=== PATIENT | male | born 1955 | race Caucasian/White ===

== ENCOUNTER 2019-05-24 20:25 | Inpatient (IN) | payer SELFPAY ==
[~2019-05-24 20:25] MED LIST: Iopamidol-370 76% 500 ML 1 ML ONE
[2019-05-24] MEDS ORDERED: Norepinephrine 8 MG/0.9% NS 250 ML ONE (20:43)
[2019-05-24 20:59] LABS: Hemoglobin 15.1 g/dL (14.0-18.0); Mean Corpuscular Hemoglobin 28.6 pg (27.0-31.0); Mean Corpuscular Volume 89.3 fL (78.0-98.0); Mean Platelet Volume 9.3 fL (7.4-10.4); Platelet Count 142 thou/uL (130-400); RBC Distribution Width 13.2 % (11.5-14.5); Red Blood Cell (RBC) Count 5.28 mill/uL (4.70-6.10)
--- NOTE | 2019-05-24 20:59 | RAD ---
PORTABLE CHEST ONE VIEW: 05/24/19 at 8:16 p.m. HISTORY: Respiratory failure. FINDINGS/IMPRESSION: There is an endotracheal tube with tip at the level of the clavicular heads. There is a nasogastric t ube which can be traced into the stomach. The heart is enlarged. No lobar consolidation, pneumothorac es, deepthi pulmonary edema or large effusions are seen. POS: OFF
[2019-05-24 21:03] LABS: INR-International Normal Ratio 1.3
[2019-05-24 21:15] LABS: Band 2 % (5-11); Lymphocytes 67 % (21-51); MDiff Complete? YES; Monocytes 4 % (0-10); Neutrophil 27 % (42-75); Platelet Morphology Comment Appears Adequate; RBC Morphology Normal
[2019-05-24 21:16] LABS: ALT (SGPT) 474 U/L (8-55); AST (SGOT) 227 U/L (5-34); Albumin 4.1 g/dL (3.4-4.8); Alkaline Phosphatase 66 U/L (40-110); Anion Gap 28 mmol/L (10-20); BUN (Urea Nitrogen) 21 mg/dL (8.4-25.7); Bilirubin, Total 0.5 mg/dL (0.2-1.2); CK (CPK) 107 U/L (30-200); Calc. Creatinine Clearance 0 mL/min (70-130); Calcium 8.7 mg/dL (7.8-10.44); Carbon Dioxide 16 mmol/L (23-31); Chloride 98 mmol/L (98-107); Estimated GFR-MDRD 33; Globulin 2.7 g/dL (2.4-3.5); Glucose 380 mg/dL (80-115); Magnesium 3.1 mg/dL (1.6-2.6); Potassium 3.4 mmol/L (3.5-5.1); Protein, Total 6.8 g/dL (5.8-8.1); Sodium 139 mmol/L (136-145)
[2019-05-24 21:24] LABS: Phosphorus 9.1 mg/dL (2.3-4.7)
[2019-05-24 21:33] LABS: Actual Bicarbonate (HCO3a) 15.7 mEq/L (22-28); Analyzer IN Cardio ER; Base Excess (BEa) -11.2 mEq/L (-2.0 to +3.0); CO2 Tension 38.5 mmHg (35.0-45.0); Calcium, Ionized 1.09 mmol/L (1.12-1.30); Carboxyhemoglobin (COHb) 0.6 gm% (0.0-3.0); Hemoglobin (Hb) 15.6 g/dL (14.0-18.0); O2 Tension (PaO2) 63.2 mmHg (> 80.0); Potassium - ABG Lab 4.55 mmol/L (3.70-5.30)
[2019-05-24 21:41] LABS: CKMB 3.5 ng/mL (0-6.6)
[2019-05-24 21:43] LABS: Bacteria/HPF 2+ HPF (None Seen); Bilirubin Negative (Negative); Blood, Urine 2+ (Negative); Clarity Extra Turbid (Clear); Glucose, Urine (Dipstick) Normal (Negative); Leukocyte 25 Leu/uL (Negative); Nitrite Negative (Negative); Protein, Urine (Dipstick) 100 mg/dL (Neg-Trace); Squamous Epithelial 0-3 HPF (0-3); Urobilinogen Normal mg/dL (Less than 2); WBC/HPF 21-50 HPF (0-3)
[2019-05-24] MEDS ORDERED: EPINEPHrine 1 MG, Admixture Fee 1 EACH in Dextrose 5% in Water 250 ML IVPB SCH (21:45)
[2019-05-24 21:47] LABS: Sperm/HPF 4+ HPF (None Seen)
[2019-05-24 21:48] LABS: Renal Epithelial 0-3 HPF (None Seen)
[2019-05-24 21:49] LABS: Puncture Site RRA; pH, Arterial 7.23 (7.35-7.45)
[2019-05-24 21:50] LABS: ALV-art Gradient 601.675 (0-20)
--- NOTE | 2019-05-24 22:16 | CT ---
CT BRAIN WITHOUT CONTRAST: HISTORY: Syncope. Cardiac arrest FINDINGS: No evidence of acute infarct, hemorrhage, midline shift or abnormal extra-axial fluid collections is seen. There are changes of chronic small vessel ischemic disease, old infarction in the left medial temporal lobe and old lacunar infarction in the left basal ganglia. The ventricular size is appropria te and the basilar cisterns are patent. The bony calvarium is intact. There is mucosal disease in the paranasal sinuses. IMPRESSION: No CT evidence of acute intracranial process.
--- NOTE | 2019-05-24 22:29 | CT ---
CT PULMONARY ANGIOGRAM WITH IV CONTRAST AND 3D POSTPROCESSIN05/24/19 HISTORY: Dyspnea, cardiac arrest, respiratory failure. FINDINGS: There is good contrast opacification of the pulmonary arterial vasculature without filling defects to suggest pulmonary embolism. There are vascular calcifications without evidence of dilatation of the thoracic aorta. There are patchy infiltrates in the right upper lobe and the left lower lobe. Mild in filtrates are also seen in the right lower lobe. No pleural or pericardial effusions are seen. Endotr acheal and nasogastric tube are present. There are degenerative changes in the spine. Upper abdominal tomograms demonstrate calcified granulomas in the spleen. IMPRESSION: No CT evidence of pulmonary embolism. POS: OFF
[2019-05-24] MEDS ORDERED: Cefepime 2 GM VIAL ONE (22:46)
[2019-05-24 23:53] LABS: Lactic Acid 7.4 mmol/L (0.5-2.2)
[2019-05-25 00:05] LABS: Troponin I 2.871 ng/mL (< 0.028)
[2019-05-25] MEDS ORDERED: Fentanyl BOLUS 250 ML IVPB PRN (00:11)
[2019-05-25] MEDS ORDERED: fentaNYL Citrate/PF 2,000 MCG in Sodium Chloride 0.9% 60 ML IV SCH (00:11)
[2019-05-25] MEDS ORDERED: Lorazepam 2 MG/ML VIAL SLOW IVP PRN (00:11)
[2019-05-25] MEDS ORDERED: Propofol BOLUS 1,000 MG/100 ML VIAL IV PRN (00:11)
[2019-05-25] MEDS ORDERED: Morphine 2 MG/ML SYRINGE SLOW IVP PRN (00:11)
[2019-05-25] MEDS ORDERED: DISCONTINUE PREVIOUS NARCOTIC PAIN MEDICATIONS AND BENZODIAZEPINES FS SCH (00:11)
[2019-05-25] MEDS ORDERED: Ondansetron ODT 4 MG TAB SL PRN (00:12)
[2019-05-25] MEDS ORDERED: Norepinephrine 8 MG/0.9% NS 250 ML IVPB SCH (00:12)
[2019-05-25] MEDS ORDERED: Ondansetron PF 4 MG/2 ML Vial IVP PRN (00:12)
--- NOTE | 2019-05-25 00:16 | PDOC.EVN ---
Event Note - Event Note Event Note: HP dictated
[2019-05-25] MEDS ORDERED: Sterile Water 10 ML VIAL IVP PRN (00:18)
[2019-05-25] MEDS ORDERED: Sodium Chloride 0.9% 15 ML NEB ONE (00:52)
[2019-05-25] MEDS ORDERED: Sodium Chloride For Inhalation 0.9% 3 ML NEB ONE (00:54)
[2019-05-25 01:03] LABS: #Basophils 0.5 thou/uL (0.0-0.2); #Eosinphils 0.2 thou/uL (0.0-0.7); #Lymphocytes 13.6 thou/uL (1.20-3.40); #Monocytes 2.6 thou/uL (0.11-0.59); #Neutrophils 20.2 thou/uL (1.40-6.50); %Basophils 1.3 % (0.0-1.0); %Eosinophils 0.6 % (0.0-10.0); %Lymphocytes 36.6 % (21.0-51.0); %Monocytes 6.9 % (0.0-10.0); %Neutrophils 54.7 % (42.0-75.0); Hemoglobin 15.9 g/dL (14.0-18.0); Mean Corpuscular HGB CONC 33.1 g/dL (32.0-36.0); Mean Corpuscular Hemoglobin 28.8 pg (27.0-31.0); Mean Corpuscular Volume 87.1 fL (78.0-98.0); Mean Platelet Volume 8.7 fL (7.4-10.4); Platelet Count 191 thou/uL (130-400); RBC Distribution Width 13.2 % (11.5-14.5); Red Blood Cell (RBC) Count 5.51 mill/uL (4.70-6.10)
[2019-05-25 01:17] LABS: INR-International Normal Ratio 1.2
[2019-05-25 01:33] LABS: Anion Gap 20 mmol/L (10-20); BUN (Urea Nitrogen) 26 mg/dL (8.4-25.7); Calc. Creatinine Clearance 55 mL/min (70-130); Calcium 8.5 mg/dL (7.8-10.44); Carbon Dioxide 19 mmol/L (23-31); Chloride 102 mmol/L (98-107); Estimated GFR-MDRD 32; Glucose 312 mg/dL (80-115); Magnesium 2.5 mg/dL (1.6-2.6); Phosphorus 3.6 mg/dL (2.3-4.7); Potassium 3.6 mmol/L (3.5-5.1); Sodium 137 mmol/L (136-145)
[2019-05-25 01:34] LABS: CKMB 89.2 ng/mL (0-6.6)
[2019-05-25] MEDS: Sodium Chloride 0.9% 1,000 ML IV SCH ×2 (01:58→10:42)
[2019-05-25 03:04] LABS: Troponin I 5.803 ng/mL (< 0.028)
--- NOTE | 2019-05-25 03:26 | HP ---
CHIEF COMPLAINT: Cardiac arrest with return of spontaneous circulation. HISTORY OF PRESENT ILLNESS: Mr. Andujar is a 64-year-old male with past medical history of coronary artery disease?, cardiac stent present, was brought to the emergency room by EMS after cardiac arrest. As per EMS report, the patient's witnessed cardiac arrest while at home, states that the patient appeared weak and then collapsed. Upon EMS arrival, chest compressions were started with agonal respirations noted on scene. 12-lead connection noticed ventricular fibrillation were EMS then proceed to shock the patient, established IO access, to the left shoulder and administered epinephrine with amiodarone drip. EMS reported a total of 5 shocks en route with 3 total epinephrine rounds. EMS reported that they noted cardiac pulse after four shocks which he has continued since arrival. In the emergency room, the patient was hypotensive. Started on Levophed and epinephrine, also the patient continued on amiodarone drip. The right femoral IV catheter was placed. The patient started on hypothermia protocol. ED physician workup, the patient had elevated troponin, EKG was reviewed and case was reviewed with towel rolling machine operator. No emergent catheterization as per towel rolling machine operator. The patient is being admitted to intensive care unit for further management. PAST MEDICAL HISTORY: Coronary artery disease, other past medical history is not available at this time. PAST SURGICAL HISTORY: Cardiac stent. Other surgical history is not available at this time. SOCIAL HISTORY: Unknown at this time. ALLERGIES: UNKNOWN AT THIS TIME. HOME MEDICATIONS: Unknown at this time. REVIEW OF SYSTEMS: Unable to obtain. FAMILY HISTORY: Unknown at this time. PHYSICAL EXAMINATION: GENERAL: The patient is intubated, unresponsive, on mechanical ventilator. VITAL SIGNS: On vasopressors. Blood pressure is 110/60, heart rate is 73, respiratory rate is 28, temperature . HEAD AND NECK: Normocephalic, atraumatic. NECK: Supple. No JVD. CHEST: Fair. Bilateral air entry heart S1, S2. Regular. ABDOMEN: Soft study on physical exam GENERAL: Patient is intubated, unresponsive on ventilator. HEAD AND NECK: Normocephalic, atraumatic. NECK: Supple. No JVD. CHEST: Fair. Bilateral air entry. HEART: S1, S2. Regular. ABDOMEN: Soft. Bowel sounds present. NEURO: Intubated. Unable to assess. Unresponsive. PSYCH: Unable to assess. EXTREMITIES: No clubbing or cyanosis. MUSCULOSKELETAL: No joint deformity apparent. IMAGING STUDIES: A 12-lead EKG showed junctional rhythm, rate of 64 with unifocal premature complexes, nonspecific intraventricular conduction delay, ST depression, lateral leads, T-waves, flattened, nonspecific EKG. Head CT without contrast was negative. Chest CT, no CT evidence of pulmonary embolism. LABORATORY DATA: WBC count is 29,000; hemoglobin 15; and platelets 142. INR is 1.3. Sodium 139, potassium 3.4, BUN is 21, creatinine 2.0. Lactic acid 12.9. Troponin 0.79. Repeat troponin 2.8. ASSESSMENT AND PLAN: 1. Cardiac arrest with return of spontaneous circulation. 2. Acute respiratory failure. 3. Acute myocardial infarction? [id number] myocardial infarction? 4. History of coronary artery disease. 5. Lactic acidosis. 6. Acute renal failure. 7. Diabetes mellitus, hyperglycemia? PLAN: 1. Admit to ICU. 2. Continue full ventilator support. 3. Hypothermia protocol as per the ED physician and rotary drier. 4. 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 No need for emergency heart catheterization at this time. 5. GI and DVT prophylaxis as appropriate. 6. The patient condition is critical. 7. Expected length of stay 3 midnights or more. Job ID: [id number]
[2019-05-25] MEDS ORDERED: Dextrose 50% Abboject 50 ML SYRINGE IVP PRN (03:49)
[2019-05-25] MEDS ORDERED: Dextrose 5% in Water 1,000 ML IV PRN (03:49)
[2019-05-25] MEDS: HumaLOG 300 UNITS/3 ML VIAL SC PRN ×4 (03:59→17:05)
[2019-05-25] MEDS: Amiodarone 450 MG, Admixture Fee 1 EACH in Dextrose 5% in Water 250 ML IVPB SCH ×2 (04:13→20:34)
[2019-05-25] MEDS: Propofol 1,000 MG/100 ML VIAL IV PRN ×2 (05:56→19:29)
[2019-05-25] MEDS ORDERED: Bacteriostatic Normal Saline 30 ML VIAL ONE ×2 (06:20→19:24)
[2019-05-25] MEDS: Vecuronium 10 MG VIAL IV PRN ×2 (06:24→12:56)
[2019-05-25 06:35] LABS: INR-International Normal Ratio 1.2; PTT 28.4 SEC (22.9-36.1)
[2019-05-25 06:36] LABS: Actual Bicarbonate (HCO3a) 15.7 mEq/L (22-28); Base Excess (BEa) -16.2 mEq/L (-2.0 to +3.0); Calcium, Ionized 1.15 mmol/L (1.12-1.30); Carboxyhemoglobin (COHb) 0.6 gm% (0.0-3.0); Hemoglobin (Hb) 17.8 g/dL (14.0-18.0); Potassium - ABG Lab 3.19 mmol/L (3.70-5.30)
[2019-05-25 06:44] LABS: Band 11 % (5-11); Hemoglobin 17.2 g/dL (14.0-18.0); Lymphocytes 35 % (21-51); MDiff Complete? YES; Mean Corpuscular HGB CONC 32.2 g/dL (32.0-36.0); Mean Corpuscular Hemoglobin 28.5 pg (27.0-31.0); Mean Corpuscular Volume 88.3 fL (78.0-98.0); Mean Platelet Volume 8.7 fL (7.4-10.4); Monocytes 1 % (0-10); Neutrophil 53 % (42-75); Platelet Count 199 thou/uL (130-400); Platelet Morphology Comment Appears Adequate; RBC Distribution Width 13.3 % (11.5-14.5); RBC Morphology Normal; Red Blood Cell (RBC) Count 6.03 mill/uL (4.70-6.10); White Blood Cell (WBC) Count 39.7 thou/uL (4.8-10.8)
[2019-05-25 06:45] LABS: pH, Arterial 7.02 (7.35-7.45)
[2019-05-25 06:46] LABS: CO2 Tension 61.8 mmHg (35.0-45.0); O2 Tension (PaO2) 56.4 mmHg (> 80.0); Puncture Site LRA
[2019-05-25 06:52] LABS: Anion Gap 22 mmol/L (10-20); BUN (Urea Nitrogen) 26 mg/dL (8.4-25.7); Calc. Creatinine Clearance 53 mL/min (70-130); Carbon Dioxide 18 mmol/L (23-31); Chloride 102 mmol/L (98-107); Estimated GFR-MDRD 31; Glucose 335 mg/dL (80-115); Magnesium 2.5 mg/dL (1.6-2.6); Phosphorus 6.2 mg/dL (2.3-4.7); Potassium 3.9 mmol/L (3.5-5.1); Sodium 138 mmol/L (136-145)
[2019-05-25 06:58] LABS: CKMB 183.2 ng/mL (0-6.6)
[2019-05-25 07:57] LABS: Actual Bicarbonate (HCO3a) 13.7 mEq/L (22-28); Base Excess (BEa) -13.2 mEq/L (-2.0 to +3.0); CO2 Tension 35.6 mmHg (35.0-45.0); Calcium, Ionized 1.11 mmol/L (1.12-1.30); Carboxyhemoglobin (COHb) 0.6 gm% (0.0-3.0); Hemoglobin (Hb) 17.9 g/dL (14.0-18.0); O2 Tension (PaO2) 75.4 mmHg (> 80.0); Potassium - ABG Lab 3.07 mmol/L (3.70-5.30)
[2019-05-25 07:58] LABS: Puncture Site RRA
[2019-05-25] MEDS: Sodium Bicarb 50 MEQ/50 ML VIAL ONE ×2 (08:23→08:24)
[2019-05-25 08:46] LABS: Troponin I 9.671 ng/mL (< 0.028)
--- NOTE | 2019-05-25 09:08 | CON ---
DATE OF CONSULTATION: HISTORY OF PRESENT ILLNESS: Percy Andujar is a 64-year-old gentleman who was brought to the ER following a cardiopulmonary arrest at home at about seven o'clock as per his . He went to the bathroom, felt poorly, came back in the living room where he felt extremely poorly, thought he was going to . He fell on the floor, started CPR and 911 was called in. He was apparently in VFib. EMS shocked him, gave him epinephrine and amiodarone, five shocks apparently, 3 rounds of epinephrine, intubated en route. Blood pressure was 84/56. Rhythm was ventricular fibrillation. I spoke to his at length. 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 He has never smoked and does not drink. Up until recently, he was relatively active. She tells me that he has not been active because of inguinal hernia, that is bothering him. PAST MEDICAL HISTORY: Pertinent for multiple cardiac stents, carotid disease. No history of diabetes, hypertension. HOME MEDICINES: 1. Lasix 80 two a day. 2. Metoprolol 25. 3. Plavix 75. PAST SURGICAL HISTORY: None recently except for the stent. 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 ALLERGIES: NONE. NO ALCOHOL OR TOBACCO. REVIEW OF SYSTEMS: Unobtainable. PHYSICAL EXAMINATION: VITAL SIGNS: The patient is intubated in the vent. He is on hypothermia protocol. Pulse is 70, blood pressure 117/59, sats 100%, respirations set at 25. HEENT: Pupils are equal. CHEST: Decreased breath sounds. No wheezing. Rhonchi, crackles bilaterally. CARDIAC: Sinus tach. ABDOMEN: Soft. LABORATORY DATA: PO2 is 75, pCO2 . He is on a low PEEP of 14, high PEEP of 34, 100% FiO2. His white count is elevated at 39,000, H and H . Renal functions, creatinine is 2.18, BUN 26. IMPRESSION: 1. Coronary artery disease, witnessed cardiac arrest, ventricular fibrillation. 2. Renal failure. 3. Diabetes. 4. Probably aspiration pneumonia. X-ray shows extensive right-sided infiltrate. 5. Possibly anoxic injury. PLAN: At this stage, bicarb was initiated, broad-spectrum antibiotics, steroids, supportive care. He is on amiodarone for his VFib, input from Cardiology. Reassess once the hypothermia protocol has been discontinued. Prognosis remains guarded. This is a 45-minute critical time. Job ID: [id number]
[2019-05-25] MEDS: Cefepime 1 GM in Sodium Chloride 0.9% 100 ML IVPB SCH ×2 (09:13→20:34)
[2019-05-25] MEDS: Aspirin 300 MG Suppository PR SCH (09:14)
[2019-05-25] MEDS: Sodium Bicarbonate 100 MEQ in Sodium Chloride 0.45% 1,000 ML IV SCH ×2 (09:15→20:33)
[2019-05-25 09:55] LABS: Actual Bicarbonate (HCO3a) 16.7 mEq/L (22-28); Base Excess (BEa) -8.9 mEq/L (-2.0 to +3.0); CO2 Tension 35.7 mmHg (35.0-45.0); Calcium, Ionized 1.07 mmol/L (1.12-1.30); Hemoglobin (Hb) 17.3 g/dL (14.0-18.0); O2 Tension (PaO2) 125.7 mmHg (> 80.0); Potassium - ABG Lab 2.97 mmol/L (3.70-5.30); pH, Arterial 7.29 (7.35-7.45)
[2019-05-25 09:56] LABS: ALV-art Gradient 400.075 (0-20); Puncture Site LRA
--- NOTE | 2019-05-25 10:47 | RAD ---
PORTABLE CHEST: HISTORY: Respiratory distress. COMPARISON: Prior day's exam. FINDINGS: Endotracheal and NG Tubes are in satisfactory position. Heart size is within normal limits. There h as been a significant change in the appearance of the chest with prominent alveolar opacity now devel oping in the right mid and lower lung zones. There is some increased retrocardiac density which appe ars similar to the prior examination. IMPRESSION: Significant change in appearance of chest now with fairly dense alveolar lung changes of the right up per and lower lung zones which were not present on the prior day's study. POS: [facility]
[2019-05-25 12:31] LABS: Hemoglobin 16.9 g/dL (14.0-18.0); Mean Corpuscular HGB CONC 32.7 g/dL (32.0-36.0); Mean Corpuscular Hemoglobin 28.5 pg (27.0-31.0); Mean Platelet Volume 8.8 fL (7.4-10.4); Platelet Count 126 thou/uL (130-400); RBC Distribution Width 13.3 % (11.5-14.5); Red Blood Cell (RBC) Count 5.92 mill/uL (4.70-6.10); White Blood Cell (WBC) Count 10.8 thou/uL (4.8-10.8)
[2019-05-25 12:33] LABS: INR-International Normal Ratio 1.2; PTT 26.6 SEC (22.9-36.1); Prothrombin Time 15.1 SEC (12.0-14.7)
[2019-05-25 12:44] LABS: Band 18 % (5-11); Lymphocytes 46 % (21-51); MDiff Complete? YES; Metamyelocyte 2 % (0-0); Myelocyte 1 % (0-0); Neutrophil 28 % (42-75); Platelet Morphology Comment Appears Decreased; RBC Morphology Normal; Reactive Lymphocytes 5 % (0-10)
[2019-05-25] MEDS: fentaNYL Citrate/PF 2,000 MCG in Sodium Chloride 0.9% 60 ML IV SCH (12:49)
[2019-05-25 12:57] LABS: CKMB 260.8 ng/mL (0-6.6)
[2019-05-25 12:58] LABS: Anion Gap 20 mmol/L (10-20); BUN (Urea Nitrogen) 27 mg/dL (8.4-25.7); Calc. Creatinine Clearance 61 mL/min (70-130); Calcium 7.9 mg/dL (7.8-10.44); Carbon Dioxide 20 mmol/L (23-31); Chloride 104 mmol/L (98-107); Estimated GFR-MDRD 36; Glucose 212 mg/dL (80-115); Phosphorus 2.8 mg/dL (2.3-4.7); Potassium 3.1 mmol/L (3.5-5.1); Sodium 141 mmol/L (136-145)
[2019-05-25] MEDS ORDERED: Vecuronium 10 MG VIAL IV PRN (12:58)
[2019-05-25 13:42] LABS: Phosphorus 3.3 mg/dL (2.3-4.7)
--- NOTE | 2019-05-25 14:19 | CON ---
DATE OF CONSULTATION: 05/25/2019 TOTAL CRITICAL CARE TIME: 40 minutes. HISTORY OF PRESENT ILLNESS: Mr. Andujar is an unfortunate 64-year-old gentleman with history of CAD, status post stent placement, who recently was seen and evaluated by his wire twisting machine operator, Dr. Bakari Bray. His states he was not feeling well yesterday. He was having jaw discomfort in addition to pain from his hiatal hernia. He did have a syncopal episode. He lost his pulse and stopped breathing. CPR was started. EMS was summoned. From Dr. Raphael, it appears he had a CPR for up to 20 minutes before return of spontaneous circulation. He was initially in ventricular fibrillation. PAST MEDICAL HISTORY: OH, CAD, status post stent placement, carotid disease. MEDICATIONS: 1. Lasix. 2. Metoprolol. 3. Plavix. PAST SURGICAL HISTORY: None. ALLERGIES: NONE. SOCIAL HISTORY: No current tobacco or alcohol use. REVIEW OF SYSTEMS: Unobtainable. He is currently intubated and sedated. PHYSICAL EXAMINATION: GENERAL: He is currently intubated and sedated on a hypothermia protocol. VITAL SIGNS: Blood pressure 137/100, pulse 94, temperature afebrile. NEUROLOGIC: The patient is alert and oriented x3 with no focal neurologic deficits. HEENT: Sclerae without icterus. Mouth has moist mucous membranes with normal pallor. NECK: No JVD. Carotid upstroke brisk. No bruits bilaterally. LUNGS: Clear to auscultation with unlabored respirations. BACK: No scoliosis or kyphosis. CARDIAC: Regular rate and rhythm with normal S1 and S2. No S3 or S4 noted. No significant rubs, murmurs, thrills, or gallops noted throughout the precordium. PMI is not displaced. There is no parasternal heave. ABDOMEN: Soft, nontender, nondistended. No peritoneal signs present. No hepatosplenomegaly. No abnormal striae. EXTREMITIES: 2+ femoral and 2+ dorsalis pedis pulses. No cyanosis, clubbing, or edema. SKIN: No gross abnormalities. PERTINENT LABORATORY DATA: Hemoglobin 16.9, hematocrit 51.6, platelet count 126. Initial troponin of 0.7, peak of 9.6 nine hours apart. Bedside EKG shows a nonspecific intraventricular conduction delay with nonspecific changes present. PVCs noted. IMPRESSION: 1. Out of hospital arrest. 2. Coronary artery disease. 3. Status post stent placement. RECOMMENDATIONS: Etiology to his current [place] is unknown. If this was a true primary myocardial infarction, would anticipate a much higher troponin level. His troponin may be related to recent CPR for 20 minutes. He is currently on hypothermia protocol and would agree. I had a long discussion with his . Given that he had no ST-T wave changes suggesting initial infarction, conservative therapy with ACLS and hypothermia protocol then ensued. At this point, would like to see if his neurologic status improves prior to proceeding with any further cardiac treatment intervention. Continue pressor support. Patient will start the warming protocol in 24 hours. Otherwise, all questions were answered. Job ID: [id number]
--- NOTE | 2019-05-25 17:20 | PDOC.HOSPP ---
- Subjective Encounter Date: 05/25/19 Encounter Time: 01:45 Subjective: pt is intubated, on hypothermia protocol. d/w RN. outside witnessed arrest. been updated. - Objective Vital Signs & Weight: Vital Signs (12 hours) Temp Pulse Resp 05/25/19 16:07 85 05/25/19 15:00 92.0 F L 05/25/19 14:00 92.4 F L 28 H 05/25/19 13:52 87 05/25/19 13:00 92.9 F L 05/25/19 12:00 93.0 F L 28 H 05/25/19 11:00 94.1 F L 05/25/19 10:09 88 05/25/19 10:00 93.2 F L 34 H 05/25/19 09:00 93.0 F L 05/25/19 08:29 92.9 F L 05/25/19 06:52 73 05/25/19 06:00 28 H Weight Admit Weight 241 lb 2.88 oz Weight 241 lb 2.88 oz Most Recent Monitor Data Heart Rate from ECG 76 NIBP 129/109 NIBP BP-Mean 115 Respiration from ECG 28 SpO2 100 I&O: 05/24/19 05/25/19 05/26/19 06:59 06:59 06:59 Intake Total 277.9 202 Output Total 610 442 Balance -332.1 -240 Result Diagrams: 05/25/19 12:15 05/25/19 12:15 Additional Labs: Accuchecks 05/25/19 05/25/19 05/25/19 11:14 05:52 04:02 POC Glucose 214 H 283 H 296 H Hospitalist ROS - Medication Medications: Active Medications Generic Name Dose Route Start Last Admin Trade Name Freq PRN Reason Stop Dose Admin Albuterol/Ipratropium 3 ml 05/25/19 13:00 05/25/19 13:54 Duoneb NEB 3 ml [id number] CANDACE Administration Aspirin 300 mg 05/25/19 09:00 05/25/19 09:14 Aspirin MI 300 mg DAILY CANDACE Administration Fentanyl Citrate 2,000 mcg/ 100 mls @ 0 mls/hr 05/24/19 21:08 05/25/19 12:49 Sodium Chloride IV 06/23/19 21:08 100 mls INF CANDACE Administration Protocol Per Protocol Amiodarone HCl 450 mg/ 259 mls @ 0 mls/hr 05/24/19 21:30 05/25/19 04:13 Miscellaneous Medication 1 IVPB 259 mls each/ Dextrose/Water INF CANDACE Administration Protocol As Directed Cefepime HCl 1 gm/ Sodium 100 mls @ 200 mls/hr 05/25/19 09:00 05/25/19 09:13 Chloride IVPB 100 mls Q12HR CANDACE Administration Levofloxacin 750 mg/ Device 150 mls @ 100 mls/hr 05/25/19 08:30 05/25/19 10: 35 IVPB 150 mls Q24HR CANDACE Administration Sodium Bicarbonate 100 meq/ 1,100 mls @ 100 mls/hr 05/25/19 09:00 05/25/19 09 :15 Sodium Chloride IV 1,100 mls .Q11H CANDACE Administration Insulin Human Lispro 0 units 05/25/19 08:53 05/25/19 17:05 Humalog SC 2 unit .MODERATE SLIDING SC PRN Administration MODERATE SLIDING SCALE Protocol Propofol 1,000 mg 05/25/19 00:11 05/25/19 05:56 Diprivan IV 06/24/19 00:11 1,000 mg INF PRN Administration TO ACHIEVE GOAL RASS Protocol Sodium Chloride 10 ml 05/25/19 09:00 05/25/19 08:25 Flush - Normal Saline IVF 10 ml Q12HR CANDACE Administration Sterile Water 10 ml 05/25/19 00:18 05/25/19 12:55 Water For Injection IVP 10 ml Q30MIN PRN Administration NEEDED FOR RECONSTITUTION - Exam General Appearance: ill appearing General - other findings: on vent ENT: normocephalic atraumatic Neck: supple Heart: RRR Respiratory: CTAB, normal chest expansion Gastrointestinal: soft, normal bowel sounds Neurological - other findings: not assessed as on vent Hosp A/P - Plan outside, witnessed cardiac arrest vfib on amio High trop d/t CPR outside not true infarct - on hypothermia protocol - will get routine EEG and neuro consult request. - stella, need 24 hr EEG monitoring required. -echo showed ef of 35%; hypokinesia in ant wall. -sedated. Acute resp failure 2/2/ arrest -intubated and sedated. -covered w.. cefepmime, LQ for aspiration Leukocytosis 2/2 above --trended down. -only urine nicole done. -will follow. Await neurological recovery. complete 72 hr hypothermia protocol. poor prognosis.
[2019-05-25 18:40] LABS: INR-International Normal Ratio 1.3; Prothrombin Time 16.3 SEC (12.0-14.7)
[2019-05-25 18:44] LABS: Hemoglobin 15.9 g/dL (14.0-18.0); Mean Corpuscular HGB CONC 32.8 g/dL (32.0-36.0); Mean Corpuscular Hemoglobin 28.3 pg (27.0-31.0); Mean Corpuscular Volume 86.3 fL (78.0-98.0); Mean Platelet Volume 8.6 fL (7.4-10.4); Platelet Count 89 thou/uL (130-400); RBC Distribution Width 13.2 % (11.5-14.5); Red Blood Cell (RBC) Count 5.62 mill/uL (4.70-6.10); White Blood Cell (WBC) Count 7.4 thou/uL (4.8-10.8)
[2019-05-25 18:55] LABS: Anion Gap 20 mmol/L (10-20); BUN (Urea Nitrogen) 27 mg/dL (8.4-25.7); Calc. Creatinine Clearance 65 mL/min (70-130); Calcium 7.7 mg/dL (7.8-10.44); Carbon Dioxide 22 mmol/L (23-31); Chloride 102 mmol/L (98-107); Estimated GFR-MDRD 39; Glucose 159 mg/dL (80-115); Magnesium 1.9 mg/dL (1.6-2.6); Potassium 3.6 mmol/L (3.5-5.1); Sodium 140 mmol/L (136-145)
[2019-05-25 19:19] LABS: #Basophils 0.1 thou/uL (0.0-0.2); #Lymphocytes 2.6 thou/uL (1.20-3.40); #Monocytes 0.3 thou/uL (0.11-0.59); #Neutrophils 4.3 thou/uL (1.40-6.50); %Basophils 0.8 % (0.0-1.0); %Lymphocytes 35.7 % (21.0-51.0); %Monocytes 4.6 % (0.0-10.0); %Neutrophils 58.9 % (42.0-75.0); Band 20 % (5-11); Lymphocytes 27 % (21-51); MDiff Complete? YES; Metamyelocyte 2 % (0-0); Monocytes 8 % (0-10); Neutrophil 42 % (42-75); Platelet Morphology Comment Appears Decreased; RBC Morphology Normal; Reactive Lymphocytes 1 % (0-10)
[2019-05-26] MEDS ORDERED: Acetaminophen 650 MG Suppository PR PRN (01:05)
[2019-05-26] MEDS: Norepinephrine 8 MG/0.9% NS 250 ML IVPB PRN ×2 (02:56→16:11)
[2019-05-26] MEDS: HumaLOG 300 UNITS/3 ML VIAL SC PRN (03:57)
[2019-05-26 04:26] LABS: Anion Gap 19 mmol/L (10-20); BUN (Urea Nitrogen) 33 mg/dL (8.4-25.7); Calc. Creatinine Clearance 57 mL/min (70-130); Calcium 7.7 mg/dL (7.8-10.44); Carbon Dioxide 23 mmol/L (23-31); Chloride 100 mmol/L (98-107); Estimated GFR-MDRD 33; Glucose 160 mg/dL (80-115); Sodium 138 mmol/L (136-145)
[2019-05-26 04:59] LABS: Band 22 % (5-11); Hemoglobin 14.1 g/dL (14.0-18.0); Lymphocytes 12 % (21-51); MDiff Complete? YES; Mean Corpuscular Hemoglobin 28.2 pg (27.0-31.0); Mean Corpuscular Volume 85.3 fL (78.0-98.0); Monocytes 6 % (0-10); Neutrophil 59 % (42-75); Platelet Count 135 thou/uL (130-400); Platelet Morphology Comment Appears Adequate; RBC Distribution Width 13.4 % (11.5-14.5); RBC Morphology Normal; Reactive Lymphocytes 1 % (0-10); Red Blood Cell (RBC) Count 5.02 mill/uL (4.70-6.10); White Blood Cell (WBC) Count 16.9 thou/uL (4.8-10.8)
--- NOTE | 2019-05-26 06:54 | PDOC.CPN ---
- Subjective Date: 05/26/19 Time: 13:53 Interval history: Pt is waking up off sedation. Following commands with nurse (restarted propafol ) - Objective Allergies/Adverse Reactions: Allergies Allergy/AdvReac Type Severity Reaction Status Date / Time No Known Drug Allergies Allergy Verified 05/25/19 01:07 Visit Medications: Current Medications Acetaminophen (Tylenol) 650 mg NM Q6H PRN PRN Reason: TO KEEP TEMP <37C/98.6F Last Admin: 05/26/19 01:17 Dose: 650 mg Albuterol/Ipratropium (Duoneb) 3 ml NEB [id number] CANDACE Last Admin: 05/25/19 23:38 Dose: 3 ml Aspirin (Aspirin) 300 mg NM DAILY CANDACE Last Admin: 05/25/19 09:14 Dose: 300 mg Dextrose/Water (Dextrose 50%) 25 gm IVP PRN PRN PRN Reason: HYPOGLYCEMIA PROTOCOL Glucagon (Glucagon) 1 mg IM PRN PRN PRN Reason: HYPOGLYCEMIA PROTOCOL Fentanyl Citrate 2,000 mcg/ (Sodium Chloride) 100 mls @ 0 mls/hr IV INF CANDACE; Protocol Stop: 06/23/19 21:08 Last Admin: 05/25/19 12:49 Dose: 100 mls Amiodarone HCl 450 mg/Miscellaneous Medication 1 each/ Dextrose/Water 259 mls @ 0 mls/hr IVPB INF CANDACE; Protocol Last Admin: 05/25/19 20:34 Dose: 259 mls Fentanyl Citrate (Fentanyl Bolus) 250 mls @ 0 mls/hr IVPB PRN PRN PRN Reason: Breakthrough pain/agitation Stop: 06/24/19 00:11 Dextrose/Water (D5w) 1,000 mls @ 0 mls/hr IV INF PRN PRN Reason: HYPOGLYCEMIA PROTOCOL Cefepime HCl 1 gm/ Sodium (Chloride) 100 mls @ 200 mls/hr IVPB Q12HR CANDACE Last Admin: 05/25/19 20:34 Dose: 100 mls Levofloxacin 750 mg/ Device 150 mls @ 100 mls/hr IVPB Q24HR CANDACE Last Admin: 05/25/19 10:35 Dose: 150 mls Sodium Bicarbonate 100 meq/ (Sodium Chloride) 1,100 mls @ 100 mls/hr IV .Q11H CANDACE Last Admin: 05/25/19 20:33 Dose: 1,100 mls Norepinephrine Bitartrate (Levophed) 250 mls @ 0 mls/hr IVPB INF PRN; Protocol PRN Reason: TO KEEP MAP > 65 Last Admin: 05/26/19 02:56 Dose: 250 mls Insulin Human Lispro (Humalog) 0 units SC .MODERATE SLIDING SC PRN; Protocol PRN Reason: MODERATE SLIDING SCALE Last Admin: 05/26/19 03:57 Dose: 2 unit Lorazepam (Ativan) 2 mg SLOW IVP Q1H PRN PRN Reason: Breakthrough agitation Stop: 06/24/19 00:11 Morphine Sulfate (Morphine) 2 mg SLOW IVP Q1H PRN PRN Reason: BREAKTHROUGH PAIN/Agitation Stop: 06/24/19 00:11 Discontinue Previous Narcotic Pain Medications And Benzodiazepines 1 each FS .ONE CANDACE Stop: 06/24/19 00:11 Propofol (Diprivan) 1,000 mg IV INF PRN; Protocol PRN Reason: TO ACHIEVE GOAL RASS Stop: 06/24/19 00:11 Last Admin: 05/25/19 19:29 Dose: 1,000 mg Propofol (Diprivan Bolus) 20 mg IV Q5MIN PRN PRN Reason: BREAKTHROUGH AGITATION Stop: 06/24/19 00:11 Sodium Chloride (Flush - Normal Saline) 10 ml IVF Q12HR CANDACE Last Admin: 05/25/19 20:34 Dose: 10 ml Sodium Chloride (Flush - Normal Saline) 10 ml IVF PRN PRN PRN Reason: Saline Flush Sterile Water (Water For Injection) 10 ml IVP Q30MIN PRN PRN Reason: NEEDED FOR RECONSTITUTION Last Admin: 05/25/19 12:55 Dose: 10 ml Vital Signs & Weight: Vital Signs Temp Pulse Resp BP Pulse Ox 05/26/19 06:00 100 F H 28 H 05/26/19 04:00 99.8 F H 28 H 05/26/19 03:00 100 F H 05/26/19 02:26 80 05/26/19 02:00 100 F H 28 H 05/26/19 01:00 99.1 F 05/26/19 00:48 98.6 F 83 28 H 05/26/19 00:00 98.6 F 28 H 05/25/19 23:39 74 83/60 L 05/25/19 23:00 97.5 F L 05/25/19 22:00 95.9 F L 28 H 05/25/19 20:00 28 H 100 05/25/19 19:53 78 05/25/19 19:50 100 05/25/19 19:00 95.1 F L Admit Weight 241 lb 2.88 oz Weight 232 lb 9.403 oz - Physical Exam General: no apparent distress Neck: supple neck, no masses, no bruit Cardiac: no murmur, regular rate Lungs: normal exam Abdomen: unremarkable Extremities: no edema - Labs Result Diagrams: 05/26/19 03:50 05/26/19 03:50 Troponin/CKMB CK-MB (CK-2) 358.0 ng/mL (0-6.6) H* 05/25/19 18:16 Troponin I 9.671 ng/mL (< 0.028) H* 05/25/19 07:50 - Assessment/Plan Assessment/Plan: Out of hopistal arrest CAD Kidney disease Status improved. Elevated troponin likely refects more of a dysrythmia as the cause vs primary VA but unknown Continue supportive care Conservative management until neurologically pt improves Once improved, recommend angio
[2019-05-26 07:37] LABS: Actual Bicarbonate (HCO3a) 21.3 mEq/L (22-28); Base Excess (BEa) 0.1 mEq/L (-2.0 to +3.0); Calcium, Ionized 0.94 mmol/L (1.12-1.30); Carboxyhemoglobin (COHb) 0.6 gm% (0.0-3.0); Hemoglobin (Hb) 14.3 g/dL (14.0-18.0); O2 Tension (PaO2) 225.9 mmHg (> 80.0); Potassium - ABG Lab 3.83 mmol/L (3.70-5.30); pH, Arterial 7.53 (7.35-7.45)
[2019-05-26 07:50] LABS: Puncture Site RRA
[2019-05-26] MEDS: Propofol 1,000 MG/100 ML VIAL IV PRN ×3 (08:23→19:44)
[2019-05-26] MEDS: Cefepime 1 GM in Sodium Chloride 0.9% 100 ML IVPB SCH ×2 (08:23→19:44)
[2019-05-26] MEDS: Sodium Bicarbonate 100 MEQ in Sodium Chloride 0.45% 1,000 ML IV SCH (08:23)
[2019-05-26] MEDS: Aspirin 300 MG Suppository PR SCH (08:24)
--- NOTE | 2019-05-26 09:10 | PRG ---
DATE OF SERVICE: 05/26/2019 SUBJECTIVE: A 64-year-old gentleman, intubated, on the vent, is sedated. OBJECTIVE: VITAL SIGNS: Pulse 78, saturations 90%, respiratory rate 18, and blood pressure is 92/46. He is slightly more responsive. His hypothermia protocol was discussed. . CHEST: Decreased breath sounds, minimal rhonchi. CARDIAC: Normal S1, S2. No gallops. LABORATORY [place]: [place] [address]. X-ray shows a right-sided infiltrate. PO2 of 225, pCO2 of 26%, on a bilevel. Creatinine is 2, glucose 162. ASSESSMENT: 1. Status post cardiopulmonary arrest. 2. Coronary artery disease. 3. Ventricular tachycardia. 4. Probably anoxic injury. 5. Azotemia. 6. Probably aspiration pneumonia. PLAN: 1. Continue broad-spectrum antibiotics. Start nutrition, PT. Medications being adjusted. 2. Restart weaning slowly. Prognosis remains guarded. One-half hour of critical time. Job ID: [id number]
--- NOTE | 2019-05-26 09:24 | RAD ---
PORTABLE CHEST: HISTORY: Respiratory distress. COMPARISON: Prior day's exam. FINDINGS: Endotracheal tube is in satisfactory position. NG tube is difficult to visualize distally. The consol idation in the right base is similar to the prior exam. There has been a definite improvement to some of the right mid and upper lung zone parenchymal changes. IMPRESSION: Improving right upper lobe consolidation. The right lower lobe and left lower lobe parenchymal change s are stable. POS: [facility]
[2019-05-26] MEDS: fentaNYL Citrate/PF 2,000 MCG in Sodium Chloride 0.9% 60 ML IV SCH (09:55)
[2019-05-26] MEDS: Sodium Chloride 0.9% 1,000 ML IV SCH (10:43)
--- NOTE | 2019-05-26 10:43 | CON ---
DATE OF CONSULTATION: 05/26/2019 CONSULTING PHYSICIAN: Hospitalist Service. IMPRESSION: Possible anoxic encephalopathy, although the patient appears to be improving and starting to follow commands. PLAN: Continue supportive care. HISTORY OF PRESENT ILLNESS: Mr. Andujar is a 64-year-old gentleman, who apparently had a cardiac arrest at home. His started CPR right away. EMS was called and he was brought in for ICU care. He has been intubated and had been on a propofol drip. Until today, he has not responded to the staff when the sedation was turned off. Earlier this morning, he awakened and was following commands appropriately. He is still intubated and remained quite lethargic this morning during my assessment. No seizure activity has been witnessed. He initially presented with a very high white count. Also, he has some renal insufficiency, but no other metabolic abnormalities other than mildly elevated blood glucoses. He is currently on amiodarone drip along with propofol. His CT scan of the brain was unremarkable. His echocardiogram showed ejection fraction of 30% to 35%. PAST MEDICAL HISTORY: As listed above. ALLERGIES: NONE REPORTED. SOCIAL HISTORY: Unknown. FAMILY HISTORY: Unknown. REVIEW OF SYSTEMS: Not obtainable. PHYSICAL EXAMINATION: GENERAL: He is a well-nourished middle-aged man, who appears a bit older than his stated age. VITAL SIGNS: Blood pressure 90/56, pulse 82 and a sinus rhythm, and saturations 95%. HEENT: Pupils are pinpoint, but symmetric. Conjunctivae are clear. He is orally intubated. Cranium, normocephalic and atraumatic. NECK: Appeared supple. EXTREMITIES: There is some peripheral edema present. There is marked scrotal edema present. NEUROLOGIC: I could get him to open his eyes to stimulation, but he was not able to follow commands at this point. His tone appears symmetric. His response to stimulation appears to be symmetric. No abnormal movements were seen. SUMMARY: This is a 64-year-old man, who had cardiac arrest at home. He appears to be improving neurologically and to continue supportive measures. Job ID: [id number]
[2019-05-26] MEDS: Amiodarone 450 MG, Admixture Fee 1 EACH in Dextrose 5% in Water 250 ML IVPB SCH (14:22)
--- NOTE | 2019-05-26 14:27 | PDOC.HOSPP ---
- Subjective Encounter Date: 05/26/19 Encounter Time: 10:10 Subjective: Hemodymnamiccaly better, irne output at 30ml/hr roughly, following commands, requires 2 sedatives; vasopressor, PEEP of 5; TF starting today. off HCO3 gtt. NS at 50ml/hr. will cancel EEG study. - Objective Vital Signs & Weight: Vital Signs (12 hours) Temp Pulse Resp Pulse Ox 05/26/19 13:07 79 05/26/19 12:00 99.3 F 14 05/26/19 10:19 77 05/26/19 10:00 21 H 05/26/19 08:03 74 05/26/19 08:00 100.1 F H 17 94 L 05/26/19 06:00 100 F H 28 H 05/26/19 04:00 99.8 F H 28 H 05/26/19 03:00 100 F H 05/26/19 02:26 80 Weight Admit Weight 241 lb 2.88 oz Weight 232 lb 9.403 oz Most Recent Monitor Data Heart Rate from ECG 74 NIBP 94/52 NIBP BP-Mean 66 Respiration from ECG 19 SpO2 97 I&O: 05/25/19 05/26/19 05/27/19 06:59 06:59 06:59 Intake Total 277.9 3148.8 Output Total 610 1029 215 Balance -332.1 2119.8 -215 Result Diagrams: 05/26/19 03:50 05/26/19 03:50 Additional Labs: Accuchecks 05/26/19 05/26/19 05/26/19 12:07 08:42 03:56 POC Glucose 107 136 H 162 H 05/26/19 05/25/19 05/25/19 00:00 21:18 16:52 POC Glucose 132 H 136 H 169 H Hospitalist ROS - Medication Medications: Active Medications Generic Name Dose Route Start Last Admin Trade Name Freq PRN Reason Stop Dose Admin Acetaminophen 650 mg 05/26/19 01:05 05/26/19 01:17 Tylenol ND 650 mg Q6H PRN Administration TO KEEP TEMP <37C/98.6F Albuterol/Ipratropium 3 ml 05/25/19 13:00 05/26/19 13:07 Duoneb NEB 3 ml [id number] CANDACE Administration Aspirin 300 mg 05/25/19 09:00 05/26/19 08:24 Aspirin ND 300 mg DAILY CANDACE Administration Fentanyl Citrate 2,000 mcg/ 100 mls @ 0 mls/hr 05/24/19 21:08 05/26/19 09:55 Sodium Chloride IV 06/23/19 21:08 100 mls INF CANDACE Administration Protocol Per Protocol Amiodarone HCl 450 mg/ 259 mls @ 0 mls/hr 05/24/19 21:30 05/26/19 14:22 Miscellaneous Medication 1 IVPB 259 mls each/ Dextrose/Water INF CANDACE Administration Protocol As Directed Cefepime HCl 1 gm/ Sodium 100 mls @ 200 mls/hr 05/25/19 09:00 05/26/19 08:23 Chloride IVPB 100 mls Q12HR CANDACE Administration Levofloxacin 750 mg/ Device 150 mls @ 100 mls/hr 05/25/19 08:30 05/26/19 08: 24 IVPB 150 mls Q24HR CANDACE Administration Norepinephrine Bitartrate 250 mls @ 0 mls/hr 05/26/19 01:06 05/26/19 02:56 Levophed IVPB 250 mls INF PRN Administration TO KEEP MAP > 65 Protocol Titrate Sodium Chloride 1,000 mls @ 50 mls/hr 05/26/19 10:15 05/26/19 10:43 Normal Saline 0.9% IV 1,000 mls .Q20H CANDACE Administration Insulin Human Lispro 0 units 05/25/19 08:53 05/26/19 03:57 Humalog SC 2 unit .MODERATE SLIDING SC PRN Administration MODERATE SLIDING SCALE Protocol Propofol 1,000 mg 05/25/19 00:11 05/26/19 08:23 Diprivan IV 06/24/19 00:11 1,000 mg INF PRN Administration TO ACHIEVE GOAL RASS Protocol Sodium Chloride 10 ml 05/25/19 09:00 05/26/19 08:24 Flush - Normal Saline IVF 10 ml Q12HR CANDACE Administration Sterile Water 10 ml 05/25/19 00:18 05/25/19 12:55 Water For Injection IVP 10 ml Q30MIN PRN Administration NEEDED FOR RECONSTITUTION - Exam General Appearance: ill appearing General - other findings: vent, 2 sedation, vasopressor Eye: PERRL ENT: normocephalic atraumatic Neck: supple, symmetric, no JVD Heart: RRR Respiratory: CTAB, rales Gastrointestinal: non-distended, normal bowel sounds Extremities: no cyanosis Neurological: no focal deficits, no new deficit Hosp A/P - Plan outside, witnessed cardiac arrest vfib on amio High trop d/t CPR outside not true infarct - on hypothermia protocol - will get routine EEG and neuro consult request. ------------> neurologically improved; cancel EEG -echo showed ef of 35%; hypokinesia in ant wall.----> plan for ischemic workup after HDynamic stability. -sedated - propofal, fentanyl -vasopressor/levophed Acute resp failure 2/2/ arrest -intubated and sedated. -covered w.. cefepmime, LQ for aspiration Leukocytosis 2/2 above --trended down. -only urine nicole done. -will follow. Await neurological recovery.--------------> following commands on complete 72 hr hypothermia protocol.
[2019-05-27] MEDS: Propofol 1,000 MG/100 ML VIAL IV PRN ×3 (01:46→20:24)
[2019-05-27] MEDS: Sodium Chloride 0.9% 1,000 ML IV SCH (01:49)
[2019-05-27] MEDS: Amiodarone 450 MG, Admixture Fee 1 EACH in Dextrose 5% in Water 250 ML IVPB SCH ×2 (02:50→21:22)
[2019-05-27 04:25] LABS: #Basophils 0.1 thou/uL (0.0-0.2); #Lymphocytes 3.1 thou/uL (1.20-3.40); #Monocytes 0.6 thou/uL (0.11-0.59); #Neutrophils 5.8 thou/uL (1.40-6.50); %Basophils 0.9 % (0.0-1.0); %Eosinophils 0.2 % (0.0-10.0); %Lymphocytes 32.4 % (21.0-51.0); %Monocytes 6.4 % (0.0-10.0); %Neutrophils 60.1 % (42.0-75.0); Hemoglobin 11.2 g/dL (14.0-18.0); Mean Corpuscular HGB CONC 32.3 g/dL (32.0-36.0); Mean Corpuscular Hemoglobin 27.6 pg (27.0-31.0); Mean Corpuscular Volume 85.5 fL (78.0-98.0); Mean Platelet Volume 8.8 fL (7.4-10.4); Platelet Count 84 thou/uL (130-400); Platelet Morphology Comment Appears Decreased; RBC Distribution Width 13.1 % (11.5-14.5); Red Blood Cell (RBC) Count 4.07 mill/uL (4.70-6.10); White Blood Cell (WBC) Count 9.6 thou/uL (4.8-10.8)
[2019-05-27 04:26] LABS: Anion Gap 13 mmol/L (10-20); BUN (Urea Nitrogen) 31 mg/dL (8.4-25.7); Calc. Creatinine Clearance 60 mL/min (70-130); Calcium 7.5 mg/dL (7.8-10.44); Carbon Dioxide 28 mmol/L (23-31); Chloride 101 mmol/L (98-107); Estimated GFR-MDRD 37; Glucose 133 mg/dL (80-115); Magnesium 1.9 mg/dL (1.6-2.6); Potassium 3.6 mmol/L (3.5-5.1); Sodium 138 mmol/L (136-145)
[2019-05-27 07:08] LABS: Actual Bicarbonate (HCO3a) 25.4 mEq/L (22-28); Base Excess (BEa) 0.5 mEq/L (-2.0 to +3.0); CO2 Tension 41.8 mmHg (35.0-45.0); Calcium, Ionized 1.03 mmol/L (1.12-1.30); Carboxyhemoglobin (COHb) 2.4 gm% (0.0-3.0); Hemoglobin (Hb) 11.4 g/dL (14.0-18.0); Potassium - ABG Lab 3.55 mmol/L (3.70-5.30)
[2019-05-27 07:10] LABS: Puncture Site LRA
--- NOTE | 2019-05-27 07:37 | PDOC.CPN ---
- Subjective Date: 05/27/19 Time: 07:36 Interval history: No complaints. Still intubated. - Review of Systems ROS unobtainable: due to endotracheal tube - Objective Allergies/Adverse Reactions: Allergies Allergy/AdvReac Type Severity Reaction Status Date / Time No Known Drug Allergies Allergy Verified 05/25/19 01:07 Visit Medications: Current Medications Acetaminophen (Tylenol) 650 mg MD Q6H PRN PRN Reason: TO KEEP TEMP <37C/98.6F Last Admin: 05/26/19 01:17 Dose: 650 mg Albuterol/Ipratropium (Duoneb) 3 ml NEB [id number] CANDACE Last Admin: 05/27/19 06:46 Dose: 3 ml Aspirin (Aspirin) 300 mg MD DAILY CANDACE Last Admin: 05/26/19 08:24 Dose: 300 mg Dextrose/Water (Dextrose 50%) 25 gm IVP PRN PRN PRN Reason: HYPOGLYCEMIA PROTOCOL Glucagon (Glucagon) 1 mg IM PRN PRN PRN Reason: HYPOGLYCEMIA PROTOCOL Fentanyl Citrate 2,000 mcg/ (Sodium Chloride) 100 mls @ 0 mls/hr IV INF CANDACE; Protocol Stop: 06/23/19 21:08 Last Admin: 05/26/19 09:55 Dose: 100 mls Amiodarone HCl 450 mg/Miscellaneous Medication 1 each/ Dextrose/Water 259 mls @ 0 mls/hr IVPB INF CANDACE; Protocol Last Admin: 05/27/19 02:50 Dose: 259 mls Fentanyl Citrate (Fentanyl Bolus) 250 mls @ 0 mls/hr IVPB PRN PRN PRN Reason: Breakthrough pain/agitation Stop: 06/24/19 00:11 Dextrose/Water (D5w) 1,000 mls @ 0 mls/hr IV INF PRN PRN Reason: HYPOGLYCEMIA PROTOCOL Cefepime HCl 1 gm/ Sodium (Chloride) 100 mls @ 200 mls/hr IVPB Q12HR CANDACE Last Admin: 05/26/19 19:44 Dose: 100 mls Levofloxacin 750 mg/ Device 150 mls @ 100 mls/hr IVPB Q24HR CANDACE Last Admin: 05/26/19 08:24 Dose: 150 mls Norepinephrine Bitartrate (Levophed) 250 mls @ 0 mls/hr IVPB INF PRN; Protocol PRN Reason: TO KEEP MAP > 65 Last Admin: 05/26/19 16:11 Dose: 250 mls Sodium Chloride (Normal Saline 0.9%) 1,000 mls @ 50 mls/hr IV .Q20H CANDACE Last Admin: 05/27/19 01:49 Dose: 1,000 mls Insulin Human Lispro (Humalog) 0 units SC .MODERATE SLIDING SC PRN; Protocol PRN Reason: MODERATE SLIDING SCALE Last Admin: 05/26/19 03:57 Dose: 2 unit Lorazepam (Ativan) 2 mg SLOW IVP Q1H PRN PRN Reason: Breakthrough agitation Stop: 06/24/19 00:11 Morphine Sulfate (Morphine) 2 mg SLOW IVP Q1H PRN PRN Reason: BREAKTHROUGH PAIN/Agitation Stop: 06/24/19 00:11 Discontinue Previous Narcotic Pain Medications And Benzodiazepines 1 each FS .ONE CANDACE Stop: 06/24/19 00:11 Propofol (Diprivan) 1,000 mg IV INF PRN; Protocol PRN Reason: TO ACHIEVE GOAL RASS Stop: 06/24/19 00:11 Last Admin: 05/27/19 01:46 Dose: 1,000 mg Propofol (Diprivan Bolus) 20 mg IV Q5MIN PRN PRN Reason: BREAKTHROUGH AGITATION Stop: 06/24/19 00:11 Sodium Chloride (Flush - Normal Saline) 10 ml IVF Q12HR CANDACE Last Admin: 05/26/19 19:45 Dose: 10 ml Sodium Chloride (Flush - Normal Saline) 10 ml IVF PRN PRN PRN Reason: Saline Flush Sterile Water (Water For Injection) 10 ml IVP Q30MIN PRN PRN Reason: NEEDED FOR RECONSTITUTION Last Admin: 05/25/19 12:55 Dose: 10 ml Vital Signs & Weight: Vital Signs Temp Pulse Resp BP Pulse Ox 05/27/19 06:00 16 05/27/19 04:19 82 97/55 L 05/27/19 04:00 20 05/27/19 02:00 99.0 F 18 05/27/19 01:23 76 05/27/19 00:00 16 05/26/19 22:00 98.7 F 16 05/26/19 20:00 18 92 L Admit Weight 241 lb 2.88 oz Weight 234 lb 2.095 oz - Physical Exam General: no apparent distress Neck: no masses, no bruit Cardiac: regular rate, regular rhythm Lungs: normal exam Neuro: grossly intact Abdomen: no masses Extremities: no clubbing, no edema - Labs Result Diagrams: 05/27/19 04:00 05/27/19 04:00 Troponin/CKMB CK-MB (CK-2) 358.0 ng/mL (0-6.6) H* 05/25/19 18:16 Troponin I 9.671 ng/mL (< 0.028) H* 05/25/19 07:50 - Assessment/Plan Assessment/Plan: Out of hospital arrest CAD Kidney disease Plan 05/27 slowly improving Creatinine also improving Recommend angio prior to DC Likely to also benefit from ICD depending on angio results plan 05/26 Status improved. Elevated troponin likely refects more of a dysrythmia as the cause vs primary PA but unknown Continue supportive care Conservative management until neurologically pt improves Once improved, recommend angio
--- NOTE | 2019-05-27 08:16 | PRG ---
DATE OF SERVICE: 05/27/2019 SUBJECTIVE: This morning, he is intubated on the vent, sedated. His echo showed an EF of 30% to 35%. X-ray shows rather large right-sided infiltrate. OBJECTIVE: VITAL SIGNS: His pulse is 82, blood pressure is 99/61, saturations are 90% on 30%, PEEP of 5, temperature is 99. GENERAL: His sedation was withheld. He opens his eyes. CHEST: Decreased breath sounds. Bilateral rhonchi. CARDIAC: Normal S1, S2. No gallops. ABDOMEN: No masses. LABORATORY DATA: PO2 is 56, pCO2 is 40%, pH 7.40, 30% FiO2, PEEP of 5. White count 9.6, H and H 11 and 34, platelet count is 84,000. ASSESSMENT AND PLAN: [id number] cardiac arrest, probably some anoxic injury with aspiration pneumonia, cardiomyopathy, coronary artery disease. I am going to hold sedation today. Continue broad-spectrum antibiotics. It is unclear if he is weanable today since he is still weak. We will continue aggressive PT. Start nutrition, if we can wean him off the ventilator. This is one-half hour of critical time. Job ID: [id number]
--- NOTE | 2019-05-27 08:39 | RAD ---
CHEST 1 VIEW PORTABLE: Date: 05/27/2019 HISTORY: Respiratory insufficiency. COMPARISON: 05/26/2019. FINDINGS: NG tube and endotracheal tubes remain in place. Bilateral alveolar opacity changes throughout both carl ngs, worse on the right side, involving most of the right lung and left lower lobe. Bilateral vascula r congestion. IMPRESSION: Stable bilateral alveolar opacity changes. Continue short-term follow-up. POS: OFF
[2019-05-27] MEDS: Aspirin 300 MG Suppository PR SCH (09:17)
[2019-05-27] MEDS: Acetaminophen 500 MG TAB PO PRN ×2 (09:18→21:14)
[2019-05-27] MEDS: Aspirin 325 MG TAB PO SCH (09:21)
[2019-05-27] MEDS: Pantoprazole 40 MG VIAL IVP SCH (09:56)
[2019-05-27] MEDS: Sodium Chloride 0.9% (PF) 10 ML VIAL FS PRN (09:56)
[2019-05-27] MEDS: Cefepime 1 GM in Sodium Chloride 0.9% 100 ML IVPB SCH ×2 (10:00→21:14)
--- NOTE | 2019-05-27 15:41 | PDOC.HOSPP ---
- Subjective Encounter Date: 05/27/19 Encounter Time: 12:10 Subjective: pt on soft restraints, febrile episode, still on levophed, off sedation, good urine output. TF started. - Objective Vital Signs & Weight: Vital Signs (12 hours) Temp Pulse Pulse Pulse Resp BP BP 05/27/19 13:49 87 05/27/19 12:00 100.0 F H 24 H 05/27/19 10:22 94 05/27/19 10:00 30 H 05/27/19 09:52 96 95 115/61 05/27/19 08:00 25 H 05/27/19 07:44 82 05/27/19 07:00 102.1 F H 05/27/19 06:00 16 05/27/19 04:19 82 97/55 L 05/27/19 04:00 20 BP Pulse Ox Pulse Ox Pulse Ox 05/27/19 13:49 05/27/19 12:00 05/27/19 10:22 05/27/19 10:00 05/27/19 09:52 114/62 92 L 92 L 05/27/19 08:00 94 L 05/27/19 07:44 05/27/19 07:00 05/27/19 06:00 05/27/19 04:19 05/27/19 04:00 Weight Admit Weight 241 lb 2.88 oz Weight 234 lb 2.095 oz Most Recent Monitor Data Heart Rate from ECG 96 NIBP 106/60 NIBP BP-Mean 75 Respiration from ECG 15 SpO2 92 I&O: 05/26/19 05/27/19 05/28/19 06:59 06:59 06:59 Intake Total 3148.8 2154.6 476 Output Total 1029 935 540 Balance 2119.8 1219.6 -64 Result Diagrams: 05/27/19 04:00 05/27/19 04:00 Additional Labs: Accuchecks 05/27/19 05/27/19 05/26/19 10:59 02:06 20:21 POC Glucose 131 H 128 H 139 H 05/26/19 16:00 POC Glucose 125 H Hospitalist ROS - Medication Medications: Active Medications Generic Name Dose Route Start Last Admin Trade Name Freq PRN Reason Stop Dose Admin Acetaminophen 650 mg 05/26/19 01:05 05/26/19 01:17 Tylenol WI 650 mg Q6H PRN Administration TO KEEP TEMP <37C/98.6F Acetaminophen 500 mg 05/27/19 08:46 05/27/19 09:18 Tylenol PO 500 mg Q6H PRN Administration Fever > 101 Albuterol/Ipratropium 3 ml 05/25/19 13:00 05/27/19 13:46 Duoneb NEB 3 ml [id number] CANDACE Administration Aspirin 325 mg 05/27/19 09:00 05/27/19 09:21 Aspirin PO 325 mg DAILY CANDACE Administration Fentanyl Citrate 2,000 mcg/ 100 mls @ 0 mls/hr 05/24/19 21:08 05/26/19 09:55 Sodium Chloride IV 06/23/19 21:08 100 mls INF CANDACE Administration Protocol Per Protocol Amiodarone HCl 450 mg/ 259 mls @ 0 mls/hr 05/24/19 21:30 05/27/19 02:50 Miscellaneous Medication 1 IVPB 259 mls each/ Dextrose/Water INF CANDACE Administration Protocol As Directed Cefepime HCl 1 gm/ Sodium 100 mls @ 200 mls/hr 05/25/19 09:00 05/27/19 10:00 Chloride IVPB 100 mls Q12HR CANDACE Administration Levofloxacin 750 mg/ Device 150 mls @ 100 mls/hr 05/25/19 08:30 05/27/19 10: 14 IVPB 150 mls Q24HR CANDACE Administration Norepinephrine Bitartrate 250 mls @ 0 mls/hr 05/26/19 01:06 05/26/19 16:11 Levophed IVPB 250 mls INF PRN Administration TO KEEP MAP > 65 Protocol Titrate Sodium Chloride 1,000 mls @ 50 mls/hr 05/26/19 10:15 05/27/19 01:49 Normal Saline 0.9% IV 1,000 mls .Q20H CANDACE Administration Insulin Human Lispro 0 units 05/25/19 08:53 05/26/19 03:57 Humalog SC 2 unit .MODERATE SLIDING SC PRN Administration MODERATE SLIDING SCALE Protocol Pantoprazole Sodium 40 mg 05/27/19 09:00 05/27/19 09:56 Protonix IVP 40 mg DAILY CANDACE Administration Propofol 1,000 mg 05/25/19 00:11 05/27/19 12:24 Diprivan IV 06/24/19 00:11 1,000 mg INF PRN Administration TO ACHIEVE GOAL RASS Protocol Sodium Chloride 10 ml 05/25/19 09:00 05/27/19 09:18 Flush - Normal Saline IVF 10 ml Q12HR CANDACE Administration Sodium Chloride 10 ml 05/27/19 08:27 05/27/19 09:56 Normal Saline Pf FS 10 ml PRN PRN Administration RECONSTITUTION Sterile Water 10 ml 05/25/19 00:18 05/25/19 12:55 Water For Injection IVP 10 ml Q30MIN PRN Administration NEEDED FOR RECONSTITUTION - Exam General Appearance: NAD, awake alert Eye: PERRL ENT: normocephalic atraumatic ENT - other findings: vent Neck: supple, symmetric Heart: RRR Respiratory: CTAB Gastrointestinal: soft, non-distended, normal bowel sounds Extremities: no cyanosis Skin: normal turgor Neurological: cranial nerve grossly intact, no focal deficits Hosp A/P - Plan outside, witnessed cardiac arrest vfib on amio High trop d/t CPR outside not true infarct - on hypothermia protocol - will get routine EEG and neuro consult request. ------------> neurologically improved; cancel EEG -echo showed ef of 35%; hypokinesia in ant wall.----> plan for ischemic workup after HDynamic stability. -sedated - propofal, fentanyl -vasopressor/levophed Acute resp failure 2/2/ arrest -intubated and sedated. -covered w.. cefepmime, LQ for aspiration Leukocytosis 2/2 above --trended down. -only urine nicole done. -will follow. Await neurological recovery.--------------> following commands on 9th complete 72 hr hypothermia protocol. 10th - pt is getting better; more alert today, did not require sedation - prob SBT trial in am febrile episode -cw broad spec abx. -blood cx of 7th - no growth - sputum nicole - GNR -CXR - b/l infilterate, R> L -cefepime, and LQ -Cr improving. -am labs
[2019-05-27 21:34] LABS: Lactic Acid 1.9 mmol/L (0.5-2.2)
[2019-05-28] MEDS: Norepinephrine 8 MG/0.9% NS 250 ML IVPB PRN (00:50)
[2019-05-28 06:01] LABS: Anion Gap 13 mmol/L (10-20); BUN (Urea Nitrogen) 29 mg/dL (8.4-25.7); Calc. Creatinine Clearance 64 mL/min (70-130); Calcium 8.2 mg/dL (7.8-10.44); Carbon Dioxide 27 mmol/L (23-31); Chloride 104 mmol/L (98-107); Estimated GFR-MDRD 39; Glucose 116 mg/dL (80-115); Magnesium 2.2 mg/dL (1.6-2.6); Potassium 4.1 mmol/L (3.5-5.1); Sodium 140 mmol/L (136-145)
[2019-05-28 06:21] LABS: Hemoglobin 11.4 g/dL (14.0-18.0); Mean Corpuscular HGB CONC 32.1 g/dL (32.0-36.0); Mean Corpuscular Hemoglobin 28.2 pg (27.0-31.0); Mean Corpuscular Volume 87.9 fL (78.0-98.0); Mean Platelet Volume 10.6 fL (7.4-10.4); Platelet Count 97 thou/uL (130-400); RBC Distribution Width 13.2 % (11.5-14.5); Red Blood Cell (RBC) Count 4.03 mill/uL (4.70-6.10); White Blood Cell (WBC) Count 15.1 thou/uL (4.8-10.8)
[2019-05-28] MEDS: Sodium Chloride 0.9% 1,000 ML IV SCH (06:34)
[2019-05-28 06:36] LABS: Band 5 % (5-11); Lymphocytes 44 % (21-51); MDiff Complete? YES; Monocytes 4 % (0-10); Neutrophil 47 % (42-75); Platelet Morphology Comment Appears Decreased
[2019-05-28 06:51] LABS: Actual Bicarbonate (HCO3a) 23.1 mEq/L (22-28); CO2 Tension 32.4 mmHg (35.0-45.0); Calcium, Ionized 1.12 mmol/L (1.12-1.30); Carboxyhemoglobin (COHb) 1.3 gm% (0.0-3.0); Hemoglobin (Hb) 11.8 g/dL (14.0-18.0); O2 Tension (PaO2) 62.2 mmHg (> 80.0); Potassium - ABG Lab 3.84 mmol/L (3.70-5.30); pH, Arterial 7.47 (7.35-7.45)
[2019-05-28 06:53] LABS: Puncture Site LRA
[2019-05-28] MEDS: Aspirin 325 MG TAB PO SCH (07:32)
[2019-05-28] MEDS: Acetaminophen 500 MG TAB PO PRN (07:32)
[2019-05-28] MEDS ORDERED: DC Sedation Protocol FS ONE (08:12)
[2019-05-28] MEDS ORDERED: Furosemide 40 MG/4 ML VIAL SLOW IVP SCH (08:15)
[2019-05-28] MEDS ORDERED: Sodium Chloride 0.9% 1,000 ML IV SCH (08:16)
--- NOTE | 2019-05-28 08:18 | PDOC.CPN ---
- Subjective Date: 05/28/19 Time: 14:00 Interval history: Extubated this am. Pt somnolent but awake - Objective Allergies/Adverse Reactions: Allergies Allergy/AdvReac Type Severity Reaction Status Date / Time No Known Drug Allergies Allergy Verified 05/25/19 01:07 Visit Medications: Current Medications Acetaminophen (Tylenol) 650 mg [place] Q6H PRN PRN Reason: TO KEEP TEMP <37C/98.6F Last Admin: 05/26/19 01:17 Dose: 650 mg Acetaminophen (Tylenol) 500 mg PO Q6H PRN PRN Reason: Fever > 101 Last Admin: 05/28/19 07:32 Dose: 500 mg Albuterol/Ipratropium (Duoneb) 3 ml NEB [id number] CANDACE Last Admin: 05/28/19 06:47 Dose: 3 ml Aspirin (Aspirin) 325 mg PO DAILY CANDACE Last Admin: 05/28/19 07:32 Dose: 325 mg Dextrose/Water (Dextrose 50%) 25 gm IVP PRN PRN PRN Reason: HYPOGLYCEMIA PROTOCOL Glucagon (Glucagon) 1 mg IM PRN PRN PRN Reason: HYPOGLYCEMIA PROTOCOL Fentanyl Citrate 2,000 mcg/ (Sodium Chloride) 100 mls @ 0 mls/hr IV INF CANDACE; Protocol Stop: 06/23/19 21:08 Last Admin: 05/26/19 09:55 Dose: 100 mls Amiodarone HCl 450 mg/Miscellaneous Medication 1 each/ Dextrose/Water 259 mls @ 0 mls/hr IVPB INF CANDACE; Protocol Last Admin: 05/27/19 21:22 Dose: 259 mls Fentanyl Citrate (Fentanyl Bolus) 250 mls @ 0 mls/hr IVPB PRN PRN PRN Reason: Breakthrough pain/agitation Stop: 06/24/19 00:11 Dextrose/Water (D5w) 1,000 mls @ 0 mls/hr IV INF PRN PRN Reason: HYPOGLYCEMIA PROTOCOL Cefepime HCl 1 gm/ Sodium (Chloride) 100 mls @ 200 mls/hr IVPB Q12HR CANDACE Last Admin: 05/27/19 21:14 Dose: 100 mls Levofloxacin 750 mg/ Device 150 mls @ 100 mls/hr IVPB Q24HR CANDACE Last Admin: 05/28/19 07:33 Dose: 150 mls Norepinephrine Bitartrate (Levophed) 250 mls @ 0 mls/hr IVPB INF PRN; Protocol PRN Reason: TO KEEP MAP > 65 Last Admin: 05/28/19 00:50 Dose: 250 mls Sodium Chloride (Normal Saline 0.9%) 1,000 mls @ 50 mls/hr IV .Q20H [facility] Last Admin: 05/28/19 06:34 Dose: Not Given Insulin Human Lispro (Humalog) 0 units SC .MODERATE SLIDING SC PRN; Protocol PRN Reason: MODERATE SLIDING SCALE Last Admin: 05/26/19 03:57 Dose: 2 unit Lorazepam (Ativan) 2 mg SLOW IVP Q1H PRN PRN Reason: Breakthrough agitation Stop: 06/24/19 00:11 Morphine Sulfate (Morphine) 2 mg SLOW IVP Q1H PRN PRN Reason: BREAKTHROUGH PAIN/Agitation Stop: 06/24/19 00:11 Last Admin: 05/27/19 20:23 Dose: 2 mg Discontinue Previous Narcotic Pain Medications And Benzodiazepines 1 each FS .ONE [facility] Stop: 06/24/19 00:11 Pantoprazole Sodium (Protonix) 40 mg IVP DAILY [facility] Last Admin: 05/27/19 09:56 Dose: 40 mg Propofol (Diprivan) 1,000 mg IV INF PRN; Protocol PRN Reason: TO ACHIEVE GOAL RASS Stop: 06/24/19 00:11 Last Admin: 05/27/19 20:24 Dose: 1,000 mg Propofol (Diprivan Bolus) 20 mg IV Q5MIN PRN PRN Reason: BREAKTHROUGH AGITATION Stop: 06/24/19 00:11 Sodium Chloride (Flush - Normal Saline) 10 ml IVF Q12HR [facility] Last Admin: 05/28/19 07:32 Dose: 10 ml Sodium Chloride (Flush - Normal Saline) 10 ml IVF PRN PRN PRN Reason: Saline Flush Sodium Chloride (Normal Saline Pf) 10 ml FS PRN PRN PRN Reason: RECONSTITUTION Last Admin: 05/27/19 09:56 Dose: 10 ml Sterile Water (Water For Injection) 10 ml IVP Q30MIN PRN PRN Reason: NEEDED FOR RECONSTITUTION Last Admin: 05/25/19 12:55 Dose: 10 ml Vital Signs & Weight: Vital Signs Temp Pulse Resp BP Pulse Ox 05/28/19 07:37 96 05/28/19 06:47 89 05/28/19 06:00 24 H 02/11/20 04:00 101.3 F H 26 H 05/28/19 02:00 27 H 05/28/19 00:00 100.3 F H 20 05/27/19 22:17 87 97/53 L 05/27/19 22:00 26 H Admit Weight 241 lb 2.88 oz Weight 223 lb 8.78 oz - Physical Exam General: no apparent distress HEENT: normocephaly Neck: midline trachea, no JVD/HJR, no bruit Cardiac: regular rate, regular rhythm Lungs: normal exam Neuro: grossly intact - Labs Result Diagrams: 05/28/19 04:10 05/28/19 04:10 Troponin/CKMB CK-MB (CK-2) 358.0 ng/mL (0-6.6) H* 05/25/19 18:16 Troponin I 9.671 ng/mL (< 0.028) H* 05/25/19 07:50 - Assessment/Plan Assessment/Plan: Out of hospital arrest CAD Kidney disease PLAN 05/28 No significant CV changes recommended Pt likely with aspiration pneumonia on Abx Needs angio +/- ICD prior to DC Abx Vent support Plan 05/27 slowly improving Creatinine also improving Recommend angio prior to DC Likely to also benefit from ICD depending on angio results plan 05/26 Status improved. Elevated troponin likely refects more of a dysrythmia as the cause vs primary MS but unknown Continue supportive care Conservative management until neurologically pt improves Once improved, recommend angio
[2019-05-28] MEDS: Sodium Chloride 0.9% (PF) 10 ML VIAL FS PRN (08:22)
[2019-05-28] MEDS: Pantoprazole 40 MG VIAL IVP SCH (08:22)
[2019-05-28] MEDS: Cefepime 1 GM in Sodium Chloride 0.9% 100 ML IVPB SCH ×2 (08:23→20:13)
[2019-05-28] MEDS: methylPREDNISolone Sod Succ 40 MG VIAL IVP SCH ×3 (08:24→20:13)
--- NOTE | 2019-05-28 08:34 | RAD ---
CHEST 1 VIEW PORTABLE: HISTORY: Respiratory insufficiency. COMPARISON: 05/27/2019. FINDINGS: Persistent bilateral alveolar opacities more prominent and more confluent in the right lung. No sign ificant new process. IMPRESSION: Stable extensive bilateral alveolar opacities. POS: TPC
--- NOTE | 2019-05-28 08:58 | PRG ---
DATE OF SERVICE: 05/28/2019 SUBJECTIVE: Percy Andujar is a 64-year-old gentleman. He is off all sedation this morning. OBJECTIVE: VITAL SIGNS: His saturations are 96%. His blood pressure is 129/78, pulse is 90. His temperature is 101.3. CHEST: Decreased breath sounds. Bilateral rhonchi, crackles. CARDIAC: Sinus tach. ABDOMEN: Soft. LABORATORY DATA: PO2 of 62, pCO2 of 30, pH 7.47. White count 15,000, 47 segs, 5 bands. H and H are stable. BUN and creatinine at 29 and 1.75. X-ray shows a persistent infiltrate. ASSESSMENT: 1. Status post ventricular tachycardia. 2. Cardiomyopathy. 3. Aspiration pneumonia. 4. Persistent fever. 5. Encephalopathy. 6. Renal failure. PLAN: Try to extubate today, high-flow, Lasix, neb treatments, steroids, antibiotics. 1 hour of critical time. Job ID: [id number]
[2019-05-28] MEDS ORDERED: Aspirin 325 MG TAB PO SCH (09:00)
[2019-05-28] MEDS: Linezolid 600 MG in Premix Bag 1 BAG IVPB SCH ×2 (09:19→20:14)
[2019-05-28] MEDS ORDERED: Metoprolol Tartrate 25 MG TAB PO SCH (11:30)
--- NOTE | 2019-05-28 12:57 | PDOC.HOSPP ---
- Subjective Encounter Date: 05/28/19 Encounter Time: 10:00 Subjective: extubated at 825 am; on t-pee. and son at bedside, all their qs answered. urine output ok, still on amio gtt. - Objective Vital Signs & Weight: Vital Signs (12 hours) Temp Pulse Resp Pulse Ox 05/28/19 08:24 95 33 H 92 L 05/28/19 08:00 24 H 05/28/19 07:37 96 05/28/19 07:00 99.2 F 05/28/19 06:47 89 05/28/19 06:00 24 H 05/28/19 04:00 101.3 F H 26 H 05/28/19 02:00 27 H Weight Admit Weight 241 lb 2.88 oz Weight 223 lb 8.78 oz Most Recent Monitor Data Heart Rate from ECG 108 NIBP 135/79 NIBP BP-Mean 97 Respiration from ECG 38 SpO2 99 I&O: 05/27/19 05/28/19 05/29/19 06:59 06:59 06:59 Intake Total 2154.6 3440.4 30 Output Total 935 1960 1425 Balance 1219.6 1480.4 -1395 Result Diagrams: 05/28/19 04:10 05/28/19 04:10 Additional Labs: Accuchecks 05/28/19 05/28/19 05/28/19 08:39 04:22 00:15 POC Glucose 121 H 122 H 128 H 05/27/19 05/27/19 20:48 17:08 POC Glucose 114 H 100 Hospitalist ROS - Medication Medications: Active Medications Generic Name Dose Route Start Last Admin Trade Name Freq PRN Reason Stop Dose Admin Acetaminophen 650 mg 05/26/19 01:05 05/26/19 01:17 Tylenol [place] 650 mg Q6H PRN Administration TO KEEP TEMP <37C/98.6F Acetaminophen 500 mg 05/27/19 08:46 05/28/19 07:32 Tylenol PO 500 mg Q6H PRN Administration Fever > 101 Albuterol/Ipratropium 3 ml 05/25/19 13:00 05/28/19 06:47 Duoneb NEB 3 ml [id number] CANDACE Administration Aspirin 325 mg 05/27/19 09:00 05/28/19 07:32 Aspirin PO 325 mg DAILY CANDACE Administration Amiodarone HCl 450 mg/ 259 mls @ 0 mls/hr 05/24/19 21:30 05/27/19 21:22 Miscellaneous Medication 1 IVPB 259 mls each/ Dextrose/Water INF CANDACE Administration Protocol As Directed Cefepime HCl 1 gm/ Sodium 100 mls @ 200 mls/hr 05/25/19 09:00 05/28/19 08:23 Chloride IVPB 100 mls Q12HR CANDACE Administration Norepinephrine Bitartrate 250 mls @ 0 mls/hr 05/26/19 01:06 05/28/19 00:50 Levophed IVPB 250 mls INF PRN Administration TO KEEP MAP > 65 Protocol Titrate Linezolid 600 mg/ Device 300 mls @ 150 mls/hr 05/28/19 09:00 05/28/19 09:19 IVPB 300 mls Q12HR CANDACE Administration Insulin Human Lispro 0 units 05/25/19 08:53 05/26/19 03:57 Humalog SC 2 unit .MODERATE SLIDING SC PRN Administration MODERATE SLIDING SCALE Protocol Methylprednisolone Sodium Succinate 40 mg 05/28/19 08:00 05/28/19 08:24 Solu-Medrol IVP 40 mg 0200,0800,1400,2000 CANDACE Administration Metoprolol Tartrate 25 mg 05/28/19 11:30 05/28/19 11:30 Lopressor PO 05/28/19 13:00 25 mg NOW CANDACE Administration Pantoprazole Sodium 40 mg 05/27/19 09:00 05/28/19 08:22 Protonix IVP 40 mg DAILY CANDACE Administration Sodium Chloride 10 ml 05/25/19 09:00 05/28/19 07:32 Flush - Normal Saline IVF 10 ml Q12HR CANDACE Administration Sodium Chloride 10 ml 05/25/19 00:19 05/28/19 08:26 Flush - Normal Saline IVF 10 ml PRN PRN Administration Saline Flush Sodium Chloride 10 ml 05/27/19 08:27 05/28/19 08:22 Normal Saline Pf FS 10 ml PRN PRN Administration RECONSTITUTION Sterile Water 10 ml 05/25/19 00:18 05/25/19 12:55 Water For Injection IVP 10 ml Q30MIN PRN Administration NEEDED FOR RECONSTITUTION - Exam General Appearance: NAD, awake alert General - other findings: extuabted ENT: normocephalic atraumatic Neck: supple, symmetric Heart: RRR Respiratory: CTAB Respiratory - other findings: extuabted Gastrointestinal: soft, non-tender, non-distended, normal bowel sounds Extremities: no cyanosis Neurological: no focal deficits Musculoskeletal: normal tone Hosp A/P - Plan outside, witnessed cardiac arrest vfib on amio High trop d/t CPR outside not true infarct - on hypothermia protocol - will get routine EEG and neuro consult request. ------------> neurologically improved; cancel EEG -echo showed ef of 35%; hypokinesia in ant wall.----> plan for ischemic workup after HDynamic stability. -sedated - propofal, fentanyl -vasopressor/levophed Acute resp failure 2/2/ arrest -intubated and sedated. -covered w.. cefepmime, LQ for aspiration Leukocytosis 2/2 above --trended down. -only urine nicole done. -will follow. Await neurological recovery.--------------> following commands on 9 complete 72 hr hypothermia protocol. 10th - pt is getting better; more alert today, did not require sedation - prob SBT trial in am febrile episode -cw broad spec abx. -blood cx of 7th - no growth - sputum nicole - GNR -CXR - b/l infilterate, R> L -cefepime, and LQ -Cr improving. -am labs 11 extuabted; bedside swallow and PT consult OOB cw IV abx for 2 more days and then we can deescalate once PO intake better.
[2019-05-28] MEDS: Amiodarone 450 MG, Admixture Fee 1 EACH in Dextrose 5% in Water 250 ML IVPB SCH (13:24)
[2019-05-28] MEDS: Metoprolol Tartrate 25 MG TAB PO SCH (20:52)
[2019-05-29] MEDS: Amiodarone 450 MG, Admixture Fee 1 EACH in Dextrose 5% in Water 250 ML IVPB SCH
[2019-05-29] MEDS: HumaLOG 300 UNITS/3 ML VIAL SC PRN
[2019-05-29] MEDS: methylPREDNISolone Sod Succ 40 MG VIAL IVP SCH ×4 (01:03→19:40)
[2019-05-29 05:46] LABS: Anion Gap 14 mmol/L (10-20); BUN (Urea Nitrogen) 35 mg/dL (8.4-25.7); Calc. Creatinine Clearance 73 mL/min (70-130); Calcium 8.7 mg/dL (7.8-10.44); Carbon Dioxide 23 mmol/L (23-31); Chloride 107 mmol/L (98-107); Estimated GFR-MDRD 47; Glucose 144 mg/dL (80-115); Magnesium 2.4 mg/dL (1.6-2.6); Potassium 4.2 mmol/L (3.5-5.1); Sodium 140 mmol/L (136-145)
[2019-05-29 05:47] LABS: Band 9 % (5-11); Hemoglobin 12.3 g/dL (14.0-18.0); Hypochromia SLIGHT = 6-15 cells (100X) (0-5/hpf); Lymphocytes 57 % (21-51); MDiff Complete? YES; Mean Corpuscular HGB CONC 34.4 g/dL (32.0-36.0); Mean Corpuscular Hemoglobin 29.4 pg (27.0-31.0); Mean Corpuscular Volume 85.4 fL (78.0-98.0); Mean Platelet Volume 9.7 fL (7.4-10.4); Monocytes 1 % (0-10); Neutrophil 33 % (42-75); Platelet Count 90 thou/uL (130-400); Platelet Morphology Comment Appears Decreased; Red Blood Cell (RBC) Count 4.19 mill/uL (4.70-6.10); White Blood Cell (WBC) Count 15.9 thou/uL (4.8-10.8)
[2019-05-29] MEDS ORDERED: Furosemide 20 MG/2 ML VIAL SLOW IVP SCH (08:15)
--- NOTE | 2019-05-29 08:28 | PRG ---
DATE OF SERVICE: 05/29/2019 SUBJECTIVE: Percy Andujar this morning is awake, alert, and responsive. Though , he is still tachypneic and tachycardic. OBJECTIVE: VITAL SIGNS: Pulse rate 73, respiratory rate 33, saturations are 90 % on high-flow, blood pressure 120/78, and temperature 99.6. I's and O's have been negative yesterday. CHEST: Bilateral crackles. No wheezing. CARDIAC: Normal S1 and S2. No gallops. ABDOMEN: No masses. ASSESSMENT AND PLAN: 1. Coronary artery disease, status post 2 stents_. 2. Azotemia. 3. Congestive heart failure. 4. Previous cardiac stents. 5. Continue PT supportive care. Hopefully,he will passes a swallow test. 6. Continue antibiotics. We will deescalate once we get cultures back. Job ID: [id number] MTDD
[2019-05-29] MEDS ORDERED: Metoprolol Tartrate 25 MG TAB PO SCH (09:00)
[2019-05-29] MEDS: Furosemide 40 MG TAB PO SCH ×2 (09:07→14:23)
[2019-05-29] MEDS: Aspirin 325 MG TAB PO SCH (09:10)
[2019-05-29] MEDS: Metoprolol Tartrate 25 MG TAB PO SCH ×2 (09:10→19:40)
[2019-05-29] MEDS: Cefepime 1 GM in Sodium Chloride 0.9% 100 ML IVPB SCH ×2 (09:10→19:39)
[2019-05-29] MEDS: Linezolid 600 MG in Premix Bag 1 BAG IVPB SCH ×2 (09:10→19:39)
--- NOTE | 2019-05-29 09:18 | RAD ---
CHEST 1 VIEW: Date: 05/29/2019 HISTORY: CHF. COMPARISON: Radiograph prior day. FINDINGS: Heart size is enlarged. The patient has been extubated and the enteric tube has been removed. There i s a similar appearance of the interstitial and alveolar air space opacities. IMPRESSION: Interval extubation and removal of the enteric tube with similar interstitial and alveolar infiltrate s. POS: [facility]
--- NOTE | 2019-05-29 13:33 | PDOC.HOSPP ---
- Subjective Encounter Date: 05/29/19 Encounter Time: 11:35 Subjective: sitting in the chair, wbcs count high, SOB; quite conversationalist. family nearby. - Objective Vital Signs & Weight: Vital Signs (12 hours) Temp Pulse Resp Pulse Ox 05/29/19 08:00 99.2 F 05/29/19 07:43 99 05/29/19 07:39 73 33 H 99 05/29/19 03:00 99.6 F Weight Admit Weight 241 lb 2.88 oz Weight 228 lb 13.437 oz Most Recent Monitor Data Heart Rate from ECG 71 NIBP 117/72 NIBP BP-Mean 87 Respiration from ECG 24 SpO2 100 I&O: 05/28/19 05/29/19 05/30/19 06:59 06:59 06:59 Intake Total 3440.4 1618 Output Total 9896 3820 270 Balance 1480.4 -1512 -270 Result Diagrams: 05/29/19 04:57 05/29/19 04:57 Additional Labs: Accuchecks 05/28/19 05/28/19 05/28/19 23:56 20:15 13:24 POC Glucose 156 H 144 H 146 H Hospitalist ROS - Medication Medications: Active Medications Generic Name Dose Route Start Last Admin Trade Name Freq PRN Reason Stop Dose Admin Acetaminophen 650 mg 05/26/19 01:05 05/26/19 01:17 Tylenol [place] 650 mg Q6H PRN Administration TO KEEP TEMP <37C/98.6F Acetaminophen 500 mg 05/27/19 08:46 05/28/19 07:32 Tylenol PO 500 mg Q6H PRN Administration Fever > 101 Albuterol/Ipratropium 3 ml 05/25/19 13:00 05/29/19 07:39 Duoneb NEB 3 ml [id number] CANDACE Administration Aspirin 325 mg 05/27/19 09:00 05/29/19 09:10 Aspirin PO 325 mg DAILY CANDACE Administration Furosemide 40 mg 05/29/19 09:00 05/29/19 09:07 Lasix PO 40 mg 0900,1400 CANDACE Administration Amiodarone HCl 450 mg/ 259 mls @ 0 mls/hr 05/24/19 21:30 05/29/19 00:00 Miscellaneous Medication 1 IVPB 259 mls each/ Dextrose/Water INF CANDACE Administration Protocol As Directed Cefepime HCl 1 gm/ Sodium 100 mls @ 200 mls/hr 05/25/19 09:00 05/29/19 09:10 Chloride IVPB 100 mls Q12HR CANDACE Administration Norepinephrine Bitartrate 250 mls @ 0 mls/hr 05/26/19 01:06 05/28/19 00:50 Levophed IVPB 250 mls INF PRN Administration TO KEEP MAP > 65 Protocol Titrate Linezolid 600 mg/ Device 300 mls @ 150 mls/hr 05/28/19 09:00 05/29/19 09:10 IVPB 300 mls Q12HR CANDACE Administration Insulin Human Lispro 0 units 05/25/19 08:53 05/29/19 00:00 Humalog SC 2 unit .MODERATE SLIDING SC PRN Administration MODERATE SLIDING SCALE Protocol Methylprednisolone Sodium Succinate 40 mg 05/29/19 09:00 05/29/19 09:11 Solu-Medrol IVP 40 mg BID CANDACE Administration Metoprolol Tartrate 25 mg 05/28/19 21:00 05/29/19 09:10 Lopressor PO 25 mg BID CANDACE Administration Pantoprazole Sodium 40 mg 05/29/19 09:00 05/29/19 09:09 Protonix PO 40 mg DAILY CANDACE Administration Sodium Chloride 10 ml 05/25/19 09:00 05/29/19 09:12 Flush - Normal Saline IVF Not Given Q12HR CANDACE Sodium Chloride 10 ml 05/25/19 00:19 05/28/19 08:26 Flush - Normal Saline IVF 10 ml PRN PRN Administration Saline Flush Sodium Chloride 10 ml 05/27/19 08:27 05/28/19 08:22 Normal Saline Pf FS 10 ml PRN PRN Administration RECONSTITUTION Sterile Water 10 ml 05/25/19 00:18 05/25/19 12:55 Water For Injection IVP 10 ml Q30MIN PRN Administration NEEDED FOR RECONSTITUTION - Exam General Appearance: NAD, awake alert Eye: PERRL, anicteric sclera ENT: normocephalic atraumatic Neck: supple, symmetric, no lymphadenopathy Heart: RRR, normal peripheral pulses Respiratory: CTAB Gastrointestinal: soft, non-tender, normal bowel sounds Neurological: cranial nerve grossly intact, no focal deficits Hosp A/P - Plan outside, witnessed cardiac arrest vfib on amio High trop d/t CPR outside not true infarct - on hypothermia protocol - will get routine EEG and neuro consult request. ------------> neurologically improved; cancel EEG -echo showed ef of 35%; hypokinesia in ant wall.----> plan for ischemic workup after HDynamic stability. -sedated - propofal, fentanyl -vasopressor/levophed Acute resp failure 2/2/ arrest -intubated and sedated. -covered w.. cefepmime, LQ for aspiration Leukocytosis 2/2 above --trended down. -only urine nicole done. -will follow. Await neurological recovery.--------------> following commands on complete 72 hr hypothermia protocol. 10th - pt is getting better; more alert today, did not require sedation - prob SBT trial in am febrile episode -cw broad spec abx. -blood cx of 7th - no growth - sputum nicole - GNR -CXR - b/l infilterate, R> L -cefepime, and LQ -Cr improving. -am labs 11 extuabted; bedside swallow and PT consult OOB cw IV abx for 2 more days and then we can deescalate once PO intake better. 12th Leukocytosis - cw IV abx - as high wbcs, though resp nicole only GNR, and some coci; rpt cxr without any new changes -ice chips trial and advance the diet. -PT consult in place. -may transfer to [facility] once [facility]CM clears him.
[2019-05-29] MEDS ORDERED: clonazePAM 0.5 MG TABLET PO SCH (20:45)
[2019-05-30 04:41] LABS: Anion Gap 13 mmol/L (10-20); BUN (Urea Nitrogen) 50 mg/dL (8.4-25.7); Calc. Creatinine Clearance 75 mL/min (70-130); Calcium 8.5 mg/dL (7.8-10.44); Carbon Dioxide 23 mmol/L (23-31); Chloride 109 mmol/L (98-107); Estimated GFR-MDRD 48; Glucose 151 mg/dL (80-115); Potassium 4.2 mmol/L (3.5-5.1); Sodium 141 mmol/L (136-145)
[2019-05-30 04:57] LABS: Band 4 % (5-11); Hemoglobin 12.7 g/dL (14.0-18.0); Lymphocytes 58 % (21-51); MDiff Complete? YES; Mean Corpuscular HGB CONC 32.8 g/dL (32.0-36.0); Mean Corpuscular Volume 88.4 fL (78.0-98.0); Mean Platelet Volume 8.5 fL (7.4-10.4); Monocytes 1 % (0-10); Neutrophil 37 % (42-75); Platelet Count 112 thou/uL (130-400); Platelet Morphology Comment Appears Decreased; RBC Distribution Width 13.2 % (11.5-14.5); Red Blood Cell (RBC) Count 4.38 mill/uL (4.70-6.10); White Blood Cell (WBC) Count 14.2 thou/uL (4.8-10.8)
[2019-05-30] MEDS: HumaLOG 300 UNITS/3 ML VIAL SC PRN ×2 (05:04→20:54)
--- NOTE | 2019-05-30 07:43 | RAD ---
Portable frontal chest radiograph: 05/30/2019 COMPARISON: 05/29/2019 HISTORY: Ventilated patient, dyspnea FINDINGS: There is no endotracheal tube present. No pneumothorax is seen. Hazy nonspecific airspace d isease is seen throughout the right hemithorax, stable. There is stable nonspecific airspace disease in the mid left lung zone. There is focal consolidative change within the left lung base obsc uring the left hemidiaphragm. Findings are similar when compared to the prior exam. IMPRESSION: Nonspecific bilateral airspace disease with left basilar consolidation.
--- NOTE | 2019-05-30 08:46 | PRG ---
DATE OF SERVICE: 05/30/2019 SUBJECTIVE: Percy Andujar this morning is much improved. Less short of breath, less cough. His I's and O's have been negative. OBJECTIVE: VITAL SIGNS: His blood pressure is 120/80, saturations are 97 on high-flow, pulse 104, temperature is still 101.5. His x-ray shows improvement in bilateral infiltrates. All cultures are negative. X-ray still shows bilateral infiltrates, but much improved. IMPRESSION: 1. Respiratory failure. 2. Encephalopathy. 3. Pneumonia. 4. Congestive heart failure. 5. Coronary artery disease. PLAN: Continue aggressive PT supportive care. Hopefully, he can try a diet today. We will keep him in the ICU another 24 hours. One-half hour of critical time. Job ID: [id number]
[2019-05-30] MEDS: Furosemide 40 MG TAB PO SCH ×2 (09:36→14:44)
[2019-05-30] MEDS: methylPREDNISolone Sod Succ 40 MG VIAL IVP SCH ×2 (09:36→20:54)
[2019-05-30] MEDS: Linezolid 600 MG in Premix Bag 1 BAG IVPB SCH ×2 (09:36→21:49)
[2019-05-30] MEDS: Aspirin 325 MG TAB PO SCH (09:36)
[2019-05-30] MEDS: Metoprolol Tartrate 25 MG TAB PO SCH ×2 (09:36→20:54)
[2019-05-30] MEDS ORDERED: Haloperidol Lactate 5 MG/ML VIAL ONE (10:11)
[2019-05-30] MEDS ORDERED: Haloperidol Lactate 5 MG/ML VIAL SLOW IVP PRN (10:23)
[2019-05-30] MEDS: Cefepime 1 GM in Sodium Chloride 0.9% 100 ML IVPB SCH ×2 (10:49→20:55)
--- NOTE | 2019-05-30 14:36 | PRG ---
DATE OF SERVICE: 05/30/2019 SUBJECTIVE: Mr. Andujar is slowly improving. He continues to be on high-flow oxygen. He is a little confused, but able to converse. No current complaints. OBJECTIVE: VITAL SIGNS: Blood pressure 109/69, pulse 68, and respirations 20. LUNGS: Clear to auscultation. HEART: Regular rate and rhythm with extrasystolic beat. ABDOMEN: Soft, nontender, nondistended. EXTREMITIES: No edema. PERTINENT LABORATORY DATA: Hemoglobin 12.7. Creatinine 1.47, which is down from 1.50. IMPRESSION: 1. Qfu-qu-khcmtopl arrest. 2. Coronary artery disease. 3. Status post stent placement. 4. Chronic kidney disease. RECOMMENDATIONS: I would continue current treatment. We would recommend coronary angiography in likely early next week after the patient's mental status is improved and he is off high-flow oxygen. Job ID: [id number]
--- NOTE | 2019-05-30 15:15 | PDOC.HOSPP ---
- Subjective Encounter Date: 05/30/19 Encounter Time: 12:10 Subjective: sleeping, off león-pee; cardiac ischemic workup next week. still on high flow O2. - Objective Vital Signs & Weight: Vital Signs (12 hours) Temp Pulse Resp Pulse Ox 05/30/19 14:59 67 16 100 05/30/19 12:00 97.9 F 05/30/19 07:39 97 05/30/19 07:36 104 H 24 H 97 05/30/19 07:00 99.4 F Weight Admit Weight 241 lb 2.88 oz Weight 222 lb 7.143 oz Most Recent Monitor Data Heart Rate from ECG 70 NIBP 104/68 NIBP BP-Mean 80 Respiration from ECG 15 SpO2 100 I&O: 05/29/19 05/30/19 05/31/19 06:59 06:59 06:59 Intake Total 1618 1258 Output Total 3130 2014 1000 Balance -1512 -757 -1000 Result Diagrams: 05/30/19 04:13 05/30/19 04:13 Additional Labs: Accuchecks 05/30/19 05/29/19 14:02 15:52 POC Glucose 133 H 130 H Hospitalist ROS - Medication Medications: Active Medications Generic Name Dose Route Start Last Admin Trade Name Freq PRN Reason Stop Dose Admin Acetaminophen 650 mg 05/26/19 01:05 05/26/19 01:17 Tylenol [place] 650 mg Q6H PRN Administration TO KEEP TEMP <37C/98.6F Acetaminophen 500 mg 05/27/19 08:46 05/28/19 07:32 Tylenol PO 500 mg Q6H PRN Administration Fever > 101 Albuterol/Ipratropium 3 ml 05/25/19 13:00 05/30/19 14:59 Duoneb NEB 3 ml [id number] CANDACE Administration Aspirin 325 mg 05/27/19 09:00 05/30/19 09:36 Aspirin PO 325 mg DAILY CANDACE Administration Furosemide 40 mg 05/29/19 09:00 05/30/19 09:36 Lasix PO 40 mg 0900,1400 CANDACE Administration Amiodarone HCl 450 mg/ 259 mls @ 0 mls/hr 05/24/19 21:30 05/29/19 00:00 Miscellaneous Medication 1 IVPB 259 mls each/ Dextrose/Water INF CANDACE Administration Protocol As Directed Cefepime HCl 1 gm/ Sodium 100 mls @ 200 mls/hr 05/25/19 09:00 05/30/19 10:49 Chloride IVPB 100 mls Q12HR CANDACE Administration Norepinephrine Bitartrate 250 mls @ 0 mls/hr 05/26/19 01:06 05/28/19 00:50 Levophed IVPB 250 mls INF PRN Administration TO KEEP MAP > 65 Protocol Titrate Linezolid 600 mg/ Device 300 mls @ 150 mls/hr 05/28/19 09:00 05/30/19 09:36 IVPB 300 mls Q12HR CANDACE Administration Insulin Human Lispro 0 units 05/25/19 08:53 05/30/19 05:04 Humalog SC 2 unit .MODERATE SLIDING SC PRN Administration MODERATE SLIDING SCALE Protocol Methylprednisolone Sodium Succinate 40 mg 05/29/19 09:00 05/30/19 09:36 Solu-Medrol IVP 40 mg BID CANDACE Administration Metoprolol Tartrate 25 mg 05/28/19 21:00 05/30/19 09:36 Lopressor PO 25 mg BID CANDACE Administration Pantoprazole Sodium 40 mg 05/29/19 09:00 05/30/19 09:37 Protonix PO 40 mg DAILY CANDACE Administration Sodium Chloride 10 ml 05/25/19 09:00 05/30/19 09:37 Flush - Normal Saline IVF Not Given Q12HR CANADCE Sodium Chloride 10 ml 05/25/19 00:19 05/28/19 08:26 Flush - Normal Saline IVF 10 ml PRN PRN Administration Saline Flush Sodium Chloride 10 ml 05/27/19 08:27 05/28/19 08:22 Normal Saline Pf FS 10 ml PRN PRN Administration RECONSTITUTION Sterile Water 10 ml 05/25/19 00:18 05/25/19 12:55 Water For Injection IVP 10 ml Q30MIN PRN Administration NEEDED FOR RECONSTITUTION - Exam General Appearance: NAD, awake alert Eye: PERRL ENT: normocephalic atraumatic Neck: supple Heart: RRR Respiratory: CTAB Gastrointestinal: normal bowel sounds Extremities: no cyanosis Neurological: cranial nerve grossly intact, no focal deficits Hosp A/P - Plan outside, witnessed cardiac arrest vfib on amio High trop d/t CPR outside not true infarct - on hypothermia protocol - will get routine EEG and neuro consult request. ------------> neurologically improved; cancel EEG -echo showed ef of 35%; hypokinesia in ant wall.----> plan for ischemic workup after HDynamic stability. -sedated - propofal, fentanyl -vasopressor/levophed Acute resp failure 2/2/ arrest -intubated and sedated. -covered w.. cefepmime, LQ for aspiration Leukocytosis 2/2 above --trended down. -only urine nicole done. -will follow. Await neurological recovery.--------------> following commands on 9 complete 72 hr hypothermia protocol. 10th - pt is getting better; more alert today, did not require sedation - prob SBT trial in am febrile episode -cw broad spec abx. -blood cx of - no growth - sputum nicole - GNR -CXR - b/l infilterate, R> L -cefepime, and LQ -Cr improving. -am labs 11 extuabted; bedside swallow and PT consult OOB cw IV abx for 2 more days and then we can deescalate once PO intake better. 12th Leukocytosis - cw IV abx - as high wbcs, though resp nicole only GNR, and some coci; rpt cxr without any new changes -ice chips trial and advance the diet. -PT consult in place. -may transfer to [facility] once [facility] clears him. \13 wbcs still on the high end -clinically better -cxr no new infilterate
[2019-05-31 04:06] LABS: Anion Gap 12 mmol/L (10-20); BUN (Urea Nitrogen) 49 mg/dL (8.4-25.7); Calc. Creatinine Clearance 83 mL/min (70-130); Calcium 8.5 mg/dL (7.8-10.44); Carbon Dioxide 26 mmol/L (23-31); Chloride 108 mmol/L (98-107); Estimated GFR-MDRD 56; Glucose 157 mg/dL (80-115); Potassium 4.3 mmol/L (3.5-5.1); Sodium 142 mmol/L (136-145)
[2019-05-31 05:16] LABS: Band 9 % (5-11); Hemoglobin 12.1 g/dL (14.0-18.0); Lymphocytes 51 % (21-51); MDiff Complete? YES; Mean Corpuscular HGB CONC 33.2 g/dL (32.0-36.0); Mean Corpuscular Hemoglobin 28.9 pg (27.0-31.0); Mean Platelet Volume 8.7 fL (7.4-10.4); Monocytes 1 % (0-10); Neutrophil 39 % (42-75); Platelet Count 126 thou/uL (130-400); RBC Distribution Width 13.2 % (11.5-14.5); White Blood Cell (WBC) Count 12.8 thou/uL (4.8-10.8)
--- NOTE | 2019-05-31 08:41 | PRG ---
DATE OF SERVICE: 05/31/2019 SUBJECTIVE: Percy Andujar this morning, he is much better. He is less short of breath, less cough. His x-ray shows improvement in his bilateral infiltrates, still consistent with CHF. His I's and O's have been consistently negative. OBJECTIVE: VITAL SIGNS: His vital signs have been improved, sats are 99% on 2 L, blood pressure 137/80, pulse 72, sats 100% on 2 L, afebrile. So far, cultures are negative. CHEST: Decreased breath sounds, no wheezing. CARDIAC: Normal S1, S2, no gallops. ABDOMEN: No masses. ASSESSMENT: 1. Respiratory failure. 2. Congestive heart failure. 3. Out of hospital ventricular tachycardia, ventricular fibrillation, bilateral bronchopneumonia. He has improved, probably switch him over to oral antibiotics tomorrow. PT, supportive care. One-half hour of critical time. Job ID: [id number]
[2019-05-31] MEDS: Metoprolol Tartrate 25 MG TAB PO SCH ×2 (09:22→20:23)
[2019-05-31] MEDS: Aspirin 325 MG TAB PO SCH (09:22)
[2019-05-31] MEDS: Cefdinir 300 MG CAP PO SCH ×2 (09:22→20:23)
[2019-05-31] MEDS: Furosemide 40 MG TAB PO SCH ×2 (09:22→15:18)
[2019-05-31] MEDS: predniSONE 20 MG TAB PO SCH (09:22)
[2019-05-31] MEDS: Amiodarone 200 MG TAB PO SCH ×2 (09:27→20:23)
--- NOTE | 2019-05-31 09:35 | EEG ---
Referring Physician: KORIN EEG # [id number] TEST TYPE: ROUTINE PORTABLE INPATIENT REPORT: AN EEG USING THE [employer]NATIONAL TEN-TWENTY SYSTEM OF ELECTRODE PLACEMENT WAS PERFORMED. The best waking background is an 8 hertz alpha frequency. The patient appears to be drowsy frequently with 6-7 hertz theta. There is quite a bit of EMG and sweat artifact obscuring portions of the record. Photic stimulation was unremarkable. No epileptiform features were present. IMPRESSION: NORMAL AWAKE AND DROWSY EEG. Agronomy Supervisor: ERNESTO Public Address Technician: [email or web address]
--- NOTE | 2019-05-31 09:41 | RAD ---
SINGLE VIEW OF THE CHEST: Comparison: 05-30-2019 History: Ventilated patient with respiratory failure. FINDINGS: Single view of the chest shows an enlarged but stable cardiomediastinal silhouette. Diffuse increased interstitial markings are stable. No consolidation is seen. There may be trace bilateral pleural eff usions. IMPRESSION: Stable exam. POS: [facility]
--- NOTE | 2019-05-31 12:06 | PDOC.HOSPP ---
- Subjective Encounter Date: 05/31/19 Encounter Time: 11:40 Subjective: doing well, tolerating his diet, advanced, can go to tele bed. - Objective Vital Signs & Weight: Vital Signs (12 hours) Temp Pulse Resp Pulse Ox 05/31/19 08:00 98.4 F 100 05/31/19 06:39 99 05/31/19 06:37 75 28 H 99 05/31/19 04:00 98.5 F Weight Admit Weight 241 lb 2.88 oz Weight 217 lb 13.067 oz Most Recent Monitor Data Heart Rate from ECG 85 NIBP 140/86 NIBP BP-Mean 104 Respiration from ECG 20 SpO2 94 I&O: 05/30/19 05/31/19 06/01/19 06:59 06:59 06:59 Intake Total 6581 629 240 Output Total 4520 [address] [facility] -[phone] -130 Result Diagrams: 05/31/19 03:13 05/31/19 03:13 Additional Labs: Accuchecks 05/31/19 05/31/19 05/30/19 09:15 04:21 20:16 POC Glucose 136 H 142 H 154 H 05/30/19 05/30/19 05/30/19 16:36 14:02 08:07 POC Glucose 136 H 133 H 135 H 05/29/19 19:40 POC Glucose 134 H Hospitalist ROS - Medication Medications: Active Medications Generic Name Dose Route Start Last Admin Trade Name Freq PRN Reason Stop Dose Admin Acetaminophen 650 mg 05/26/19 01:05 05/26/19 01:17 Tylenol [place] 650 mg Q6H PRN Administration TO KEEP TEMP <37C/98.6F Acetaminophen 500 mg 05/27/19 08:46 05/28/19 07:32 Tylenol PO 500 mg Q6H PRN Administration Fever > 101 Albuterol/Ipratropium 3 ml 05/25/19 13:00 05/31/19 06:37 Duoneb NEB 3 ml [id number] CANDACE Administration Amiodarone HCl 400 mg 05/31/19 09:00 05/31/19 09:27 Cordarone PO 400 mg BID CANDACE Administration Aspirin 325 mg 05/27/19 09:00 05/31/19 09:22 Aspirin PO 325 mg DAILY CANDACE Administration Cefdinir 300 mg 05/31/19 09:00 05/31/19 09:22 Omnicef PO 06/05/19 09:01 300 mg BID CANDACE Administration Furosemide 40 mg 05/29/19 09:00 05/31/19 09:22 Lasix PO 40 mg 0900,1400 CANDACE Administration Haloperidol Lactate 1 mg 05/30/19 10:23 05/30/19 23:06 Haldol SLOW IVP 06/01/19 10:24 1 mg Q8H PRN Administration Agitation Amiodarone HCl 450 mg/ 259 mls @ 0 mls/hr 05/24/19 21:30 05/29/19 00:00 Miscellaneous Medication 1 IVPB 259 mls each/ Dextrose/Water INF CANDACE Administration Protocol As Directed Insulin Human Lispro 0 units 05/25/19 08:53 05/30/19 20:54 Humalog SC 2 unit .MODERATE SLIDING SC PRN Administration MODERATE SLIDING SCALE Protocol Metoprolol Tartrate 25 mg 05/28/19 21:00 05/31/19 09:22 Lopressor PO 25 mg BID CANDACE Administration Pantoprazole Sodium 40 mg 05/29/19 09:00 05/31/19 09:22 Protonix PO 40 mg DAILY CANDACE Administration Prednisone 20 mg 05/31/19 08:00 05/31/19 09:22 Prednisone PO 06/06/19 08:01 20 mg QAM-WM CANDACE Administration Sodium Chloride 10 ml 05/25/19 09:00 05/31/19 11:09 Flush - Normal Saline IVF Not Given Q12HR CANDACE Sodium Chloride 10 ml 05/25/19 00:19 05/28/19 08:26 Flush - Normal Saline IVF 10 ml PRN PRN Administration Saline Flush Sodium Chloride 10 ml 05/27/19 08:27 05/28/19 08:22 Normal Saline Pf FS 10 ml PRN PRN Administration RECONSTITUTION - Exam General Appearance: NAD, awake alert Eye: PERRL ENT: normocephalic atraumatic Neck: supple Heart: RRR Respiratory: CTAB, no wheezes, no rales, normal chest expansion Gastrointestinal: normal bowel sounds Neurological: cranial nerve grossly intact, no focal deficits Hosp A/P - Plan outside, witnessed cardiac arrest vfib on amio High trop d/t CPR outside not true infarct - on hypothermia protocol - will get routine EEG and neuro consult request. ------------> neurologically improved; cancel EEG -echo showed ef of 35%; hypokinesia in ant wall.----> plan for ischemic workup after HDynamic stability. -sedated - propofal, fentanyl -vasopressor/levophed Acute resp failure 2/2/ arrest -intubated and sedated. -covered w.. cefepmime, LQ for aspiration Leukocytosis 2/2 above --trended down. -only urine nicole done. -will follow. Await neurological recovery.--------------> following commands on complete 72 hr hypothermia protocol. - pt is getting better; more alert today, did not require sedation - prob SBT trial in am febrile episode -cw broad spec abx. -blood cx of - no growth - sputum nicole - GNR -CXR - b/l infilterate, R> L -cefepime, and LQ -Cr improving. -am labs 11 extuabted; bedside swallow and PT consult OOB cw IV abx for 2 more days and then we can deescalate once PO intake better. 12th Leukocytosis - cw IV abx - as high wbcs, though resp nicole only GNR, and some coci; rpt cxr without any new changes -ice chips trial and advance the diet. -PT consult in place. -may transfer to [facility] once CCM clears him. \13 wbcs still on the high end -clinically better -cxr no new infilterate 14th - on asa, amiod., lopressor, , lasix bid and insulin -lipitor added - FLP ordered - fw on it and titrate the lipitor dose -next week - prob. cardiac cath given NSTEMI during this stay - arrest, ROSC and type II GA. -stable to transfer to tele floor.
[2019-05-31 12:44] LABS: Cardiac Risk 11.5 (Less than 4.5)
--- NOTE | 2019-05-31 13:24 | CON ---
DATE OF CONSULTATION: 05/31/2019 SUBJECTIVE: Mr. Andujar continues to slowly improve. His mental status also slowly is improving. He is off high-flow oxygen. OBJECTIVE: VITAL SIGNS: Blood pressure 127/73, pulse 76, temperature afebrile. GENERAL: Patient is a pleasant male who is in no acute distress. The patient appears their stated age. NEUROLOGIC: The patient is alert and oriented x3 with no focal neurologic deficits. HEENT: Sclerae without icterus. Mouth has moist mucous membranes with normal pallor. NECK: No JVD. Carotid upstroke brisk. No bruits bilaterally. LUNGS: Clear to auscultation with unlabored respirations. BACK: No scoliosis or kyphosis. CARDIAC: Regular rate and rhythm with normal S1 and S2. No S3 or S4 noted. No significant rubs, murmurs, thrills, or gallops noted throughout the precordium. PMI is not displaced. There is no parasternal heave. ABDOMEN: Soft, nontender, nondistended. No peritoneal signs present. No hepatosplenomegaly. No abnormal striae. EXTREMITIES: 2+ femoral and 2+ dorsalis pedis pulses. No cyanosis, clubbing, or edema. SKIN: No gross abnormalities. PERTINENT LABORATORY DATA: Hemoglobin 12.1, creatinine 1.29, GFR 56. IMPRESSION: 1. Out of hospital arrest. 2. Coronary artery disease. 3. Status post stent placement. RECOMMENDATIONS: Mr. Andujar's LVEF estimated at 30% to 35%. He will likely need ICD prior to discharge. Once his mental status continue to improve, would recommend coronary angiography on Monday or Monday. The procedure was discussed in full detail with his yesterday. All questions were answered. Otherwise continue current therapy. Job ID: [id number]
[2019-05-31] MEDS: Atorvastatin Calcium 20 MG TAB PO SCH (20:23)
[2019-05-31] MEDS ORDERED: Melatonin 3 MG TAB PO PRN (21:58)
[2019-06-01] MEDS: Acetaminophen 325 MG TAB PO PRN ×4 (00:16→23:48)
[2019-06-01] MEDS: Temazepam 15 MG CAP PO PRN (00:16)
[2019-06-01 04:52] LABS: Anion Gap 12 mmol/L (10-20); BUN (Urea Nitrogen) 42 mg/dL (8.4-25.7); Calc. Creatinine Clearance 94 mL/min (70-130); Calcium 8.1 mg/dL (7.8-10.44); Carbon Dioxide 25 mmol/L (23-31); Chloride 107 mmol/L (98-107); Estimated GFR-MDRD 67; Glucose 118 mg/dL (80-115); Potassium 3.8 mmol/L (3.5-5.1); Sodium 140 mmol/L (136-145)
[2019-06-01 06:02] LABS: Hemoglobin 12.7 g/dL (14.0-18.0); Mean Corpuscular HGB CONC 33.2 g/dL (32.0-36.0); Mean Corpuscular Hemoglobin 29.3 pg (27.0-31.0); Mean Corpuscular Volume 88.3 fL (78.0-98.0); Mean Platelet Volume 8.6 fL (7.4-10.4); Platelet Count 153 thou/uL (130-400); RBC Distribution Width 13.6 % (11.5-14.5); Red Blood Cell (RBC) Count 4.33 mill/uL (4.70-6.10); White Blood Cell (WBC) Count 17.3 thou/uL (4.8-10.8)
[2019-06-01 06:34] LABS: Band 2 % (5-11); Lymphocytes 53 % (21-51); MDiff Complete? YES; Monocytes 8 % (0-10); Neutrophil 37 % (42-75); Toxic Granulation SLIGHT
[2019-06-01] MEDS: Amiodarone 200 MG TAB PO SCH ×2 (08:58→20:35)
[2019-06-01] MEDS: Furosemide 40 MG TAB PO SCH ×2 (08:58→13:37)
[2019-06-01] MEDS: Cefdinir 300 MG CAP PO SCH ×2 (08:58→20:41)
[2019-06-01] MEDS: predniSONE 20 MG TAB PO SCH (08:58)
[2019-06-01] MEDS: Metoprolol Tartrate 25 MG TAB PO SCH ×2 (08:58→20:35)
[2019-06-01] MEDS: Aspirin 325 MG TAB PO SCH (09:00)
[2019-06-01] MEDS ORDERED: Artificial Tears 18 DROP/0.9 ML EA EYE PRN (09:29)
--- NOTE | 2019-06-01 12:50 | PDOC.HOSPP ---
- Subjective Subjective: Seen and examined. Patient's at bedside, time was given for questions, all answered in detail. Cardiology planning cardiac catheterization early next week. Patient has been questions about defibrillators and states that he doesn' t think he needs one. 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 On antibiotics for pneumonia, being followed by pulmonology. - Objective Vital Signs & Weight: Vital Signs (12 hours) Temp Pulse Resp BP BP Pulse Ox 06/01/19 10:15 110 H 17 147/70 H 06/01/19 08:59 95 06/01/19 08:58 86 16 06/01/19 08:00 98.0 F 70 17 126/75 95 06/01/19 03:58 97.5 F L 86 14 108/64 92 L Weight Admit Weight 241 lb 2.88 oz Weight 217 lb 13.067 oz Most Recent Monitor Data Heart Rate from ECG 76 NIBP 133/89 NIBP BP-Mean 103 Respiration from ECG 23 SpO2 96 I&O: 05/31/19 06/01/19 06/02/19 06:59 06:59 06:59 Intake Total 629 1320 Output Total 2133 2290 Balance -1504 -970 Result Diagrams: 06/01/19 03:59 06/01/19 03:59 Additional Labs: Accuchecks 06/01/19 06/01/19 05/31/19 11:15 05:23 20:27 POC Glucose 123 H 113 H 131 H 05/31/19 05/31/19 17:49 12:02 POC Glucose 151 H 161 H Radiology Reviewed by me: Yes Hospitalist ROS - Review of Systems All other systems reviewed; all pertinent +/- noted in HPI/Subj - Medication Medications: Active Medications Generic Name Dose Route Start Last Admin Trade Name Freq PRN Reason Stop Dose Admin Acetaminophen 650 mg 05/26/19 01:05 05/26/19 01:17 Tylenol [place] 650 mg Q6H PRN Administration TO KEEP TEMP <37C/98.6F Acetaminophen 650 mg 06/01/19 00:05 06/01/19 05:56 Tylenol PO 650 mg Q6H PRN Administration Headache/Fever or Pain Albuterol/Ipratropium 3 ml 05/25/19 13:00 06/01/19 08:58 Duoneb NEB 3 ml [id number] CANDACE Administration Amiodarone HCl 400 mg 05/31/19 09:00 06/01/19 08:58 Cordarone PO 400 mg BID CANDACE Administration Aspirin 325 mg 05/27/19 09:00 06/01/19 09:00 Aspirin PO Not Given DAILY CANDACE Atorvastatin Calcium 20 mg 05/31/19 21:00 05/31/19 20:23 Lipitor PO 20 mg HS CANDACE Administration Cefdinir 300 mg 05/31/19 09:00 06/01/19 08:58 Omnicef PO 06/05/19 09:01 300 mg BID CANDACE Administration Furosemide 40 mg 05/29/19 09:00 06/01/19 08:58 Lasix PO 40 mg 0900,1400 CANDACE Administration Amiodarone HCl 450 mg/ 259 mls @ 0 mls/hr 05/24/19 21:30 05/29/19 00:00 Miscellaneous Medication 1 IVPB 259 mls each/ Dextrose/Water INF CANDACE Administration Protocol As Directed Insulin Human Lispro 0 units 05/25/19 08:53 05/30/19 20:54 Humalog SC 2 unit .MODERATE SLIDING SC PRN Administration MODERATE SLIDING SCALE Protocol Melatonin 3 mg 05/31/19 21:58 05/31/19 22:06 Melatonin PO 3 mg HSPRN PRN Administration Insomnia Metoprolol Tartrate 25 mg 05/28/19 21:00 06/01/19 08:58 Lopressor PO 25 mg BID CANDACE Administration Pantoprazole Sodium 40 mg 05/29/19 09:00 06/01/19 08:58 Protonix PO 40 mg DAILY CANDACE Administration Prednisone 20 mg 05/31/19 08:00 06/01/19 08:58 Prednisone PO 06/06/19 08:01 20 mg QAM-WM CANDACE Administration Sodium Chloride 10 ml 05/25/19 09:00 06/01/19 09:00 Flush - Normal Saline IVF 10 ml Q12HR CANDACE Administration Sodium Chloride 10 ml 05/27/19 08:27 05/28/19 08:22 Normal Saline Pf FS 10 ml PRN PRN Administration RECONSTITUTION Temazepam 15 mg 06/01/19 00:04 06/01/19 00:16 Restoril PO 15 mg HSPRN PRN Administration Insomnia - Exam General Appearance: NAD, awake alert Eye: PERRL ENT: normocephalic atraumatic, moist mucosa Neck: supple, symmetric Heart: no murmur, no gallops, no rubs Respiratory: CTAB, no wheezes, no rales, no ronchi Respiratory - other findings: Short shallow breaths Gastrointestinal: soft, non-tender, no guarding, no rigidity Extremities: no edema Skin: no lesions, no rashes Neurological: cranial nerve grossly intact, no focal deficits Musculoskeletal: generalized weakness Psychiatric: normal affect, normal behavior, A&O x 3 Hosp A/P (1) Cardiopulmonary arrest Code(s): I46.9 - CARDIAC ARREST, CAUSE UNSPECIFIED Status: Acute (2) CHF (congestive heart failure) Code(s): I50.9 - HEART FAILURE, UNSPECIFIED Status: Acute (3) Systolic heart failure Code(s): I50.20 - UNSPECIFIED SYSTOLIC (CONGESTIVE) HEART FAILURE Status: Acute (4) CAD (coronary artery disease) Code(s): I25.10 - ATHSCL HEART DISEASE OF [place] CORONARY ARTERY W/O ANG PCTRS Status: Acute (5) HTN (hypertension) Code(s): I10 - ESSENTIAL (PRIMARY) HYPERTENSION Status: Acute (6) HLD (hyperlipidemia) Code(s): E78.5 - HYPERLIPIDEMIA, UNSPECIFIED Status: Acute (7) CVA (cerebral vascular accident) Code(s): I63.9 - CEREBRAL INFARCTION, UNSPECIFIED Status: Acute (8) PNA (pneumonia) Code(s): J18.9 - PNEUMONIA, UNSPECIFIED ORGANISM Status: Acute - Plan Plan: medical unit with telemetry cardiology consultation, recommendations appreciated pulmonology consultation, recommendations appreciated may require cardiac catheterization, plan for early next week echocardiogram with reduced ejection fraction at 30% rate control versus rhythm control for atrial fibrillation/ anticoagulation per cardiology history of CVA, recommended aspirin/ statin/ Fan inh - stroke regimen G.I. prophylaxis continue other home medications as able blood pressure control blood sugar control
--- NOTE | 2019-06-01 17:13 | PDOC.CPN ---
- Subjective Date: 06/01/19 Time: 12:20 Interval history: He is doing well. NO chest pain, feels mild palpitations. He went intio afib this morning. - Review of Systems General: denies: fever/chills, weight/appetite/sleep changes, night sweats, fatigue Respiratory: denies: cough, congestion, shortness of breath, exercise intolerance Cardiovascular: reports: palpitation. denies: chest pain, edema, paroxysmal nocturnal dyspnea, orthopnea Gastrointestinal: denies: nausea, vomiting, diarrhea, constipation, abd pain, GI bleeding Musculoskeletal: denies: pain, tenderness, stiffness, swelling, arthritis/ arthralgias Neurological: denies: numbness, syncope, seizure, weakness - Objective Allergies/Adverse Reactions: Allergies Allergy/AdvReac Type Severity Reaction Status Date / Time No Known Drug Allergies Allergy Verified 05/25/19 01:07 Visit Medications: Current Medications Acetaminophen (Tylenol) 650 mg [place] Q6H PRN PRN Reason: TO KEEP TEMP <37C/98.6F Last Admin: 05/26/19 01:17 Dose: 650 mg Acetaminophen (Tylenol) 650 mg PO Q6H PRN PRN Reason: Headache/Fever or Pain Last Admin: 06/01/19 13:37 Dose: 650 mg Albuterol/Ipratropium (Duoneb) 3 ml NEB [id number] [facility] Last Admin: 06/01/19 15:13 Dose: 3 ml Amiodarone HCl (Cordarone) 400 mg PO BID [facility] Last Admin: 06/01/19 08:58 Dose: 400 mg Artificial Tears (Tears Naturale) 2 drop EA EYE Q4H PRN PRN Reason: Dry Eyes Last Admin: 06/01/19 15:17 Dose: 2 drop Aspirin (Aspirin) 325 mg PO DAILY [facility] Last Admin: 06/01/19 09:00 Dose: Not Given Atorvastatin Calcium (Lipitor) 20 mg PO HS [facility] Last Admin: 05/31/19 20:23 Dose: 20 mg Cefdinir (Omnicef) 300 mg PO BID [facility] Stop: 06/05/19 09:01 Last Admin: 06/01/19 08:58 Dose: 300 mg Dextrose/Water (Dextrose 50%) 25 gm IVP PRN PRN PRN Reason: HYPOGLYCEMIA PROTOCOL Enoxaparin Sodium (Lovenox) 100 mg SC 0900,2100 [facility] Furosemide (Lasix) 40 mg PO 0900,1400 [facility] Last Admin: 06/01/19 13:37 Dose: 40 mg Glucagon (Glucagon) 1 mg IM PRN PRN PRN Reason: HYPOGLYCEMIA PROTOCOL Amiodarone HCl 450 mg/Miscellaneous Medication 1 each/ Dextrose/Water 259 mls @ 0 mls/hr IVPB INF CANDACE; Protocol Last Admin: 05/29/19 00:00 Dose: 259 mls Dextrose/Water (D5w) 1,000 mls @ 0 mls/hr IV INF PRN PRN Reason: HYPOGLYCEMIA PROTOCOL Sodium Chloride (Normal Saline 0.9%) 1,000 mls @ 0 mls/hr IV .Q0M [facility] Insulin Human Lispro (Humalog) 0 units SC .MODERATE SLIDING SC PRN; Protocol PRN Reason: MODERATE SLIDING SCALE Last Admin: 05/30/19 20:54 Dose: 2 unit Melatonin (Melatonin) 3 mg PO HSPRN PRN PRN Reason: Insomnia Last Admin: 05/31/19 22:06 Dose: 3 mg Metoprolol Tartrate (Lopressor) 25 mg PO BID [facility] Last Admin: 06/01/19 08:58 Dose: 25 mg Pantoprazole Sodium (Protonix) 40 mg PO DAILY [facility] Last Admin: 06/01/19 08:58 Dose: 40 mg Prednisone (Prednisone) 20 mg PO QA-[facility] Stop: 06/06/19 08:01 Last Admin: 06/01/19 08:58 Dose: 20 mg Sodium Chloride (Flush - Normal Saline) 10 ml IVF Q12HR [facility] Last Admin: 06/01/19 09:00 Dose: 10 ml Sodium Chloride (Normal Saline Pf) 10 ml FS PRN PRN PRN Reason: RECONSTITUTION Last Admin: 05/28/19 08:22 Dose: 10 ml Temazepam (Restoril) 15 mg PO HSPRN PRN PRN Reason: Insomnia Last Admin: 06/01/19 00:16 Dose: 15 mg Vital Signs & Weight: Vital Signs Temp Pulse Pulse Pulse Resp BP BP 06/01/19 15:13 84 16 06/01/19 14:00 118 H 18 06/01/19 13:15 124 H 55 L 140/80 117/58 L 06/01/19 12:00 98.8 F 110 H 19 06/01/19 10:15 110 H 17 06/01/19 08:59 02/15/20 08:58 86 16 06/01/19 08:00 98.0 F 70 17 BP Pulse Ox 06/01/19 15:13 06/01/19 14:00 117/58 L 06/01/19 13:15 06/01/19 12:00 136/77 99 06/01/19 10:15 147/70 H 06/01/19 08:59 95 06/01/19 08:58 06/01/19 08:00 126/75 95 Admit Weight 241 lb 2.88 oz Weight 217 lb 13.067 oz - Physical Exam General: alert & oriented x3 HEENT: mucus membranes moist Neck: supple neck Cardiac: irregularly regular Lungs: normal breath sounds Neuro: no lateralizing findings Abdomen: active bowel sounds Extremities: no clubbing Skin: clear Musculoskeletal: no pain - Labs Result Diagrams: 06/01/19 03:59 06/01/19 03:59 Troponin/CKMB CK-MB (CK-2) 358.0 ng/mL (0-6.6) H* 05/25/19 18:16 Troponin I 9.671 ng/mL (< 0.028) H* 05/25/19 07:50 - Telemetry Supraventricular conduction: atrial fibrillation - Assessment/Plan Assessment/Plan: 1. Out of hospital cardiac arrest 2. New onset afib 3. CAD, a/p stent placement. 4. NSTEMI PLAN: - Will start full anticoagulation for stroke prophylaixs - Already on amiodarone. Currently afib is rate controlled. - Plan for [facility] this coming week.
[2019-06-01] MEDS: Atorvastatin Calcium 20 MG TAB PO SCH (20:35)
[2019-06-01] MEDS: Enoxaparin Sodium 100 MG/ML SYRINGE SC SCH (20:35)
[2019-06-02 04:34] LABS: Anion Gap 13 mmol/L (10-20); BUN (Urea Nitrogen) 34 mg/dL (8.4-25.7); Calc. Creatinine Clearance 93 mL/min (70-130); Carbon Dioxide 24 mmol/L (23-31); Chloride 106 mmol/L (98-107); Estimated GFR-MDRD 66; Glucose 116 mg/dL (80-115); Potassium 3.8 mmol/L (3.5-5.1); Sodium 139 mmol/L (136-145)
[2019-06-02 05:20] LABS: Mean Corpuscular Volume 87.6 fL (78.0-98.0)
[2019-06-02] MEDS: Acetaminophen 325 MG TAB PO PRN (06:00)
[2019-06-02 06:07] LABS: Hemoglobin 13.3 g/dL (14.0-18.0); Mean Corpuscular HGB CONC 33.7 g/dL (32.0-36.0); Mean Corpuscular Hemoglobin 29.5 pg (27.0-31.0); Mean Platelet Volume 8.4 fL (7.4-10.4); Platelet Count 156 thou/uL (130-400); RBC Distribution Width 13.5 % (11.5-14.5); Red Blood Cell (RBC) Count 4.51 mill/uL (4.70-6.10); White Blood Cell (WBC) Count 18.3 thou/uL (4.8-10.8)
[2019-06-02 06:36] LABS: Band 3 % (5-11); Lymphocytes 54 % (21-51); MDiff Complete? YES; Monocytes 1 % (0-10); Neutrophil 42 % (42-75)
[2019-06-02] MEDS: Amiodarone 200 MG TAB PO SCH ×2 (10:10→20:36)
[2019-06-02] MEDS: Cefdinir 300 MG CAP PO SCH ×2 (10:11→20:36)
[2019-06-02] MEDS: predniSONE 20 MG TAB PO SCH (10:11)
[2019-06-02] MEDS: Aspirin 325 MG TAB PO SCH (10:11)
[2019-06-02] MEDS: Furosemide 40 MG TAB PO SCH ×2 (10:12→14:38)
[2019-06-02] MEDS: Metoprolol Tartrate 25 MG TAB PO SCH ×2 (10:13→20:37)
[2019-06-02] MEDS: Enoxaparin Sodium 100 MG/ML SYRINGE SC SCH ×2 (10:14→20:37)
--- NOTE | 2019-06-02 15:43 | PRG ---
DATE OF SERVICE: 06/02/2019 SUBJECTIVE: Mr. Andujar was evaluated. He is in no distress. He says he is feeling better. OBJECTIVE: VITAL SIGNS: He is afebrile. Heart rate is in the 50s, respiratory rate 17, oximetry is 100% on room air, blood pressure 134/65. LUNGS: Clear. HEART: Regular rhythm. ABDOMEN: Soft. EXTREMITIES: Without edema. IMPRESSION AND PLAN: 1. Status post [id number] cardiac arrest. 2. Atrial fibrillation. 3. History of coronary stenting. 4. Okg-DY-dvyghilqs myocardial infarction. He is tentatively on schedule for cardiac catheterization this week. He relayed a history of being in high school and going to [employer] basketball game, taking half court shot. He said the ball was handed to him he actually almost made the shot. We had a long discussion about this. I enjoyed my visit with him. Hopefully, he will have a better week than he has had recently. He appears to be completely neurologically intact after his cardiac arrest. Job ID: [id number]
--- NOTE | 2019-06-02 17:30 | PDOC.CPN ---
- Subjective Date: 06/02/19 Time: 17:29 Interval history: No new issues. Feeling better. - Review of Systems General: denies: fever/chills, weight/appetite/sleep changes, night sweats, fatigue Respiratory: denies: cough, congestion, shortness of breath, exercise intolerance Cardiovascular: denies: chest pain, palpitation, edema, paroxysmal nocturnal dyspnea, orthopnea Gastrointestinal: denies: nausea, vomiting, diarrhea, constipation, abd pain, GI bleeding Musculoskeletal: denies: pain, tenderness, stiffness, swelling, arthritis/ arthralgias Neurological: denies: numbness, syncope, seizure, weakness - Objective Allergies/Adverse Reactions: Allergies Allergy/AdvReac Type Severity Reaction Status Date / Time aspirin AdvReac Severe Verified 06/02/19 10:18 Visit Medications: Current Medications Acetaminophen (Tylenol) 650 mg [place] Q6H PRN PRN Reason: TO KEEP TEMP <37C/98.6F Last Admin: 05/26/19 01:17 Dose: 650 mg Acetaminophen (Tylenol) 650 mg PO Q6H PRN PRN Reason: Headache/Fever or Pain Last Admin: 06/02/19 06:00 Dose: 650 mg Albuterol/Ipratropium (Duoneb) 3 ml NEB [id number] [facility] Last Admin: 06/02/19 14:11 Dose: 3 ml Amiodarone HCl (Cordarone) 400 mg PO BID [facility] Last Admin: 06/02/19 10:10 Dose: 400 mg Artificial Tears (Tears Naturale) 2 drop EA EYE Q4H PRN PRN Reason: Dry Eyes Last Admin: 06/01/19 15:17 Dose: 2 drop Aspirin (Aspirin) 325 mg PO DAILY [facility] Last Admin: 06/02/19 10:11 Dose: Not Given Atorvastatin Calcium (Lipitor) 20 mg PO HS [facility] Last Admin: 06/01/19 20:35 Dose: 20 mg Cefdinir (Omnicef) 300 mg PO BID [facility] Stop: 06/05/19 09:01 Last Admin: 06/02/19 10:11 Dose: 300 mg Dextrose/Water (Dextrose 50%) 25 gm IVP PRN PRN PRN Reason: HYPOGLYCEMIA PROTOCOL Enoxaparin Sodium (Lovenox) 100 mg SC 0900,2100 [facility] Last Admin: 06/02/19 10:14 Dose: 100 mg Furosemide (Lasix) 40 mg PO 0900,1400 [facility] Last Admin: 06/02/19 14:38 Dose: 40 mg Glucagon (Glucagon) 1 mg IM PRN PRN PRN Reason: HYPOGLYCEMIA PROTOCOL Amiodarone HCl 450 mg/Miscellaneous Medication 1 each/ Dextrose/Water 259 mls @ 0 mls/hr IVPB INF [facility]; Protocol Last Admin: 05/29/19 00:00 Dose: 259 mls Dextrose/Water (D5w) 1,000 mls @ 0 mls/hr IV INF PRN PRN Reason: HYPOGLYCEMIA PROTOCOL Sodium Chloride (Normal Saline 0.9%) 1,000 mls @ 0 mls/hr IV .Q0M [facility] Insulin Human Lispro (Humalog) 0 units SC .MODERATE SLIDING SC PRN; Protocol PRN Reason: MODERATE SLIDING SCALE Last Admin: 05/30/19 20:54 Dose: 2 unit Melatonin (Melatonin) 3 mg PO HSPRN PRN PRN Reason: Insomnia Last Admin: 05/31/19 22:06 Dose: 3 mg Metoprolol Tartrate (Lopressor) 25 mg PO BID [facility] Last Admin: 06/02/19 10:13 Dose: 25 mg Pantoprazole Sodium (Protonix) 40 mg PO DAILY [facility] Last Admin: 06/02/19 10:13 Dose: 40 mg Prednisone (Prednisone) 20 mg PO QA[facility] Stop: 06/06/19 08:01 Last Admin: 06/02/19 10:11 Dose: 20 mg Sodium Chloride (Flush - Normal Saline) 10 ml IVF Q12HR [facility] Last Admin: 06/02/19 10:16 Dose: 10 ml Sodium Chloride (Normal Saline Pf) 10 ml FS PRN PRN PRN Reason: RECONSTITUTION Last Admin: 05/28/19 08:22 Dose: 10 ml Temazepam (Restoril) 15 mg PO HSPRN PRN PRN Reason: Insomnia Last Admin: 06/01/19 00:16 Dose: 15 mg Vital Signs & Weight: Vital Signs Temp Pulse Resp BP Pulse Ox 06/02/19 14:11 58 L 16 06/02/19 11:41 98.1 F 58 L 17 134/65 100 06/02/19 08:00 97 06/02/19 07:58 98.1 F 73 18 136/74 97 Admit Weight 241 lb 2.88 oz Weight 217 lb 13.067 oz - Physical Exam General: alert & oriented x3 HEENT: mucus membranes moist Neck: supple neck Cardiac: regular rate and rhythm Lungs: clear to auscultation Neuro: grossly intact Abdomen: unremarkable Extremities: no edema Skin: clear Musculoskeletal: no pain - Labs Result Diagrams: 06/02/19 03:57 06/02/19 03:57 Troponin/CKMB CK-MB (CK-2) 358.0 ng/mL (0-6.6) H* 05/25/19 18:16 Troponin I 9.671 ng/mL (< 0.028) H* 05/25/19 07:50 - Telemetry Sinus rhythms and dysrhythmias: sinus rhythm - Assessment/Plan Assessment/Plan: 1. Out of hospital cardiac arrest 2. New onset afib 3. CAD, a/p stent placement. 4. NSTEMI PLAN: - Continue full anticoagulation for stroke prophylaxis - Already on amiodarone. Currently back in sinus. - Plan for [facility] Monday.
--- NOTE | 2019-06-02 17:41 | PDOC.HOSPP ---
- Subjective Encounter Date: 06/02/19 Encounter Time: 14:00 Subjective: f/u for A-flutter and cardiac arrest with ROSC. Planning for heart cath on . c/o of dry eyes. - Objective Vital Signs & Weight: Vital Signs (12 hours) Temp Pulse Resp BP Pulse Ox 06/02/19 14:11 58 L 16 06/02/19 11:41 98.1 F 58 L 17 134/65 100 06/02/19 08:00 97 06/02/19 07:58 98.1 F 73 18 136/74 97 Weight Admit Weight 241 lb 2.88 oz Weight 217 lb 13.067 oz Most Recent Monitor Data Heart Rate from ECG 76 NIBP 133/89 NIBP BP-Mean 103 Respiration from ECG 23 SpO2 96 I&O: 06/01/19 06/02/19 06/03/19 06:59 06:59 06:59 Intake Total 1320 1750 610 Output Total 2290 1550 600 Balance -970 200 10 Result Diagrams: 06/02/19 03:57 06/02/19 03:57 Additional Labs: Accuchecks 06/02/19 06/02/19 06/01/19 11:29 06:35 20:55 POC Glucose 93 131 H 141 H 06/01/19 17:44 POC Glucose 153 H Microbiology 05/27/19 13:45 Sputum Respiratory Culture - Final 05/26/19 07:45 Sputum Respiratory Culture - Final 05/24/19 23:00 Artery - Right Leg Blood Culture - Final NO GROWTH IN 5 DAYS 05/24/19 21:14 Urine bryant catheter Urine Culture - Final NO GROWTH AT 36 HOURS 05/24/19 20:35 Venous blood - Left Arm Blood Culture - Final NO GROWTH IN 5 DAYS Laboratory Tests 05/28/19 05/29/19 05/29/19 04:10 04:57 04:57 WBC 15.9 H Creatinine 1.75 H 1.50 H 05/30/19 05/30/19 05/31/19 04:13 04:13 03:13 WBC 14.2 H Creatinine 1.47 H 1.29 05/31/19 06/01/19 06/01/19 03:13 03:59 03:59 WBC 12.8 H 17.3 H Creatinine 1.11 EKG Reviewed by me: Yes (Tele - SR with PVC's) Hospitalist ROS - Medication Medications: Active Medications Generic Name Dose Route Start Last Admin Trade Name Freq PRN Reason Stop Dose Admin Acetaminophen 650 mg 05/26/19 01:05 05/26/19 01:17 Tylenol [place] 650 mg Q6H PRN Administration TO KEEP TEMP <37C/98.6F Acetaminophen 650 mg 06/01/19 00:05 06/02/19 06:00 Tylenol PO 650 mg Q6H PRN Administration Headache/Fever or Pain Albuterol/Ipratropium 3 ml 05/25/19 13:00 06/02/19 14:11 Duoneb NEB 3 ml [id number] CANDACE Administration Amiodarone HCl 400 mg 05/31/19 09:00 06/02/19 10:10 Cordarone PO 400 mg BID CANDACE Administration Artificial Tears 2 drop 06/01/19 09:29 06/01/19 15:17 Tears Naturale EA EYE 2 drop Q4H PRN Administration Dry Eyes Aspirin 325 mg 05/27/19 09:00 06/02/19 10:11 Aspirin PO Not Given DAILY CANDACE Atorvastatin Calcium 20 mg 05/31/19 21:00 06/01/19 20:35 Lipitor PO 20 mg HS CANDACE Administration Cefdinir 300 mg 05/31/19 09:00 06/02/19 10:11 Omnicef PO 06/05/19 09:01 300 mg BID CANDACE Administration Enoxaparin Sodium 100 mg 06/01/19 21:00 06/02/19 10:14 Lovenox SC 100 mg 0900,2100 CANDACE Administration Furosemide 40 mg 05/29/19 09:00 06/02/19 14:38 Lasix PO 40 mg 0900,1400 CANDACE Administration Amiodarone HCl 450 mg/ 259 mls @ 0 mls/hr 05/24/19 21:30 05/29/19 00:00 Miscellaneous Medication 1 IVPB 259 mls each/ Dextrose/Water INF CANDACE Administration Protocol As Directed Insulin Human Lispro 0 units 05/25/19 08:53 05/30/19 20:54 Humalog SC 2 unit .MODERATE SLIDING SC PRN Administration MODERATE SLIDING SCALE Protocol Melatonin 3 mg 05/31/19 21:58 05/31/19 22:06 Melatonin PO 3 mg HSPRN PRN Administration Insomnia Metoprolol Tartrate 25 mg 05/28/19 21:00 06/02/19 10:13 Lopressor PO 25 mg BID CANDACE Administration Pantoprazole Sodium 40 mg 05/29/19 09:00 06/02/19 10:13 Protonix PO 40 mg DAILY CANDACE Administration Prednisone 20 mg 05/31/19 08:00 06/02/19 10:11 Prednisone PO 06/06/19 08:01 20 mg QAM-WM CANDACE Administration Sodium Chloride 10 ml 05/25/19 09:00 06/02/19 10:16 Flush - Normal Saline IVF 10 ml Q12HR CANDACE Administration Sodium Chloride 10 ml 05/27/19 08:27 05/28/19 08:22 Normal Saline Pf FS 10 ml PRN PRN Administration RECONSTITUTION Temazepam 15 mg 06/01/19 00:04 06/01/19 00:16 Restoril PO 15 mg HSPRN PRN Administration Insomnia - Exam General Appearance: NAD, awake alert Eye: PERRL, anicteric sclera ENT: normocephalic atraumatic, no oropharyngeal lesions Neck: supple, symmetric, no JVD, no thyromegaly, no lymphadenopathy Heart: RRR, no gallops, no rubs, normal peripheral pulses Respiratory: CTAB, no rales, no ronchi, normal chest expansion Gastrointestinal: soft, non-tender, non-distended, normal bowel sounds, no palpable masses Extremities: no cyanosis Extremities - other findings: minimal LE edema bilat Skin: normal turgor, no lesions Neurological: cranial nerve grossly intact, no new deficit Musculoskeletal: normal tone, normal strength Psychiatric: normal affect, A&O x 3 Hosp A/P (1) Acute on chronic systolic (congestive) heart failure Code(s): I50.23 - ACUTE ON CHRONIC SYSTOLIC (CONGESTIVE) HEART FAILURE Status : Acute Plan: Stable currently, plan for heart cath on 06/04/19, continue ASA (2) Atrial flutter Code(s): I48.92 - UNSPECIFIED ATRIAL FLUTTER Status: Acute Plan: EP consult pending, continue rate-control measures with Nifedipine/Coreg (3) COPD exacerbation Code(s): J44.1 - CHRONIC OBSTRUCTIVE PULMONARY DISEASE W (ACUTE) EXACERBATION Status: Acute Plan: Stable, continue pulm support, Duonebs, Predisone (4) Elevated troponin Code(s): R79.89 - OTHER SPECIFIED ABNORMAL FINDINGS OF BLOOD CHEMISTRY Status : Acute (5) Tobacco abuse Code(s): Z72.0 - TOBACCO USE Status: Chronic Plan: Tobacco cessation resources (6) HTN (hypertension) Code(s): I10 - ESSENTIAL (PRIMARY) HYPERTENSION Status: Chronic Qualifiers: Hypertension type: essential hypertension Qualified Code(s): I10 - Essential (primary) hypertension Plan: Serial BP monitoring - Plan plan discussed w/ family, continue antibiotics, PT/OT, social work coordinator, out of bed/ambulate, DVT proph w/SCDs Continue supportive mgmt Continue ASA/Nifedipine/Coreg Plan for heart cath EP consult pending Continue Duonebs/Prednisone Restasis Eye drops
[2019-06-02] MEDS ORDERED: Oxybutynin 5 MG TAB PO PRN (17:44)
[2019-06-02] MEDS ORDERED: Phenazopyridine HCl 97.5 MG TABLET PO PRN (17:45)
[2019-06-02] MEDS: Atorvastatin Calcium 20 MG TAB PO SCH (20:36)
[2019-06-02] MEDS: cycloSPORINE 0.05% Ophthalmic Droperette EA EYE SCH (21:01)
[2019-06-03] MEDS: Acetaminophen 325 MG TAB PO PRN ×2 (01:58→08:31)
[2019-06-03 04:41] LABS: Anion Gap 14 mmol/L (10-20); BUN (Urea Nitrogen) 32 mg/dL (8.4-25.7); Calc. Creatinine Clearance 100 mL/min (70-130); Calcium 8.2 mg/dL (7.8-10.44); Carbon Dioxide 26 mmol/L (23-31); Chloride 105 mmol/L (98-107); Estimated GFR-MDRD 72; Glucose 109 mg/dL (80-115); Potassium 3.7 mmol/L (3.5-5.1); Sodium 141 mmol/L (136-145)
[2019-06-03 05:32] LABS: Band 5 % (5-11); Hemoglobin 12.7 g/dL (14.0-18.0); Lymphocytes 45 % (21-51); MDiff Complete? YES; Mean Corpuscular HGB CONC 33.7 g/dL (32.0-36.0); Mean Corpuscular Hemoglobin 29.5 pg (27.0-31.0); Mean Corpuscular Volume 87.5 fL (78.0-98.0); Mean Platelet Volume 8.1 fL (7.4-10.4); Monocytes 1 % (0-10); Neutrophil 49 % (42-75); Platelet Count 177 thou/uL (130-400); RBC Distribution Width 13.5 % (11.5-14.5); Red Blood Cell (RBC) Count 4.32 mill/uL (4.70-6.10); Toxic Granulation SLIGHT; White Blood Cell (WBC) Count 17.9 thou/uL (4.8-10.8)
[2019-06-03] MEDS: Enoxaparin Sodium 100 MG/ML SYRINGE SC SCH ×2 (08:29→20:41)
[2019-06-03] MEDS: Metoprolol Tartrate 25 MG TAB PO SCH ×2 (08:30→20:41)
[2019-06-03] MEDS: predniSONE 20 MG TAB PO SCH (08:30)
[2019-06-03] MEDS: Amiodarone 200 MG TAB PO SCH ×2 (08:30→20:41)
[2019-06-03] MEDS: Cefdinir 300 MG CAP PO SCH ×2 (08:31→20:41)
[2019-06-03] MEDS: Furosemide 40 MG TAB PO SCH ×2 (08:31→14:06)
[2019-06-03] MEDS: Aspirin 325 MG TAB PO SCH (08:32)
[2019-06-03] MEDS: cycloSPORINE 0.05% Ophthalmic Droperette EA EYE SCH ×2 (09:28→20:42)
--- NOTE | 2019-06-03 12:46 | PRG ---
DATE OF SERVICE: 06/03/2019 SUBJECTIVE: This morning, he is better. Less short of breath. Less cough. OBJECTIVE: VITAL SIGNS: Temperature 97, pulse 63, respiratory rate 18, saturations are 99% on room air, and blood pressure 112/69. CHEST: No wheezing or crackles. CARDIAC: Normal S1 and S2. No gallops. ABDOMEN: No masses. LABORATORY DATA: White count 17,000. IMPRESSION: 1. Status post cardiopulmonary arrest. 2. Respiratory failure. 3. Aspiration pneumonia. 4. Ventricular tachycardia. PLAN: He is scheduled for a CT tomorrow. Otherwise, continue PT supportive care. Antibiotics will follow. Job ID: [id number]
--- NOTE | 2019-06-03 14:08 | PDOC.HOSPP ---
- Subjective Encounter Date: 06/03/19 Encounter Time: 14:05 Subjective: f/u for OOH cardiac arrest, A-fib/flutter and NSTEMI. Feels ok overall and plan for C 06/04/19 and defibrillator. - Objective Vital Signs & Weight: Vital Signs (12 hours) Temp Pulse Resp BP BP Pulse Ox 06/03/19 13:30 64 16 06/03/19 11:24 97.8 F 63 18 112/69 94 L 06/03/19 07:40 63 16 06/03/19 07:16 98.1 F 69 18 130/79 95 06/03/19 04:05 98.5 F 92 16 102/55 L 96 Weight Admit Weight 241 lb 2.88 oz Weight 217 lb 13.067 oz Most Recent Monitor Data Heart Rate from ECG 76 NIBP 133/89 NIBP BP-Mean 103 Respiration from ECG 23 SpO2 96 I&O: 06/02/19 06/03/19 06/04/19 06:59 06:59 06:59 Intake Total 1750 610 Output Total 1550 600 Balance 200 10 Result Diagrams: 06/03/19 03:56 06/03/19 03:56 Additional Labs: Accuchecks 06/03/19 06/03/19 06/02/19 11:02 04:27 20:30 POC Glucose 128 H 109 139 H 06/02/19 16:42 POC Glucose 132 H Microbiology 05/27/19 13:45 Sputum Respiratory Culture - Final 05/26/19 07:45 Sputum Respiratory Culture - Final 05/24/19 23:00 Artery - Right Leg Blood Culture - Final NO GROWTH IN 5 DAYS 05/24/19 21:14 Urine bryant catheter Urine Culture - Final NO GROWTH AT 36 HOURS 05/24/19 20:35 Venous blood - Left Arm Blood Culture - Final NO GROWTH IN 5 DAYS Laboratory Tests 05/28/19 05/29/19 05/29/19 04:10 04:57 04:57 WBC 15.9 H Creatinine 1.75 H 1.50 H 05/30/19 05/30/19 05/31/19 04:13 04:13 03:13 WBC 14.2 H Creatinine 1.47 H 1.29 05/31/19 06/01/19 06/01/19 03:13 03:59 03:59 WBC 12.8 H 17.3 H Creatinine 1.11 EKG Reviewed by me: Yes (Tele - SR) Hospitalist ROS - Medication Medications: Active Medications Generic Name Dose Route Start Last Admin Trade Name Freq PRN Reason Stop Dose Admin Acetaminophen 650 mg 05/26/19 01:05 05/26/19 01:17 Tylenol [place] 650 mg Q6H PRN Administration TO KEEP TEMP <37C/98.6F Acetaminophen 650 mg 06/01/19 00:05 06/03/19 08:31 Tylenol PO 650 mg Q6H PRN Administration Headache/Fever or Pain Albuterol/Ipratropium 3 ml 05/25/19 13:00 06/03/19 13:30 Duoneb NEB 3 ml [id number] CANDACE Administration Amiodarone HCl 400 mg 05/31/19 09:00 06/03/19 08:30 Cordarone PO 400 mg BID CANDACE Administration Artificial Tears 2 drop 06/01/19 09:29 06/01/19 15:17 Tears Naturale EA EYE 2 drop Q4H PRN Administration Dry Eyes Aspirin 325 mg 05/27/19 09:00 06/03/19 08:32 Aspirin PO Not Given DAILY CANDACE Atorvastatin Calcium 20 mg 05/31/19 21:00 06/02/19 20:36 Lipitor PO 20 mg HS CANDACE Administration Cefdinir 300 mg 05/31/19 09:00 06/03/19 08:31 Omnicef PO 06/05/19 09:01 300 mg BID CANDACE Administration Cyclosporine 1 ml 06/02/19 21:00 06/03/19 09:28 Restasis EA EYE 1 ml BID CANDACE Administration Enoxaparin Sodium 100 mg 06/01/19 21:00 06/03/19 08:29 Lovenox SC 100 mg 0900,2100 CANDACE Administration Furosemide 40 mg 05/29/19 09:00 06/03/19 14:06 Lasix PO 40 mg 0900,1400 CANDACE Administration Amiodarone HCl 450 mg/ 259 mls @ 0 mls/hr 05/24/19 21:30 05/29/19 00:00 Miscellaneous Medication 1 IVPB 259 mls each/ Dextrose/Water INF CANDACE Administration Protocol As Directed Insulin Human Lispro 0 units 05/25/19 08:53 05/30/19 20:54 Humalog SC 2 unit .MODERATE SLIDING SC PRN Administration MODERATE SLIDING SCALE Protocol Melatonin 3 mg 05/31/19 21:58 05/31/19 22:06 Melatonin PO 3 mg HSPRN PRN Administration Insomnia Metoprolol Tartrate 25 mg 05/28/19 21:00 06/03/19 08:30 Lopressor PO 25 mg BID CANDACE Administration Pantoprazole Sodium 40 mg 05/29/19 09:00 06/03/19 08:31 Protonix PO 40 mg DAILY CANDACE Administration Prednisone 20 mg 05/31/19 08:00 06/03/19 08:30 Prednisone PO 06/06/19 08:01 20 mg QAM-WM CANDACE Administration Sodium Chloride 10 ml 05/25/19 09:00 06/03/19 08:32 Flush - Normal Saline IVF 10 ml Q12HR CANDACE Administration Sodium Chloride 10 ml 05/27/19 08:27 05/28/19 08:22 Normal Saline Pf FS 10 ml PRN PRN Administration RECONSTITUTION Temazepam 15 mg 06/01/19 00:04 06/01/19 00:16 Restoril PO 15 mg HSPRN PRN Administration Insomnia - Exam General Appearance: NAD, awake alert Eye: PERRL, anicteric sclera ENT: normocephalic atraumatic, no oropharyngeal lesions Neck: supple, symmetric, no JVD, no thyromegaly Heart: RRR, no gallops, no rubs, normal peripheral pulses Respiratory: CTAB, no wheezes, no rales, no ronchi, normal chest expansion Gastrointestinal: soft, non-tender, non-distended, normal bowel sounds, no palpable masses Extremities: no cyanosis, no clubbing, no edema Skin: normal turgor, no lesions Neurological: cranial nerve grossly intact, no new deficit Musculoskeletal: normal tone, normal strength Psychiatric: A&O x 3 Hosp A/P (1) Acute on chronic systolic (congestive) heart failure Code(s): I50.23 - ACUTE ON CHRONIC SYSTOLIC (CONGESTIVE) HEART FAILURE Status : Acute Plan: Stable currently, continue supportive mgmt with Lasix 40mg BID, Metoprolol (2) Atrial flutter Code(s): I48.92 - UNSPECIFIED ATRIAL FLUTTER Status: Acute Plan: Continue Amiodarone, Lovenox, plan for [facility] 06/04 (3) COPD exacerbation Code(s): J44.1 - CHRONIC OBSTRUCTIVE PULMONARY DISEASE W (ACUTE) EXACERBATION Status: Acute Plan: Stable, continue pulm support (4) Elevated troponin Code(s): R79.89 - OTHER SPECIFIED ABNORMAL FINDINGS OF BLOOD CHEMISTRY Status : Acute Plan: NSTEMI, plan for LHC, continue ASA, Lipitor (5) Tobacco abuse Code(s): Z72.0 - TOBACCO USE Status: Chronic (6) HTN (hypertension) Code(s): I10 - ESSENTIAL (PRIMARY) HYPERTENSION Status: Chronic Qualifiers: Hypertension type: essential hypertension Qualified Code(s): I10 - Essential (primary) hypertension - Plan plan discussed w/ family, continue antibiotics, PT/OT, social contact worker, respiratory therapy, out of bed/ambulate, DVT proph w/SCDs Continue supportive mgmt Continue ASA/ Plan for heart cath 06/04 Plan for AICD Continue Duonebs/Prednisone Restasis Eye drops AM lab: BMP, CBC
--- NOTE | 2019-06-03 14:13 | PDOC.CPN ---
- Subjective Date: 06/03/19 Time: 14:12 Interval history: He is doing well. No angina, no SOB. - Review of Systems General: denies: fever/chills, weight/appetite/sleep changes, night sweats, fatigue Respiratory: denies: cough, congestion, shortness of breath, exercise intolerance Cardiovascular: denies: chest pain, palpitation, edema, paroxysmal nocturnal dyspnea, orthopnea Gastrointestinal: denies: nausea, vomiting, diarrhea, constipation, abd pain, GI bleeding Musculoskeletal: denies: pain, tenderness, stiffness, swelling, arthritis/ arthralgias Neurological: denies: numbness, syncope, seizure, weakness - Objective Allergies/Adverse Reactions: Allergies Allergy/AdvReac Type Severity Reaction Status Date / Time aspirin AdvReac Severe Verified 06/02/19 10:18 Visit Medications: Current Medications Acetaminophen (Tylenol) 650 mg [place] Q6H PRN PRN Reason: TO KEEP TEMP <37C/98.6F Last Admin: 05/26/19 01:17 Dose: 650 mg Acetaminophen (Tylenol) 650 mg PO Q6H PRN PRN Reason: Headache/Fever or Pain Last Admin: 06/03/19 08:31 Dose: 650 mg Albuterol/Ipratropium (Duoneb) 3 ml NEB [id number] [facility] Last Admin: 06/03/19 13:30 Dose: 3 ml Amiodarone HCl (Cordarone) 400 mg PO BID [facility] Last Admin: 06/03/19 08:30 Dose: 400 mg Artificial Tears (Tears Naturale) 2 drop EA EYE Q4H PRN PRN Reason: Dry Eyes Last Admin: 06/01/19 15:17 Dose: 2 drop Aspirin (Aspirin) 325 mg PO DAILY [facility] Last Admin: 06/03/19 08:32 Dose: Not Given Atorvastatin Calcium (Lipitor) 20 mg PO HS [facility] Last Admin: 06/02/19 20:36 Dose: 20 mg Cefdinir (Omnicef) 300 mg PO BID [facility] Stop: 06/05/19 09:01 Last Admin: 06/03/19 08:31 Dose: 300 mg Cyclosporine (Restasis) 1 ml EA EYE BID [facility] Last Admin: 06/03/19 09:28 Dose: 1 ml Dextrose/Water (Dextrose 50%) 25 gm IVP PRN PRN PRN Reason: HYPOGLYCEMIA PROTOCOL Enoxaparin Sodium (Lovenox) 100 mg SC 0900,2100 [facility] Last Admin: 06/03/19 08:29 Dose: 100 mg Furosemide (Lasix) 40 mg PO 0900,1400 [facility] Last Admin: 06/03/19 14:06 Dose: 40 mg Glucagon (Glucagon) 1 mg IM PRN PRN PRN Reason: HYPOGLYCEMIA PROTOCOL Amiodarone HCl 450 mg/Miscellaneous Medication 1 each/ Dextrose/Water 259 mls @ 0 mls/hr IVPB INF CANDACE; Protocol Last Admin: 05/29/19 00:00 Dose: 259 mls Dextrose/Water (D5w) 1,000 mls @ 0 mls/hr IV INF PRN PRN Reason: HYPOGLYCEMIA PROTOCOL Sodium Chloride (Normal Saline 0.9%) 1,000 mls @ 0 mls/hr IV .Q0M [facility] Insulin Human Lispro (Humalog) 0 units SC .MODERATE SLIDING SC PRN; Protocol PRN Reason: MODERATE SLIDING SCALE Last Admin: 05/30/19 20:54 Dose: 2 unit Melatonin (Melatonin) 3 mg PO HSPRN PRN PRN Reason: Insomnia Last Admin: 05/31/19 22:06 Dose: 3 mg Metoprolol Tartrate (Lopressor) 25 mg PO BID [facility] Last Admin: 06/03/19 08:30 Dose: 25 mg Oxybutynin Chloride (Ditropan) 5 mg PO Q8H PRN PRN Reason: Bladder Spasms Pantoprazole Sodium (Protonix) 40 mg PO DAILY [facility] Last Admin: 06/03/19 08:31 Dose: 40 mg Phenazopyridine HCl (Azo Standard) 195 mg PO Q8H PRN PRN Reason: DYSURIA Prednisone (Prednisone) 20 mg PO QAM-[facility] Stop: 06/06/19 08:01 Last Admin: 06/03/19 08:30 Dose: 20 mg Sodium Chloride (Flush - Normal Saline) 10 ml IVF Q12HR [facility] Last Admin: 06/03/19 08:32 Dose: 10 ml Sodium Chloride (Normal Saline Pf) 10 ml FS PRN PRN PRN Reason: RECONSTITUTION Last Admin: 05/28/19 08:22 Dose: 10 ml Temazepam (Restoril) 15 mg PO HSPRN PRN PRN Reason: Insomnia Last Admin: 06/01/19 00:16 Dose: 15 mg Vital Signs & Weight: Vital Signs Temp Pulse Resp BP BP Pulse Ox 06/03/19 13:30 64 16 06/03/19 11:24 97.8 F 63 18 112/69 94 L 06/03/19 07:40 63 16 06/03/19 07:16 98.1 F 69 18 130/79 95 06/03/19 04:05 98.5 F 92 16 102/55 L 96 Admit Weight 241 lb 2.88 oz Weight 217 lb 13.067 oz - Physical Exam General: alert & oriented x3 HEENT: mucus membranes moist Neck: supple neck Cardiac: regular rate and rhythm Lungs: clear to auscultation Neuro: grossly intact Abdomen: active bowel sounds Extremities: no edema Skin: clear Musculoskeletal: no pain - Labs Result Diagrams: 06/03/19 03:56 06/03/19 03:56 Troponin/CKMB CK-MB (CK-2) 358.0 ng/mL (0-6.6) H* 05/25/19 18:16 Troponin I 9.671 ng/mL (< 0.028) H* 05/25/19 07:50 - Telemetry Sinus rhythms and dysrhythmias: sinus rhythm - Assessment/Plan Assessment/Plan: 1. Out of hospital cardiac arrest 2. New onset afib 3. CAD, s/p stent placement in the past. 4. NSTEMI PLAN: - Continue full anticoagulation for stroke prophylaxis - Already on amiodarone. Currently back in sinus. - Plan for [facility] Tomorrow. Dr. Walton to do.
[2019-06-03] MEDS: Atorvastatin Calcium 20 MG TAB PO SCH (20:41)
[2019-06-04 04:37] LABS: #Basophils 0.2 thou/uL (0.0-0.2); #Eosinphils 0.2 thou/uL (0.0-0.7); #Monocytes 0.5 thou/uL (0.11-0.59); #Neutrophils 7.9 thou/uL (1.40-6.50); %Basophils 1.1 % (0.0-1.0); %Eosinophils 1.4 % (0.0-10.0); %Lymphocytes 40.5 % (21.0-51.0); %Monocytes 3.3 % (0.0-10.0); %Neutrophils 53.6 % (42.0-75.0); Hemoglobin 12.6 g/dL (14.0-18.0); Mean Corpuscular HGB CONC 33.1 g/dL (32.0-36.0); Mean Corpuscular Volume 87.8 fL (78.0-98.0); Mean Platelet Volume 7.5 fL (7.4-10.4); Platelet Count 192 thou/uL (130-400); RBC Distribution Width 13.6 % (11.5-14.5); Red Blood Cell (RBC) Count 4.33 mill/uL (4.70-6.10); White Blood Cell (WBC) Count 14.7 thou/uL (4.8-10.8)
[2019-06-04 04:50] LABS: Anion Gap 15 mmol/L (10-20); BUN (Urea Nitrogen) 24 mg/dL (8.4-25.7); Calc. Creatinine Clearance 120 mL/min (70-130); Calcium 8.1 mg/dL (7.8-10.44); Carbon Dioxide 19 mmol/L (23-31); Chloride 108 mmol/L (98-107); Estimated GFR-MDRD 88; Glucose 90 mg/dL (80-115); Potassium 3.7 mmol/L (3.5-5.1); Sodium 138 mmol/L (136-145)
[2019-06-04] MEDS ORDERED: Lidocaine 1% (PF) 30 ML VIAL ONE (08:00)
[2019-06-04] MEDS ORDERED: Heparin (Artline) 1,000 ML ONE (08:00)
[2019-06-04] MEDS: Amiodarone 200 MG TAB PO SCH ×2 (08:08→21:40)
[2019-06-04] MEDS: Aspirin 325 MG TAB PO SCH ×2 (08:08→12:29)
[2019-06-04] MEDS: Metoprolol Tartrate 25 MG TAB PO SCH ×2 (08:08→21:41)
[2019-06-04] MEDS: Furosemide 40 MG TAB PO SCH ×2 (08:08→15:05)
[2019-06-04] MEDS: predniSONE 20 MG TAB PO SCH (08:08)
[2019-06-04] MEDS: Sodium Chloride 0.9% 1,000 ML IV SCH ×2 (08:08→17:48)
[2019-06-04] MEDS: Cefdinir 300 MG CAP PO SCH ×2 (08:08→21:41)
[2019-06-04] MEDS: Enoxaparin Sodium 100 MG/ML SYRINGE SC SCH (08:11)
[2019-06-04] MEDS ORDERED: Verapamil 5 MG/2 ML VIAL ONE (08:26)
[2019-06-04] MEDS ORDERED: Nitroglycerin 100MG/250ML BOT 250 ML ONE (08:26)
[2019-06-04] MEDS ORDERED: Heparin 10,000 UNITS/1 ML VIAL ONE (08:26)
[2019-06-04] MEDS ORDERED: Midazolam HCl 2 mg/2 ml Vial ONE (08:43)
[2019-06-04] MEDS ORDERED: Fentanyl 100 MCG/2 ML VIAL ONE (08:43)
[2019-06-04] MEDS ORDERED: Nitroglycerin 0.4 MG TAB (25 Tab Bottle) SL PRN (09:05)
[2019-06-04] MEDS ORDERED: Acetaminophen/Codeine 30-300mg Tablet PO PRN ×2 (09:05)
[2019-06-04] MEDS ORDERED: Sodium Chloride 0.9% 200 ML IV PRN (09:05)
[2019-06-04] MEDS ORDERED: Sodium Chloride 0.9% 1,000 ML IV SCH (09:15)
--- NOTE | 2019-06-04 10:14 | PDOC.HOSPP ---
- Subjective Encounter Date: 06/04/19 Encounter Time: 10:10 Subjective: f/u for A-fib, s/p out of hospital cardiac arrest and CAD. [facility] today showing multi-vessel dz with recommendations for CABG on 06/06/19. No new complaints currently. - Objective Vital Signs & Weight: Vital Signs (12 hours) Temp Pulse Resp BP BP Pulse Ox 06/04/19 09:25 96.8 F L 61 16 120/73 98 06/04/19 08:00 97.6 F 68 17 125/63 98 06/04/19 07:08 70 14 06/04/19 04:00 98.0 F 63 20 120/75 95 Weight Admit Weight 241 lb 2.88 oz Weight 217 lb 3.2 oz Most Recent Monitor Data Heart Rate from ECG 76 NIBP 133/89 NIBP BP-Mean 103 Respiration from ECG 23 SpO2 96 I&O: 06/03/19 06/04/19 06/05/19 06:59 06:59 06:59 Intake Total 610 2080 Output Total 600 650 Balance 10 1430 Result Diagrams: 06/04/19 04:23 06/04/19 04:06 Additional Labs: Accuchecks 06/04/19 06/03/19 06/03/19 06:06 20:46 16:36 POC Glucose 98 141 H 114 H 06/03/19 11:02 POC Glucose 128 H Microbiology 05/27/19 13:45 Sputum Respiratory Culture - Final 05/26/19 07:45 Sputum Respiratory Culture - Final 05/24/19 23:00 Artery - Right Leg Blood Culture - Final NO GROWTH IN 5 DAYS 05/24/19 21:14 Urine bryant catheter Urine Culture - Final NO GROWTH AT 36 HOURS 05/24/19 20:35 Venous blood - Left Arm Blood Culture - Final NO GROWTH IN 5 DAYS Laboratory Tests 05/28/19 05/29/19 05/29/19 04:10 04:57 04:57 WBC 15.9 H Creatinine 1.75 H 1.50 H 05/30/19 05/30/19 05/31/19 04:13 04:13 03:13 WBC 14.2 H Creatinine 1.47 H 1.29 05/31/19 06/01/19 06/01/19 03:13 03:59 03:59 WBC 12.8 H 17.3 H Creatinine 1.11 EKG Reviewed by me: Yes (Tele - SR) Hospitalist ROS - Medication Medications: Active Medications Generic Name Dose Route Start Last Admin Trade Name Freq PRN Reason Stop Dose Admin Acetaminophen 650 mg 05/26/19 01:05 05/26/19 01:17 Tylenol [place] 650 mg Q6H PRN Administration TO KEEP TEMP <37C/98.6F Acetaminophen 650 mg 06/01/19 00:05 06/03/19 08:31 Tylenol PO 650 mg Q6H PRN Administration Headache/Fever or Pain Albuterol/Ipratropium 3 ml 05/25/19 13:00 06/04/19 07:08 Duoneb NEB 3 ml [id number] CANDACE Administration Amiodarone HCl 400 mg 05/31/19 09:00 06/04/19 08:08 Cordarone PO 400 mg BID CANDACE Administration Artificial Tears 2 drop 06/01/19 09:29 06/01/19 15:17 Tears Naturale EA EYE 2 drop Q4H PRN Administration Dry Eyes Aspirin 325 mg 05/27/19 09:00 06/04/19 08:08 Aspirin PO 325 mg DAILY CANDACE Administration Atorvastatin Calcium 20 mg 05/31/19 21:00 06/03/19 20:41 Lipitor PO 20 mg HS CANDACE Administration Cefdinir 300 mg 05/31/19 09:00 06/04/19 08:08 Omnicef PO 06/05/19 09:01 300 mg BID CANDACE Administration Cyclosporine 1 ml 06/02/19 21:00 06/03/19 20:42 Restasis EA EYE 1 ml BID CANDACE Administration Furosemide 40 mg 05/29/19 09:00 06/04/19 08:08 Lasix PO 40 mg 0900,1400 CANDACE Administration Amiodarone HCl 450 mg/ 259 mls @ 0 mls/hr 05/24/19 21:30 05/29/19 00:00 Miscellaneous Medication 1 IVPB 259 mls each/ Dextrose/Water INF CANDACE Administration Protocol As Directed Sodium Chloride 1,000 mls @ 100 mls/hr 06/04/19 06:30 06/04/19 08:08 Normal Saline 0.9% IV 1,000 mls .Q10H CANDACE Administration Insulin Human Lispro 0 units 05/25/19 08:53 05/30/19 20:54 Humalog SC 2 unit .MODERATE SLIDING SC PRN Administration MODERATE SLIDING SCALE Protocol Melatonin 3 mg 05/31/19 21:58 05/31/19 22:06 Melatonin PO 3 mg HSPRN PRN Administration Insomnia Metoprolol Tartrate 25 mg 05/28/19 21:00 06/04/19 08:08 Lopressor PO 25 mg BID CANDACE Administration Pantoprazole Sodium 40 mg 05/29/19 09:00 06/04/19 08:09 Protonix PO 40 mg DAILY CANDACE Administration Prednisone 20 mg 05/31/19 08:00 06/04/19 08:08 Prednisone PO 06/06/19 08:01 20 mg QAM-WM CANDACE Administration Sodium Chloride 10 ml 05/25/19 09:00 06/04/19 08:11 Flush - Normal Saline IVF 10 ml Q12HR CANDACE Administration Sodium Chloride 10 ml 05/27/19 08:27 05/28/19 08:22 Normal Saline Pf FS 10 ml PRN PRN Administration RECONSTITUTION Temazepam 15 mg 06/01/19 00:04 06/01/19 00:16 Restoril PO 15 mg HSPRN PRN Administration Insomnia - Exam General Appearance: NAD, awake alert Eye: PERRL, anicteric sclera ENT: normocephalic atraumatic, no oropharyngeal lesions Neck: supple, symmetric, no JVD, no thyromegaly Heart: RRR, no gallops, no rubs, normal peripheral pulses Respiratory: CTAB, no wheezes, no rales, no ronchi, normal chest expansion Gastrointestinal: soft, non-tender, non-distended, normal bowel sounds Extremities: no cyanosis, no clubbing, no edema Skin: normal turgor, no lesions Neurological: cranial nerve grossly intact, no new deficit Musculoskeletal: normal tone, normal strength Psychiatric: normal affect, A&O x 3 Hosp A/P (1) CAD (coronary artery disease) Code(s): I25.10 - ATHSCL HEART DISEASE OF [place] CORONARY ARTERY W/O ANG PCTRS Status: Chronic Plan: Multi-vessel dz, plan for CABG on 06/06/19, continue ASA, Lipitor (2) Acute on chronic systolic (congestive) heart failure Code(s): I50.23 - ACUTE ON CHRONIC SYSTOLIC (CONGESTIVE) HEART FAILURE Status : Acute Plan: Multi-vessel CAD likely underlying etiology, continue Lasix, Metoprolol (3) Atrial flutter Code(s): I48.92 - UNSPECIFIED ATRIAL FLUTTER Status: Acute (4) COPD exacerbation Code(s): J44.1 - CHRONIC OBSTRUCTIVE PULMONARY DISEASE W (ACUTE) EXACERBATION Status: Acute Plan: Resolved (5) Elevated troponin Code(s): R79.89 - OTHER SPECIFIED ABNORMAL FINDINGS OF BLOOD CHEMISTRY Status : Acute Plan: NSTEMI with OOH arrest with ROSC (6) Tobacco abuse Code(s): Z72.0 - TOBACCO USE Status: Chronic (7) HTN (hypertension) Code(s): I10 - ESSENTIAL (PRIMARY) HYPERTENSION Status: Chronic Qualifiers: Hypertension type: essential hypertension Qualified Code(s): I10 - Essential (primary) hypertension - Plan plan discussed w/ family, PT/OT, social media marketing analyst, respiratory therapy, DVT proph w/SCDs Continue supportive mgmt Continue ASA/Lipitor/Metoprolol Plan for CABG on 06/06/19 Continue Duonebs/Prednisone Restasis Eye drops Repeat 2D echo pending AM lab: BMP, CBC
--- NOTE | 2019-06-04 10:22 | PRG ---
DATE OF SERVICE: 06/04/2019 SUBJECTIVE: A 64-year-old gentleman. This morning, he is awake, alert, and responsive. OBJECTIVE: VITAL SIGNS: Temperature 96, pulse 61, respirations 16, saturations 90% on room air, blood pressure 120/73. He is status post cath. CHEST: Decreased breath sounds. No wheezing. CARDIAC: Normal S1 and S2. No gallops. ABDOMEN: No masses. IMPRESSION: 1. Coronary artery disease, status post cath. 2. Respiratory failure. 3. Encephalopathy, improved. 4. Status post out of hospital ventricular tachycardia, ventricular fibrillation. PLAN: Disposition as per Cardiology. Continue amiodarone, PT, supportive care. Job ID: [id number]
[2019-06-04] MEDS: cycloSPORINE 0.05% Ophthalmic Droperette EA EYE SCH ×2 (11:28→21:41)
--- NOTE | 2019-06-04 11:38 | CON ---
DATE OF CONSULTATION: 06/03/2019 ADDITIONAL REFERRING PHYSICIAN: Sam Walton MD REASON FOR CONSULTATION: I am seeing Mr. Andujar at our [facility] telemetry floor as an electrophysiology oracle adf consultant. His problems are: Admission after resuscitative cardiac arrest with EKG suggestive of atrial fibrillation per EMS. Amiodarone and total 5 shocks were delivered as well as ACLS. He was transiently on hypothermia protocol and eventually extubated around 14th. Mental status since has fully recovered. Currently, he denies angina. No CHF like symptoms. No fever, chills, or cough. No stroke-like symptoms. No neurological deficits. REVIEW OF SYSTEMS: Rest of 12-point system otherwise unremarkable. PAST HISTORY: Includes: 1. Coronary artery disease. The patient has a history of stent placement, followed by Dr. Bray in the past. 2. He does carry a history of carotid disease as well. 3. There is no history of diabetes or hypertension. SURGICAL HISTORY: Known stent placement. 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 No history of smoking, EtOH, or drug abuse. FAMILY HISTORY: Not contributory. HOSPITAL COURSE: The patient received a cooling protocol, extubated around the 14 since neuro status recovered. His cardiac workup so far significant for a 2D echo on the day of arrest, demonstrating LVEF of 30% to 35%. Lab work revealed troponin elevation up to 9.67. OBJECTIVE DATA: VITAL SIGNS: Currently, blood pressure is 112/69, heart rate is 68, respiratory rate is 18, and temperature 97.8 degrees Fahrenheit. GENERAL: This is an alert and oriented man, in no apparent distress. NECK: Supple. Jugular veins not distended. CHEST: Coarse without crackles. HEART: Sounds are regular to rate and rhythm. Tenderness over the ribcage is noted at the resuscitations sites. ABDOMEN: Benign. Bowel sounds positive. EXTREMITIES: Lower extremities without edema, clubbing, or cyanosis. Pulses are adequate. NEUROLOGIC: The patient is nonfocal. MUSCULOSKELETAL: Without joint swelling or deformity. SKIN: Without rash. DATABASE: EKG is reviewed, revealed sinus rhythm, no significant ST-T changes. Telemetry strips reveal sinus rhythm with occasional short nonsustained ventricular arrhythmia run, also short atrial fibrillation flutter is noted. LABORATORY DATA: Sodium 141, potassium 3.7, BUN is currently 32, and creatinine is 1.04. On admission, creatinine was up to 2.04. Troponin levels are initially 0.797, increasing up to 9.67 on the 8th post admit. White count 17.9, decreasing from 18.3 day before, hemoglobin 12.7, and platelet count is 177. Blood culture from the 7th, negative for growth for 5 days. Respiratory culture and sputum culture, normal respiratory verna, few yeast. ASSESSMENT AND PLAN: Mr. Andujar is a 64-year-old man with history of coronary artery disease and stents, who suffered a cardiac arrest, persistent ventriucxlar fibrillation treated with resuscitation and defibrillations, IV amiodarone, epinephrine, full ACLS. He simply had good recovery after cooling protocol. Neurologically, he is now intact. He clearly has pre-existing coronary artery disease and has the drastic sudden cardiac arrest, likely could benefit from implantable cardiac defibrillator placement. Today, he is going to undergo left heart catheterization. Dr. Walton will give us report on this. We tend to re-discuss the pros and cons about ICD implant. We will continue to follow with you. Thank you again for letting me to participate in the care of this patient. Job ID: [id number] [facility] CENTERSailaja
[2019-06-04] MEDS ORDERED: Iopamidol 370 76% 100 ML VIAL ONE (12:19)
--- NOTE | 2019-06-04 14:32 | RAD ---
CHEST 2 VIEWS: HISTORY: Pulmonary edema. COMPARISON: 05/31/2019. FINDINGS: Heart size is minimally enlarged. There are mild vascular congestive changes and small bilateral ple ural effusions, but interstitial and alveolar parenchymal changes seen on the prior most recent study have improved. IMPRESSION: Persistent mild vascular congestion and small pleural effusions. Improvement from prior 05/31/2019 st [facility]. No new process. Atherosclerosis of the aorta. POS: LEXY
--- NOTE | 2019-06-04 15:40 | ULT ---
BILATERAL CAROTID DUPLEX ULTRASOUND: 06/04/19 HISTORY: Visual field disturbance. Real time color Doppler evaluation of the right and left carotid system shows some very mild plaque formation bilaterally. On the right side, peak systolic velocity of the common carotid was 67 cm/s. Internal carotid velocit y is 57 cm/s. External carotid velocity 98 cm/s. On the left side, peak systolic velocity of the common carotid 89 cm/s. Internal carotid velocity 75 cm/s. External carotid velocity 97 cm/s. Vertebral flow is antegrade bilaterally. IMPRESSION: No evidence of hemodynamically significant stenosis of either internal carotid artery. POS: NABIL
--- NOTE | 2019-06-04 15:58 | PDOC.BPN ---
- Brief Progress Note Patient off floor for [facility] this AM and was not seen. Spoke with Dr Baltazar. Patient has multivessel disease and CV surgery has been consulted. Will refrain from ICD implant at this time.
--- NOTE | 2019-06-04 20:31 | CON ---
DATE OF CONSULTATION: 06/04/2019 REQUESTING PHYSICIAN: Dr. Walton. CHIEF COMPLAINT: Aoh-pa-qknifrib arrest. HISTORY OF PRESENT ILLNESS: The patient is a 64-year-old man with known coronary artery disease having undergone stenting of his circumflex and right coronary systems in 2007. The patient has what he terms hiatal hernia which requires him to do some diet modification and sleep with his head propped up but is on no medication for it. His symptoms related to that of epigastric or chest pressure. There has been no particular change in his pattern of symptoms that he attributes to that and they have not been particularly limiting as long as he does these manipulations. On the day of presentation, he was having some more discomfort. In general, he was feeling weak and unwell and then he abruptly collapsed. His summoned the EMS and started CPR by report. He had agonal respirations at the time of their arrival and was in ventricular fibrillation. They did a total of five DC cardioversion shocks as well as three rounds of epinephrine at the scene and en route to the hospital and upon arrival at the hospital, he was hypotensive requiring pressors, but was back in a sinus rhythm. He was intubated and placed on an [id number] arrest hypothermia protocol. He had a relatively mild elevation in his troponins. No ST elevations on his EKG, but his echocardiogram did show an LVEF around 30% or 35%. He gradually improved, was successfully awakened and extubated and although initially quite lethargic, if not actually unresponsive during his propofol vacations, his mental status gradually improved and now appears normal. He underwent cardiac catheterization today, which demonstrates severe 3-vessel coronary artery disease. PAST MEDICAL HISTORY: Significant for this so-called hiatal hernia with unclear documentation to support it. He underwent stenting of his circumflex and right coronary systems in 2007 following a severe episode of pain similar to what he attributes to his hiatal hernia that was associated with power but according to him, no evidence of infarction. He has denies any known history of hypertension or diabetes mellitus. MEDICATIONS: His home medications are: 1. Metoprolol. 2. Lasix. 3. He was recently prescribed Plavix, although he and his are not sure if he ever filled or started the prescription. ALLERGIES: HE REPORTS ALLERGIES TO ASPIRIN AND STATINS. WHEN ASKED ABOUT THE NATURE OF THEIR REACTIONS, HE DESCRIBES THE ASPIRIN "TEARING HIM UP," WHICH UPON QUESTIONING, SOUNDS LIKE GI UPSET AND HE SAYS THE STATINS CAUSED PARALYSIS OF HIS DIAPHRAGM AND HE WAS NOT ABLE TO BREATHE. THE PATIENT DENIES EVER SMOKING, HAS NO DRINKING HISTORY. HIS FATHER HAD CORONARY ARTERY DISEASE. REVIEW OF SYSTEMS: Notable for recent episode about four months ago of peripheral vision loss that he describes as being in the periphery of both eyes, affecting his right eye more than his left. He denies any imaging study or other workup for that, but indicates that his recent Plavix prescription was in response to that episode. The patient denies any transient eye, speech, facial, or extremity symptoms consistent with TIAs other than this aforementioned peripheral visual field defect affecting both eyes. He describes epigastric or lower chest pressure, and sleeps propped up and modifies his diet in response to that. He denies any true orthopnea or other shortness of breath. About 3 years ago, he had some lower extremity edema prompting the addition of Lasix to his regimen. He has not had any deep tendon edema since then. He denies any buttock, thigh, or calf pain consistent with claudication. Denies any weight loss or recent illnesses. PHYSICAL EXAMINATION: GENERAL: He appears healthy, awake, alert, and lucid. His height is 5 feet 10 inches, his weight is 117-1/4 pounds. VITAL SIGNS: Heart rate is in the 60 to 70 range and blood pressure has been running mostly in the 95 to 125 over 60 to 75 range. Although he had some fever as high as 102.3 on the evening of the , his highest temperature since the morning of the has been 99.4, last temperature was 97.0. NECK: He has no xanthelasma. No JVD. No carotid bruits. CHEST: Clear to auscultation. HEART: He has a regular rate and rhythm. ABDOMEN: Mildly obese, soft, and nontender. No bruits. EXTREMITIES: He has easily palpable radial, femoral, and popliteal pulses. I had difficulty appreciating any pedal pulses, although capillary refill in his toes was brisk and the skin on his feet appeared healthy. He has no femoral bruits. He has a few spider-type varicosities in his lower legs. He has no clubbing, cyanosis, or edema. NEUROLOGIC EXAMINATION: Appears intact. LABORATORY EXAM: On presentation, his white count was 29.0, hemoglobin is 15.1, hematocrit 42.7, and platelets are 142,000. As of today, white count 14.7, hemoglobin 12.6, hematocrit 38.0, and platelets 192,000. On presentation, his glucose was 380, BUN 21, and creatinine 2.04. His potassium is 3.4, otherwise his electrolytes were normal. His bilirubin was 3.1 on admission with alkaline phosphatase of 66, AST of 22, and ALT of 474. His BUN and creatinine were essentially the worst on presentation. The next day, his BUN was 33 and his creatinine was 2.03 and on the were 31 and 1.86. By the , although his BUN was up to 42, his creatinine was down to 1.1, and as of this morning, his BUN is 24 and creatinine 0.87. His glucose was 90 this morning. Lipids at noontime on the , his triglycerides were 360, cholesterol 264, LDL 169, and HDL 23. It is unclear whether this was a fasting draw. The patient does say that in years past, he was found to have markedly high triglycerides. His chest x-rays suggest cardiomegaly and significant pulmonary edema with varying degrees of haziness on the right side that suggests effusion. A CT scan that he had on presentation also suggests cardiomegaly and LVH. There is a bit of calcium at the distal arch and proximal descending aorta, but the ascending aorta appears free of calcific plaque. His cardiac catheterization shows a right-dominant system with stents in his proximal circumflex and his mid right coronary. The LAD has diffuse irregularity and then at about the junction of the middle and distal thirds, it occludes and fills in faintly by [id number]-[id number] collaterals, perhaps is a 50% or 60% lesion just proximal to that with the runoff and directly into a distal diagonal that bifurcates. He has scattered disease in the midportion of the LAD with about a 60% to 70% lesion just beyond the takeoff of a high diagonal that has a proximal 80% to 90% lesion and the circumflex occludes at the midportion of the stent and [id number] collaterals feed and obtuse marginal. There is diffuse irregularity throughout the right coronary system. There is a hazy 70% or 80% lesion at about the origin of the mid right coronary stent and there was probably about a 50% or 60% lesion in the distal right. The PDA itself appears to be occluded proximally and fills by both right and left-sided collaterals. He has an extensively arborized posterolateral system, but only one of the main branches appears that it might be large enough to graft. There is no LV gram done,but an echocardiogram done the day following his presentation though a technically difficult study estimated LVEF at 30% to 35% with hypokinesis of the anterior and lateral wall. Pulmonary artery pressures at that time were estimated to be normal and in discussion with Dr. Walton, his EDP at cath today was 19. IMPRESSION AND RECOMMENDATIONS: He may very well simply have some sort of an aspirin intolerance, although it would appear that he has been getting adult aspirin most of this hospitalization. Likewise, it is not clear what his so-called statin allergy really represents. He has severe three-vessel coronary artery disease. Based on his cardiomegaly and the diffuseness of his disease, I suspect that while some of his low EF relates to the acute event at presentation. He probably at baseline has an ischemic cardiomyopathy. Though many of his coronaries appeared to be of poor quality, he would appear to be an acceptable candidate for coronary revascularization and based on his presentation, it would clearly be indicated. My only issue might be optimal timing, but he certainly looks a lot better than I expected in to look when first doing my chart review. I am going to repeat his echocardiogram to reassess recovery after his acute event and repeat a chest x-ray as the last x-ray he had this past Monday still showed significant edema. I am going to get an MRI to look for any evidence of some mild stroke that might account for the visual field deficits that he described and check a carotid ultrasound to see if there is any significant carotid disease that might affect his intraoperative management. I have discussed this with Dr. Walton and assuming no major surprises either on this testing or in the course of the next day or so, I would imagine that surgical revascularization this week will be feasible. Job ID: [id number]
[2019-06-04] MEDS: Atorvastatin Calcium 20 MG TAB PO SCH (21:41)
[2019-06-05 05:17] LABS: #Basophils 0.2 thou/uL (0.0-0.2); #Eosinphils 0.2 thou/uL (0.0-0.7); #Lymphocytes 5.5 thou/uL (1.20-3.40); #Monocytes 0.6 thou/uL (0.11-0.59); #Neutrophils 6.5 thou/uL (1.40-6.50); %Basophils 1.2 % (0.0-1.0); %Eosinophils 1.2 % (0.0-10.0); %Lymphocytes 42.8 % (21.0-51.0); %Monocytes 4.4 % (0.0-10.0); %Neutrophils 50.4 % (42.0-75.0); Hemoglobin 12.6 g/dL (14.0-18.0); Mean Corpuscular HGB CONC 32.5 g/dL (32.0-36.0); Mean Corpuscular Hemoglobin 28.8 pg (27.0-31.0); Mean Corpuscular Volume 88.5 fL (78.0-98.0); Mean Platelet Volume 7.5 fL (7.4-10.4); Platelet Count 213 thou/uL (130-400); Red Blood Cell (RBC) Count 4.39 mill/uL (4.70-6.10); White Blood Cell (WBC) Count 12.9 thou/uL (4.8-10.8)
[2019-06-05 05:31] LABS: Anion Gap 14 mmol/L (10-20); BUN (Urea Nitrogen) 21 mg/dL (8.4-25.7); Calc. Creatinine Clearance 114 mL/min (70-130); Calcium 8.3 mg/dL (7.8-10.44); Carbon Dioxide 22 mmol/L (23-31); Chloride 106 mmol/L (98-107); Estimated GFR-MDRD 84; Glucose 101 mg/dL (80-115); Potassium 3.9 mmol/L (3.5-5.1); Sodium 138 mmol/L (136-145)
[2019-06-05] MEDS: Metoprolol Tartrate 25 MG TAB PO SCH ×2 (09:03→22:16)
[2019-06-05] MEDS: Cefdinir 300 MG CAP PO SCH ×2 (09:03→22:17)
[2019-06-05] MEDS: predniSONE 20 MG TAB PO SCH (09:03)
[2019-06-05] MEDS: Amiodarone 200 MG TAB PO SCH ×2 (09:03→22:16)
[2019-06-05] MEDS: Furosemide 40 MG TAB PO SCH ×2 (09:03→13:42)
[2019-06-05] MEDS: cycloSPORINE 0.05% Ophthalmic Droperette EA EYE SCH ×2 (09:04→22:17)
--- NOTE | 2019-06-05 09:37 | PRG ---
DATE OF SERVICE: 06/05/2019 SUBJECTIVE: This morning, he is doing better, less short of breath, less coughing. He is scheduled for a bypass surgery tomorrow. OBJECTIVE: VITAL SIGNS: Saturations are 95% on room air, respirations 17, temperature 98, pulse 67, and blood pressure 126/63. CHEST: Minimal rhonchi. CARDIAC: Normal S1 and S2. No gallops. ABDOMEN: Soft. ASSESSMENT: Respiratory failure and encephalopathy, improved. Pneumonia, improved. Congestive heart failure and coronary artery disease. PLAN: As per Cardiology, surgery tomorrow. We will follow in the ICU. Otherwise, continue aggressive neb treatments. Job ID: [id number]
--- NOTE | 2019-06-05 13:39 | PDOC.EP ---
- Subjective Date: 06/04/19 Time: 08:00 Interval History: Patient leaving tele floor for [facility] this AM but feels well. Eager to know [facility] results. - Review of Systems Constitutional: denies: chills, fever, malaise, sweats, weakness, other Respiratory: denies: cough, dry, hemoptysis, pleuritic pain, shortness of breath , SOB with excertion, sputum, wheezing, other Cardiology: denies: chest pain, edema, heart racing, light headedness, paroxysmal noc. dyspnea, orthopnea, palpitations, passing out, pleuritic pain, pressure, swelling, other Gastrointestinal: denies: abdominal pain, constipation, diarrhea, nausea, vomitting - Objective Allergies/Adverse Reactions: Allergies Allergy/AdvReac Type Severity Reaction Status Date / Time aspirin AdvReac Severe Verified 06/02/19 10:18 Current Medications Acetaminophen (Tylenol) 650 mg SD Q6H PRN PRN Reason: TO KEEP TEMP <37C/98.6F Stop: 06/06/19 08:59 Last Admin: 05/26/19 01:17 Dose: 650 mg Acetaminophen (Tylenol) 650 mg PO Q6H PRN PRN Reason: Headache/Fever or Pain Stop: 06/06/19 08:59 Last Admin: 06/03/19 08:31 Dose: 650 mg Acetaminophen/Codeine Phosphate (Tylenol #3) 1 tab PO Q4H PRN PRN Reason: Mild Pain (1-3) Stop: 06/06/19 08:59 Acetaminophen/Codeine Phosphate (Tylenol #3) 2 tab PO Q4H PRN PRN Reason: Moderate Pain (4-6) Stop: 06/06/19 08:59 Albuterol/Ipratropium (Duoneb) 3 ml NEB [id number] CANDACE Stop: 06/06/19 08:59 Last Admin: 06/05/19 13:19 Dose: 3 ml Amiodarone HCl (Cordarone) 400 mg PO BID CANDACE Stop: 06/06/19 08:59 Last Admin: 06/05/19 09:03 Dose: 400 mg Artificial Tears (Tears Naturale) 2 drop EA EYE Q4H PRN PRN Reason: Dry Eyes Stop: 06/06/19 08:59 Last Admin: 06/01/19 15:17 Dose: 2 drop Atorvastatin Calcium (Lipitor) 20 mg PO HS CANDACE Stop: 06/06/19 08:59 Last Admin: 06/04/19 21:41 Dose: 20 mg Cefdinir (Omnicef) 300 mg PO BID CANDACE Stop: 06/06/19 08:59 Last Admin: 06/05/19 09:03 Dose: 300 mg Cyclosporine (Restasis) 1 ml EA EYE BID CANDACE Stop: 06/06/19 08:59 Last Admin: 06/05/19 09:04 Dose: 1 ml Dextrose/Water (Dextrose 50%) 25 gm IVP PRN PRN PRN Reason: HYPOGLYCEMIA PROTOCOL Stop: 06/06/19 08:59 Furosemide (Lasix) 40 mg PO 0900,1400 [facility] Stop: 06/06/19 08:59 Last Admin: 06/05/19 09:03 Dose: 40 mg Glucagon (Glucagon) 1 mg IM PRN PRN PRN Reason: HYPOGLYCEMIA PROTOCOL Stop: 06/06/19 08:59 Amiodarone HCl 450 mg/Miscellaneous Medication 1 each/ Dextrose/Water 259 mls @ 0 mls/hr IVPB INF CANDACE; Protocol Stop: 06/06/19 08:59 Last Admin: 05/29/19 00:00 Dose: 259 mls Dextrose/Water (D5w) 1,000 mls @ 0 mls/hr IV INF PRN PRN Reason: HYPOGLYCEMIA PROTOCOL Stop: 06/06/19 08:59 Sodium Chloride (Normal Saline 0.9%) 200 mls @ 0 mls/hr IV ONE PRN PRN Reason: SBP < 90 Stop: 06/06/19 08:59 Insulin Human Lispro (Humalog) 0 units SC .MODERATE SLIDING SC PRN; Protocol PRN Reason: MODERATE SLIDING SCALE Stop: 06/06/19 08:59 Last Admin: 05/30/19 20:54 Dose: 2 unit Melatonin (Melatonin) 3 mg PO HSPRN PRN PRN Reason: Insomnia Stop: 06/06/19 08:59 Last Admin: 05/31/19 22:06 Dose: 3 mg Metoprolol Tartrate (Lopressor) 25 mg PO BID [facility] Stop: 06/06/19 08:59 Last Admin: 06/05/19 09:03 Dose: 25 mg Miscellaneous Information (Communication Order-Pharmacy) 1 each FS ONE [facility] Stop: 06/06/19 09:00 Nitroglycerin (Nitrostat) 0.4 mg SL Q5MIN PRN PRN Reason: Chest Pain Stop: 06/06/19 08:59 Oxybutynin Chloride (Ditropan) 5 mg PO Q8H PRN PRN Reason: Bladder Spasms Stop: 06/06/19 08:59 Pantoprazole Sodium (Protonix) 40 mg PO DAILY CANDACE Stop: 06/06/19 08:59 Last Admin: 06/05/19 09:03 Dose: 40 mg Phenazopyridine HCl (Azo Standard) 195 mg PO Q8H PRN PRN Reason: DYSURIA Stop: 06/06/19 08:59 Prednisone (Prednisone) 20 mg PO QAM-WM CANDACE Stop: 06/06/19 08:59 Last Admin: 06/05/19 09:03 Dose: 20 mg Sodium Chloride (Flush - Normal Saline) 10 ml IVF Q12HR CANDACE Stop: 06/06/19 08:59 Last Admin: 06/05/19 09:04 Dose: 10 ml Sodium Chloride (Normal Saline Pf) 10 ml FS PRN PRN PRN Reason: RECONSTITUTION Stop: 06/06/19 08:59 Last Admin: 05/28/19 08:22 Dose: 10 ml Temazepam (Restoril) 15 mg PO HSPRN PRN PRN Reason: Insomnia Stop: 06/06/19 08:59 Last Admin: 06/01/19 00:16 Dose: 15 mg Vital Signs & Weight: Vital Signs Temp Pulse Resp BP BP Pulse Ox 06/05/19 13:19 63 16 98 06/05/19 08:00 97.8 F 67 17 126/63 95 06/05/19 07:03 98 06/05/19 07:00 64 16 98 06/05/19 04:00 98.2 F 57 L 20 122/71 98 Admit Weight 241 lb 2.88 oz Weight 215 lb I/O: I/O 06/04/19 06/05/19 06/06/19 06:59 06:59 06:59 Intake Total 0 6 Output Total 650 900 Balance 1430 1056 - Physical Exam General: alert & oriented x3, appears well, no apparent distress, speech clear, affect appropriate HEENT: mucus membranes moist, normocephaly Neck: supple neck, midline trachea, no JVD/HJR, no masses, no bruit, no lymphadenopathy, no thromegaly Cardiology: regular rate and rhythm, no murmur, regular rate, regular rhythm Lungs: clear to auscultation, normal breath sounds, no wheeze, rales, rhonchi Neurology: cranial nerve 2-12 intact, sensory function intact, no lateralizing findings - Labs Result Diagrams: 06/05/19 04:44 06/05/19 04:44 - EKG Interpretation EKG Method: Telemetry EKG shows: Sinus rhythm - Assessment/Plan Assessment/Plan: 1. Cardiac arrest -s/p CPR and found in VF by EMS. Had 5 defibrillation attempts with IV amio and full ACLS -s/p hypothermia protocol with full neurologic recovery 2. Coronary artery disease - pending CABG on 06/06/2019 3. Cardiomyopathy -Ef 35% initially, repeat echo ordered by [facility] S/P VF arrest which is likely related to his 3 vessel CAD but he does remain high risk for SCD with a prior arrest. Will hold off on ICD for now as CABG is planned for 06/06. If NSVT/VT seen on monitors post bypass, EPS with possible ICD implant would be warranted. He will at least need a lifevest upon discharge. Will continue to follow.
--- NOTE | 2019-06-05 13:48 | PDOC.EP ---
- Subjective Date: 06/05/19 Time: 13:47 Interval History: follow up s/p VF arrest. Somewhat anxious about upcoming CABG tomorrow. Family bedside. We discussed he may still require ICD after CABG. No EP concerns right now. - Review of Systems Constitutional: denies: chills, fever, malaise, sweats, weakness, other Respiratory: denies: cough, dry, hemoptysis, pleuritic pain, shortness of breath , SOB with excertion, sputum, wheezing, other Cardiology: denies: chest pain, edema, heart racing, light headedness, passing out - Objective Allergies/Adverse Reactions: Allergies Allergy/AdvReac Type Severity Reaction Status Date / Time aspirin AdvReac Severe Verified 06/02/19 10:18 Current Medications Acetaminophen (Tylenol) 650 mg [place] Q6H PRN PRN Reason: TO KEEP TEMP <37C/98.6F Stop: 06/06/19 08:59 Last Admin: 05/26/19 01:17 Dose: 650 mg Acetaminophen (Tylenol) 650 mg PO Q6H PRN PRN Reason: Headache/Fever or Pain Stop: 06/06/19 08:59 Last Admin: 06/03/19 08:31 Dose: 650 mg Acetaminophen/Codeine Phosphate (Tylenol #3) 1 tab PO Q4H PRN PRN Reason: Mild Pain (1-3) Stop: 06/06/19 08:59 Acetaminophen/Codeine Phosphate (Tylenol #3) 2 tab PO Q4H PRN PRN Reason: Moderate Pain (4-6) Stop: 06/06/19 08:59 Albuterol/Ipratropium (Duoneb) 3 ml NEB [id number] CANDACE Stop: 06/06/19 08:59 Last Admin: 06/05/19 13:19 Dose: 3 ml Amiodarone HCl (Cordarone) 400 mg PO BID CANDACE Stop: 06/06/19 08:59 Last Admin: 06/05/19 09:03 Dose: 400 mg Artificial Tears (Tears Naturale) 2 drop EA EYE Q4H PRN PRN Reason: Dry Eyes Stop: 06/06/19 08:59 Last Admin: 06/01/19 15:17 Dose: 2 drop Atorvastatin Calcium (Lipitor) 20 mg PO HS CANDACE Stop: 06/06/19 08:59 Last Admin: 06/04/19 21:41 Dose: 20 mg Cefdinir (Omnicef) 300 mg PO BID PENDING SALE TO [facility] Stop: 06/06/19 08:59 Last Admin: 06/05/19 09:03 Dose: 300 mg Cyclosporine (Restasis) 1 ml EA EYE BID CANDACE Stop: 06/06/19 08:59 Last Admin: 06/05/19 09:04 Dose: 1 ml Dextrose/Water (Dextrose 50%) 25 gm IVP PRN PRN PRN Reason: HYPOGLYCEMIA PROTOCOL Stop: 06/06/19 08:59 Furosemide (Lasix) 40 mg PO 0900,1400 PENDING SALE TO [facility] Stop: 06/06/19 08:59 Last Admin: 06/05/19 13:42 Dose: 40 mg Glucagon (Glucagon) 1 mg IM PRN PRN PRN Reason: HYPOGLYCEMIA PROTOCOL Stop: 06/06/19 08:59 Amiodarone HCl 450 mg/Miscellaneous Medication 1 each/ Dextrose/Water 259 mls @ 0 mls/hr IVPB INF CANDACE; Protocol Stop: 06/06/19 08:59 Last Admin: 05/29/19 00:00 Dose: 259 mls Dextrose/Water (D5w) 1,000 mls @ 0 mls/hr IV INF PRN PRN Reason: HYPOGLYCEMIA PROTOCOL Stop: 06/06/19 08:59 Sodium Chloride (Normal Saline 0.9%) 200 mls @ 0 mls/hr IV ONE PRN PRN Reason: SBP < 90 Stop: 06/06/19 08:59 Insulin Human Lispro (Humalog) 0 units SC .MODERATE SLIDING SC PRN; Protocol PRN Reason: MODERATE SLIDING SCALE Stop: 06/06/19 08:59 Last Admin: 05/30/19 20:54 Dose: 2 unit Melatonin (Melatonin) 3 mg PO HSPRN PRN PRN Reason: Insomnia Stop: 06/06/19 08:59 Last Admin: 05/31/19 22:06 Dose: 3 mg Metoprolol Tartrate (Lopressor) 25 mg PO BID PENDING SALE TO [facility] Stop: 06/06/19 08:59 Last Admin: 06/05/19 09:03 Dose: 25 mg Miscellaneous Information (Communication Order-Pharmacy) 1 each FS ONE CANDACE Stop: 06/06/19 09:00 Nitroglycerin (Nitrostat) 0.4 mg SL Q5MIN PRN PRN Reason: Chest Pain Stop: 06/06/19 08:59 Oxybutynin Chloride (Ditropan) 5 mg PO Q8H PRN PRN Reason: Bladder Spasms Stop: 06/06/19 08:59 Pantoprazole Sodium (Protonix) 40 mg PO DAILY PENDING SALE TO [facility] Stop: 06/06/19 08:59 Last Admin: 06/05/19 09:03 Dose: 40 mg Phenazopyridine HCl (Azo Standard) 195 mg PO Q8H PRN PRN Reason: DYSURIA Stop: 06/06/19 08:59 Prednisone (Prednisone) 20 mg PO QAM-WM PENDING SALE TO [facility] Stop: 06/06/19 08:59 Last Admin: 06/05/19 09:03 Dose: 20 mg Sodium Chloride (Flush - Normal Saline) 10 ml IVF Q12HR CANDACE Stop: 06/06/19 08:59 Last Admin: 06/05/19 09:04 Dose: 10 ml Sodium Chloride (Normal Saline Pf) 10 ml FS PRN PRN PRN Reason: RECONSTITUTION Stop: 06/06/19 08:59 Last Admin: 05/28/19 08:22 Dose: 10 ml Temazepam (Restoril) 15 mg PO HSPRN PRN PRN Reason: Insomnia Stop: 06/06/19 08:59 Last Admin: 06/01/19 00:16 Dose: 15 mg Vital Signs & Weight: Vital Signs Temp Pulse Resp BP BP Pulse Ox 06/05/19 13:19 63 16 98 06/05/19 08:00 97.8 F 67 17 126/63 95 06/05/19 07:03 98 06/05/19 07:00 64 16 98 06/05/19 04:00 98.2 F 57 L 20 122/71 98 Admit Weight 241 lb 2.88 oz Weight 215 lb I/O: I/O 06/04/19 06/05/19 06/06/19 06:59 06:59 06:59 Intake Total 6620 4326 Output Total 650 900 Balance 1430 1056 - Physical Exam General: alert & oriented x3, appears well, no apparent distress, speech clear, affect appropriate HEENT: mucus membranes moist, normocephaly Neck: supple neck, midline trachea, no JVD/HJR, no masses, no bruit, no lymphadenopathy, no thromegaly Cardiology: regular rate and rhythm, regular rate, regular rhythm Lungs: clear to auscultation, normal breath sounds, no wheeze, rales, rhonchi Neurology: cranial nerve 2-12 intact, sensory function intact, no lateralizing findings - Labs Result Diagrams: 06/05/19 04:44 06/05/19 04:44 - EKG Interpretation EKG Method: Telemetry EKG shows: Sinus rhythm - Assessment/Plan Assessment/Plan: 1. Cardiac arrest -s/p CPR and found in VF by EMS. Had 5 defibrillation attempts with IV amio and full ACLS -s/p hypothermia protocol with full neurologic recovery 2. Coronary artery disease - pending CABG on 06/06/2019 3. Cardiomyopathy -Ef 35% initially, repeat echo ordered by [facility] S/P VF arrest which is likely related to his 3 vessel CAD but he does remain high risk for SCD with a prior arrest. Will hold off on ICD for now as CABG is planned for 06/06. If NSVT/VT seen on monitors post bypass, EPS with possible ICD implant would be warranted. He will at least need a lifevest upon discharge. Rhythm stable. Will continue to follow rhythm and EF closely post bypass.
--- NOTE | 2019-06-05 14:26 | PDOC.HOSPP ---
- Subjective Encounter Date: 06/05/19 Encounter Time: 14:05 Subjective: f/u for 3v CAD and ICM with EF 35%. Awaiting CABG in am. Some anxiety but overall feels ok. - Objective Vital Signs & Weight: Vital Signs (12 hours) Temp Pulse Resp BP BP Pulse Ox 06/05/19 13:19 63 16 98 06/05/19 08:00 97.8 F 67 17 126/63 95 06/05/19 07:03 98 06/05/19 07:00 64 16 98 06/05/19 04:00 98.2 F 57 L 20 122/71 98 Weight Admit Weight 241 lb 2.88 oz Weight 215 lb Most Recent Monitor Data Heart Rate from ECG 76 NIBP 133/89 NIBP BP-Mean 103 Respiration from ECG 23 SpO2 96 I&O: 06/04/19 06/05/19 06/06/19 06:59 06:59 06:59 Intake Total 2080 1956 Output Total 650 900 Balance 1430 1056 Result Diagrams: 06/05/19 04:44 06/05/19 04:44 Additional Labs: Accuchecks 06/05/19 06/05/19 06/05/19 13:03 10:49 06:13 POC Glucose 105 200 H 101 06/04/19 06/04/19 20:54 16:51 POC Glucose 109 112 H Radiology Reviewed by me: Yes (Carotid dopp - neg for stenosis) EKG Reviewed by me: Yes (Tele - SR) Hospitalist ROS - Medication Medications: Active Medications Generic Name Dose Route Start Last Admin Trade Name Freq PRN Reason Stop Dose Admin Acetaminophen 650 mg 05/26/19 01:05 05/26/19 01:17 Tylenol [place] 06/06/19 08:59 650 mg Q6H PRN Administration TO KEEP TEMP <37C/98.6F Acetaminophen 650 mg 06/01/19 00:05 06/03/19 08:31 Tylenol PO 06/06/19 08:59 650 mg Q6H PRN Administration Headache/Fever or Pain Albuterol/Ipratropium 3 ml 05/25/19 13:00 06/05/19 13:19 Duoneb NEB 06/06/19 08:59 3 ml [id number] CANDACE Administration Amiodarone HCl 400 mg 05/31/19 09:00 06/05/19 09:03 Cordarone PO 06/06/19 08:59 400 mg BID CANDACE Administration Artificial Tears 2 drop 06/01/19 09:29 06/01/19 15:17 Tears Naturale EA EYE 06/06/19 08:59 2 drop Q4H PRN Administration Dry Eyes Atorvastatin Calcium 20 mg 05/31/19 21:00 06/04/19 21:41 Lipitor PO 06/06/19 08:59 20 mg HS CANDACE Administration Cefdinir 300 mg 05/31/19 09:00 06/05/19 09:03 Omnicef PO 06/06/19 08:59 300 mg BID CANDACE Administration Cyclosporine 1 ml 06/02/19 21:00 06/05/19 09:04 Restasis EA EYE 06/06/19 08:59 1 ml BID CANDACE Administration Furosemide 40 mg 05/29/19 09:00 06/05/19 13:42 Lasix PO 06/06/19 08:59 40 mg 0900,1400 CANDACE Administration Amiodarone HCl 450 mg/ 259 mls @ 0 mls/hr 05/24/19 21:30 05/29/19 00:00 Miscellaneous Medication 1 IVPB 06/06/19 08:59 259 mls each/ Dextrose/Water INF CANDACE Administration Protocol As Directed Insulin Human Lispro 0 units 05/25/19 08:53 05/30/19 20:54 Humalog SC 06/06/19 08:59 2 unit .MODERATE SLIDING SC PRN Administration MODERATE SLIDING SCALE Protocol Melatonin 3 mg 05/31/19 21:58 05/31/19 22:06 Melatonin PO 06/06/19 08:59 3 mg HSPRN PRN Administration Insomnia Metoprolol Tartrate 25 mg 05/28/19 21:00 06/05/19 09:03 Lopressor PO 06/06/19 08:59 25 mg BID CANDACE Administration Pantoprazole Sodium 40 mg 05/29/19 09:00 06/05/19 09:03 Protonix PO 06/06/19 08:59 40 mg DAILY CANDACE Administration Prednisone 20 mg 05/31/19 08:00 06/05/19 09:03 Prednisone PO 06/06/19 08:59 20 mg QAM-WM CANDACE Administration Sodium Chloride 10 ml 05/25/19 09:00 06/05/19 09:04 Flush - Normal Saline IVF 06/06/19 08:59 10 ml Q12HR CANDACE Administration Sodium Chloride 10 ml 05/27/19 08:27 05/28/19 08:22 Normal Saline Pf FS 06/06/19 08:59 10 ml PRN PRN Administration RECONSTITUTION Temazepam 15 mg 06/01/19 00:04 06/01/19 00:16 Restoril PO 06/06/19 08:59 15 mg HSPRN PRN Administration Insomnia - Exam General Appearance: NAD, awake alert Eye: PERRL, anicteric sclera ENT: normocephalic atraumatic, no oropharyngeal lesions Neck: supple, symmetric, no JVD, no thyromegaly, no lymphadenopathy Heart: RRR, no murmur, no gallops, no rubs, normal peripheral pulses Respiratory: CTAB, no wheezes, no rales, no ronchi, normal chest expansion Gastrointestinal: soft, non-tender, non-distended, normal bowel sounds, no palpable masses Extremities: no cyanosis, no clubbing, no edema Skin: normal turgor, no lesions Neurological: cranial nerve grossly intact, no new deficit Musculoskeletal: normal tone, normal strength, no muscle wasting Psychiatric: normal affect, A&O x 3 Hosp A/P (1) CAD (coronary artery disease) Code(s): I25.10 - ATHSCL HEART DISEASE OF [place] CORONARY ARTERY W/O ANG PCTRS Status: Chronic Plan: 3v CAD, plan for CABG 06/06/19, continue Lipitor (2) Acute on chronic systolic (congestive) heart failure Code(s): I50.23 - ACUTE ON CHRONIC SYSTOLIC (CONGESTIVE) HEART FAILURE Status : Acute Plan: EF 35%, see above, Life Vest prior to d/c, likely AICD in the future (3) Atrial flutter Code(s): I48.92 - UNSPECIFIED ATRIAL FLUTTER Status: Acute (4) COPD exacerbation Code(s): J44.1 - CHRONIC OBSTRUCTIVE PULMONARY DISEASE W (ACUTE) EXACERBATION Status: Acute (5) Elevated troponin Code(s): R79.89 - OTHER SPECIFIED ABNORMAL FINDINGS OF BLOOD CHEMISTRY Status : Acute (6) Tobacco abuse Code(s): Z72.0 - TOBACCO USE Status: Chronic (7) HTN (hypertension) Code(s): I10 - ESSENTIAL (PRIMARY) HYPERTENSION Status: Chronic Qualifiers: Hypertension type: essential hypertension Qualified Code(s): I10 - Essential (primary) hypertension - Plan plan discussed w/ family, PT/OT, manager social, respiratory therapy, DVT proph w/SCDs Continue supportive mgmt Continue ASA/Lipitor/Metoprolol Plan for CABG on 06/06/19 Continue Duonebs/Prednisone Restasis Eye drops AM lab: BMP, CBC
[2019-06-05] MEDS: Atorvastatin Calcium 20 MG TAB PO SCH (22:16)
[2019-06-05] MEDS: Temazepam 15 MG CAP PO PRN (22:19)
[2019-06-06 04:44] LABS: #Basophils 0.1 thou/uL (0.0-0.2); #Eosinphils 0.1 thou/uL (0.0-0.7); #Lymphocytes 4.8 thou/uL (1.20-3.40); #Monocytes 0.6 thou/uL (0.11-0.59); #Neutrophils 6.7 thou/uL (1.40-6.50); %Basophils 0.8 % (0.0-1.0); %Eosinophils 0.7 % (0.0-10.0); %Lymphocytes 39.2 % (21.0-51.0); %Monocytes 4.7 % (0.0-10.0); %Neutrophils 54.7 % (42.0-75.0); Hemoglobin 11.8 g/dL (14.0-18.0); Mean Corpuscular HGB CONC 32.3 g/dL (32.0-36.0); Mean Corpuscular Hemoglobin 28.7 pg (27.0-31.0); Mean Platelet Volume 7.4 fL (7.4-10.4); Platelet Count 213 thou/uL (130-400); RBC Distribution Width 13.9 % (11.5-14.5); Red Blood Cell (RBC) Count 4.09 mill/uL (4.70-6.10); White Blood Cell (WBC) Count 12.3 thou/uL (4.8-10.8)
[2019-06-06 05:07] LABS: Anion Gap 11 mmol/L (10-20); BUN (Urea Nitrogen) 22 mg/dL (8.4-25.7); Calc. Creatinine Clearance 103 mL/min (70-130); Carbon Dioxide 26 mmol/L (23-31); Chloride 107 mmol/L (98-107); Estimated GFR-MDRD 75; Glucose 109 mg/dL (80-115); Potassium 3.6 mmol/L (3.5-5.1); Sodium 140 mmol/L (136-145)
[2019-06-06] MEDS ORDERED: Albumin 5% 500 ML ONE (06:32)
[2019-06-06] MEDS ORDERED: Fentanyl 100 MCG/2 ML VIAL ONE (06:34)
[2019-06-06] MEDS ORDERED: Midazolam HCl 2 mg/2 ml Vial ONE (06:34)
[2019-06-06] MEDS ORDERED: Midazolam HCl 5 mg/5 ml Vial ONE (06:34)
[2019-06-06] MEDS ORDERED: Dexmedetomidine 200 MCG/2 ML VIAL ONE (06:35)
[2019-06-06] MEDS ORDERED: Vecuronium 10 MG VIAL ONE ×3 (06:35→11:52)
[2019-06-06] MEDS ORDERED: Heparin 10,000 UNITS/1 ML VIAL 30,000 UNITS in Sodium Chloride 0.9% 1,000 ML FS SCH (07:15)
[2019-06-06] MEDS ORDERED: Vancomycin 1.5 GRAM/300 ML BAG 1.5 GM/300 ML BAG ONE (08:12)
--- NOTE | 2019-06-06 08:32 | PRG ---
DATE OF SERVICE: 06/06/2019 SUBJECTIVE: Mr. Andujar is doing well. No current complaints. OBJECTIVE: VITAL SIGNS: Blood pressure 130/69, pulse 74, temperature 98.5. LUNGS: Clear to auscultation. HEART: Regular rate and rhythm. ABDOMEN: Soft, nontender, nondistended. EXTREMITIES: No edema. IMPRESSION: 1. Avb-jt-kobbonbf hospital arrest. 2. Severe coronary artery disease. RECOMMENDATIONS: The patient to proceed with bypass today. The patient is currently on amiodarone 400 mg one p.o. b.i.d. We will reduce to 400 mg one p.o. q.a.m. Continue atorvastatin in addition to low-dose metoprolol. Job ID: [id number]
[2019-06-06] MEDS ORDERED: Communication Order-Pharmacy FS SCH (08:59)
[2019-06-06] MEDS ORDERED: Vancomycin 1.5 GRAM/300 ML BAG 1.5 GM in Premix Bag 1 BAG IVPB SCH (09:00)
[2019-06-06] MEDS ORDERED: Bisacodyl 5 MG TAB PO PRN (09:22)
[2019-06-06] MEDS ORDERED: niCARdipine 25 MG in Sodium Chloride 0.9% 250 ML 250 ML IVPB PRN (09:22)
[2019-06-06] MEDS ORDERED: Acetaminophen 325 MG TAB PO PRN (09:22)
[2019-06-06] MEDS ORDERED: Fentanyl 100 MCG/2 ML VIAL SLOW IVP PRN ×2 (09:22)
[2019-06-06] MEDS ORDERED: Morphine 2 MG/ML SYRINGE SLOW IVP PRN ×2 (09:22→15:36)
[2019-06-06] MEDS ORDERED: Norepinephrine 8 MG/0.9% NS 250 ML IVPB PRN (09:22)
[2019-06-06] MEDS ORDERED: Guaifenesin DM 100-10/5 ML UDCUP PO PRN (09:22)
[2019-06-06] MEDS ORDERED: Promethazine HCl 25 MG/ML VIAL IM PRN (09:22)
[2019-06-06] MEDS ORDERED: Hetastarch 6% 500 ML 500 ML IVPB PRN (09:22)
[2019-06-06] MEDS ORDERED: Mag-Al 1200 mg/1200 mg/30 ML UDCUP PO PRN (09:22)
[2019-06-06] MEDS ORDERED: Ondansetron PF 4 MG/2 ML Vial IVP PRN (09:22)
[2019-06-06] MEDS ORDERED: Potassium Chloride 20 MEQ/100 ML PREMIX BAG IVPB PRN (09:22)
[2019-06-06] MEDS ORDERED: hydrALAZINE 20 MG/ML VIAL SLOW IVP PRN (09:22)
[2019-06-06] MEDS ORDERED: Nitroglycerin 50 MG/250 ML BOT 250 ML IVPB PRN (09:22)
[2019-06-06] MEDS ORDERED: Post-Op Insulin Drip Protocol IVPB ONE (09:22)
[2019-06-06] MEDS ORDERED: Bisacodyl 10 MG SUPP PR PRN (09:22)
[2019-06-06] MEDS ORDERED: Dextrose 50% Abboject 50 ML SYRINGE SLOW IVP PRN (09:48)
[2019-06-06] MEDS ORDERED: HUMULIN R 100 UNITS in Sodium Chloride 0.9% 100 ML IVPB SCH (09:48)
[2019-06-06] MEDS ORDERED: Dextrose 5% in Water 1,000 ML IV PRN (09:48)
[2019-06-06] MEDS: predniSONE 20 MG TAB PO SCH (10:24)
[2019-06-06] MEDS ORDERED: Calcium Chloride 1 GM/10 ML Abboject SYRINGE ONE (11:52)
[2019-06-06] MEDS ORDERED: Cardioplegic Soln 1,000 ML BAG ONE (11:52)
[2019-06-06] MEDS ORDERED: EPHEDRINE 25 MG/5 ML SYRINGE ONE (11:52)
[2019-06-06] MEDS ORDERED: Thrombin 5000 UNITS/5 ML VIAL ONE (11:52)
[2019-06-06] MEDS ORDERED: Heparin 5,000 UNITS/ML VIAL ONE (11:52)
[2019-06-06] MEDS ORDERED: Lidocaine 1% PF 5 ML VIAL ONE (11:52)
[2019-06-06] MEDS ORDERED: PHENYLEPHRINE-NS 100 MCG/ML 10 ML SYRINGE ONE (11:52)
[2019-06-06] MEDS ORDERED: Papaverine 60 MG/2 ML VIAL ONE (11:52)
[2019-06-06] MEDS ORDERED: Lidocaine 2% PF 5 ML VIAL ONE (11:52)
[2019-06-06] MEDS ORDERED: Nitroglycerin 50 MG/250 ML BOT ONE (11:52)
[2019-06-06] MEDS ORDERED: Norepinephrine 4 MG/4 ML VIAL ONE (11:52)
[2019-06-06] MEDS ORDERED: Sodium Bicarb 50 MEQ/50 ML Abboject 8.4% SYRINGE ONE (11:52)
[2019-06-06] MEDS ORDERED: Protamine Sulfate 250 MG/25 ML VIAL ONE (11:52)
[2019-06-06] MEDS ORDERED: Aminocaproic Acid 5 GM/20 ML VIAL ONE (11:52)
[2019-06-06] MEDS ORDERED: Heparin 30,000 units/30 ml VIAL ONE (11:52)
[2019-06-06] MEDS ORDERED: Magnesium Sulfate 1 GM/2 ML VIAL ONE (11:52)
[2019-06-06] MEDS ORDERED: Potassium Chloride 60 MEQ/30 ML VIAL ONE (11:52)
[2019-06-06] MEDS ORDERED: Milrinone 10 MG/10 ML VIAL ONE (11:59)
[2019-06-06] MEDS ORDERED: Insulin Regular 300 UNITS/3 ML VIAL ONE (13:10)
[2019-06-06] MEDS ORDERED: Propofol 1,000 MG/100 ML VIAL IV ONE (15:10)
[2019-06-06 15:18] LABS: Actual Bicarbonate (HCO3a) 21.7 mEq/L (22-28); Base Excess (BEa) -3.8 mEq/L (-2.0 to +3.0); CO2 Tension 41.2 mmHg (35.0-45.0); Calcium, Ionized 1.05 mmol/L (1.12-1.30); Carboxyhemoglobin (COHb) 1.1 gm% (0.0-3.0); Hemoglobin (Hb) 10.3 g/dL (14.0-18.0); O2 Tension (PaO2) 73.2 mmHg (> 80.0); Potassium - ABG Lab 3.93 mmol/L (3.70-5.30); pH, Arterial 7.34 (7.35-7.45)
[2019-06-06 15:19] LABS: Puncture Site LINE
--- NOTE | 2019-06-06 15:22 | RAD ---
EXAM: CHEST ONE VIEW HISTORY: Post open heart surgery. COMPARISON: 06/04/2019 FINDINGS: There has been interval postsurgical changes with evidence of median sternotomy. Endotracheal tube is noted in place with the tip overlying the T3-4 level and above the level of the teofilo. Right subclavian central venous catheter is now noted in place with tip overlying the expected location of the distal SVC. Mediastinal drains and right-sided thoracostomy tube are noted in place. Tip of the right thoracostomy tube overlies the right lung apex. Cardiac silhouette is magnified by projection b ut does appear enlarged. No pneumothorax is seen. There are linear and slight patchy densities in the right lung probably attributable to atelectasis. Mild prominence of the perihilar interstitial de nsities which could be related related to technique or secondary to volume status. No other interval change. IMPRESSION: 1. Interval postsurgical changes with lines and tubes in place as described above. 2. Mild perihilar interstitial prominence which could be related to element of mild pulmonary edema o r secondary to volume status. 3. Atelectasis right lung base and in the right midlung zone.
[2019-06-06 15:27] LABS: Hemoglobin 10.3 g/dL (14.0-18.0); Mean Corpuscular HGB CONC 32.7 g/dL (32.0-36.0); Mean Corpuscular Hemoglobin 29.4 pg (27.0-31.0); Mean Corpuscular Volume 89.9 fL (78.0-98.0); Mean Platelet Volume 7.5 fL (7.4-10.4); Platelet Count 263 thou/uL (130-400); RBC Distribution Width 13.8 % (11.5-14.5); Red Blood Cell (RBC) Count 3.51 mill/uL (4.70-6.10); White Blood Cell (WBC) Count 28.1 thou/uL (4.8-10.8)
[2019-06-06 15:28] LABS: INR-International Normal Ratio 1.3; PTT 27.2 SEC (22.9-36.1); Prothrombin Time 16.6 SEC (12.0-14.7)
[2019-06-06] MEDS ORDERED: fentaNYL Citrate/PF 2,000 MCG in Sodium Chloride 0.9% 60 ML IV SCH (15:36)
[2019-06-06] MEDS ORDERED: Propofol 1,000 MG/100 ML VIAL IV PRN (15:36)
[2019-06-06] MEDS ORDERED: Lorazepam 2 MG/ML VIAL SLOW IVP PRN (15:36)
[2019-06-06] MEDS ORDERED: Fentanyl BOLUS 250 ML IVPB PRN (15:36)
[2019-06-06] MEDS ORDERED: DISCONTINUE PREVIOUS NARCOTIC PAIN MEDICATIONS AND BENZODIAZEPINES FS SCH (15:36)
[2019-06-06] MEDS ORDERED: Propofol BOLUS 1,000 MG/100 ML VIAL IV PRN (15:36)
[2019-06-06 15:44] LABS: Band 8 % (5-11); Lymphocytes 46 % (21-51); MDiff Complete? YES; Monocytes 4 % (0-10); Neutrophil 42 % (42-75); Ovalocytes SLIGHT = 2-5 cells (100X) (0-1/hpf); Platelet Morphology Comment Appears Adequate; Polychromasia SLIGHT = 2-3 cells (100X) (0-2/hpf)
[2019-06-06 15:48] LABS: Anion Gap 9 mmol/L (10-20); BUN (Urea Nitrogen) 18 mg/dL (8.4-25.7); Calc. Creatinine Clearance 114 mL/min (70-130); Calcium 7.1 mg/dL (7.8-10.44); Carbon Dioxide 22 mmol/L (23-31); Chloride 112 mmol/L (98-107); Estimated GFR-MDRD 85; Glucose 125 mg/dL (80-115); Sodium 139 mmol/L (136-145)
[2019-06-06] MEDS: Sodium Chloride 0.9% 1,000 ML IV SCH ×2 (15:49→23:32)
--- NOTE | 2019-06-06 15:53 | PRG ---
DATE OF SERVICE: 06/06/2019 SUBJECTIVE: Percy White status post CABG. Postop on the vent, still sedated. His vital signs are relatively stable. He had an echocardiogram done this morning, which showed uzdfyond-cu-suthky mitral regurgitation and EF between 30% to 35%. OBJECTIVE: VITAL SIGNS: His sats are 95% to 96%, pulse 76, blood pressure 130/82, respirations 18. CHEST: Extensive rhonchi bilaterally. CARDIAC: Normal S1, S2. No gallops. ABDOMEN: No masses. LABORATORY DATA: . Glucose 129. ASSESSMENT AND PLAN: Coronary artery disease, coronary artery bypass grafting, congestive heart failure, recent pneumonia, severe deconditioning. Wean per protocol. Pulmonary will follow while in the ICU. Renal functions are stable. One-half hour of critical time. Job ID: [id number]
[2019-06-06] MEDS: Insulin Regular 300 UNITS/3 ML VIAL SC PRN (16:06)
--- NOTE | 2019-06-06 16:53 | OP ---
DATE OF PROCEDURE: 06/06/2019 PROCEDURE PERFORMED: Coronary artery bypass grafting x6 with sequential left internal mammary artery to the mid left anterior descending, to the distal left anterior descending, separate reverse greater saphenous vein grafts from the aorta to the first diagonal and to the obtuse marginal, and sequential reverse greater saphenous vein graft from the aorta to the posterior descending artery, to the posterolateral branch of the right coronary artery. PREOPERATIVE DIAGNOSES: Coronary artery disease with ischemic cardiomyopathy; status post nns-RY-vnrzchbtk myocardial infarction and msb-zd-kxfrectd ventricular fibrillatory arrest. POSTOPERATIVE DIAGNOSES: Coronary artery disease with ischemic cardiomyopathy; status post zqn-AB-uvgbmogyl myocardial infarction and otl-pc-awmbaulw ventricular fibrillatory arrest. CORPORATE COMPLIANCE MANAGER: Percy Norris MD. ANESTHESIA: General endotracheal anesthesia. INDICATIONS: The patient is a 64-year-old man with known coronary artery disease, who collapsed after complaining of feeling poorly. CPR was initiated by his , and when EMS arrived, he was in ventricular fibrillation. After multiple DC cardioversion shocks and epinephrine, the patient converted to a sinus rhythm. He has recovered from his initial insult, and cardiac catheterization demonstrates severe 3-vessel coronary artery disease. He is now taken to the operating room for surgical revascularization. FINDINGS: Pump time 97 minutes. Cross-clamp time 61 minutes. Good quality SIVA and saphenous vein. The mid LAD was about 2.5 mm diffusely diseased vessel. The distal LAD was about a 1-mm good quality vessel. The first diagonal was about 1.5 mm in fairly good quality. The OM was about 2 to 2.5 mm and intramyocardial and in fairly good quality. The PDA was diffusely diseased proximally and had scattered disease, distally it was about a 1.5 mm vessel. The larger of the 2 posterolateral branches immediately adjacent to the PDA was about a 1.5 mm good quality vessel. The patient on milrinone loading, low-dose Levophed, and atrial pacing, had an estimated cardiac output by RASHMI of about 5.5 L after coming off pump. The pericardium was closed. DESCRIPTION OF PROCEDURE: After informed consent was obtained, the patient was taken to the operating room and placed in supine position on the operating table. After the induction of general anesthesia, the patient's greater saphenous veins were ultrasonographically mapped and marked. His right chest was prepped and draped in a sterile fashion, and with him in Trendelenburg, a triple-lumen central line kit was used to place a right subclavian central line by the Seldinger technique. All 3 ports easily aspirated and flushed. The line was secured with suture and then the patient's torso, groins, and lower extremities were prepped and draped in sterile fashion. The left greater saphenous vein was exposed through a small incision just above the left knee and it was then endoscopically harvested, using that as a port site from groin to the ankle. The proximal transection point was feasible through a small stab incision that did not require closure. The distal transection point was done through a 2nd small incision. The vein was prepared for use as a graft and the incisions at the knee and ankle were closed in layers of subcutaneous and subcuticular Vicryl. A median sternotomy was performed. The right pleural space was entered during the performance of the sternotomy. The left pleura was mobilized and the left internal mammary artery was mobilized as a skeletonized in-situ graft from the level of the xiphoid to just beyond the subclavian vein, controlling side branches with small hemoclips. The patient was heparinized. The mammary was ligated and divided distally. There was good flow through it and it dilated nicely with instillation of intraluminal papaverine solution. The mammary bed was inspected for hemostasis. The hilar reflections of the pleura were mobilized. Two small violations of the pleura were controlled with 6-0 Prolene suture. The SIVA retractor was placed with a Calvo retractor. The pericardium was opened and marsupialized. The aorta was palpated and was soft. A double concentric pursestring of 2-0 Ethibond was placed in the ascending aorta beyond the pericardial reflection and a single pursestring was placed in the right atrial appendage. Aortic and venous cannulae were inserted and secured by their pursestrings. The plane between the aorta and the pulmonary artery was developed. Cardiopulmonary bypass was instituted and the patient was systemically cooled. The heart was examined and the vessels to be bypassed were identified. The heart was quite large. There was some scattered transmural scar appreciable on the inferior wall. A longitudinal slit was made in the pericardium anterior to the left phrenic nerve, through which the mammary could be passed. An aortic cross-clamp was applied and cardioplegia was administered through an aortic root needle. When arrest have been achieved, attention was turned to the distal right coronary system. The PDA was explored and the site for anastomosis was selected relatively distally, where it became a fairly good quality vessel, though there was still scattered disease. The adjacent posterolateral branch was opened at about that same level and orienting the anastomosis perpendicular to the axis of the coronary. Reverse greater saphenous vein was anastomosed to the posterolateral branch end to side with running 6-0 Prolene suture. The anastomosis was tested by flushing cold cardioplegia through the graft. The PDA was opened. A longitudinal venotomy was made in the posterolateral vein graft and then a bdsb-ao-gemd anastomosis was constructed from it to the PDA, orienting the anastomosis parallel to the axis of the coronary. The OM and first diagonal were then opened and grafted end-to-side with saphenous vein. The LAD was explored 1st distally. The portion immediately beyond the last diagonal was diffusely diseased, but the dissection was carried out distally towards the apex where the vessel became a good quality, though small. The mid LAD was then explored proximal to that last diagonal and though diffusely diseased. There were multiple areas, where the anterior wall was soft. It was opened. A longitudinal arteriotomy was made in the left SIVA, corresponding to that arteriotomy in the mid LAD and a nopr-fq-bjeq anastomosis was constructed between the 2 with a running 7-0 Prolene. The distal LAD was then opened, where it became a good quality vessel and the end of the mammary was anastomosed there end-to-side with running 7-0 Prolene. A 1 mm probe passed through the anastomosis distally prior to securing the suture line. The aortic cross-clamp was replaced with a partial occluding clamp. An aortotomy was made in ascending aorta with a scalpel and punch, incorporating the root needle site for the most proximal aortotomy. The sequential right coronary system graft was brought along the right side of the heart and anastomosed to that proximal aortotomy end-to-side with running 6-0 Prolene suture. The diagonal and OM grafts were brought on the left side of the heart and anastomosed to the middle and distal aortotomies respectively. The partial occluding clamp was removed. The vein grafts were de-aired and the bulldog was removed from them. The anastomoses were inspected for hemostasis. The proximal vein graft anastomoses were marked with small hemoclips. Right pleural and posterior pericardial drains were brought out through separate incisions and secured with suture. Right atrial and right ventricular temporary epicardial pacing wires were placed. The patient was then from cardiopulmonary bypass. During the pump run, he had been loaded with milrinone as he was coming off pump that his heart rate drifted back down to around 60 and atrial pacing was initiated with that and the use of a low-dose Levophed drip. He was easily from cardiopulmonary bypass. The aortic and venous cannulae were removed and their pursestrings secured. Protamine was administered. When hemostasis was adequate, an anterior mediastinal drain was placed. The pericardium was easily reapproximated with running Vicryl. The cut surfaces of the sternum were treated with vancomycin paste and platelet-rich GPS. The sternum was reapproximated with #7 stainless steel wires. The soft tissues were irrigated and treated with platelet-poor GPS. The fascia was closed over the wires with #1 Vicryl. Subcutaneous tissue was reapproximated with running 2-0 Vicryl and the skin was closed with a running 3-0 Vicryl subcuticular suture. The wounds were dressed and the patient was taken to the intensive care unit in stable condition. Job ID: [id number]
--- NOTE | 2019-06-06 17:07 | EKG ---
Test Reason : Blood Pressure : / mmHG Vent. Rate : 070 BPM Atrial Rate : 075 BPM P-R Int : 000 ms QRS Dur : 198 ms QT Int : 540 ms P-R-T Axes : 000 -75 083 degrees QTc Int : 583 ms Ventricular-paced rhythm Premature ventricular and fusion complexes Abnormal ECG Confirmed by JOEL MARTINEZ ([id number]) on 06/06/2019 5:06:52 PM Referred By: LUCIUS Confirmed By:JOEL MARTINEZ
[2019-06-06] MEDS: Ketorolac Tromethamine 30 MG/ML VIAL IVP SCH ×3 (18:42→23:31)
[2019-06-06] MEDS: Docusate 100 MG CAP PO SCH (20:31)
[2019-06-06 21:48] LABS: Hemoglobin 10.2 g/dL (14.0-18.0)
[2019-06-06 21:56] LABS: Potassium 4.4 mmol/L (3.5-5.1)
[2019-06-07] MEDS: Insulin Regular 300 UNITS/3 ML VIAL SC PRN (04:14)
[2019-06-07 05:11] LABS: Anion Gap 8 mmol/L (10-20); BUN (Urea Nitrogen) 18 mg/dL (8.4-25.7); Calc. Creatinine Clearance 119 mL/min (70-130); Calcium 7.5 mg/dL (7.8-10.44); Carbon Dioxide 23 mmol/L (23-31); Chloride 113 mmol/L (98-107); Estimated GFR-MDRD 85; Glucose 123 mg/dL (80-115); Potassium 4.2 mmol/L (3.5-5.1); Sodium 140 mmol/L (136-145)
[2019-06-07 05:29] LABS: Band 5 % (5-11); Hemoglobin 9.7 g/dL (14.0-18.0); Lymphocytes 34 % (21-51); MDiff Complete? YES; Mean Corpuscular HGB CONC 32.9 g/dL (32.0-36.0); Mean Corpuscular Hemoglobin 29.4 pg (27.0-31.0); Mean Corpuscular Volume 89.4 fL (78.0-98.0); Mean Platelet Volume 7.7 fL (7.4-10.4); Microcytosis MODERATE=15-30 cells (100X) (0-5/hpf); Monocytes 4 % (0-10); Neutrophil 57 % (42-75); Platelet Count 271 thou/uL (130-400); Platelet Morphology Comment Appears Adequate; RBC Distribution Width 14.1 % (11.5-14.5); Red Blood Cell (RBC) Count 3.28 mill/uL (4.70-6.10); White Blood Cell (WBC) Count 17.3 thou/uL (4.8-10.8)
[2019-06-07] MEDS: Ketorolac Tromethamine 30 MG/ML VIAL IVP SCH (06:02)
[2019-06-07 07:56] LABS: Actual Bicarbonate (HCO3a) 21.5 mEq/L (22-28); Base Excess (BEa) -2.2 mEq/L (-2.0 to +3.0); CO2 Tension 32.9 mmHg (35.0-45.0); Calcium, Ionized 1.09 mmol/L (1.12-1.30); Carboxyhemoglobin (COHb) 1.3 gm% (0.0-3.0); Hemoglobin (Hb) 10.1 g/dL (14.0-18.0); O2 Tension (PaO2) 123.4 mmHg (> 80.0); Potassium - ABG Lab 4.16 mmol/L (3.70-5.30); pH, Arterial 7.43 (7.35-7.45)
[2019-06-07 07:57] LABS: ALV-art Gradient 120.675 (0-20); Puncture Site LINE
--- NOTE | 2019-06-07 08:27 | RAD ---
Frontal radiograph chest: 06/07/2019 COMPARISON: 06/06/2019 HISTORY: Status post open heart surgery FINDINGS: Endotracheal tube, nasogastric tube, right-sided vascular catheter, and right-sided chest t ube again noted. No discrete pneumothorax. Nonspecific patchy infrahilar airspace disease on the right. Stable consolidation/collapse of the left lower lobe. IMPRESSION: Lines and tubes as detailed above. Significant bibasilar airspace disease for which follo w-up advised.
--- NOTE | 2019-06-07 08:59 | PRG ---
DATE OF SERVICE: 06/07/2019 SUBJECTIVE: This morning, he is awake, alert, responsive on the vent. OBJECTIVE: VITAL SIGNS: Pulse 80, blood pressure 110/87 in the A-line, saturations are 90%, respiratory rate 12. CHEST: Decreased breath sounds. Minimal rhonchi. CARDIAC: Normal S1 and S2. No gallops. ABDOMEN: No masses. LABORATORY DATA: White count 17,000, H and H of 9 and 29, and platelet count is normal. PO2 of 123, pCO2 of 32, pH 7.43, rate of 14, 40%. Lytes are normal. DIAGNOSTIC DATA: X-ray shows no acute infiltrates or cardiomegaly. ASSESSMENT: Status post coronary artery bypass graft, coronary artery disease, congestive heart failure, deconditioning, and previous pneumonia. PLAN: Wean and extubate. Aggressive PT and supportive care. We will follow. One-half hour of critical time. Job ID: [id number]
[2019-06-07] MEDS ORDERED: Furosemide 40 MG/4 ML VIAL SLOW IVP SCH (09:45)
--- NOTE | 2019-06-07 09:49 | PDOC.BPN ---
- Brief Progress Note Mr. Andujar is post-op day 1 after CABG. He is responsive, located in CCU, extubated and in stable condition. Pain is well-controlled. Patient describes pain with swallowing since extubation. He also has loss of sensation in his left 5th digit. 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 Recommend OOB and ambulation today.
[2019-06-07] MEDS: cefTRIAXone\\ROCEPHIN 1 GM in Sodium Chloride 0.9% 100 ML IVPB SCH (10:13)
[2019-06-07] MEDS: Docusate 100 MG CAP PO SCH ×2 (10:14→19:06)
[2019-06-07] MEDS: HYDROcodone/Acetaminophen 5/325 mg Tablet PO PRN ×4 (10:27→22:06)
[2019-06-07] MEDS ORDERED: Metolazone 5 MG TAB PO SCH (13:00)
[2019-06-07] MEDS ORDERED: Guaifenesin DM 100-10/5 ML UDCUP PO PRN (13:41)
[2019-06-07] MEDS ORDERED: Bisacodyl 10 MG SUPP PR PRN (13:41)
[2019-06-07] MEDS ORDERED: Nitroglycerin 0.4 MG TAB (25 Tab Bottle) SL PRN (13:41)
[2019-06-07] MEDS ORDERED: Mag-Al 1200 mg/1200 mg/30 ML UDCUP PO PRN (13:41)
[2019-06-07] MEDS ORDERED: Zolpidem Tartrate 5 MG TAB PO PRN (13:41)
[2019-06-07] MEDS ORDERED: Artificial Tears 18 DROP/0.9 ML EA EYE PRN (13:41)
[2019-06-07] MEDS: Furosemide 40 MG/4 ML VIAL SLOW IVP SCH (14:12)
--- NOTE | 2019-06-07 15:16 | PDOC.HOSPP ---
- Subjective Encounter Date: 06/07/19 Encounter Time: 15:20 Subjective: f/u for CABG POD #1, states feeling ok overall. Some chest soreness, using IS ok. - Objective Vital Signs & Weight: Vital Signs (12 hours) Temp Pulse Resp BP Pulse Ox 06/07/19 14:14 67 21 H 99 06/07/19 12:00 97.7 F 06/07/19 08:30 99 06/07/19 08:00 98 F 14 100 06/07/19 07:43 80 97/54 L 06/07/19 06:00 98.9 F 14 06/07/19 04:00 18 Weight Admit Weight 241 lb 2.88 oz Weight 227 lb 11.8 oz Most Recent Monitor Data Heart Rate from ECG 70 NIBP 100/60 NIBP BP-Mean 73 Respiration from ECG 20 SpO2 97 I&O: 06/06/19 06/07/19 06/08/19 06:59 06:59 06:59 Intake Total 1569.4 66.3 Output Total 1951 475 Balance -381.6 -408.7 Result Diagrams: 06/07/19 04:10 06/07/19 04:10 Additional Labs: Accuchecks 06/07/19 06/07/19 06/06/19 09:54 04:17 23:59 POC Glucose 111 H 123 H 114 H 06/06/19 06/06/19 20:16 15:14 POC Glucose 114 H 123 H Microbiology 05/27/19 13:45 Sputum Respiratory Culture - Final 05/26/19 07:45 Sputum Respiratory Culture - Final 05/24/19 23:00 Artery - Right Leg Blood Culture - Final NO GROWTH IN 5 DAYS 05/24/19 21:14 Urine bryant catheter Urine Culture - Final NO GROWTH AT 36 HOURS 05/24/19 20:35 Venous blood - Left Arm Blood Culture - Final NO GROWTH IN 5 DAYS Laboratory Tests 05/28/19 05/29/19 05/29/19 04:10 04:57 04:57 WBC 15.9 H Creatinine 1.75 H 1.50 H 05/30/19 05/30/19 05/31/19 04:13 04:13 03:13 WBC 14.2 H Creatinine 1.47 H 1.29 05/31/19 06/01/19 06/01/19 03:13 03:59 03:59 WBC 12.8 H 17.3 H Creatinine 1.11 Radiology Reviewed by me: Yes (Echo - EF 30-35%, mod LAE, mod-severe MR) EKG Reviewed by me: Yes (Tele - SR) Hospitalist ROS - Medication Medications: Active Medications Generic Name Dose Route Start Last Admin Trade Name Freq PRN Reason Stop Dose Admin Hydrocodone Bitart/Acetaminophen 2 tab 06/06/19 09:22 06/07/19 14:01 Given 5/325 PO 2 tab Q4H PRN Administration Severe Pain (7-10) Albuterol/Ipratropium 3 ml 06/06/19 09:22 06/07/19 14:14 Duoneb NEB 3 ml [id number] PRN Administration SHORTNESS OF BREATH Docusate Sodium 100 mg 06/06/19 21:00 06/07/19 10:14 Colace PO 100 mg BID CANDACE Administration Furosemide 40 mg 06/07/19 14:00 06/07/19 14:12 Lasix SLOW IVP 06/08/19 14:01 40 mg 0600,1400 CANDACE Administration Ceftriaxone Sodium 1 gm/ 100 mls @ 200 mls/hr 06/07/19 08:45 06/07/19 10:13 Sodium Chloride IVPB 100 mls Q24HR CANDACE Administration - Exam General Appearance: NAD, awake alert General - other findings: responsive Eye: PERRL, anicteric sclera ENT: normocephalic atraumatic, no oropharyngeal lesions Neck: supple, symmetric, no JVD, no thyromegaly, no lymphadenopathy Heart: RRR, no gallops, no rubs, normal peripheral pulses Heart - other findings: S1, S2 Respiratory: CTAB, no rales, no ronchi, normal chest expansion, no tachypnea Respiratory - other findings: CT's in place Gastrointestinal: soft, non-tender, non-distended, normal bowel sounds, no palpable masses Extremities: no cyanosis, no clubbing, 1+ LE edema Skin: normal turgor Neurological: cranial nerve grossly intact, no new deficit Musculoskeletal: normal tone, normal strength Psychiatric: normal affect, A&O x 3 Hosp A/P (1) CAD (coronary artery disease) Code(s): I25.10 - ATHSCL HEART DISEASE OF [place] CORONARY ARTERY W/O ANG PCTRS Status: Chronic Plan: s/p CABG POD #1, continue Plavix, Statin (2) Acute on chronic systolic (congestive) heart failure Code(s): I50.23 - ACUTE ON CHRONIC SYSTOLIC (CONGESTIVE) HEART FAILURE Status : Acute Plan: Stable currently, EF 30-35%, Lasix IV (3) Atrial flutter Code(s): I48.92 - UNSPECIFIED ATRIAL FLUTTER Status: Acute (4) COPD exacerbation Code(s): J44.1 - CHRONIC OBSTRUCTIVE PULMONARY DISEASE W (ACUTE) EXACERBATION Status: Acute (5) Elevated troponin Code(s): R79.89 - OTHER SPECIFIED ABNORMAL FINDINGS OF BLOOD CHEMISTRY Status : Acute (6) Tobacco abuse Code(s): Z72.0 - TOBACCO USE Status: Chronic (7) HTN (hypertension) Code(s): I10 - ESSENTIAL (PRIMARY) HYPERTENSION Status: Chronic Qualifiers: Hypertension type: essential hypertension Qualified Code(s): I10 - Essential (primary) hypertension Plan: Relative hypotension currently, continue serial BP monitoring, hold aggressive antihypertensives - Plan plan discussed w/ family, continue antibiotics, PT/OT, manager social services, respiratory therapy, incentive spirometry, out of bed/ambulate, DVT proph w/SCDs Continue supportive mgmt Continue Lasix/Lipitor Routine post-CABG protocol Continue Duonebs/O2 prn Incentive spirometry OOB with PT/Cardiac rehab AM lab: BMP, CBC
--- NOTE | 2019-06-07 15:43 | PRG ---
DATE OF SERVICE: 06/07/2019 SUBJECTIVE: Mr. Andujar is currently doing very well. He is currently in the ICU and extubated after recent bypass surgery. OBJECTIVE: VITAL SIGNS: Blood pressure 107/59, pulse 67, and respirations 20. LUNGS: Clear to auscultation. HEART: Regular rate and rhythm. ABDOMEN: Soft, nontender, and nondistended. EXTREMITIES: No edema. PERTINENT LABORATORY DATA: Hemoglobin 9.7, white blood cell count . IMPRESSION: 1. Ffd-en-ytsxplnb arrest. 2. Severe coronary artery disease. 3. Status post bypass surgery. 4. Yqjrhdbv-fu-zgcmsj mitral regurgitation. RECOMMENDATIONS: At this point, we recommend aggressive medical therapy. Once his blood pressure is stable and off norepinephrine, we would add low-dose beta-álvaro therapy in addition to SHIRA inhibitor therapy. He did have tusywvgr-tm-evyhng MR noted prior to surgery. His valve may improve overtime after recent revascularization. He may also benefit from biventricular pacing and may discuss with Dr. Chaney. As far as EP is concerned, we will also discuss with Dr. Chaney for ICD. He has had recent revascularization and may not meet criteria for ICD. He may therefore need LifeVest. Otherwise, I have no further recommendations. Job ID: [id number]
--- NOTE | 2019-06-07 18:27 | PRG ---
DATE OF SERVICE: 06/07/2019 SUBJECTIVE: Mr. Andujar is doing well one day following his bypass surgery. He might go to the floor today. He denies dizziness, loss of consciousness. No palpitations. Some postoperative discomfort in the chest is still present. OBJECTIVE DATA: VITAL SIGNS: Blood pressure 107/59, heart rate 72, respirations 12, temperature 98.1 degrees Fahrenheit. GENERAL: Alert and oriented man, in no apparent distress. NECK: Supple. Jugular veins not distended. CHEST: Coarse without crackles. HEART: Sounds are regular to rate and rhythm. No murmur or gallop. ABDOMEN: Benign. Bowel sounds positive. EXTREMITIES: Lower extremities without edema, clubbing, or cyanosis. Pulses are adequate. NEUROLOGIC: The patient is nonfocal. MUSCULOSKELETAL: No joint swelling or deformity. SKIN: Without rash. Midsternal scar is in bandages. DATABASE: Telemetry strips reviewed, revealing sinus rhythm, occasional PVCs. No ventricular tachycardia is noted. LABORATORY DATA: White cell count 17.3, hemoglobin 9.7, platelet count is 271. Sodium 140, potassium 4.2, BUN is 18, and creatinine 0.9. ASSESSMENT AND PLAN: Mr. Andujar is a 64-year-old man with history of out of hospital cardiac arrest which has been successfully resuscitated. He recovered neurologically and he was found to have three-vessel coronary artery disease and reduced LVEF. He underwent a coronary artery bypass grafting surgery yesterday. The cardiac arrest is possibly ischemia-mediated ventricular arrhythmia, fibrillation although it is not documented hence the revascularization has potential chance for recovery of his LV systolic function as well as possibly to stay free of ventricular arrhythmias. On the other hand, there is still a chance of ventricular arrhythmias to develop. Continue telemetry is advised should he develop high ventricular arrhythmia burden on telemetry, he may be considered for EP study if positive ICD implant. On the other hand, if he has no further ventricular arrhythmias, he may go home on LifeVest. Long-term followup of his LVEF will be necessary if he becomes candidate for ICD implant as well. For now, we will consider his cardiac arrest event related to his advanced coronary artery disease. We will check again on 06/11/2019. Job ID: [id number]
[2019-06-07] MEDS ORDERED: Cyclobenzaprine 10 MG TAB PO SCH (18:30)
[2019-06-07] MEDS: diphenhydrAMINE 25 MG CAP PO PRN (19:06)
[2019-06-08] MEDS: Cyclobenzaprine 10 MG TAB PO PRN ×4 (02:40→22:58)
[2019-06-08] MEDS: HYDROcodone/Acetaminophen 5/325 mg Tablet PO PRN ×5 (02:41→21:53)
[2019-06-08 05:20] LABS: #Basophils 0.1 thou/uL (0.0-0.2); #Eosinphils 0.1 thou/uL (0.0-0.7); #Lymphocytes 3.8 thou/uL (1.20-3.40); #Monocytes 0.9 thou/uL (0.11-0.59); #Neutrophils 8.1 thou/uL (1.40-6.50); %Eosinophils 0.6 % (0.0-10.0); %Lymphocytes 29.1 % (21.0-51.0); %Monocytes 7.1 % (0.0-10.0); %Neutrophils 62.2 % (42.0-75.0); Hemoglobin 10.2 g/dL (14.0-18.0); Mean Corpuscular HGB CONC 32.3 g/dL (32.0-36.0); Mean Corpuscular Hemoglobin 29.3 pg (27.0-31.0); Mean Platelet Volume 7.9 fL (7.4-10.4); Platelet Count 189 thou/uL (130-400); RBC Distribution Width 14.1 % (11.5-14.5); Red Blood Cell (RBC) Count 3.49 mill/uL (4.70-6.10)
[2019-06-08 05:37] LABS: Anion Gap 12 mmol/L (10-20); BUN (Urea Nitrogen) 19 mg/dL (8.4-25.7); Calc. Creatinine Clearance 96 mL/min (70-130); Calcium 8.4 mg/dL (7.8-10.44); Carbon Dioxide 24 mmol/L (23-31); Chloride 106 mmol/L (98-107); Estimated GFR-MDRD 65; Glucose 100 mg/dL (80-115); Potassium 3.6 mmol/L (3.5-5.1); Sodium 138 mmol/L (136-145)
[2019-06-08] MEDS: Bisacodyl 5 MG TAB PO PRN (05:56)
[2019-06-08] MEDS: Furosemide 40 MG/4 ML VIAL SLOW IVP SCH ×2 (05:57→15:23)
[2019-06-08] MEDS: cefTRIAXone\\ROCEPHIN 1 GM in Sodium Chloride 0.9% 100 ML IVPB SCH (08:10)
[2019-06-08] MEDS: Clopidogrel Bisulfate 75 MG TAB PO SCH (08:11)
[2019-06-08] MEDS: Docusate 100 MG CAP PO SCH ×2 (08:11→20:11)
--- NOTE | 2019-06-08 08:35 | RAD ---
CHEST 1 VIEW PORTABLE: HISTORY: Post coronary artery bypass graft. COMPARISON: 06/07/2019. FINDINGS: Endotracheal tube has been removed. Right chest tube and central line remain in place. Minimal card iomegaly. Bilateral vascular congestion with mild costophrenic angle blunting. IMPRESSION: No significant new process. Persistent cardiomegaly and mild vascular congestion. Continued short-t erm followup. POS: [facility]
--- NOTE | 2019-06-08 10:27 | PDOC.CPN ---
- Subjective Date: 06/08/19 Time: 10:00 Interval history: Awake, sitting in chair at bedside. Only complaint is incisional soreness to chest, chest tube sites and to his tailbone, "been sitting too long". Ambulated to bathroom and back with PT this morning. CT in place. Denies angina pain, shortness of breath, N/V/D. Denies any BM, but is passing gas. Converted to AFib c/ RVR early am, no having brief episodes AFlutter, AFIb, and intermittent SR on Cardizem gtt at 10mg/hr. - Review of Systems General: reports: weight/appetite/sleep changes, fatigue Respiratory: reports: cough Cardiovascular: reports: chest pain (incisional pain), edema Musculoskeletal: reports: swelling - Objective Allergies/Adverse Reactions: Allergies Allergy/AdvReac Type Severity Reaction Status Date / Time aspirin AdvReac Severe Verified 06/02/19 10:18 Visit Medications: Current Medications Hydrocodone Bitart/Acetaminophen ([place] 5/325) 1 tab PO Q4H PRN PRN Reason: Moderate Pain (4-6) Hydrocodone Bitart/Acetaminophen ([place] 5/325) 2 tab PO Q4H PRN PRN Reason: Severe Pain (7-10) Last Admin: 06/08/19 08:11 Dose: 2 tab Al Hydroxide/Mg Hydroxide (Maalox) 30 ml PO Q4H PRN PRN Reason: Indigestion Albuterol/Ipratropium (Duoneb) 3 ml NEB [id number] PRN PRN Reason: SHORTNESS OF BREATH Last Admin: 06/07/19 14:14 Dose: 3 ml Artificial Tears (Tears Naturale) 0 drop EA EYE PRN PRN PRN Reason: Dry Eyes Bisacodyl (Dulcolax) 10 mg PO Q12H PRN PRN Reason: Constipation Last Admin: 06/08/19 05:56 Dose: 10 mg Bisacodyl (Dulcolax) 10 mg LA Q12H PRN PRN Reason: Constipation Clopidogrel Bisulfate (Plavix) 75 mg PO DAILY CANDACE Last Admin: 06/08/19 08:11 Dose: 75 mg Cyclobenzaprine HCl (Flexeril) 10 mg PO TID PRN PRN Reason: Muscle Spasm Last Admin: 06/08/19 08:10 Dose: 10 mg Diphenhydramine HCl (Benadryl) 25 mg PO Q6H PRN PRN Reason: Itching & Insomnia or Chavez Sean Last Admin: 06/07/19 19:06 Dose: 25 mg Docusate Sodium (Colace) 100 mg PO BID [facility] Last Admin: 06/08/19 08:11 Dose: 100 mg Furosemide (Lasix) 40 mg SLOW IVP 0600,1400 CANDACE Stop: 06/08/19 14:01 Last Admin: 06/08/19 05:57 Dose: 40 mg Guaifenesin/Dextromethorphan (Robitussin Dm) 15 ml PO Q4H PRN PRN Reason: Cough Ceftriaxone Sodium 1 gm/ (Sodium Chloride) 100 mls @ 200 mls/hr IVPB Q24HR CANDACE Last Admin: 06/08/19 08:10 Dose: 100 mls Diltiazem HCl 125 mg/ Sodium (Chloride) 125 mls @ 10 mls/hr IVPB INF CANDACE; Protocol Last Admin: 06/08/19 08:12 Dose: 125 mls Mineral Oil (Fleet Mineral Oil) 133 ml LA DAILYPRN PRN PRN Reason: Constipation Nitroglycerin (Nitrostat) 0.4 mg SL Q5MIN PRN PRN Reason: Chest Pain Ondansetron HCl (Zofran) 4 mg IVP Q6H PRN PRN Reason: Nausea/Vomiting Temazepam (Restoril) 15 mg PO HSPRN PRN PRN Reason: Insomnia Zolpidem Tartrate (Ambien) 5 mg PO HSPRN PRN PRN Reason: Insomnia Vital Signs & Weight: Vital Signs Temp Pulse Resp BP Pulse Ox 06/08/19 08:00 95 06/08/19 03:24 98.0 F 78 20 106/57 L 96 Admit Weight 241 lb 2.88 oz Weight 227 lb 11.8 oz - Quality Measures Condition: Atrial Fibrillation/Flutter (hx or current) CV meds: Beta Evangelina: Yes, SHIRA/ARB: No, Statin: Yes, ASA: Yes, Plavix/Effient/ Brilinta: Yes - Medication Contraindications No Anticoagulant reason: Medical contraindication (Recent CABG) - Physical Exam General: alert & oriented x3, no apparent distress HEENT: mucus membranes moist Neck: supple neck, no JVD/HJR Cardiac: no murmur, irregularly regular Lungs: clear to auscultation, normal breath sounds, no wheeze, rales, rhonchi Neuro: grossly intact Abdomen: non-tender Extremities: 2+ LE edema - Labs Result Diagrams: 06/08/19 04:58 06/08/19 04:58 Troponin/CKMB CK-MB (CK-2) 358.0 ng/mL (0-6.6) H* 05/25/19 18:16 Troponin I 9.671 ng/mL (< 0.028) H* 05/25/19 07:50 - Assessment/Plan Assessment/Plan: 1. OOH Arrest 2. CAD-severe, s/p CABG x3 3. Acute systolic HF 4. AFib/AFlutter 5. Moderate to severe MR Intermittent AFIb/AFlutter, SR, continue diltiazem gtt at 10mg/hr. Rate primarily controlled. EF 30-35, will likely need Lifevest prior to D/C or consideration for BIV pacing , followed by EP. Continue current medical therapy.
--- NOTE | 2019-06-08 13:42 | PDOC.HOSPP ---
- Subjective Encounter Date: 06/08/19 Encounter Time: 09:50 Subjective: ambulating, doing well, Chest tube drain ongoing. denies any cp. - Objective Vital Signs & Weight: Vital Signs (12 hours) Temp Pulse Pulse Resp BP BP BP 06/08/19 12:17 98.1 F 51 L 16 06/08/19 09:14 111 H 135/59 L 92/61 06/08/19 08:00 98.2 F 119 H 16 06/08/19 03:24 98.0 F 78 20 106/57 L BP Pulse Ox 06/08/19 12:17 116/66 96 06/08/19 09:14 06/08/19 08:00 109/66 95 06/08/19 03:24 96 Weight Admit Weight 241 lb 2.88 oz Weight 227 lb 11.8 oz Most Recent Monitor Data Heart Rate from ECG 74 NIBP 107/59 NIBP BP-Mean 75 Respiration from ECG 10 SpO2 94 I&O: 06/07/19 06/08/19 06/09/19 06:59 06:59 06:59 Intake Total 1569.4 592.3 600 Output Total 1951 2095 950 Balance -381.6 -1502.7 -350 Result Diagrams: 06/08/19 04:58 06/08/19 04:58 Hospitalist ROS - Medication Medications: Active Medications Generic Name Dose Route Start Last Admin Trade Name Freq PRN Reason Stop Dose Admin Hydrocodone Bitart/Acetaminophen 2 tab 06/06/19 09:22 06/08/19 12:07 [place] 5/325 PO 2 tab Q4H PRN Administration Severe Pain (7-10) Albuterol/Ipratropium 3 ml 06/06/19 09:22 06/07/19 14:14 Duoneb NEB 3 ml [id number] PRN Administration SHORTNESS OF BREATH Bisacodyl 10 mg 06/07/19 13:41 06/08/19 05:56 Dulcolax PO 10 mg Q12H PRN Administration Constipation Clopidogrel Bisulfate 75 mg 06/08/19 09:00 06/08/19 08:11 Plavix PO 75 mg DAILY CANDACE Administration Cyclobenzaprine HCl 10 mg 06/07/19 18:23 06/08/19 08:10 Flexeril PO 10 mg TID PRN Administration Muscle Spasm Diphenhydramine HCl 25 mg 06/07/19 13:41 06/07/19 19:06 Benadryl PO 25 mg Q6H PRN Administration Itching & Insomnia or Chavez Sean Docusate Sodium 100 mg 06/06/19 21:00 06/08/19 08:11 Colace PO 100 mg BID CANDACE Administration Furosemide 40 mg 06/07/19 14:00 06/08/19 05:57 Lasix SLOW IVP 06/08/19 14:01 40 mg 0600,1400 CANDACE Administration Ceftriaxone Sodium 1 gm/ 100 mls @ 200 mls/hr 06/07/19 08:45 06/08/19 08:10 Sodium Chloride IVPB 100 mls Q24HR CANDACE Administration Diltiazem HCl 125 mg/ Sodium 125 mls @ 10 mls/hr 06/08/19 07:15 06/08/19 08: 12 Chloride IVPB 125 mls INF CANDACE Administration Protocol 10 MG/HR - Exam General Appearance: NAD Eye: PERRL Neck: supple, no JVD Heart: RRR, no murmur Heart - other findings: sternotomy sux scar -- site looks good, mildly erythema aorund suture site Respiratory: CTAB, normal chest expansion Gastrointestinal: soft, non-tender, normal bowel sounds Hosp A/P - Plan outside, witnessed cardiac arrest vfib on amio High trop d/t CPR outside not true infarct - on hypothermia protocol - will get routine EEG and neuro consult request. ------------> neurologically improved; cancel EEG -echo showed ef of 35%; hypokinesia in ant wall.----> plan for ischemic workup after HDynamic stability. -sedated - propofal, fentanyl -vasopressor/levophed Acute resp failure 2/2/ arrest -s/p extubation -comp;leted cefepmime, LQ for aspiration -now on ctx Leukocytosis, post-op -trending down Continue Lasix/Lipitor Routine post-CABG protocol Continue Duonebs/O2 prn Incentive spirometry OOB with PT/Cardiac rehab not on statin? starting him on
--- NOTE | 2019-06-08 14:49 | PRG ---
DATE OF SERVICE: 06/08/2019 SUBJECTIVE: The patient is doing fairly well. He is up in a chair. He has no acute complaints. He still has chest tubes in place. OBJECTIVE: VITAL SIGNS: Temperature 98.1, pulse 51, respirations 16, O2 saturation 96% on room air, blood pressure 116/66. HEENT: Unremarkable. NECK: No JVD. CHEST: Clear. CARDIAC: S1, S2. Regular. ABDOMEN: Soft. EXTREMITIES: No edema. LABORATORY DATA: White blood cell count 13, hematocrit 31.7, and platelet count 189. Sodium 138, potassium 3.6, BUN 19, creatinine 1.1, glucose 100. ASSESSMENT: 1. Status post respiratory failure, requiring mechanical ventilation. 2. Status post coronary artery bypass grafting surgery. PLAN: The patient is currently on antibiotics and seems to be improving. I told him to emphasize his incentive spirometry. We will follow. Job ID: [id number]
[2019-06-08] MEDS: Carvedilol 6.25 MG TAB PO SCH ×2 (17:51→17:58)
[2019-06-08] MEDS ORDERED: Atorvastatin Calcium 20 MG TAB PO SCH (21:00)
--- NOTE | 2019-06-08 22:09 | PDOC.EVN ---
Event Note - Event Note Event Note: Will dc Statins due to previous allergy - Pt states that it paralyzed his diaphragm
[2019-06-09] MEDS: HYDROcodone/Acetaminophen 5/325 mg Tablet PO PRN ×4 (03:30→21:59)
[2019-06-09 04:32] LABS: #Basophils 0.2 thou/uL (0.0-0.2); #Eosinphils 0.2 thou/uL (0.0-0.7); #Lymphocytes 4.9 thou/uL (1.20-3.40); #Monocytes 1.1 thou/uL (0.11-0.59); #Neutrophils 8.9 thou/uL (1.40-6.50); %Basophils 1.1 % (0.0-1.0); %Eosinophils 1.2 % (0.0-10.0); %Lymphocytes 32.1 % (21.0-51.0); %Monocytes 7.4 % (0.0-10.0); %Neutrophils 58.2 % (42.0-75.0); Hemoglobin 10.2 g/dL (14.0-18.0); Mean Corpuscular HGB CONC 32.8 g/dL (32.0-36.0); Mean Corpuscular Hemoglobin 29.4 pg (27.0-31.0); Mean Corpuscular Volume 89.7 fL (78.0-98.0); Mean Platelet Volume 8.1 fL (7.4-10.4); Platelet Count 230 thou/uL (130-400); Red Blood Cell (RBC) Count 3.46 mill/uL (4.70-6.10); White Blood Cell (WBC) Count 15.3 thou/uL (4.8-10.8)
[2019-06-09] MEDS: Bisacodyl 5 MG TAB PO PRN (04:58)
[2019-06-09 04:59] LABS: Anion Gap 15 mmol/L (10-20); BUN (Urea Nitrogen) 24 mg/dL (8.4-25.7); Calc. Creatinine Clearance 73 mL/min (70-130); Calcium 8.7 mg/dL (7.8-10.44); Carbon Dioxide 23 mmol/L (23-31); Chloride 101 mmol/L (98-107); Estimated GFR-MDRD 47; Glucose 108 mg/dL (80-115); Potassium 3.4 mmol/L (3.5-5.1); Sodium 136 mmol/L (136-145)
--- NOTE | 2019-06-09 07:36 | RAD ---
CHEST ONE VIEW: HISTORY: Post coronary artery bypass graft. COMPARISON: 06/08/2019 FINDINGS: Right chest tube in place without pneumothorax. Postop midline sternotomy and right central lines. Pl eural and parenchymal opacity changes in the left base, which appear more prominent than on the prior study, possibly some developing left pleural effusion and/or atelectasis. No pneumothorax. IMPRESSION: Some developing pleural and parenchymal opacity changes in the left base; otherwise stable chest. POS: [facility]
[2019-06-09] MEDS: Carvedilol 6.25 MG TAB PO SCH ×3 (09:15→16:54)
[2019-06-09] MEDS: Clopidogrel Bisulfate 75 MG TAB PO SCH (09:15)
[2019-06-09] MEDS: Docusate 100 MG CAP PO SCH ×2 (09:15→21:03)
[2019-06-09] MEDS: Cyclobenzaprine 10 MG TAB PO PRN ×2 (09:25→21:08)
[2019-06-09] MEDS: cefTRIAXone\\ROCEPHIN 1 GM in Sodium Chloride 0.9% 100 ML IVPB SCH (09:26)
--- NOTE | 2019-06-09 12:57 | PDOC.CPN ---
- Subjective Date: 06/09/19 Time: 14:00 Interval history: Mr. Andujar is awake, sitting up in chair at bedside. CT removed today per CV surgery. Only complaint is incisional pain. Denies shortness or breath. Passing flatus, no BM yet. Converted to SR/SB, otherwise no events on telemetry. - Review of Systems Respiratory: reports: cough Cardiovascular: reports: edema Gastrointestinal: denies: nausea, vomiting, diarrhea, constipation, abd pain, GI bleeding Musculoskeletal: denies: pain, tenderness, stiffness, swelling, arthritis/ arthralgias - Objective Allergies/Adverse Reactions: Allergies Allergy/AdvReac Type Severity Reaction Status Date / Time [place]-Ncm-Frw Reductase Allergy Severe Verified 06/08/19 20:19 Inhibitor aspirin AdvReac Severe Verified 06/02/19 10:18 Visit Medications: Current Medications Hydrocodone Bitart/Acetaminophen ([place] 5/325) 1 tab PO Q4H PRN PRN Reason: Moderate Pain (4-6) Hydrocodone Bitart/Acetaminophen ([place] 5/325) 2 tab PO Q4H PRN PRN Reason: Severe Pain (7-10) Last Admin: 06/09/19 09:25 Dose: 2 tab Al Hydroxide/Mg Hydroxide (Maalox) 30 ml PO Q4H PRN PRN Reason: Indigestion Albuterol/Ipratropium (Duoneb) 3 ml NEB [id number] PRN PRN Reason: SHORTNESS OF BREATH Last Admin: 06/07/19 14:14 Dose: 3 ml Artificial Tears (Tears Naturale) 0 drop EA EYE PRN PRN PRN Reason: Dry Eyes Bisacodyl (Dulcolax) 10 mg PO Q12H PRN PRN Reason: Constipation Last Admin: 06/09/19 04:58 Dose: 10 mg Bisacodyl (Dulcolax) 10 mg SD Q12H PRN PRN Reason: Constipation Carvedilol (Coreg) 6.25 mg PO BID-[facility] Last Admin: 06/09/19 09:15 Dose: 6.25 mg Clopidogrel Bisulfate (Plavix) 75 mg PO DAILY [facility] Last Admin: 06/09/19 09:15 Dose: 75 mg Cyclobenzaprine HCl (Flexeril) 10 mg PO TID PRN PRN Reason: Muscle Spasm Last Admin: 06/09/19 09:25 Dose: 10 mg Diphenhydramine HCl (Benadryl) 25 mg PO Q6H PRN PRN Reason: Itching & Insomnia or Chavez Sean Last Admin: 06/07/19 19:06 Dose: 25 mg Docusate Sodium (Colace) 100 mg PO BID CANDACE Last Admin: 06/09/19 09:15 Dose: 100 mg Guaifenesin/Dextromethorphan (Robitussin Dm) 15 ml PO Q4H PRN PRN Reason: Cough Ceftriaxone Sodium 1 gm/ (Sodium Chloride) 100 mls @ 200 mls/hr IVPB Q24HR CANDACE Last Admin: 06/09/19 09:26 Dose: 100 mls Diltiazem HCl 125 mg/ Sodium (Chloride) 125 mls @ 10 mls/hr IVPB INF CANDACE; Protocol Last Admin: 06/09/19 06:00 Dose: 125 mls Mineral Oil (Fleet Mineral Oil) 133 ml [place] DAILYPRN PRN PRN Reason: Constipation Nitroglycerin (Nitrostat) 0.4 mg SL Q5MIN PRN PRN Reason: Chest Pain Ondansetron HCl (Zofran) 4 mg IVP Q6H PRN PRN Reason: Nausea/Vomiting Potassium Chloride (K-Dur) 40 meq PO ONE CANDACE Temazepam (Restoril) 15 mg PO HSPRN PRN PRN Reason: Insomnia Zolpidem Tartrate (Ambien) 5 mg PO HSPRN PRN PRN Reason: Insomnia Vital Signs & Weight: Vital Signs Temp Pulse Resp BP BP BP Pulse Ox 06/09/19 11:36 97.7 F 60 12 91/50 L 96 06/09/19 09:00 104/60 97/55 L 06/09/19 08:00 97.2 F L 72 17 106/51 L 96 06/09/19 03:20 97.6 F 63 18 112/59 L 93 L Admit Weight 241 lb 2.88 oz Weight 227 lb 11.8 oz - CHADS-VASc Congestive heart failure: 1 Vascular disease: 1 Risk Score: 2 - Quality Measures Condition: Atrial Fibrillation/Flutter (hx or current) CV meds: Beta Evangelina: Yes, SHIRA/ARB: No, Statin: Yes, ASA: Yes, Plavix/Effient/ Brilinta: Yes - Medication Contraindications No Anticoagulant reason: Medical contraindication (Recent CABG) - Physical Exam General: alert & oriented x3, appears well, no apparent distress HEENT: mucus membranes moist Neck: supple neck, no JVD/HJR Cardiac: regular rate and rhythm, no murmur Lungs: clear to auscultation, normal breath sounds, no wheeze, rales, rhonchi Neuro: grossly intact Abdomen: active bowel sounds, soft Extremities: 2+ LE edema - Labs Result Diagrams: 06/09/19 04:15 06/09/19 04:15 Troponin/CKMB CK-MB (CK-2) 358.0 ng/mL (0-6.6) H* 05/25/19 18:16 Troponin I 9.671 ng/mL (< 0.028) H* 05/25/19 07:50 - Telemetry Sinus rhythms and dysrhythmias: sinus rhythm - Assessment/Plan Assessment/Plan: 1. OOH Arrest 2. CAD-severe, s/p CABG x3 3. Acute systolic HF 4. AFib/AFlutter 5. Moderate to severe MR Converted to SR/SB, okay to d/c diltiazem gtt. Will continue BB, titrate up as tolerated. Creatinine up to 1.6, mild to moderate edema, resume PO furosemide tomorrow if creatinine normalizes. EF 30-35, will likely need Lifevest prior to D/C or consideration for BIV pacing , followed by EP. Continue current medical therapy.
[2019-06-09] MEDS ORDERED: Potassium Chloride 20 MEQ TAB PO SCH (13:00)
[2019-06-09] MEDS ORDERED: Simethicone Chewable 80 MG TAB PO SCH (13:15)
--- NOTE | 2019-06-09 15:21 | PRG ---
DATE OF SERVICE: 06/09/2019 SUBJECTIVE: The patient remains on the floor, but chest tubes have been pulled out and he says he feels much better. OBJECTIVE: VITAL SIGNS: His temperature 97, pulse 60, respirations 12, O2 saturation 96%, and blood pressure 91/50. HEENT: Clear. NECK: No JVD. CHEST: Clear to auscultation. CARDIAC: S1, S2 regular. ABDOMEN: Soft. EXTREMITIES: No edema. LABORATORY DATA: White blood cell count 15, hematocrit 31, and platelet count 230. Sodium 136, BUN 24, creatinine 1.5. ASSESSMENT: 1. Status post coronary artery bypass grafting surgery. 2. Status post mechanical ventilation for respiratory failure. PLAN: Continue incentive spirometry. Increase activity as tolerated. Job ID: [id number]
--- NOTE | 2019-06-09 15:45 | PDOC.HOSPP ---
- Subjective Encounter Date: 06/09/19 Encounter Time: 10:35 Subjective: cardizem gtt running at 10uch/hr. afib.o/n events noted; no statin d/t diaphramatic ?? pt ambulating, sitting in the chair, at bedside. card note reviewed. - Objective Vital Signs & Weight: Vital Signs (12 hours) Temp Pulse Resp BP BP BP Pulse Ox 06/09/19 11:36 97.7 F 60 12 91/50 L 96 06/09/19 09:00 104/60 97/55 L 06/09/19 08:00 97.2 F L 72 17 106/51 L 96 Weight Admit Weight 241 lb 2.88 oz Weight 227 lb 11.8 oz Most Recent Monitor Data Heart Rate from ECG 74 NIBP 107/59 NIBP BP-Mean 75 Respiration from ECG 10 SpO2 94 I&O: 06/08/19 06/09/19 06/10/19 06:59 06:59 06:59 Intake Total 592.3 2280 Output Total 2095 2670 Balance -1502.7 -390 Result Diagrams: 06/09/19 04:15 06/09/19 04:15 Hospitalist ROS - Medication Medications: Active Medications Generic Name Dose Route Start Last Admin Trade Name Freq PRN Reason Stop Dose Admin Hydrocodone Bitart/Acetaminophen 2 tab 06/06/19 09:22 06/09/19 13:46 [place] 5/325 PO 2 tab Q4H PRN Administration Severe Pain (7-10) Albuterol/Ipratropium 3 ml 06/06/19 09:22 06/07/19 14:14 Duoneb NEB 3 ml [id number] PRN Administration SHORTNESS OF BREATH Bisacodyl 10 mg 06/07/19 13:41 06/09/19 04:58 Dulcolax PO 10 mg Q12H PRN Administration Constipation Carvedilol 6.25 mg 06/08/19 17:00 06/09/19 09:15 Coreg PO 6.25 mg BID-WM CANDACE Administration Clopidogrel Bisulfate 75 mg 06/08/19 09:00 06/09/19 09:15 Plavix PO 75 mg DAILY CANDACE Administration Cyclobenzaprine HCl 10 mg 06/07/19 18:23 06/09/19 09:25 Flexeril PO 10 mg TID PRN Administration Muscle Spasm Diphenhydramine HCl 25 mg 06/07/19 13:41 06/07/19 19:06 Benadryl PO 25 mg Q6H PRN Administration Itching & Insomnia or Chavez Sean Docusate Sodium 100 mg 06/06/19 21:00 06/09/19 09:15 Colace PO 100 mg BID CANDACE Administration Ceftriaxone Sodium 1 gm/ 100 mls @ 200 mls/hr 06/07/19 08:45 06/09/19 09:26 Sodium Chloride IVPB 100 mls Q24HR CANDACE Administration - Exam General Appearance: NAD, awake alert Eye: PERRL, anicteric sclera ENT: normocephalic atraumatic Neck: supple, symmetric, no JVD Heart: RRR, no murmur Respiratory: CTAB, normal chest expansion Respiratory - other findings: chest /cabg-- sux site looks ok Gastrointestinal: soft, normal bowel sounds Extremities: no cyanosis Neurological: cranial nerve grossly intact, no focal deficits Hosp A/P - Plan outside, witnessed cardiac arrest vfib on amio High trop d/t CPR outside not true infarct - on hypothermia protocol - will get routine EEG and neuro consult request. ------------> neurologically improved; cancel EEG -echo showed ef of 35%; hypokinesia in ant wall.----> plan for ischemic workup after HDynamic stability. -sedated - propofal, fentanyl -vasopressor/levophed Acute resp failure 2/2/ arrest -s/p extubation -comp;leted cefepmime, LQ for aspiration -now on ctx Leukocytosis, post-op -trending down Continue Lasix/Lipitor Routine post-CABG protocol Continue Duonebs/O2 prn Incentive spirometry OOB with PT/Cardiac rehab not on statin? starting him on --has to be stopped as pt has allergic eleazar to it. New onset afib -s/p cardizem gtt -coreg -AC? CAD/CABG - plavix, coreg [allergic to ASA and statin] ischemic CMY with EF of 35% Mod-severe MR Acute sys CHF exacerbation - cardio. following --plan for EP evaluation for poss ICD vs..OP mgmt. -consider ACEI, once BP improves. Ongoing ambulation and PTherapy.
[2019-06-09] MEDS: Mineral Oil ENEMA PR PRN (21:03)
[2019-06-10] MEDS: HYDROcodone/Acetaminophen 5/325 mg Tablet PO PRN ×3 (03:08→17:17)
[2019-06-10 04:37] LABS: #Basophils 0.2 thou/uL (0.0-0.2); #Eosinphils 0.2 thou/uL (0.0-0.7); #Lymphocytes 5.1 thou/uL (1.20-3.40); #Monocytes 0.9 thou/uL (0.11-0.59); #Neutrophils 5.7 thou/uL (1.40-6.50); %Basophils 1.8 % (0.0-1.0); %Eosinophils 1.7 % (0.0-10.0); %Lymphocytes 42.2 % (21.0-51.0); %Monocytes 7.4 % (0.0-10.0); %Neutrophils 46.8 % (42.0-75.0); Mean Corpuscular HGB CONC 32.7 g/dL (32.0-36.0); Mean Corpuscular Hemoglobin 29.3 pg (27.0-31.0); Mean Corpuscular Volume 89.7 fL (78.0-98.0); Platelet Count 242 thou/uL (130-400); RBC Distribution Width 13.8 % (11.5-14.5); Red Blood Cell (RBC) Count 3.41 mill/uL (4.70-6.10); White Blood Cell (WBC) Count 12.1 thou/uL (4.8-10.8)
[2019-06-10 04:55] LABS: Anion Gap 13 mmol/L (10-20); BUN (Urea Nitrogen) 27 mg/dL (8.4-25.7); Calc. Creatinine Clearance 78 mL/min (70-130); Calcium 8.8 mg/dL (7.8-10.44); Carbon Dioxide 25 mmol/L (23-31); Chloride 101 mmol/L (98-107); Estimated GFR-MDRD 53; Glucose 98 mg/dL (80-115); Potassium 3.4 mmol/L (3.5-5.1); Sodium 136 mmol/L (136-145)
[2019-06-10] MEDS: Simethicone Chewable 80 MG TAB PO PRN (05:30)
[2019-06-10] MEDS: Docusate 100 MG CAP PO SCH ×2 (08:22→20:06)
[2019-06-10] MEDS: Clopidogrel Bisulfate 75 MG TAB PO SCH (08:22)
[2019-06-10] MEDS: Carvedilol 6.25 MG TAB PO SCH ×2 (08:22→17:18)
[2019-06-10] MEDS: cefTRIAXone\\ROCEPHIN 1 GM in Sodium Chloride 0.9% 100 ML IVPB SCH (08:28)
--- NOTE | 2019-06-10 08:53 | EKG ---
Test Reason : POSTOP CABG Blood Pressure : / mmHG Vent. Rate : 080 BPM Atrial Rate : 080 BPM P-R Int : 226 ms QRS Dur : 102 ms QT Int : 446 ms P-R-T Axes : 088 -25 017 degrees QTc Int : 514 ms Electronic atrial pacemaker Low voltage QRS Inferior infarct , age undetermined Prolonged QT Abnormal ECG Confirmed by JOEL MARTINEZ ([id number]) on 06/10/2019 8:52:59 AM Referred By: SIG Confirmed By:JOEL MARTINEZ
--- NOTE | 2019-06-10 09:16 | RAD ---
CHEST 1 VIEW PORTABLE: HISTORY: Post coronary artery bypass graft. FINDINGS: Postop midline sternotomy with right central line. Right-sided chest tub has been removed. Minimal cardiomegaly with some persistent but slightly improving pleural and parenchymal opacity changes in t he left base. IMPRESSION: Improving pleural and parenchymal changes in the left base. POS: TPC
--- NOTE | 2019-06-10 09:42 | PRG ---
DATE OF SERVICE: 06/10/2019 SUBJECTIVE: Percy Andujar, this morning, he is awake, alert, and responsive. OBJECTIVE: VITAL SIGNS: Temperature 98, pulse 56, saturations 96%_ on room air, blood pressure 130\72 No complaints. CHEST: Decreased breath sounds. No wheezing. CARDIAC: Normal S1 and S2. No gallops. ABDOMEN: No masses. LABORATORY DATA: White count 12,000 creatinine 1.36. IMPRESSION: Status post coronary artery bypass grafting, respiratory failure, obesity, cardiomyopathy, bronchopneumonia. He received adequate antibiotic. Now, we have discontinued ceftriaxone. Continue neb treatment. PT supportive care. Eventually, disposition as per Surgery. Job ID: [id number] MTDD
[2019-06-10 12:31] VITALS: BMI 31.8
--- NOTE | 2019-06-10 13:14 | PDOC.HOSPP ---
- Subjective Encounter Date: 06/10/19 Encounter Time: 10:45 Subjective: doing well, off cardizem gtt and cTX. no complains incl.. no CP, off CT. - Objective Vital Signs & Weight: Vital Signs (12 hours) Temp Pulse Resp BP Pulse Ox 06/10/19 12:00 97.9 F 50 L 17 100/54 L 96 06/10/19 08:00 96 06/10/19 07:52 98.2 F 56 L 17 119/57 L 96 06/10/19 03:23 97.5 F L 72 16 107/61 96 Weight Admit Weight 241 lb 2.88 oz Weight 222 lb Most Recent Monitor Data Heart Rate from ECG 74 NIBP 107/59 NIBP BP-Mean 75 Respiration from ECG 10 SpO2 94 I&O: 06/09/19 06/10/19 06/11/19 06:59 06:59 06:59 Intake Total 2280 720 Output Total 2670 600 Balance -390 120 Result Diagrams: 06/10/19 04:22 06/10/19 04:22 Hospitalist ROS - Medication Medications: Active Medications Generic Name Dose Route Start Last Admin Trade Name Freq PRN Reason Stop Dose Admin Hydrocodone Bitart/Acetaminophen 2 tab 06/06/19 09:22 06/10/19 09:57 [place] 5/325 PO 2 tab Q4H PRN Administration Severe Pain (7-10) Albuterol/Ipratropium 3 ml 06/06/19 09:22 06/07/19 14:14 Duoneb NEB 3 ml [id number] PRN Administration SHORTNESS OF BREATH Bisacodyl 10 mg 06/07/19 13:41 06/09/19 04:58 Dulcolax PO 10 mg Q12H PRN Administration Constipation Carvedilol 6.25 mg 06/08/19 17:00 06/10/19 08:22 Coreg PO 6.25 mg BID-WM CANDACE Administration Clopidogrel Bisulfate 75 mg 06/08/19 09:00 06/10/19 08:22 Plavix PO 75 mg DAILY CANDACE Administration Cyclobenzaprine HCl 10 mg 06/07/19 18:23 06/09/19 21:08 Flexeril PO 10 mg TID PRN Administration Muscle Spasm Diphenhydramine HCl 25 mg 06/07/19 13:41 02/21/20 19:06 Benadryl PO 25 mg Q6H PRN Administration Itching & Insomnia or Chavez Sean Docusate Sodium 100 mg 06/06/19 21:00 06/10/19 08:22 Colace PO 100 mg BID CANDACE Administration Mineral Oil 133 ml 06/07/19 13:41 06/09/19 21:03 Fleet Mineral Oil [place] 133 ml DAILYPRN PRN Administration Constipation Simethicone 80 mg 06/09/19 13:08 06/10/19 05:30 Mylicon Chewable PO 80 mg QIDPRN PRN Administration Gas Pain - Exam General Appearance: NAD, awake alert Eye: PERRL ENT: normocephalic atraumatic Neck: supple Heart: RRR Heart - other findings: s/p cabg--suture site looks good Respiratory: CTAB, normal chest expansion Gastrointestinal: soft, normal bowel sounds Extremities: no cyanosis Skin: normal turgor Neurological: cranial nerve grossly intact, no focal deficits Hosp A/P - Plan outside, witnessed cardiac arrest vfib on amio High trop d/t CPR outside not true infarct - on hypothermia protocol - will get routine EEG and neuro consult request. ------------> neurologically improved; cancel EEG -echo showed ef of 35%; hypokinesia in ant wall.----> plan for ischemic workup after HDynamic stability. -sedated - propofal, fentanyl -vasopressor/levophed Acute resp failure 2/2/ arrest -s/p extubation -comp;leted cefepmime, LQ for aspiration -now on ctx Leukocytosis, post-op -trending down Continue Lasix/Lipitor Routine post-CABG protocol Continue Duonebs/O2 prn Incentive spirometry OOB with PT/Cardiac rehab not on statin? starting him on --has to be stopped as pt has allergic eleazar to it. New onset afib -s/p cardizem gtt -coreg -AC?---reverted back to sinus. CAD/CABG - plavix, coreg [allergic to ASA and statin] ischemic CMY with EF of 35% Mod-severe MR Acute sys CHF exacerbation - cardio. following --plan for EP evaluation for poss ICD vs..OP mgmt. -consider ACEI, once BP improves. Ongoing ambulation and PTherapy.
--- NOTE | 2019-06-10 18:22 | PRG ---
DATE OF SERVICE: 06/10/2019 SUBJECTIVE: Mr. Andujar is doing well. No current complaints. He is ambulating without issues or difficulty. OBJECTIVE: VITAL SIGNS: Blood pressure 128/72, pulse 60, and temperature 97.2. LUNGS: Clear to auscultation. HEART: Regular rate and rhythm. ABDOMEN: Soft, nontender, nondistended. EXTREMITIES: No edema. IMPRESSION: 1. Out of hospital arrest. 2. Severe coronary artery disease. 3. Status post bypass surgery. RECOMMENDATIONS: We will discuss with Dr. Chaney After reviewing Dr. Chaney's note dated 06/07/2019, it appears LifeVest is recommended. We will order LifeVest for the patient. There is a chance of recovery . He has not had any further ventricular dysrhythmias during this hospitalization. We would also recommend beta-álvaro therapy. He is allergic to aspirin and statin therapy. His blood pressure is marginal making SHIRA inhibitor therapy or ARB difficult. We will continue to manage and if his blood pressure is stable, we will then add. Job ID: [id number]
--- NOTE | 2019-06-10 19:05 | PDOC.EP ---
- Subjective Date: 06/10/19 Time: 19:05 Interval History: he contoinous to recover from recent bypass surgery. developed atrial flutter and NS-VT over weekend. - Review of Systems Constitutional: denies: chills, fever, malaise, sweats, weakness, other Respiratory: reports: pleuritic pain. denies: cough, dry, hemoptysis, shortness of breath, SOB with excertion, sputum, wheezing, other Cardiology: reports: chest pain (incisional) Gastrointestinal: denies: abdominal pain, constipation, diarrhea, hematochezia, melena, nausea, vomitting, other Musculoskeletal: denies: unstable gait, falls, neck pain, shoulder pain, arm pain, hand pain, leg pain, foot pain, other - Objective Allergies/Adverse Reactions: Allergies Allergy/AdvReac Type Severity Reaction Status Date / Time Abqvodp-Frj-Dis Reductase Allergy Severe Verified 06/08/19 20:19 Inhibitor aspirin AdvReac Severe Verified 06/02/19 10:18 Current Medications Hydrocodone Bitart/Acetaminophen ([place] 5/325) 1 tab PO Q4H PRN PRN Reason: Moderate Pain (4-6) Hydrocodone Bitart/Acetaminophen ([place] 5/325) 2 tab PO Q4H PRN PRN Reason: Severe Pain (7-10) Last Admin: 06/10/19 17:17 Dose: 2 tab Al Hydroxide/Mg Hydroxide (Maalox) 30 ml PO Q4H PRN PRN Reason: Indigestion Albuterol/Ipratropium (Duoneb) 3 ml NEB [id number] PRN PRN Reason: SHORTNESS OF BREATH Last Admin: 06/07/19 14:14 Dose: 3 ml Artificial Tears (Tears Naturale) 0 drop EA EYE PRN PRN PRN Reason: Dry Eyes Last Admin: 06/10/19 15:56 Dose: 1 drop Bisacodyl (Dulcolax) 10 mg PO Q12H PRN PRN Reason: Constipation Last Admin: 06/09/19 04:58 Dose: 10 mg Bisacodyl (Dulcolax) 10 mg MT Q12H PRN PRN Reason: Constipation Carvedilol (Coreg) 6.25 mg PO BID-[facility] Last Admin: 06/10/19 17:18 Dose: 6.25 mg Clopidogrel Bisulfate (Plavix) 75 mg PO DAILY [facility] Last Admin: 06/10/19 08:22 Dose: 75 mg Cyclobenzaprine HCl (Flexeril) 10 mg PO TID PRN PRN Reason: Muscle Spasm Last Admin: 06/09/19 21:08 Dose: 10 mg Diphenhydramine HCl (Benadryl) 25 mg PO Q6H PRN PRN Reason: Itching & Insomnia or Chavez Sean Last Admin: 06/07/19 19:06 Dose: 25 mg Docusate Sodium (Colace) 100 mg PO BID [facility] Last Admin: 06/10/19 08:22 Dose: 100 mg Guaifenesin/Dextromethorphan (Robitussin Dm) 15 ml PO Q4H PRN PRN Reason: Cough Mineral Oil (Fleet Mineral Oil) 133 ml MT DAILYPRN PRN PRN Reason: Constipation Last Admin: 06/09/19 21:03 Dose: 133 ml Nitroglycerin (Nitrostat) 0.4 mg SL Q5MIN PRN PRN Reason: Chest Pain Ondansetron HCl (Zofran) 4 mg IVP Q6H PRN PRN Reason: Nausea/Vomiting Simethicone (Mylicon Chewable) 80 mg PO QIDPRN PRN PRN Reason: Gas Pain Last Admin: 06/10/19 05:30 Dose: 80 mg Temazepam (Restoril) 15 mg PO HSPRN PRN PRN Reason: Insomnia Zolpidem Tartrate (Ambien) 5 mg PO HSPRN PRN PRN Reason: Insomnia Vital Signs & Weight: Vital Signs Temp Pulse Pulse Pulse Resp BP BP 06/10/19 15:46 97.2 F L 68 16 06/10/19 14:35 77 72 100/60 104/57 L 06/10/19 12:00 97.9 F 50 L 17 06/10/19 08:00 06/10/19 07:52 98.2 F 56 L 17 BP Pulse Ox 06/10/19 15:46 128/72 96 06/10/19 14:35 06/10/19 12:00 100/54 L 96 06/10/19 08:00 96 06/10/19 07:52 119/57 L 96 Admit Weight 241 lb 2.971 oz Weight 222 lb I/O: I/O 06/09/19 06/10/19 06/11/19 06:59 06:59 06:59 Intake Total 2280 720 740 Output Total 2670 600 500 Balance -390 120 240 - Medication Contraindications No Anticoagulant reason: Medical contraindication (Recent CABG) - Physical Exam General: alert & oriented x3, appears well, no apparent distress HEENT: mucus membranes moist Neck: supple neck, no JVD/HJR Cardiology: regular rate and rhythm, no murmur Lungs: clear to auscultation, no wheezes Neurology: grossly intact Abdomen: unremarkable, active bowel sounds, soft Extremities: strong pulses - Labs Result Diagrams: 06/10/19 04:22 06/10/19 04:22 - EKG Interpretation EKG shows: Sinus rhythm, Typical atrial flutter, other (NS-VT) - Assessment/Plan Assessment/Plan: 1. Cardiac arrest -s/p CPR and found in VF by EMS. Had 5 defibrillation attempts with IV amio and full ACLS -s/p hypothermia protocol with full neurologic recovery 2. Coronary artery disease - pending CABG on 06/06/2019 3. Cardiomyopathy -Ef 35% initially, repeat echo ordered by [facility] 4. Post CABG atrial flutter. Now back in JOS. 5. NS0VT , frequent ventriicular ectopy on telemetry. S/P VF arrest which is likely related to his 3 vessel CAD but he does remain high risk for SCD with a prior arrest. S/P CABG 06/06. Hence NSVT/VT seen on monitors post bypass, EPS with possible ICD implant would be warranted. If he test negative, a lifevest should be considered upon discharge. Will recehck ECHO am. Consider CTI ablation if inducible flutter is seen. Will plan for tomorrow Pm/. NPO
[2019-06-10] MEDS: Cyclobenzaprine 10 MG TAB PO PRN (21:50)
[2019-06-11] MEDS: HYDROcodone/Acetaminophen 5/325 mg Tablet PO PRN ×4 (02:06→22:13)
[2019-06-11 04:50] LABS: #Basophils 0.2 thou/uL (0.0-0.2); #Eosinphils 0.2 thou/uL (0.0-0.7); #Lymphocytes 4.2 thou/uL (1.20-3.40); #Monocytes 0.7 thou/uL (0.11-0.59); %Basophils 2.2 % (0.0-1.0); %Eosinophils 1.5 % (0.0-10.0); %Lymphocytes 41.1 % (21.0-51.0); %Monocytes 6.8 % (0.0-10.0); %Neutrophils 48.4 % (42.0-75.0); Hemoglobin 9.4 g/dL (14.0-18.0); Mean Corpuscular Hemoglobin 29.5 pg (27.0-31.0); Mean Corpuscular Volume 89.5 fL (78.0-98.0); Mean Platelet Volume 7.9 fL (7.4-10.4); Platelet Count 242 thou/uL (130-400); RBC Distribution Width 14.2 % (11.5-14.5); Red Blood Cell (RBC) Count 3.17 mill/uL (4.70-6.10); White Blood Cell (WBC) Count 10.2 thou/uL (4.8-10.8)
[2019-06-11 05:12] LABS: Anion Gap 13 mmol/L (10-20); BUN (Urea Nitrogen) 22 mg/dL (8.4-25.7); Calc. Creatinine Clearance 95 mL/min (70-130); Calcium 8.6 mg/dL (7.8-10.44); Carbon Dioxide 25 mmol/L (23-31); Chloride 101 mmol/L (98-107); Estimated GFR-MDRD 66; Glucose 94 mg/dL (80-115); Sodium 136 mmol/L (136-145)
[2019-06-11] MEDS: Docusate 100 MG CAP PO SCH ×2 (09:20→20:27)
[2019-06-11] MEDS: Clopidogrel Bisulfate 75 MG TAB PO SCH (09:24)
--- NOTE | 2019-06-11 09:33 | PRG ---
DATE OF SERVICE: 06/11/2019 SUBJECTIVE: This morning, he is awake, alert, and responsive. He has no pain and no shortness of breath. OBJECTIVE: VITAL SIGNS: Temperature _98.4, respiratory rate 18, sats 96% on room air, and blood pressure _132\73__. CHEST: No wheezing or crackles. CARDIAC: Normal S1 and S2. No gallops. ABDOMEN: No masses. LABORATORY DATA: Unremarkable. ASSESSMENT AND PLAN: Status post coronary artery bypass graft, status post respiratory failure, status post pneumonia. He is scheduled for EP evaluation today. All antibiotics will be discontinued. We will follow. Job ID: [id number] MTDD
[2019-06-11 09:41] LABS: Anion Gap 12 mmol/L (10-20); BUN (Urea Nitrogen) 19 mg/dL (8.4-25.7); Calc. Creatinine Clearance 97 mL/min (70-130); Calcium 8.9 mg/dL (7.8-10.44); Carbon Dioxide 27 mmol/L (23-31); Chloride 102 mmol/L (98-107); Estimated GFR-MDRD 67; Glucose 91 mg/dL (80-115); Sodium 138 mmol/L (136-145)
[2019-06-11] MEDS: Carvedilol 6.25 MG TAB PO SCH ×2 (09:43→17:05)
--- NOTE | 2019-06-11 13:15 | PDOC.HOSPP ---
- Subjective Encounter Date: 06/11/19 Encounter Time: 10:35 Subjective: he is able to ambulate 200feet without CP, SOB, EP procedure today at 1pm. - Objective Vital Signs & Weight: Vital Signs (12 hours) Temp Pulse Pulse Pulse Resp BP BP 06/11/19 11:15 97.3 F L 80 18 06/11/19 09:13 66 63 118/68 114/59 L 06/11/19 09:10 06/11/19 08:05 97.4 F L 67 18 06/11/19 03:37 98.0 F 68 20 BP BP Pulse Ox 06/11/19 11:15 112/59 L 100 06/11/19 09:13 06/11/19 09:10 97 06/11/19 08:05 119/52 L 97 06/11/19 03:37 113/56 L 96 Weight Admit Weight 241 lb 2.971 oz Weight 222 lb Most Recent Monitor Data Heart Rate from ECG 74 NIBP 107/59 NIBP BP-Mean 75 Respiration from ECG 10 SpO2 94 I&O: 06/10/19 06/11/19 06/12/19 06:59 06:59 06:59 Intake Total 720 740 Output Total 600 500 Balance 120 240 Result Diagrams: 06/11/19 04:15 06/11/19 09:02 Hospitalist ROS - Medication Medications: Active Medications Generic Name Dose Route Start Last Admin Trade Name Freq PRN Reason Stop Dose Admin Hydrocodone Bitart/Acetaminophen 1 tab 06/06/19 09:22 06/11/19 11:12 [place] 5/325 PO 1 tab Q4H PRN Administration Moderate Pain (4-6) Hydrocodone Bitart/Acetaminophen 2 tab 06/06/19 09:22 06/11/19 02:06 [place] 5/325 PO 2 tab Q4H PRN Administration Severe Pain (7-10) Albuterol/Ipratropium 3 ml 06/06/19 09:22 06/07/19 14:14 Duoneb NEB 3 ml [id number] PRN Administration SHORTNESS OF BREATH Artificial Tears 0 drop 06/07/19 13:41 06/10/19 15:56 Tears Naturale EA EYE 1 drop PRN PRN Administration Dry Eyes Bisacodyl 10 mg 06/07/19 13:41 06/09/19 04:58 Dulcolax PO 10 mg Q12H PRN Administration Constipation Carvedilol 6.25 mg 06/08/19 17:00 06/11/19 09:43 Coreg PO 6.25 mg BID-WM CANDACE Administration Clopidogrel Bisulfate 75 mg 06/08/19 09:00 06/11/19 09:24 Plavix PO Not Given DAILY CANDACE Cyclobenzaprine HCl 10 mg 06/07/19 18:23 06/10/19 21:50 Flexeril PO 10 mg TID PRN Administration Muscle Spasm Diphenhydramine HCl 25 mg 06/07/19 13:41 06/07/19 19:06 Benadryl PO 25 mg Q6H PRN Administration Itching & Insomnia or Chavez Sean Docusate Sodium 100 mg 06/06/19 21:00 06/11/19 09:20 Colace PO Not Given BID CANDACE Mineral Oil 133 ml 06/07/19 13:41 06/09/19 21:03 Fleet Mineral Oil [place] 133 ml DAILYPRN PRN Administration Constipation Simethicone 80 mg 06/09/19 13:08 06/10/19 05:30 Mylicon Chewable PO 80 mg QIDPRN PRN Administration Gas Pain - Exam General Appearance: NAD, awake alert Eye: PERRL ENT: normocephalic atraumatic Neck: supple Heart: RRR Respiratory: CTAB Gastrointestinal: normal bowel sounds Neurological: cranial nerve grossly intact, no focal deficits Hosp A/P - Plan outside, witnessed cardiac arrest vfib on amio High trop d/t CPR outside not true infarct - on hypothermia protocol - will get routine EEG and neuro consult request. ------------> neurologically improved; cancel EEG -echo showed ef of 35%; hypokinesia in ant wall.----> plan for ischemic workup after HDynamic stability. -sedated - propofal, fentanyl -vasopressor/levophed Acute resp failure 2/2/ arrest -s/p extubation -comp;leted cefepmime, LQ for aspiration -now on ctx Leukocytosis, post-op -trending down Continue Lasix/Lipitor Routine post-CABG protocol Continue Duonebs/O2 prn Incentive spirometry OOB with PT/Cardiac rehab not on statin? starting him on --has to be stopped as pt has allergic eleazar to it. New onset afib -s/p cardizem gtt -coreg -AC?---reverted back to sinus. CAD/CABG - plavix, coreg [allergic to ASA and statin] ischemic CMY with EF of 35% Mod-severe MR Acute sys CHF exacerbation - cardio. following --plan for EP evaluation for poss ICD vs..OP mgmt. -consider ACEI, once BP improves. Ongoing ambulation and PTherapy. Hypokalemia -replace as needed - daily check -consistently on low side -schedule low dose w.. holds. -check mag daily -keep K > 4 and mag > 2 -Cr level ok.
[2019-06-11] MEDS ORDERED: Potassium Chloride 20 MEQ TAB PO SCH (13:30)
[2019-06-11] MEDS ORDERED: Heparin 10,000 UNITS/1 ML VIAL ONE (13:55)
[2019-06-11] MEDS ORDERED: Lidocaine 1% (PF) 30 ML VIAL ONE (13:56)
[2019-06-11] MEDS ORDERED: Heparin (Artline) 500 ML ONE (13:56)
--- NOTE | 2019-06-11 16:33 | PDOC.EP ---
- Subjective Date: 06/11/19 Time: 16:32 Interval History: Remains with palpitations. EP procedure was postponed to tomorrow hence anesthesia scheduling issues. - Review of Systems Cardiology: denies: chest pain, edema, heart racing, light headedness, paroxysmal noc. dyspnea, orthopnea, palpitations, passing out, pleuritic pain, pressure, swelling, other - Objective Allergies/Adverse Reactions: Allergies Allergy/AdvReac Type Severity Reaction Status Date / Time Ejxjaeh-Iqa-Usa Reductase Allergy Severe Verified 06/08/19 20:19 Inhibitor aspirin AdvReac Severe Verified 06/02/19 10:18 Current Medications Hydrocodone Bitart/Acetaminophen ([place] 5/325) 1 tab PO Q4H PRN PRN Reason: Moderate Pain (4-6) Last Admin: 06/11/19 11:12 Dose: 1 tab Hydrocodone Bitart/Acetaminophen ([place] 5/325) 2 tab PO Q4H PRN PRN Reason: Severe Pain (7-10) Last Admin: 06/11/19 02:06 Dose: 2 tab Al Hydroxide/Mg Hydroxide (Maalox) 30 ml PO Q4H PRN PRN Reason: Indigestion Albuterol/Ipratropium (Duoneb) 3 ml NEB [id number] PRN PRN Reason: SHORTNESS OF BREATH Last Admin: 06/07/19 14:14 Dose: 3 ml Artificial Tears (Tears Naturale) 0 drop EA EYE PRN PRN PRN Reason: Dry Eyes Last Admin: 06/10/19 15:56 Dose: 1 drop Bisacodyl (Dulcolax) 10 mg PO Q12H PRN PRN Reason: Constipation Last Admin: 06/09/19 04:58 Dose: 10 mg Bisacodyl (Dulcolax) 10 mg DC Q12H PRN PRN Reason: Constipation Carvedilol (Coreg) 6.25 mg PO BID-[facility] Last Admin: 06/11/19 09:43 Dose: 6.25 mg Clopidogrel Bisulfate (Plavix) 75 mg PO DAILY [facility] Last Admin: 06/11/19 09:24 Dose: Not Given Cyclobenzaprine HCl (Flexeril) 10 mg PO TID PRN PRN Reason: Muscle Spasm Last Admin: 06/10/19 21:50 Dose: 10 mg Diphenhydramine HCl (Benadryl) 25 mg PO Q6H PRN PRN Reason: Itching & Insomnia or Chavez Sean Last Admin: 06/07/19 19:06 Dose: 25 mg Docusate Sodium (Colace) 100 mg PO BID CANDACE Last Admin: 06/11/19 09:20 Dose: Not Given Guaifenesin/Dextromethorphan (Robitussin Dm) 15 ml PO Q4H PRN PRN Reason: Cough Mineral Oil (Fleet Mineral Oil) 133 ml [place] DAILYPRN PRN PRN Reason: Constipation Last Admin: 06/09/19 21:03 Dose: 133 ml Nitroglycerin (Nitrostat) 0.4 mg SL Q5MIN PRN PRN Reason: Chest Pain Ondansetron HCl (Zofran) 4 mg IVP Q6H PRN PRN Reason: Nausea/Vomiting Potassium Chloride (Klor-Con 10) 10 meq PO DAILY CANDACE Simethicone (Mylicon Chewable) 80 mg PO QIDPRN PRN PRN Reason: Gas Pain Last Admin: 06/10/19 05:30 Dose: 80 mg Sodium Chloride (Flush - Normal Saline) 10 ml IVF Q12HR CANDACE Sodium Chloride (Flush - Normal Saline) 10 ml IVF PRN PRN PRN Reason: Saline Flush Temazepam (Restoril) 15 mg PO HSPRN PRN PRN Reason: Insomnia Vital Signs & Weight: Vital Signs Temp Pulse Pulse Pulse Resp BP BP 06/11/19 15:28 97.5 F L 67 18 06/11/19 11:15 97.3 F L 80 18 06/11/19 09:13 66 63 118/68 114/59 L 06/11/19 09:10 06/11/19 08:05 97.4 F L 67 18 BP BP Pulse Ox 06/11/19 15:28 116/57 L 97 06/11/19 11:15 112/59 L 100 06/11/19 09:13 06/11/19 09:10 97 06/11/19 08:05 119/52 L 97 Admit Weight 241 lb 2.971 oz Weight 222 lb I/O: I/O 06/10/19 06/11/19 06/12/19 06:59 06:59 06:59 Intake Total 720 740 Output Total 600 500 Balance 120 240 - Medication Contraindications No Anticoagulant reason: Medical contraindication (Recent CABG) - Physical Exam General: alert & oriented x3 Cardiology: regular rate and rhythm, no murmur Lungs: clear to auscultation, no wheezes Abdomen: unremarkable, active bowel sounds, non-tender Extremities: warm Musculoskeletal: no pain - Labs Result Diagrams: 06/11/19 04:15 06/11/19 09:02 - EKG Interpretation EKG Method: Telemetry EKG shows: Sinus rhythm, other (frequent PVCs.) - Assessment/Plan Assessment/Plan: 1. Cardiac arrest -s/p CPR and found in VF by EMS. Had 5 defibrillation attempts with IV amio and full ACLS -s/p hypothermia protocol with full neurologic recovery 2. Coronary artery disease - pending CABG on 06/06/2019 3. Cardiomyopathy -Ef 35% initially, repeat [facility] 4. Post CABG atrial flutter. Now back in JOS. 5. NS0VT , frequent ventriicular ectopy on telemetry. S/P VF arrest which is likely related to his 3 vessel CAD but he does remain high risk for SCD with a prior arrest. S/P CABG 06/06. Hence NSVT/VT seen on monitors post bypass, EPS with possible ICD implant would be warranted. If he test negative, a lifevest should be considered upon discharge. Procedure postponed for tomorrow. Will recehck ECHO. Consider CTI ablation if inducible flutter is seen. Will plan for EP study and poss ICD/Ablation tomorrow Pm. NPO
[2019-06-11] MEDS ORDERED: Clopidogrel Bisulfate 75 MG TAB PO SCH (17:30)
[2019-06-11] MEDS: Cyclobenzaprine 10 MG TAB PO PRN (22:14)
[2019-06-11] MEDS: Simethicone Chewable 80 MG TAB PO PRN (23:52)
[2019-06-11] MEDS: Temazepam 15 MG CAP PO PRN (23:55)
[2019-06-12] MEDS ORDERED: Lidocaine 2% Viscous Solution 10 ML, Aluminum & Magnesium Hydroxide 30 ML SSW SCH (00:30)
[2019-06-12 04:41] LABS: Anion Gap 12 mmol/L (10-20); BUN (Urea Nitrogen) 16 mg/dL (8.4-25.7); Calc. Creatinine Clearance 94 mL/min (70-130); Calcium 8.7 mg/dL (7.8-10.44); Carbon Dioxide 28 mmol/L (23-31); Chloride 102 mmol/L (98-107); Estimated GFR-MDRD 65; Glucose 88 mg/dL (80-115); Magnesium 1.9 mg/dL (1.6-2.6); Potassium 3.4 mmol/L (3.5-5.1); Sodium 139 mmol/L (136-145)
[2019-06-12 04:59] LABS: Band 2 % (5-11); Eosinophils 2 % (0-10); Hemoglobin 9.1 g/dL (14.0-18.0); Lymphocytes 44 % (21-51); MDiff Complete? YES; Mean Corpuscular HGB CONC 32.9 g/dL (32.0-36.0); Mean Corpuscular Hemoglobin 29.5 pg (27.0-31.0); Mean Corpuscular Volume 89.8 fL (78.0-98.0); Mean Platelet Volume 7.4 fL (7.4-10.4); Microcytosis SLIGHT = 6-15 cells (100X) (0-5/hpf); Monocytes 2 % (0-10); Neutrophil 50 % (42-75); Platelet Count 250 thou/uL (130-400); Platelet Morphology Comment Appears Adequate; Red Blood Cell (RBC) Count 3.07 mill/uL (4.70-6.10); Stomatocytes SLIGHT = 2-5 cells (100X) (0-1/hpf); White Blood Cell (WBC) Count 8.6 thou/uL (4.8-10.8)
[2019-06-12] MEDS: HYDROcodone/Acetaminophen 5/325 mg Tablet PO PRN ×2 (05:16→14:50)
[2019-06-12] MEDS ORDERED: Heparin (Artline) 500 ML ONE (07:01)
[2019-06-12] MEDS ORDERED: Lidocaine 1% (PF) 30 ML VIAL ONE (07:01)
[2019-06-12] MEDS ORDERED: Fentanyl 100 MCG/2 ML VIAL ONE (07:07)
[2019-06-12] MEDS ORDERED: Midazolam HCl 2 mg/2 ml Vial ONE (07:07)
[2019-06-12] MEDS ORDERED: Propofol 1,000 MG/100 ML VIAL IV ONE (07:07)
[2019-06-12] MEDS ORDERED: Isoproterenol 0.2 MG/1 ML AMP ONE (08:50)
[2019-06-12] MEDS ORDERED: PROPOFOL 200 MG/20 ML VIAL ONE (10:22)
--- NOTE | 2019-06-12 11:00 | OP ---
DATE OF PROCEDURE: 06/12/2019 PROCEDURE PERFORMED: Electrophysiology study and radiofrequency ablation. ADDITIONAL REFERRING PHYSICIAN: Sam Walton MD REASON FOR PROCEDURE: Mr. Andujar is a 64-year-old man who originally presented with ventricular fibrillation arrest. He was found to have a 3-vessel disease and severely reduced LVEF in the 30% to 35% range. He underwent a coronary artery bypass grafting surgery, but post bypass surgery, he still had frequent ventricular ectopy, atrial flutter and fibrillation, as well as nonsustained ventricular tachycardia. He is here to evaluate his inducibility for ventricular arrhythmias post bypass surgery. His LVEF rechecked about 35% to 40% on the current echo. DESCRIPTION OF PROCEDURE: The patient received deep sedation by anesthesia specialist. After adequate level of sedation achieved, the right femoral venous area was prepped, draped, and anesthetized using subcutaneous lidocaine. Under ultrasound guidance, the right femoral vein was cannulated x2. Two 8-Frisian short sheaths were introduced, through which a decapolar and octapolar catheters were advanced to the right atrium, right ventricle, His bundle, and CS positions. Pacing, mapping, and recording was performed in each location including pacing the left atrium via the CS. Following findings were noted. Baseline rhythm was sinus rhythm AH 140 milliseconds, HV 48 milliseconds, QRS 120 milliseconds, and QT 480 milliseconds. After 500 milliseconds pacing for 30 seconds, sinus node recovery time was 1280 milliseconds, corrected sinus node recovery time was 380 milliseconds. AV Wenckebach cycle length was 430 milliseconds. The ventricular pacing was without adequate VA conduction. AV davidson ERP was 600/240 milliseconds. Ventricular ERP was 500/260 milliseconds. No dual AV davidson physiology was present. No evidence of accessory pathway. Ventricularextrastimuli was performed at 500 milliseconds and [address] trains with 1 up to 3 ventricular extrastimuli, which were decremented to the ventricular effective refractory period. With these, no ventricular arrhythmia was induced. Burst atrial pacing was also performed with sustained atypical atrial flutter/fibrillation was induced. Occasional organizations seen without a consistent pattern. We delivered 3 cardioversion shocks at 100 joule, promptly converting back to the patient's sinus rhythm, but at the end of the case, the patient returned to atypical atrial fibrillation/flutter. CONCLUSIONS: 1. No inducible ventricular tachycardia with MORADY protocol, on and off Isuprel. 2. Inducible atrial fibrillation/flutter with spontaneous recurrence at the end of the case with controlled ventricular rates. 3. Normal sinus davidson function. 4. Normal AV davidson and His-Purkinje function. 5. Moderate frequency of PVCs noted throughout the case, possibly from the conduction system and His bundle were noted prior to the wider beats without atrial signal. 6. Persistent atrial fibrillation at the end of the case. PLAN: 1. At this point, no indication for ICD implant. 2. Hence the history of cardiac arrest and still reduced LVEF, LifeVest recommended. If the EF worsens less than 35% in 3 months, consider prophylactic ICD implant then. 3. Persistent atrial fibrillation/flutter post bypass. We will attempt amiodarone suppression medium term in 2 to 3 months. Consider weaning at that time and can consider an ablation procedure if recurrence after that. 4. Consider cardioversion if atrial fibrillation persists after amiodarone loading. 5. Monitor for bradyarrhythmias or QT prolongation on amiodarone loading. 6. LifeVest therapy is recommended. Job ID: [id number]
[2019-06-12] MEDS: Docusate 100 MG CAP PO SCH ×3 (11:08→19:35)
[2019-06-12] MEDS: Potassium Chloride 10 MEQ TAB PO SCH ×2 (11:09→14:49)
--- NOTE | 2019-06-12 11:23 | PRG ---
DATE OF SERVICE: 06/12/2019 SUBJECTIVE: Percy Andujar, this morning, is back from the EP study. He denies any pain or discomfort or shortness of breath. OBJECTIVE: VITAL SIGNS: Temperature 98.7, pulse 70, respiratory rate 20, saturations are 90% on 3 L, and blood pressure 119/55. CHEST: Decreased breath sounds. No wheezing. CARDIAC: Normal S1 and S2. No gallops. ABDOMEN: Soft without any masses. IMPRESSION: 1. Status post ventricular fibrillation, ventricular tachycardia at home. 2. Respiratory failure, pneumonia, resolved. 3. Coronary artery bypass grafting. 4. Hypertension. PLAN: Pulmonary-herrera, nothing additional to offer. He is off all antibiotics. PT, supportive care. Disposition as per Cardiology. Job ID: [id number]
[2019-06-12] MEDS: Carvedilol 6.25 MG TAB PO SCH (12:12)
--- NOTE | 2019-06-12 12:37 | EKG ---
Test Reason : POST EP Blood Pressure : / mmHG Vent. Rate : 076 BPM Atrial Rate : 076 BPM P-R Int : 186 ms QRS Dur : 112 ms QT Int : 442 ms P-R-T Axes : 067 -01 055 degrees QTc Int : 497 ms Sinus rhythm with occasional Premature ventricular complexes Inferior infarct (cited on or before 06-JUN-2019) Abnormal ECG When compared with ECG of 06-JUN-2019 14:57, Sinus rhythm has replaced Electronic atrial pacemaker Confirmed by DR. Marimar BATISTA ([id number]) on 06/12/2019 12:36:36 PM Referred By: HYACINTH Confirmed By:DR. Marimar BATISTA
[2019-06-12 14:11] LABS: Anion Gap 11 mmol/L (10-20); BUN (Urea Nitrogen) 13 mg/dL (8.4-25.7); Calc. Creatinine Clearance 106 mL/min (70-130); Carbon Dioxide 27 mmol/L (23-31); Chloride 103 mmol/L (98-107); Estimated GFR-MDRD 75; Glucose 93 mg/dL (80-115); Potassium 3.4 mmol/L (3.5-5.1); Sodium 138 mmol/L (136-145)
[2019-06-12] MEDS: Clopidogrel Bisulfate 75 MG TAB PO SCH (14:50)
--- NOTE | 2019-06-12 15:47 | PDOC.HOSPP ---
- Subjective Encounter Date: 06/12/19 Encounter Time: 11:30 Subjective: attempted EP procedure, started on amio. pt stable. - Objective Vital Signs & Weight: Vital Signs (12 hours) Temp Pulse Resp BP BP Pulse Ox 06/12/19 12:50 97.9 F 69 20 115/65 97 06/12/19 11:47 97.6 F 71 18 115/59 L 97 06/12/19 10:30 98 06/12/19 10:25 97.9 F 70 20 119/55 L 98 06/12/19 05:17 66 123/57 L Weight Admit Weight 241 lb 2.971 oz Weight 222 lb Most Recent Monitor Data Heart Rate from ECG 74 NIBP 107/59 NIBP BP-Mean 75 Respiration from ECG 10 SpO2 94 I&O: 06/11/19 06/12/19 06/13/19 06:59 06:59 06:59 Intake Total 740 480 Output Total 500 300 Balance 240 180 Result Diagrams: 06/12/19 04:08 06/12/19 13:29 Hospitalist ROS - Medication Medications: Active Medications Generic Name Dose Route Start Last Admin Trade Name Freq PRN Reason Stop Dose Admin Hydrocodone Bitart/Acetaminophen 1 tab 06/06/19 09:22 06/12/19 05:16 [place] 5/325 PO 1 tab Q4H PRN Administration Moderate Pain (4-6) Hydrocodone Bitart/Acetaminophen 2 tab 06/06/19 09:22 06/12/19 14:50 [place] 5/325 PO 2 tab Q4H PRN Administration Severe Pain (7-10) Albuterol/Ipratropium 3 ml 06/06/19 09:22 06/07/19 14:14 Duoneb NEB 3 ml [id number] PRN Administration SHORTNESS OF BREATH Artificial Tears 0 drop 06/07/19 13:41 06/10/19 15:56 Tears Naturale EA EYE 1 drop PRN PRN Administration Dry Eyes Bisacodyl 10 mg 06/07/19 13:41 06/09/19 04:58 Dulcolax PO 10 mg Q12H PRN Administration Constipation Clopidogrel Bisulfate 75 mg 06/08/19 09:00 06/12/19 14:50 Plavix PO 75 mg DAILY CANDACE Administration Cyclobenzaprine HCl 10 mg 06/07/19 18:23 06/11/19 22:14 Flexeril PO 10 mg TID PRN Administration Muscle Spasm Diphenhydramine HCl 25 mg 06/07/19 13:41 06/07/19 19:06 Benadryl PO 25 mg Q6H PRN Administration Itching & Insomnia or Chavez Sean Docusate Sodium 100 mg 06/06/19 21:00 06/12/19 13:09 Colace PO Not Given BID CANDACE Guaifenesin/Dextromethorphan 15 ml 06/07/19 13:41 06/12/19 11:10 Robitussin Dm PO 15 ml Q4H PRN Administration Cough Mineral Oil 133 ml 06/07/19 13:41 06/09/19 21:03 Fleet Mineral Oil [place] 133 ml DAILYPRN PRN Administration Constipation Potassium Chloride 10 meq 06/12/19 09:00 06/12/19 14:49 Klor-Con 10 PO 10 meq DAILY CANDACE Administration Simethicone 80 mg 06/09/19 13:08 06/11/19 23:52 Mylicon Chewable PO 80 mg QIDPRN PRN Administration Gas Pain Sodium Chloride 10 ml 06/11/19 21:00 06/12/19 14:53 Flush - Normal Saline IVF 10 ml Q12HR CANDACE Administration Temazepam 15 mg 06/07/19 18:23 06/11/19 23:55 Restoril PO 15 mg HSPRN PRN Administration Insomnia - Exam General Appearance: NAD, awake alert Eye: PERRL, anicteric sclera ENT: normocephalic atraumatic Neck: supple Heart: RRR Respiratory: CTAB Gastrointestinal: normal bowel sounds Hosp A/P - Plan outside, witnessed cardiac arrest vfib on amio High trop d/t CPR outside not true infarct - on hypothermia protocol - will get routine EEG and neuro consult request. ------------> neurologically improved; cancel EEG -echo showed ef of 35%; hypokinesia in ant wall.----> plan for ischemic workup after HDynamic stability. -sedated - propofal, fentanyl -vasopressor/levophed Acute resp failure 2/2/ arrest -s/p extubation -comp;leted cefepmime, LQ for aspiration -now on ctx Leukocytosis, post-op -trending down Continue Lasix/Lipitor Routine post-CABG protocol Continue Duonebs/O2 prn Incentive spirometry OOB with PT/Cardiac rehab not on statin? starting him on --has to be stopped as pt has allergic eleazar to it. New onset afib -s/p cardizem gtt -coreg -AC?---reverted back to sinus. CAD/CABG - plavix, coreg [allergic to ASA and statin] ischemic CMY with EF of 35% Mod-severe MR Acute sys CHF exacerbation - cardio. following --plan for EP evaluation for poss ICD vs..OP mgmt. -consider ACEI, once BP improves. Ongoing ambulation and PTherapy. Hypokalemia -replace as needed - daily check -consistently on low side -schedule low dose w.. holds. -check mag daily -keep K > 4 and mag > 2 -Cr level ok. Poss live vest upon dc tsh, lft for baseline and amiod started.
[2019-06-12] MEDS: Carvedilol 3.125 MG TAB PO SCH (18:01)
[2019-06-12] MEDS: Cyclobenzaprine 10 MG TAB PO PRN (19:35)
[2019-06-12] MEDS: Amiodarone 200 MG TAB PO SCH (19:35)
[2019-06-12] MEDS: Temazepam 15 MG CAP PO PRN (23:00)
[2019-06-12] MEDS: diphenhydrAMINE 25 MG CAP PO PRN (23:05)
[2019-06-13] MEDS: HYDROcodone/Acetaminophen 5/325 mg Tablet PO PRN ×2 (03:41→09:28)
[2019-06-13 04:44] LABS: #Basophils 0.1 thou/uL (0.0-0.2); #Eosinphils 0.1 thou/uL (0.0-0.7); #Lymphocytes 3.1 thou/uL (1.20-3.40); #Monocytes 0.4 thou/uL (0.11-0.59); #Neutrophils 3.8 thou/uL (1.40-6.50); %Basophils 1.7 % (0.0-1.0); %Eosinophils 1.9 % (0.0-10.0); %Lymphocytes 41.1 % (21.0-51.0); %Monocytes 5.4 % (0.0-10.0); %Neutrophils 49.9 % (42.0-75.0); Hemoglobin 8.8 g/dL (14.0-18.0); Mean Corpuscular HGB CONC 32.6 g/dL (32.0-36.0); Mean Corpuscular Hemoglobin 29.3 pg (27.0-31.0); Mean Corpuscular Volume 89.8 fL (78.0-98.0); Mean Platelet Volume 7.9 fL (7.4-10.4); Platelet Count 238 thou/uL (130-400); Red Blood Cell (RBC) Count 3.01 mill/uL (4.70-6.10); White Blood Cell (WBC) Count 7.6 thou/uL (4.8-10.8)
[2019-06-13 05:08] LABS: Anion Gap 12 mmol/L (10-20); BUN (Urea Nitrogen) 11 mg/dL (8.4-25.7); Calc. Creatinine Clearance 118 mL/min (70-130); Calcium 8.6 mg/dL (7.8-10.44); Carbon Dioxide 26 mmol/L (23-31); Chloride 103 mmol/L (98-107); Estimated GFR-MDRD 85; Glucose 100 mg/dL (80-115); Magnesium 1.8 mg/dL (1.6-2.6); Potassium 3.4 mmol/L (3.5-5.1); Sodium 138 mmol/L (136-145)
[2019-06-13] MEDS: Amiodarone 200 MG TAB PO SCH (09:21)
[2019-06-13] MEDS: Carvedilol 3.125 MG TAB PO SCH ×2 (09:21→16:36)
[2019-06-13] MEDS: Potassium Chloride 10 MEQ TAB PO SCH (09:22)
[2019-06-13] MEDS: Docusate 100 MG CAP PO SCH (09:22)
[2019-06-13] MEDS: Clopidogrel Bisulfate 75 MG TAB PO SCH (09:22)
[2019-06-13] MEDS: Cyclobenzaprine 10 MG TAB PO PRN (09:27)
--- NOTE | 2019-06-13 09:35 | PRG ---
DATE OF SERVICE: 06/12/2019 TIME OF VISIT: 0800 hours. SUBJECTIVE: Mr. Andujar has had no complaints overnight. He is stable and doing well. He is currently awaiting EP study. OBJECTIVE: GENERAL: A pleasant male, in no acute distress. VITAL SIGNS: Stable. NEUROLOGIC: He is alert, awake, and oriented x3. CHEST: Clear bilaterally. CARDIOVASCULAR: Regular rate and rhythm. Normal S1 and S2. ABDOMEN: Soft and nontender. EXTREMITIES: No clubbing, cyanosis, or edema. LABORATORY DATA: Telemetry shows sinus rhythm with intermittent ectopy. IMPRESSION: 1. Out of hospital arrest. 2. Ventricular fibrillation. 3. Coronary artery disease, status post coronary artery bypass grafting. At this time, the patient is stable. We will await EP study. I have no changes to make at this time. Job ID: [id number]
[2019-06-13 10:23] LABS: Anion Gap 14 mmol/L (10-20); BUN (Urea Nitrogen) 10 mg/dL (8.4-25.7); Calc. Creatinine Clearance 107 mL/min (70-130); Calcium 8.7 mg/dL (7.8-10.44); Carbon Dioxide 25 mmol/L (23-31); Chloride 103 mmol/L (98-107); Estimated GFR-MDRD 76; Glucose 122 mg/dL (80-115); Potassium 3.6 mmol/L (3.5-5.1); Sodium 138 mmol/L (136-145)
[2019-06-13] MEDS ORDERED: Bisacodyl 10 MG SUPP PR SCH (10:45)
[2019-06-13 11:14] VITALS: TEMP 97.9
--- NOTE | 2019-06-13 12:44 | PDOC.HOSPP ---
- Subjective Encounter Date: 06/13/19 Encounter Time: 10:10 Subjective: pt feels uncomfortable w.. ventral hernia, bed is bad, has chair at home which more comfortable etc.. waiting for Life vest to be delivered. - Objective Vital Signs & Weight: Vital Signs (12 hours) Temp Pulse Resp BP Pulse Ox 06/13/19 11:06 97.9 F 70 16 112/67 97 06/13/19 07:38 97.6 F 81 16 108/55 L 96 06/13/19 03:44 67 16 113/58 L Weight Admit Weight 241 lb 2.971 oz Weight 222 lb Most Recent Monitor Data Heart Rate from ECG 74 NIBP 107/59 NIBP BP-Mean 75 Respiration from ECG 10 SpO2 94 I&O: 06/12/19 06/13/19 06/14/19 06:59 06:59 06:59 Intake Total 480 990 Output Total 300 800 Balance 180 190 Result Diagrams: 06/13/19 03:41 06/13/19 09:53 Hospitalist ROS - Medication Medications: Active Medications Generic Name Dose Route Start Last Admin Trade Name Freq PRN Reason Stop Dose Admin Hydrocodone Bitart/Acetaminophen 1 tab 06/06/19 09:22 06/13/19 03:41 [place] 5/325 PO 1 tab Q4H PRN Administration Moderate Pain (4-6) Hydrocodone Bitart/Acetaminophen 2 tab 06/06/19 09:22 06/13/19 09:28 [place] 5/325 PO 2 tab Q4H PRN Administration Severe Pain (7-10) Albuterol/Ipratropium 3 ml 06/06/19 09:22 06/07/19 14:14 Duoneb NEB 3 ml [id number] PRN Administration SHORTNESS OF BREATH Amiodarone HCl 400 mg 06/12/19 21:00 06/13/19 09:21 Cordarone PO 400 mg BID CANDACE Administration Artificial Tears 0 drop 06/07/19 13:41 06/10/19 15:56 Tears Naturale EA EYE 1 drop PRN PRN Administration Dry Eyes Bisacodyl 10 mg 06/07/19 13:41 06/09/19 04:58 Dulcolax PO 10 mg Q12H PRN Administration Constipation Bisacodyl 10 mg 06/13/19 10:45 06/13/19 11:17 Dulcolax MS 06/13/19 12:45 10 mg NOW CANDACE Administration Carvedilol 3.125 mg 06/12/19 17:00 06/13/19 09:21 Coreg PO Not Given BID-WM CANDACE Clopidogrel Bisulfate 75 mg 06/08/19 09:00 06/13/19 09:22 Plavix PO 75 mg DAILY CANDACE Administration Cyclobenzaprine HCl 10 mg 06/07/19 18:23 06/13/19 09:27 Flexeril PO 10 mg TID PRN Administration Muscle Spasm Diphenhydramine HCl 25 mg 06/07/19 13:41 06/12/19 23:05 Benadryl PO 25 mg Q6H PRN Administration Itching & Insomnia or Chavez Sean Docusate Sodium 100 mg 06/06/19 21:00 06/13/19 09:22 Colace PO 100 mg BID CANDACE Administration Guaifenesin/Dextromethorphan 15 ml 06/07/19 13:41 06/12/19 11:10 Robitussin Dm PO 15 ml Q4H PRN Administration Cough Mineral Oil 133 ml 06/07/19 13:41 06/09/19 21:03 Fleet Mineral Oil [place] 133 ml DAILYPRN PRN Administration Constipation Potassium Chloride 10 meq 06/12/19 09:00 06/13/19 09:22 Klor-Con 10 PO 10 meq DAILY CANDACE Administration Simethicone 80 mg 06/09/19 13:08 06/11/19 23:52 Mylicon Chewable PO 80 mg QIDPRN PRN Administration Gas Pain Sodium Chloride 10 ml 06/11/19 21:00 06/13/19 09:23 Flush - Normal Saline IVF 10 ml Q12HR CANDACE Administration Temazepam 15 mg 06/07/19 18:23 06/12/19 23:00 Restoril PO 15 mg HSPRN PRN Administration Insomnia - Exam General Appearance: NAD, awake alert Eye: PERRL ENT: normocephalic atraumatic Neck: supple Heart: RRR Respiratory: CTAB Gastrointestinal: normal bowel sounds Hosp A/P - Plan outside, witnessed cardiac arrest vfib on amio High trop d/t CPR outside not true infarct - on hypothermia protocol - will get routine EEG and neuro consult request. ------------> neurologically improved; cancel EEG -echo showed ef of 35%; hypokinesia in ant wall.----> plan for ischemic workup after HDynamic stability. -sedated - propofal, fentanyl -vasopressor/levophed Acute resp failure 2/2/ arrest -s/p extubation -comp;leted cefepmime, LQ for aspiration -now on ctx Leukocytosis, post-op -trending down Continue Lasix/Lipitor Routine post-CABG protocol Continue Duonebs/O2 prn Incentive spirometry OOB with PT/Cardiac rehab not on statin? starting him on --has to be stopped as pt has allergic eleazar to it. New onset afib -s/p cardizem gtt -coreg -AC?---reverted back to sinus. CAD/CABG - plavix, coreg [allergic to ASA and statin] ischemic CMY with EF of 35% Mod-severe MR Acute sys CHF exacerbation - cardio. following --plan for EP evaluation for poss ICD vs..OP mgmt. -consider ACEI, once BP improves. Ongoing ambulation and PTherapy. Hypokalemia -replace as needed - daily check -consistently on low side -schedule low dose w.. holds. -check mag daily -keep K > 4 and mag > 2 -Cr level ok. Poss live vest upon dc tsh, lft for baseline and amiod started. Mild hyperthyroidism Transaminitis -- .TSH is on the low end of 0.3 and transaminitis elevated --repeating LFT pending life vest.
[2019-06-13 13:19] LABS: ALT (SGPT) 40 U/L (8-55); AST (SGOT) 26 U/L (5-34); Albumin 3.3 g/dL (3.4-4.8); Alkaline Phosphatase 80 U/L (40-110); Bilirubin, Direct 0.2 mg/dL (0.1-0.3); Bilirubin, Total 0.5 mg/dL (0.2-1.2); Protein, Total 5.4 g/dL (5.8-8.1)
[2019-06-13 16:30] VITALS: BP 118/62
--- NOTE | 2019-06-13 16:53 | EKG ---
Test Reason : Blood Pressure : / mmHG Vent. Rate : 071 BPM Atrial Rate : 071 BPM P-R Int : 184 ms QRS Dur : 110 ms QT Int : 442 ms P-R-T Axes : 053 -12 060 degrees QTc Int : 480 ms Sinus rhythm with occasional Premature ventricular complexes Inferior infarct (cited on or before 06-JUN-2019) Abnormal ECG When compared with ECG of 12-JUN-2019 10:12, Nonspecific T wave abnormality now evident in Anterior leads Confirmed by DR. Marimar BTAISTA ([id number]) on 06/13/2019 4:52:31 PM Referred By: HYACINTH Confirmed By:DR. Marimar BATISTA
[2019-06-13] MEDS: Mineral Oil ENEMA PR PRN (17:18)
--- NOTE | 2019-06-13 17:23 | PDOC.EP ---
- Subjective Date: 06/13/19 Time: 15:00 Interval History: follow up after EP study and amiodarone initiation. Feels well. Planning DC. fitted for lifevest - Review of Systems Constitutional: denies: chills, fever, malaise, sweats, weakness, other Respiratory: denies: cough, dry, hemoptysis, pleuritic pain, shortness of breath , SOB with excertion, sputum, wheezing, other Cardiology: denies: chest pain, edema, heart racing, light headedness, passing out Gastrointestinal: reports: abdominal pain (r/t hernia). denies: constipation, diarrhea Musculoskeletal: denies: unstable gait, falls, neck pain - Objective Allergies/Adverse Reactions: Allergies Allergy/AdvReac Type Severity Reaction Status Date / Time Prrdeao-Gug-Rox Reductase Allergy Severe Verified 06/08/19 20:19 Inhibitor aspirin AdvReac Severe Verified 06/02/19 10:18 Current Medications Hydrocodone Bitart/Acetaminophen ([place] 5/325) 1 tab PO Q4H PRN PRN Reason: Moderate Pain (4-6) Last Admin: 06/13/19 03:41 Dose: 1 tab Hydrocodone Bitart/Acetaminophen ([place] 5/325) 2 tab PO Q4H PRN PRN Reason: Severe Pain (7-10) Last Admin: 06/13/19 09:28 Dose: 2 tab Al Hydroxide/Mg Hydroxide (Maalox) 30 ml PO Q4H PRN PRN Reason: Indigestion Albuterol/Ipratropium (Duoneb) 3 ml NEB [id number] PRN PRN Reason: SHORTNESS OF BREATH Last Admin: 06/07/19 14:14 Dose: 3 ml Amiodarone HCl (Cordarone) 400 mg PO BID CANDACE Last Admin: 06/13/19 09:21 Dose: 400 mg Artificial Tears (Tears Naturale) 0 drop EA EYE PRN PRN PRN Reason: Dry Eyes Last Admin: 06/10/19 15:56 Dose: 1 drop Bisacodyl (Dulcolax) 10 mg PO Q12H PRN PRN Reason: Constipation Last Admin: 06/09/19 04:58 Dose: 10 mg Bisacodyl (Dulcolax) 10 mg CA Q12H PRN PRN Reason: Constipation Carvedilol (Coreg) 3.125 mg PO BID-[facility] Last Admin: 06/13/19 16:36 Dose: 3.125 mg Clopidogrel Bisulfate (Plavix) 75 mg PO DAILY [facility] Last Admin: 06/13/19 09:22 Dose: 75 mg Cyclobenzaprine HCl (Flexeril) 10 mg PO TID PRN PRN Reason: Muscle Spasm Last Admin: 06/13/19 09:27 Dose: 10 mg Diphenhydramine HCl (Benadryl) 25 mg PO Q6H PRN PRN Reason: Itching & Insomnia or Chavez Sean Last Admin: 06/12/19 23:05 Dose: 25 mg Docusate Sodium (Colace) 100 mg PO BID [facility] Last Admin: 06/13/19 09:22 Dose: 100 mg Guaifenesin/Dextromethorphan (Robitussin Dm) 15 ml PO Q4H PRN PRN Reason: Cough Last Admin: 06/12/19 11:10 Dose: 15 ml Mineral Oil (Fleet Mineral Oil) 133 ml CA DAILYPRN PRN PRN Reason: Constipation Last Admin: 06/09/19 21:03 Dose: 133 ml Nitroglycerin (Nitrostat) 0.4 mg SL Q5MIN PRN PRN Reason: Chest Pain Ondansetron HCl (Zofran) 4 mg IVP Q6H PRN PRN Reason: Nausea/Vomiting Potassium Chloride (Klor-Con 10) 10 meq PO DAILY [facility] Last Admin: 06/13/19 09:22 Dose: 10 meq Simethicone (Mylicon Chewable) 80 mg PO QIDPRN PRN PRN Reason: Gas Pain Last Admin: 06/11/19 23:52 Dose: 80 mg Sodium Chloride (Flush - Normal Saline) 10 ml IVF Q12HR [facility] Last Admin: 06/13/19 09:23 Dose: 10 ml Sodium Chloride (Flush - Normal Saline) 10 ml IVF PRN PRN PRN Reason: Saline Flush Temazepam (Restoril) 15 mg PO HSPRN PRN PRN Reason: Insomnia Last Admin: 06/12/19 23:00 Dose: 15 mg Vital Signs & Weight: Vital Signs Temp Pulse Pulse Resp BP Pulse Ox Pulse Ox 06/13/19 16:08 97.9 F 69 17 118/62 96 06/13/19 12:19 88 91 L 06/13/19 11:06 97.9 F 70 16 112/67 97 06/13/19 08:45 80 98 06/13/19 07:38 97.6 F 81 16 108/55 L 96 Admit Weight 241 lb 2.971 oz Weight 222 lb I/O: I/O 06/12/19 06/13/19 06/14/19 06:59 06:59 06:59 Intake Total 480 990 Output Total 300 800 Balance 180 190 - Medication Contraindications No Anticoagulant reason: Medical contraindication - Physical Exam General: alert & oriented x3, appears well, no apparent distress, speech clear, affect appropriate. negative: cachectic, other HEENT: mucus membranes moist, normocephaly Neck: supple neck, midline trachea, no JVD/HJR, no masses, no bruit, no lymphadenopathy, no thromegaly Cardiology: regular rate and rhythm, no murmur, PMI nondisplaced Lungs: clear to auscultation, normal breath sounds, no wheeze, rales, rhonchi Neurology: cranial nerve 2-12 intact, sensory function intact - Labs Result Diagrams: 06/13/19 03:41 06/13/19 09:53 - EKG Interpretation EKG Method: Telemetry EKG shows: Sinus rhythm - Assessment/Plan Assessment/Plan: 1. Cardiac arrest -s/p CPR and found in VF by EMS. Had 5 defibrillation attempts with IV amio and full ACLS -s/p hypothermia protocol with full neurologic recovery 2. Coronary artery disease - CABG on 06/06/2019 3. Cardiomyopathy -Ef 35% initially, repeat echo ordered by [facility] 4. Post CABG atrial flutter. Now back in JOS. 5. NSVT -occasional ventricular ectopy on telemetry. S/P VF arrest which is likely related to his 3 vessel CAD but he does remain high risk for SCD with a prior arrest. S/P CABG 06/06. EP Study was not inducible for VT and no ICD is indicated at this time. Recommend lifevest during medical management of his cardiomyopathy until EF reassessed. No ablation was performed but multiple left atrial circuits were seen. Started amiodarone loading on 06/12. Recommend taper to goal of 200mg daily in 1 month. Will see in clinic in 6 weeks. Amiodarone taper: 200mg PO TID x 2 week 200mg PO BID x 1 week 200mg PO daily there after
--- NOTE | 2019-06-14 13:20 | DIS ---
DATE OF ADMISSION: 05/25/2019 DATE OF DISCHARGE: 06/13/2019 DISCHARGE DIAGNOSES: 1. Outside witnessed cardiac arrest. 2. Ventricular fibrillation. 3. Acute respiratory failure secondary to cardiac arrest. 4. Cardiomyopathy. 5. Coronary artery disease, status post CABG during this hospitalization. 6. New onset atrial fibrillation, on amiodarone. 7. Ischemic cardiomyopathy with EF of 35%. 8. [id number] mitral regurgitation. 9. Acute on chronic systolic congestive heart failure exacerbation. 10. Hypokalemia. 11. Mild hyperthyroidism, that is resolved. 12. Transaminitis, that is resolved and the LFTs are back to baseline. 13. LifeVest prescribed at the time of discharge. DISCHARGE MEDICATIONS: 1. Coreg 3.125 mg twice a day. 2. Plavix 75 mg daily. 3. Nitroglycerin 0.4 mg sublingual as needed for chest pain. 4. Amiodarone 400 mg b.i.d. for 3 days and followed by 200 mg twice a day for 2 weeks and then 200 mg daily, tapering dose prescription is given in this regard. ALLERGIES: THE PATIENT IS ALLERGIC TO ASPIRIN AND STATINS. STATIN CAUSES DIAPHRAGMATIC DISCOMFORT, SO THESE 2 DRUGS ARE NOT PRESCRIBED DURING THE TIME OF DISCHARGE. HOSPITAL COURSE: This is a 64-year-old male who had outside witnessed cardiac arrest, was admitted and followed the ICU protocol including hypothermia. Initially, we followed both conservative therapy with ACLS and hypothermia protocol. Neurologically, he improved over the next 2 days. The patient has significant coronary artery disease, 3-vessel disease, also history of VFib what triggered his cardiac arrest. He also had elevated troponin and that could be due to multifactorials with cardiac arrest scenario as well as underlying history of coronary artery disease and it reflected more of a dysrhythmia as the cause versus primary myocardial infarction during the initial evaluation. Subsequently when he is clinically improved, ischemic workup completed. He was extubated on 05/28 and over the time, he was transitioned from ICU to the telemetry floor. The patient also had bilateral infiltrate, right more than the left for which he was treated with cefepime and Levaquin. The patient also had acute kidney injury that was resolved with IV hydration. Mildly elevated leukocytosis resolved. His respiratory culture grew gram-negative rods and some cocci. Ischemic workup followed with status post coronary artery bypass grafting surgery. Post surgery herrera, he had some atrial fibrillation and flutter for which he was started on amiodarone and he responded well. Currently, he is in normal sinus rhythm. At some point, EP procedure was planned for possible ICD versus outpatient management. The procedure was aborted as the patient found to have a normal sinus rhythm. The plan was to monitor him with the LifeVest for next 30 days for his ischemic cardiomyopathy. Future evaluation for ICD placement on hold. At discharge, the patient is hemodynamically stable. The patient has some issues with ventral hernia and he is managing it on chronically nothing, urgently to intervene specifically surgery herrera. The patient is stable to go home today. The patient received a LifeVest. Amiodarone prescription given. DISCHARGE INSTRUCTIONS: 1. Activity as tolerated. 2. Healthy heart diet. 3. Follow up with the primary care physician in one week. Follow up with Dr. Chaney in 2 weeks. Follow up with Dr. Walton, med care manager in 2 weeks. TIME SPENT: Discharge time took over 30 minutes. Job ID: [id number]
== END 2019-06-13 18:57 | disposition home or self-care (01) | DRG 233 ==
LOC: ERS 20:25 → CCU 05-25 00:14 → 2NO 05-31 15:35 → CCU 06-06 09:39 → 2NO 06-07 20:13
PROVIDERS: ADMIT Internal Medicine; ATTEND Internal Medicine
PROC: 4A023N7 Measurement of Cardiac Sampling and Pressure, Left Heart, Percutaneous Approach (ICD-10-PCS; principal; 2019-05-25)
PROC: B2111ZZ Fluoroscopy of Multiple Coronary Arteries using Low Osmolar Contrast (ICD-10-PCS; 2019-05-25)
PROC: B2151ZZ Fluoroscopy of Left Heart using Low Osmolar Contrast (ICD-10-PCS; 2019-05-25)
PROC: 0BH17EZ Insertion of Endotracheal Airway into Trachea, Via Natural or Artificial Opening (ICD-10-PCS; 2019-05-28)
PROC: 5A1945Z Respiratory Ventilation, 24-96 Consecutive Hours (ICD-10-PCS; 2019-05-28)
PROC: 02100Z9 Bypass Coronary Artery, One Artery from Left Internal Mammary, Open Approach (ICD-10-PCS; 2019-06-06)
PROC: 021309W Bypass Coronary Artery, Four or More Arteries from Aorta with Autologous Venous Tissue, Open Approach (ICD-10-PCS; 2019-06-06)
PROC: 06BQ4ZZ Excision of Left Saphenous Vein, Percutaneous Endoscopic Approach (ICD-10-PCS; 2019-06-06)
PROC: 5A1221Z Performance of Cardiac Output, Continuous (ICD-10-PCS; 2019-06-06)
PROC: 02583ZZ Destruction of Conduction Mechanism, Percutaneous Approach (ICD-10-PCS; 2019-06-12)
PROC: 02K83ZZ Map Conduction Mechanism, Percutaneous Approach (ICD-10-PCS; 2019-06-12)
DX: I49.01 Ventricular fibrillation (principal); J96.00 Acute respiratory failure, unspecified whether with hypoxia or hypercapnia; I50.23 Acute on chronic systolic (congestive) heart failure; R40.2312 Coma scale, best motor response, none, at arrival to emergency department; J69.0 Pneumonitis due to inhalation of food and vomit; I21.4 Non-ST elevation (NSTEMI) myocardial infarction; N17.9 Acute kidney failure, unspecified; E87.2 Acidosis; G93.40 Encephalopathy, unspecified; J44.1 Chronic obstructive pulmonary disease with (acute) exacerbation; I13.0 Hypertensive heart and chronic kidney disease with heart failure and stage 1 through stage 4 chronic kidney disease, or unspecified chronic kidney disease; I46.9 Cardiac arrest, cause unspecified; I25.5 Ischemic cardiomyopathy; I25.10 Atherosclerotic heart disease of native coronary artery without angina pectoris; I48.91 Unspecified atrial fibrillation; E87.6 Hypokalemia; E21.3 Hyperparathyroidism, unspecified; Z88.8 Allergy status to other drugs, medicaments and biological substances; T68.XXXA Hypothermia, initial encounter; I48.92 Unspecified atrial flutter; Z95.5 Presence of coronary angioplasty implant and graft; E11.65 Type 2 diabetes mellitus with hyperglycemia; R40.2142 Coma scale, eyes open, spontaneous, at arrival to emergency department; R40.2252 Coma scale, best verbal response, oriented, at arrival to emergency department; E78.5 Hyperlipidemia, unspecified; Z86.73 Personal history of transient ischemic attack (TIA), and cerebral infarction without residual deficits; Z71.6 Tobacco abuse counseling; F17.200 Nicotine dependence, unspecified, uncomplicated; N18.9 Chronic kidney disease, unspecified
CPT/HCPCS: 36415; 36416; 36430; 36556; 51702; 70450; 71045; 71046; 71275; 76942; 80048; 80053; 80061; 80076; 81003; 81015; 82533; 82550; 82553; 82805; 83605; 83735; 84100; 84443; 84484; 85025; 85610; 85730; 86850; 86900; 86901; 87040; 87070; 87086; 87205; 92960; 93005; 93010; 93306; 93458; 93620; 93798; 93880; 94002; 94003; 94640; 94760; 95816; 95819; 96365; 96366; 96368; 96375; 99152; 99292; A4218; C1730; C1769; C9113; J0171; J0282; J0692; J0696; J1630; J1642; J1644; J1650; J1815; J1885; J1940; J1956; J2001; J2020; J2250; J2260; J2270; J2440; J2704; J2720; J2920; J3010; J3370; J3475; J3480; J3490; J7050; J7070; J7512; J7620; P9045; Q0163; Q9967; S0017

== ENCOUNTER 2019-06-16 02:46 | Observation (INO) | payer SELFPAY ==
[2019-06-16 03:22] LABS: #Basophils 0.1 thou/uL (0.0-0.2); #Eosinphils 0.2 thou/uL (0.0-0.7); #Lymphocytes 3.3 thou/uL (1.20-3.40); #Monocytes 0.5 thou/uL (0.11-0.59); #Neutrophils 3.9 thou/uL (1.40-6.50); %Basophils 1.9 % (0.0-1.0); %Eosinophils 1.9 % (0.0-10.0); %Lymphocytes 41.2 % (21.0-51.0); %Monocytes 6.4 % (0.0-10.0); %Neutrophils 48.7 % (42.0-75.0); Hemoglobin 11.3 g/dL (14.0-18.0); Mean Corpuscular Hemoglobin 29.7 pg (27.0-31.0); Mean Corpuscular Volume 90.1 fL (78.0-98.0); Mean Platelet Volume 7.3 fL (7.4-10.4); Platelet Count 263 thou/uL (130-400); RBC Distribution Width 14.3 % (11.5-14.5); White Blood Cell (WBC) Count 7.9 thou/uL (4.8-10.8)
[2019-06-16 03:45] LABS: ALT (SGPT) 39 U/L (8-55); AST (SGOT) 25 U/L (5-34); Albumin 4.5 g/dL (3.4-4.8); Alkaline Phosphatase 115 U/L (40-110); Anion Gap 15 mmol/L (10-20); BUN (Urea Nitrogen) 11 mg/dL (8.4-25.7); Bilirubin, Total 0.8 mg/dL (0.2-1.2); Calc. Creatinine Clearance 0 mL/min (70-130); Calcium 9.6 mg/dL (7.8-10.44); Carbon Dioxide 28 mmol/L (23-31); Chloride 100 mmol/L (98-107); Estimated GFR-MDRD 55; Globulin 2.2 g/dL (2.4-3.5); Glucose 116 mg/dL (80-115); Potassium 3.8 mmol/L (3.5-5.1); Protein, Total 6.7 g/dL (5.8-8.1); Sodium 139 mmol/L (136-145)
[2019-06-16] MEDS ORDERED: Mineral Oil ENEMA PR SCH (04:30)
[2019-06-16 04:31] LABS: CKMB 1.8 ng/mL (0-6.6)
[2019-06-16] MEDS ORDERED: Senokot S 8.6-50 MG TAB PO PRN (05:26)
[2019-06-16] MEDS ORDERED: Bisacodyl 5 MG TAB PO PRN (05:26)
[2019-06-16 07:12] LABS: Troponin I 0.207 ng/mL (< 0.028)
[2019-06-16 08:09] VITALS: BMI 33.0
[2019-06-16] MEDS ORDERED: Simethicone Chewable 80 MG TAB PO PRN (08:17)
[2019-06-16] MEDS ORDERED: Amiodarone 200 MG TAB PO SCH (09:00)
[2019-06-16] MEDS ORDERED: Famotidine/PF 20 mg/2ml Vial SLOW IVP SCH (09:00)
--- NOTE | 2019-06-16 09:27 | RAD ---
PORTABLE CHEST: Date: 06/16/2019 HISTORY: Hypertension. COMPARISON: 05/21/2019. FINDINGS/IMPRESSION: Mild cardiomegaly with postop sternotomy change. Left lung base is poorly evaluated and I cannot excl ude left basilar atelectasis or infiltrate. There is mild vascular engorgements. Lungs otherwise ashley r and unchanged. POS: [facility]
[2019-06-16 09:32] LABS: Troponin I 0.191 ng/mL (< 0.028)
--- NOTE | 2019-06-16 09:41 | HP ---
CHIEF COMPLAINT: Elevated blood pressure and abdominal discomfort. HISTORY OF PRESENT ILLNESS: Mr. Andujar is a 64-year-old male, who had a six-vessel coronary artery bypass graft surgery on 06/06, after he presented earlier with cardiac arrest, presents to the emergency room with upper abdominal discomfort, distention, and elevated blood pressure. The patient is unable to have a bowel movement and has bloating, which is the cause of his hernia to pullup and cause pain. Unable to sleep due to discomfort. reports the patient has not been wearing LifeVest due to bloating. Blood pressure earlier today was 140/103. The patient denies chest pain or palpitations. Workup in the emergency room, the patient's troponin is elevated at 0.268, but this is trending down from the time of discharge. Given the patient's history and presentation, the patient is being admitted to hospital for further management. PAST MEDICAL HISTORY: 1. Cardiac arrest. 2. Myocardial infarction. 3. Hypertension. 4. Hiatal hernia. PAST SURGICAL HISTORY: 1. Cardiac stent x3 in 2010. 2. Coronary artery bypass graft surgery x6 on 06/06/2019. PAST PSYCHIATRIC HISTORY: Anxiety. SOCIAL HISTORY: Denies alcohol drinking or drug use or smoking history. FAMILY HISTORY: Reviewed and noncontributory. HOME MEDICATIONS: Please see home medication reconciliation form for updated medications. ALLERGIES: THE PATIENT IS ALLERGIC TO ASPIRIN AND STATIN. REVIEW OF SYSTEMS: Review of 14-systems negative except what is mentioned in history of present illness. PHYSICAL EXAMINATION: GENERAL: The patient is awake and alert, in moderate distress. VITAL SIGNS: Blood pressure 126/66, pulse is 68, respiratory rate is 16, temperature is 99, and pulse oximetry is 98% on room air. HEAD AND NECK: Normocephalic and atraumatic. Neck is supple. No JVD. CHEST: Fair bilateral air entry. Scar of midline sternotomy. ABDOMEN: Distended with mild epigastric tenderness. Bowel sounds present. NEUROLOGIC: Awake, alert, and oriented. PSYCH: Unable to assess. EXTREMITIES: No clubbing. No cyanosis. GENITOURINARY: No suprapubic tenderness. No flank tenderness. MUSCULOSKELETAL: No joint tenderness. No deformity. LABORATORY DATA: Troponin 0.26 and BNP 587. Creatinine is 1.3. WBC 7.9, hemoglobin 11.3, and platelets 263. ASSESSMENT: 1. Elevated troponin in a patient with a history of coronary artery bypass graft surgery and cardiac arrest. 2. Abdominal distention/pain. 3. Hypertension. 4. Hiatal hernia. PLAN: 1. Admit. 2. Telemetry monitoring. 3. Serial troponins. 4. The patient is allergic to aspirin. We will continue with Plavix. 5. 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 6. Symptomatic management for abdominal distention and constipation. 7. Reconcile home medications. 8. DVT prophylaxis as appropriate. 9. Expected length of stay at least 1 midnight if the patient is stable and further workup negative. Job ID: [id number]
[2019-06-16] MEDS: Clopidogrel Bisulfate 75 MG TAB PO SCH (09:48)
[2019-06-16] MEDS ORDERED: Furosemide 40 MG TAB PO SCH (10:45)
--- NOTE | 2019-06-16 11:10 | PDOC.CPN ---
- Subjective Date: 06/16/19 Time: 11:22 Interval history: The pt seen and examined. No overnight events. No cardiac complaints. - Objective Allergies/Adverse Reactions: Allergies Allergy/AdvReac Type Severity Reaction Status Date / Time Ffcqutq-Umt-Owi Reductase Allergy Severe Anaphylaxis Verified 06/16/19 09:42 Inhibitor aspirin AdvReac Verified 06/16/19 09:42 Visit Medications: Current Medications Acetaminophen (Tylenol) 650 mg PO Q4H PRN PRN Reason: Headache/Fever/Mild Pain (1-3) Amiodarone HCl (Cordarone) 200 mg PO DAILY [facility] Last Admin: 06/16/19 09:48 Dose: 200 mg Bisacodyl (Dulcolax) 10 mg PO DAILYPRN PRN PRN Reason: Constipation Carvedilol (Coreg) 3.125 mg PO BID[facility] Clopidogrel Bisulfate (Plavix) 75 mg PO DAILY [facility] Last Admin: 06/16/19 09:48 Dose: 75 mg Famotidine (Pepcid) 20 mg SLOW IVP Q12HR [facility] Last Admin: 06/16/19 09:48 Dose: 20 mg Senna/Docusate Sodium (Senokot S) 2 tab PO BID PRN PRN Reason: Constipation Simethicone (Mylicon Chewable) 80 mg PO QIDPRN PRN PRN Reason: Gas Pain Sodium Chloride (Flush - Normal Saline) 10 ml IVF Q12HR [facility] Last Admin: 06/16/19 09:48 Dose: Not Given Sodium Chloride (Flush - Normal Saline) 10 ml IVF PRN PRN PRN Reason: Saline Flush Vital Signs & Weight: Vital Signs Temp Pulse Resp BP Pulse Ox 06/16/19 07:00 98.4 F 62 18 112/73 95 Weight 227 lb 2 oz - Physical Exam General: alert & oriented x3 HEENT: mucus membranes moist Neck: supple neck Cardiac: regular rate and rhythm, S1/S2 Lungs: clear to auscultation Abdomen: decreased bowel sounds Extremities: no cyanosis Skin: clear, 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 SOB - possible 2/2 acute on chronic systolic HF or pressure from Hiatal hernia. Lasix 40mg PO x 1 now for SOB and BLE edema; 2. Acute on Chronic Systolic HF with EF 30-35% with 3+ pitting BLE edema - Lasix 40mg po x1 now; on BBlocker; will start SHIRA/ARB with more stable BP. 3. s/p out of hospital arrest in 05/2019 - according to Dr Chaney's note from last admission, LifeVest for 3 months and another Echo and AICD if EF <35%. However, he refused to wear LifeVest at this moment due to pain to his ABD by pressure from LifeVest. On Amiodarone. 4. CAD with hx of stent x3 in 2010 and S/p CABG x6 on 06/06/2019 - stable; on coreg and Plavix (allergic to ASA); not on Statin, which will defer to Dr Meade. 5. HTN - stable 6. Hiatal hernia - he concerned if he can have the repair during this admission MAR reviewed Pt. seen and eval. by me. 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 He will need diuresis and probably can be d/c'd in 1-2 days. Continue IV lasix for now. sam
--- NOTE | 2019-06-16 13:27 | PDOC.HOSPP ---
- Subjective Encounter Date: 06/16/19 Encounter Time: 11:15 Subjective: is sitting in chair, no chest pain or palpitations now at bedside - Objective Vital Signs & Weight: Vital Signs (12 hours) Temp Pulse Resp BP Pulse Ox 06/16/19 11:56 98.2 F 75 14 116/59 L 96 06/16/19 07:00 98.4 F 62 18 112/73 95 Weight Weight 227 lb 2 oz I&O: 06/15/19 06/16/19 06/17/19 06:59 06:59 06:59 Intake Total 240 Balance 240 Result Diagrams: 06/16/19 03:10 06/16/19 03:10 Hospitalist ROS - Medication Medications: Active Medications Generic Name Dose Route Start Last Admin Trade Name Cinda PRN Reason Stop Dose Admin Clopidogrel Bisulfate 75 mg 06/16/19 09:00 06/16/19 09:48 Plavix PO 75 mg DAILY CANDACE Administration Famotidine 20 mg 06/16/19 09:00 06/16/19 09:48 Pepcid SLOW IVP 20 mg Q12HR CANDACE Administration Furosemide 40 mg 06/16/19 10:45 06/16/19 11:37 Lasix PO 06/16/19 14:00 40 mg NOW CANDACE Administration Sodium Chloride 10 ml 06/16/19 09:00 06/16/19 09:48 Flush - Normal Saline IVF Not Given Q12HR CANDACE - Exam General Appearance: awake alert Eye: PERRL, anicteric sclera ENT: no oropharyngeal lesions, moist mucosa Neck: supple, no JVD Heart: RRR, no murmur Respiratory: no wheezes, no rales Gastrointestinal: soft, non-tender, non-distended, normal bowel sounds Extremities: no cyanosis, 1+ LE edema Neurological: cranial nerve grossly intact, no focal deficits Psychiatric: A&O x 3 Hosp A/P (1) Acute on chronic systolic (congestive) heart failure Code(s): I50.23 - ACUTE ON CHRONIC SYSTOLIC (CONGESTIVE) HEART FAILURE Status : Acute (2) S/P CABG x 6 Code(s): Z95.1 - PRESENCE OF AORTOCORONARY BYPASS GRAFT Status: Acute (3) Hiatal hernia Code(s): K44.9 - DIAPHRAGMATIC HERNIA WITHOUT OBSTRUCTION OR GANGRENE Status: Chronic (4) HLD (hyperlipidemia) Code(s): E78.5 - HYPERLIPIDEMIA, UNSPECIFIED Status: Chronic Qualifiers: Hyperlipidemia type: unspecified Qualified Code(s): E78.5 - Hyperlipidemia , unspecified (5) CAD (coronary artery disease) Code(s): I25.10 - ATHSCL HEART DISEASE OF [place] CORONARY ARTERY W/O ANG PCTRS Status: Chronic Qualifiers: Coronary Disease-Associated Artery/Lesion type: bypass graft [place] vs. transplanted heart: [place] heart Associated angina: without angina Qualified Code(s): I25.810 - Atherosclerosis of coronary artery bypass graft(s) without angina pectoris (6) HTN (hypertension) Code(s): I10 - ESSENTIAL (PRIMARY) HYPERTENSION Status: Chronic Qualifiers: Hypertension type: essential hypertension Qualified Code(s): I10 - Essential (primary) hypertension - Plan May dc anytime if ok with cardiology had cabg done on 06/06/2019, got dc on 06/13/2019, is amb inside house cardiac rehab is to see him on I believe hemostable home meds d/w patient and at bedside
[2019-06-16] MEDS: Carvedilol 3.125 MG TAB PO SCH (16:41)
[2019-06-16] MEDS ORDERED: Furosemide 40 MG/4 ML VIAL SLOW IVP SCH (16:45)
[2019-06-16] MEDS: Amiodarone 200 MG TAB PO SCH (20:49)
[2019-06-16] MEDS: Temazepam 15 MG CAP PO SCH (23:39)
[2019-06-17] MEDS: Furosemide 40 MG/4 ML VIAL SLOW IVP SCH ×2 (04:51→13:08)
[2019-06-17] MEDS: Amiodarone 200 MG TAB PO SCH ×2 (09:13→22:04)
[2019-06-17] MEDS: Carvedilol 3.125 MG TAB PO SCH ×2 (09:14→17:41)
[2019-06-17] MEDS: Clopidogrel Bisulfate 75 MG TAB PO SCH (09:14)
[2019-06-17] MEDS: Acetaminophen 325 MG TAB PO PRN ×2 (10:23→22:03)
[2019-06-17] MEDS ORDERED: Ondansetron PF 4 MG/2 ML Vial SLOW IVP PRN (12:50)
[2019-06-17] MEDS ORDERED: Cyclobenzaprine 10 MG TAB PO SCH (13:00)
[2019-06-17 13:50] LABS: Anion Gap 12 mmol/L (10-20); BUN (Urea Nitrogen) 11 mg/dL (8.4-25.7); Calc. Creatinine Clearance 85 mL/min (70-130); Calcium 8.5 mg/dL (7.8-10.44); Carbon Dioxide 29 mmol/L (23-31); Chloride 102 mmol/L (98-107); Estimated GFR-MDRD 57; Glucose 122 mg/dL (80-115); Potassium 3.4 mmol/L (3.5-5.1); Sodium 140 mmol/L (136-145)
--- NOTE | 2019-06-17 15:10 | PDOC.HOSPP ---
- Subjective Encounter Date: 06/17/19 Encounter Time: 09:30 Subjective: was able to lay on bed last night no sob, feels better at bedside - Objective Vital Signs & Weight: Vital Signs (12 hours) Temp Pulse Resp BP BP Pulse Ox 06/17/19 12:06 97.6 F 67 18 112/67 100 06/17/19 07:13 97.6 F 64 16 103/60 97 06/17/19 05:05 98.4 F 71 16 123/66 97 Weight Weight 227 lb 2 oz I&O: 06/16/19 06/17/19 06/18/19 06:59 06:59 06:59 Intake Total 1770 Output Total 1300 875 Balance 470 -875 Result Diagrams: 06/16/19 03:10 06/17/19 13:20 Hospitalist ROS - Medication Medications: Active Medications Generic Name Dose Route Start Last Admin Trade Name Freq PRN Reason Stop Dose Admin Acetaminophen 650 mg 06/16/19 05:26 06/17/19 10:23 Tylenol PO 650 mg Q4H PRN Administration Headache/Fever/Mild Pain (1-3) Amiodarone HCl 200 mg 06/16/19 21:00 06/17/19 09:13 Cordarone PO 06/29/19 23:59 200 mg BID CANDACE Administration Carvedilol 3.125 mg 06/16/19 17:00 06/17/19 09:14 Coreg PO 3.125 mg BID-WM CANDACE Administration Clopidogrel Bisulfate 75 mg 06/16/19 09:00 06/17/19 09:14 Plavix PO 75 mg DAILY [facility] Administration Furosemide 40 mg 06/17/19 06:00 06/17/19 13:08 Lasix SLOW IVP 40 mg 0600,1400 CANDACE Administration Pantoprazole Sodium 40 mg 06/16/19 21:00 06/17/19 09:14 Protonix PO 40 mg BID CANDACE Administration Sodium Chloride 10 ml 06/16/19 09:00 06/17/19 13:09 Flush - Normal Saline IVF 10 ml Q12HR CANDACE Administration Sodium Chloride 10 ml 06/16/19 06:11 06/17/19 13:14 Flush - Normal Saline IVF 10 ml PRN PRN Administration Saline Flush Temazepam 15 mg 06/16/19 21:00 06/16/19 23:39 Restoril PO 15 mg HS CANDACE Administration - Exam General Appearance: awake alert Eye: PERRL, anicteric sclera ENT: no oropharyngeal lesions, moist mucosa Neck: supple, no JVD Heart: RRR, no murmur Respiratory: no wheezes, no rales Gastrointestinal: soft, non-tender, non-distended, normal bowel sounds Extremities: no cyanosis, 1+ LE edema Neurological: cranial nerve grossly intact, no focal deficits Hosp A/P (1) Acute on chronic systolic (congestive) heart failure Code(s): I50.23 - ACUTE ON CHRONIC SYSTOLIC (CONGESTIVE) HEART FAILURE Status : Acute (2) S/P CABG x 6 Code(s): Z95.1 - PRESENCE OF AORTOCORONARY BYPASS GRAFT Status: Acute (3) Hiatal hernia Code(s): K44.9 - DIAPHRAGMATIC HERNIA WITHOUT OBSTRUCTION OR GANGRENE Status: Chronic (4) HLD (hyperlipidemia) Code(s): E78.5 - HYPERLIPIDEMIA, UNSPECIFIED Status: Chronic Qualifiers: Hyperlipidemia type: unspecified Qualified Code(s): E78.5 - Hyperlipidemia , unspecified (5) CAD (coronary artery disease) Code(s): I25.10 - ATHSCL HEART DISEASE OF [place] CORONARY ARTERY W/O ANG PCTRS Status: Chronic Qualifiers: Coronary Disease-Associated Artery/Lesion type: bypass graft [place] vs. transplanted heart: [place] heart Associated angina: without angina Qualified Code(s): I25.810 - Atherosclerosis of coronary artery bypass graft(s) without angina pectoris (6) HTN (hypertension) Code(s): I10 - ESSENTIAL (PRIMARY) HYPERTENSION Status: Chronic Qualifiers: Hypertension type: essential hypertension Qualified Code(s): I10 - Essential (primary) hypertension - Plan May dc anytime if ok with cardiology had cabg done on 06/06/2019, got dc on 06/13/2019, is amb inside house cardiac rehab to see him on I believe has diuresed well. hemostable home meds d/w patient and at bedside
--- NOTE | 2019-06-17 18:43 | CON ---
DATE OF CONSULTATION: REASON FOR CONSULTATION: Jbxsa-ub-oelritv systolic heart failure. HISTORY OF PRESENT ILLNESS: Mr. Andujar is a 64-year-old gentleman, who recently was discharged. He presented with cardiac arrest. His LVEF is estimated at 30% to 35%. LifeVest is recommended. He underwent revascularization. He states he got home and began having swelling and shortness of breath. He proceeded to the emergency room and was found to be in heart failure. PAST MEDICAL HISTORY: As described above. ALLERGIES: 1. STATINS. 2. ASPIRIN. HOME MEDICATIONS: Include: 1. Lasix 20 mg daily. 2. Hydrocodone. 3. Plavix 75 daily. 4. Coreg. 5. Amiodarone 200 mg p.o. b.i.d. REVIEW OF SYSTEMS: A 10-point review of systems is reviewed and is as above, otherwise negative. PHYSICAL EXAMINATION: GENERAL: Patient is a pleasant gentleman, who is in no acute distress. The patient appears their stated age. VITAL SIGNS: Blood pressure 106/62, pulse 62, temperature 98. NEUROLOGIC: The patient is alert and oriented x3 with no focal neurologic deficits. HEENT: Sclerae without icterus. Mouth has moist mucous membranes with normal pallor. NECK: No JVD. Carotid upstroke brisk. No bruits bilaterally. LUNGS: Crackles noted bilaterally. BACK: No scoliosis or kyphosis. CARDIAC: Regular rate and rhythm with normal S1 and S2. No S3 or S4 noted. No significant rubs, murmurs, thrills, or gallops noted throughout the precordium. PMI is not displaced. There is no parasternal heave. ABDOMEN: Soft, nontender, nondistended. No peritoneal signs present. No hepatosplenomegaly. No abnormal striae. EXTREMITIES: 2+ femoral and 2+ dorsalis pedis pulses. No cyanosis, clubbing, or edema. SKIN: No gross abnormalities. PERTINENT LABORATORY DATA: Hemoglobin 11.3. Creatinine 1.28. Peak troponin 0.2. IMPRESSION: 1. Oagqr-vo-wisnmmi systolic heart failure. 2. Coronary artery disease. 3. Status post bypass surgery. RECOMMENDATIONS: 1. Continue IV Lasix. 2. Once he is diuresed, we would increase p.o. Lasix to 40 q.a.m. 3. Continue Coreg and amiodarone in addition to Plavix. 4. The patient is allergic to aspirin. 5. The patient also is allergic to a statin therapy. Job ID: [id number]
[2019-06-17] MEDS: Temazepam 15 MG CAP PO SCH (22:03)
[2019-06-18] MEDS: Furosemide 40 MG/4 ML VIAL SLOW IVP SCH (06:09)
[2019-06-18] MEDS: Carvedilol 3.125 MG TAB PO SCH (08:02)
[2019-06-18] MEDS: Acetaminophen 325 MG TAB PO PRN (08:02)
[2019-06-18] MEDS: Amiodarone 200 MG TAB PO SCH (08:03)
[2019-06-18] MEDS: Clopidogrel Bisulfate 75 MG TAB PO SCH (08:03)
[2019-06-18 08:08] VITALS: BP 124/64; TEMP 98.2
[2019-06-18] MEDS ORDERED: Cyclobenzaprine 10 MG TAB PO PRN (10:46)
[2019-06-18] MEDS ORDERED: HYDROcodone/Acetaminophen 5/325 mg Tablet PO PRN (10:46)
--- NOTE | 2019-06-18 13:15 | DIS ---
DATE OF ADMISSION: 06/16/2019 DATE OF DISCHARGE: 06/18/2019 DISCHARGE DISPOSITION: Home. PRIMARY DISCHARGE DIAGNOSES: Acute on chronic congestive heart failure exacerbation with systolic dysfunction, recent history of coronary artery bypass grafting for 6-vessel disease on the 06 of June, large inguinal hernia, hiatal hernia, dyslipidemia, hypertension. PROCEDURES DONE DURING HOSPITALIZATION: Chest x-ray done on the day of admission showed mild pulmonary vascular congestion with mild cardiomegaly. H and H of 11 and 34, platelet count 263, MCV is 90. Discharge BUN and creatinine of 11 and 1.2. BNP 587. Troponin I was indeterminate, peaking up to 0.26. CK-MB 1.8. INPATIENT CONSULT: Dr. Gray/Dr. Walton for Cardiology. DISCHARGE PLAN: The patient to follow up with Dr. Walton in [address] Zeny Brown, his primary care physician, today at 1:45 p.m. He needs to follow up with Dr. Zee on 06/25/2019 at 1:[address] Kevin Chaney on 07/25/2019 at 10:45 a.m. DISCHARGE MEDICATION: 1. Amiodarone 200 mg twice daily until the , then 200 mg daily thereafter for history of paroxysmal AFib. 2. Coreg 3.125 mg p.o. twice daily. 3. Plavix 75 mg p.o. daily. 4. Lasix 20 mg daily. 5. [place] p.r.n. for pain. ALLERGIES: STATINS AND ASPIRIN. BRIEF COURSE DURING HOSPITALIZATION: The patient initially got admitted on the 15 of June with complaints of orthopnea, shortness of breath, and chest discomfort. In view of this history, the patient was placed under observation. He has had gentle diuresis done. He was evaluated by Dr. Gray and Dr. Walton for Cardiology. He has had CABG for 6-vessel disease on the . The patient has cardiac rehab set up on discharge. He is also beginning to ambulate. His orthopnea has resolved. He has remained hemodynamically stable during his brief stay here. The patient has a large inguinal hernia, which needs to be repaired once he is at least 6 to 8 weeks off post CABG to help him recover well. He is otherwise hemodynamically stable and will be shortly discharged home. Please note, I have seen and examined the patient on the day of discharge. Job ID: [id number]
[2019-06-30] MEDS ORDERED: Amiodarone 200 MG TAB PO SCH (09:00)
== END 2019-06-18 11:57 | disposition home or self-care (01) ==
LOC: ERS 02:46 → 2SW 04:38
PROVIDERS: ADMIT Internal Medicine; ATTEND Internal Medicine
DX: I11.0 Hypertensive heart disease with heart failure (principal); I50.23 Acute on chronic systolic (congestive) heart failure; I25.10 Atherosclerotic heart disease of native coronary artery without angina pectoris; K40.90 Unilateral inguinal hernia, without obstruction or gangrene, not specified as recurrent; K44.9 Diaphragmatic hernia without obstruction or gangrene; E78.5 Hyperlipidemia, unspecified; I48.0 Paroxysmal atrial fibrillation; I25.2 Old myocardial infarction; F41.9 Anxiety disorder, unspecified; Z86.74 Personal history of sudden cardiac arrest; Z79.02 Long term (current) use of antithrombotics/antiplatelets; Z79.899 Other long term (current) drug therapy; Z88.8 Allergy status to other drugs, medicaments and biological substances; Z95.1 Presence of aortocoronary bypass graft; Z95.5 Presence of coronary angioplasty implant and graft
CPT/HCPCS: 36415; 71045; 80048; 80053; 82553; 83880; 84484; 85025; 93005; 94760; 96374; 96375; 96376; G0378; J1940; S0028

== ENCOUNTER 2019-10-11 05:53 | Outpatient (CLI) | payer OTHER ==
[2019-10-11 11:29] LABS: Hemoglobin 14.1 g/dL (14.0-18.0); Mean Corpuscular HGB CONC 31.7 g/dL (32.0-36.0); Mean Corpuscular Hemoglobin 25.6 pg (27.0-31.0); Mean Corpuscular Volume 80.8 fL (78.0-98.0); Mean Platelet Volume 9.5 fL (7.4-10.4); Platelet Count 139 thou/uL (130-400); RBC Distribution Width 14.9 % (11.5-14.5); Red Blood Cell (RBC) Count 5.49 mill/uL (4.70-6.10); White Blood Cell (WBC) Count 7.5 thou/uL (4.8-10.8)
[2019-10-11 11:40] LABS: Prothrombin Time 13.4 sec (12.0-14.7)
[2019-10-11 12:40] LABS: Anion Gap 14 mmol/L (10-20); BUN (Urea Nitrogen) 19 mg/dL (8.4-25.7); Calc. Creatinine Clearance 0 mL/min (70-130); Calcium 9.6 mg/dL (7.8-10.44); Carbon Dioxide 26 mmol/L (23-31); Chloride 104 mmol/L (98-107); Estimated GFR-MDRD 56; Glucose 105 mg/dL (80-115); Sodium 140 mmol/L (136-145)
[2019-10-12 13:14] LABS: SARS-CoV-2 MS2 Positive; SARS-CoV-2 N Gene Negative; SARS-CoV-2 S Gene Negative; SARS-CoV-2 orf1ab Negative
== END 2019-10-11 05:54 | disposition home or self-care (01) ==
LOC: LABBT 05:53
PROVIDERS: ATTEND Internal Medicine Cardiovascular Disease
DX: Z01.818 Encounter for other preprocedural examination (principal); Z11.59 Encounter for screening for other viral diseases; I48.20 Chronic atrial fibrillation, unspecified
CPT/HCPCS: 80048; 85027; 85610; 85730; 87635; 93005; 93010; U0003

== ENCOUNTER 2019-10-16 09:02 | Day surgery (SDC) | payer OTHER ==
[2019-10-10 12:45] VITALS: BMI 27.8
[2019-10-16] MEDS ORDERED: Midazolam HCl 2 mg/2 ml Vial ONE (10:32)
[2019-10-16] MEDS ORDERED: Fentanyl 100 MCG/2 ML VIAL ONE (10:32)
[2019-10-16] MEDS ORDERED: Propofol 1,000 MG/100 ML VIAL IV ONE (10:32)
[2019-10-16] MEDS ORDERED: CEFAZOLIN 1 GM VIAL ONE (10:57)
[2019-10-16] MEDS ORDERED: Gentamicin 80 MG/2 ML VIAL ONE (10:57)
--- NOTE | 2019-10-16 13:52 | RAD ---
PORTABLE CHEST: 10/16/19 INDICATIONS: Post ICD. COMPARISON: 06/16/19. AICD leads have been placed. The leads appear appropriately positioned. Postop sternotomy changes. Mi ld cardiomegaly. Lungs are clear and unchanged. IMPRESSION: No acute process. POS: [facility]
[2019-10-16] MEDS ORDERED: Acetaminophen 500 MG TAB ONE (13:55)
[2019-10-16] MEDS ORDERED: Iopamidol 370 76% 50 ML VIAL FS ONE (16:23)
== END 2019-10-16 16:08 | disposition home or self-care (01) ==
LOC: CCL 09:02
PROVIDERS: ATTEND Internal Medicine Cardiovascular Disease
PROC: 02H63KZ Insertion of Defibrillator Lead into Right Atrium, Percutaneous Approach (ICD-10-PCS; principal; 2019-10-16)
PROC: 02HK3KZ Insertion of Defibrillator Lead into Right Ventricle, Percutaneous Approach (ICD-10-PCS; principal; 2019-10-16)
PROC: 0JH608Z Insertion of Defibrillator Generator into Chest Subcutaneous Tissue and Fascia, Open Approach (ICD-10-PCS; principal; 2019-10-16)
DX: I25.5 Ischemic cardiomyopathy (principal); I25.10 Atherosclerotic heart disease of native coronary artery without angina pectoris; Z79.899 Other long term (current) drug therapy; Z88.6 Allergy status to analgesic agent; Z88.8 Allergy status to other drugs, medicaments and biological substances; Z95.1 Presence of aortocoronary bypass graft
CPT/HCPCS: 33249; 36005; 71045; 75820; 76942; 93641; C1721; C1777; C1898; J0690; J1580; J2250; J2704; J3010; Q9967

== ENCOUNTER 2019-12-24 14:12 | Outpatient (CLI) | payer OTHER ==
[2019-12-24 18:03] LABS: #Basophils 0.1 thou/uL (0.0-0.2); #Eosinphils 0.2 thou/uL (0.0-0.7); #Lymphocytes 4.9 thou/uL (1.20-3.40); #Neutrophils 5.9 thou/uL (1.40-6.50); %Basophils 0.9 % (0.0-1.0); %Eosinophils 1.3 % (0.0-10.0); %Lymphocytes 41.1 % (21.0-51.0); %Monocytes 7.9 % (0.0-10.0); %Neutrophils 48.8 % (42.0-75.0); Hemoglobin 13.2 g/dL (14.0-18.0); Mean Corpuscular HGB CONC 31.1 g/dL (32.0-36.0); Mean Corpuscular Hemoglobin 26.9 pg (27.0-31.0); Mean Corpuscular Volume 86.4 fL (78.0-98.0); Mean Platelet Volume 9.3 fL (7.4-10.4); Platelet Count 179 thou/uL (130-400); RBC Distribution Width 15.5 % (11.5-14.5); Red Blood Cell (RBC) Count 4.91 mill/uL (4.70-6.10)
[2019-12-24 18:12] LABS: Anion Gap 14 mmol/L (10-20); BUN (Urea Nitrogen) 31 mg/dL (8.4-25.7); Calc. Creatinine Clearance 0 mL/min (70-130); Calcium 8.9 mg/dL (7.8-10.44); Carbon Dioxide 25 mmol/L (23-31); Chloride 103 mmol/L (98-107); Estimated GFR-MDRD 39; Glucose 115 mg/dL (80-115); Sodium 138 mmol/L (136-145)
[2019-12-25 13:04] LABS: SARS-CoV-2 MS2 Positive; SARS-CoV-2 N Gene Negative; SARS-CoV-2 S Gene Negative; SARS-CoV-2 by NAA Not Detected (NotDetected); SARS-CoV-2 orf1ab Negative
== END 2019-12-24 14:13 | disposition home or self-care (01) ==
LOC: LABBT 14:12
PROVIDERS: ATTEND Surgery
DX: Z01.818 Encounter for other preprocedural examination (principal); K40.90 Unilateral inguinal hernia, without obstruction or gangrene, not specified as recurrent; Z20.828 Contact with and (suspected) exposure to other viral communicable diseases
CPT/HCPCS: 80048; 85025; 87635; U0003

== ENCOUNTER 2019-12-26 08:15 | Day surgery (SDC) | payer SELFPAY ==
[2019-12-26] MEDS ORDERED: Lidocaine 1% w/Epinephrine 1:100K 20 ML VIAL ONE (09:25)
[2019-12-26] MEDS ORDERED: Bupivacaine 0.25% HCL 30 ML VIAL ONE (09:25)
[2019-12-26] MEDS ORDERED: Fentanyl 100 MCG/2 ML VIAL ONE (10:22)
[2019-12-26] MEDS ORDERED: Bupivacaine PF 0.5% 30 ML VIAL ONE (10:38)
[2019-12-26] MEDS ORDERED: HYDROcodone/Acetaminophen 5/325 mg Tablet ONE (12:10)
[2019-12-26] MEDS ORDERED: Morphine 2 MG/ML VIAL ONE (13:03)
[2019-12-26] MEDS ORDERED: PROPOFOL 200 MG/20 ML VIAL ONE (13:13)
[2019-12-26] MEDS ORDERED: PHENYLEPHRINE-NS 100 MCG/ML 10 ML SYRINGE ONE (13:13)
[2019-12-26] MEDS ORDERED: EPHEDRINE 25 MG/5 ML SYRINGE ONE (13:13)
[2019-12-26] MEDS ORDERED: Lidocaine 1% PF 5 ML VIAL ONE (13:13)
[2019-12-26] MEDS ORDERED: Rocuronium Bromide 10 MG/ML (10ML VIAL) ONE (13:13)
[2019-12-26] MEDS ORDERED: Ondansetron PF 4 MG/2 ML Vial ONE (13:13)
[2019-12-26] MEDS ORDERED: Glycopyrrolate 0.2 MG/ML 5 ML SYRINGE ONE (13:13)
--- NOTE | 2019-12-26 18:10 | OP ---
DATE OF PROCEDURE: 12/26/2019 PREOPERATIVE DIAGNOSIS: Incarcerated right inguinal hernia. POSTOPERATIVE DIAGNOSIS: Incarcerated right inguinal hernia. PROCEDURE PERFORMED: Incarcerated right inguinal hernia repair with mesh, PHS extended. ANESTHESIA: General. ESTIMATED BLOOD LOSS: Minimal. COMPLICATIONS: None. SPECIMEN: None. FINDINGS: Multiple loops of small bowel and cecum and the hernia sac. TECHNIQUE: The patient was taken to the operating room and laid supine on the operating room table. After general anesthetic was obtained, the bilateral groins and testicles were shaved, prepped, and draped in a sterile fashion. Oblique incision was made above the pubic tubercle in the right lower quadrant. Cautery was used to dissected down through Angelique's to expose the external oblique. External oblique fibers opened along the course of the external ring. This allowed the majority of the hernia sac contents to be reduced back into the abdominal cavity. Dissection superomedially on the cord showed there to be a large indirect hernia sac. This was dissected away from other cord structures, inverted back into the preperitoneal space. Preperitoneal space was then bluntly dissected using a wet unraveled Ray-Waqas. The PHS extended mesh was brought in the sterile field. The underlay was placed in the preperitoneal space. Its fibers laid out flat against the posterior abdominal wall. The overlay was laid in the floor of the inguinal canal. The overlay was sewn distally to the pubic tubercle, medially to the transverse arch, laterally to the shelving edge of inguinal ligament using permanent braided suture. The mesh was cut to wrap around the cord structures at the internal ring and the internal ring was reformed by reapproximating the 2 ends at the shelving edge of inguinal ligament. The wound was irrigated. Local anesthetic was applied. There was no bleeding. The tunneled cath for postop pain threaded from above incision, and left on top of the mesh. External oblique was closed using 3-0 Vicryl. Angelique's was closed using 3-0 Vicryl. Skin was closed using running 4-0 Monocryl and Dermabond. The patient was sent to Recovery in stable condition. All instrument counts, needle counts, and lap counts were correct. Job ID: [id number]
== END 2019-12-26 15:15 | disposition home or self-care (01) ==
LOC: SDC 08:15
PROVIDERS: ATTEND Surgery
PROC: 0YU50JZ Supplement Right Inguinal Region with Synthetic Substitute, Open Approach (ICD-10-PCS; principal; 2019-12-26)
DX: K40.30 Unilateral inguinal hernia, with obstruction, without gangrene, not specified as recurrent (principal); I25.10 Atherosclerotic heart disease of native coronary artery without angina pectoris; F41.9 Anxiety disorder, unspecified; I11.9 Hypertensive heart disease without heart failure; E78.00 Pure hypercholesterolemia, unspecified; I25.2 Old myocardial infarction; Z87.891 Personal history of nicotine dependence; Z79.899 Other long term (current) drug therapy; Z88.6 Allergy status to analgesic agent; Z88.8 Allergy status to other drugs, medicaments and biological substances; Z95.1 Presence of aortocoronary bypass graft; Z95.5 Presence of coronary angioplasty implant and graft; Z95.810 Presence of automatic (implantable) cardiac defibrillator
CPT/HCPCS: C1781; J0690; J2270; J2405; J2704; J3010; S0020

== ENCOUNTER 2020-02-07 18:39 | Emergency (ER) | payer SELFPAY ==
[2020-02-07 20:07] LABS: #Basophils 0.2 thou/uL (0.0-0.2); #Eosinphils 0.1 thou/uL (0.0-0.7); #Monocytes 0.9 thou/uL (0.11-0.59); #Neutrophils 5.6 thou/uL (1.40-6.50); %Basophils 1.4 % (0.0-1.0); %Eosinophils 0.7 % (0.0-10.0); %Lymphocytes 42.7 % (21.0-51.0); %Monocytes 7.5 % (0.0-10.0); %Neutrophils 47.7 % (42.0-75.0); Mean Corpuscular HGB CONC 31.4 g/dL (32.0-36.0); Mean Corpuscular Hemoglobin 25.5 pg (27.0-31.0); Mean Corpuscular Volume 81.3 fL (78.0-98.0); Mean Platelet Volume 9.4 fL (7.4-10.4); Platelet Count 157 thou/uL (130-400); Red Blood Cell (RBC) Count 6.28 mill/uL (4.70-6.10); White Blood Cell (WBC) Count 11.7 thou/uL (4.8-10.8)
[2020-02-07] MEDS ORDERED: Furosemide 20 MG/2 ML VIAL ONE (20:14)
[2020-02-07] MEDS ORDERED: Furosemide 40 MG/4 ML VIAL ONE (20:14)
--- NOTE | 2020-02-07 20:18 | RAD ---
PORTABLE CHEST: 02/07/20 COMPARISON: 10/16/19 exam. HISTORY: Lower extremity edema. Heart size is enlarged. Mild vascular prominence but no overt edema. Postop sternotomy changes and in ternal defibrillator device are noted. IMPRESSION: Cardiomegaly with mild vascular engorgement. No overt edema. POS: [facility]
[2020-02-07 20:28] LABS: ALT (SGPT) 22 U/L (8-55); AST (SGOT) 21 U/L (5-34); Albumin 4.8 g/dL (3.4-4.8); Alkaline Phosphatase 120 U/L (40-110); Anion Gap 18 mmol/L (10-20); BUN (Urea Nitrogen) 27 mg/dL (8.4-25.7); Bilirubin, Total 1.8 mg/dL (0.2-1.2); Calc. Creatinine Clearance 0 mL/min (70-130); Calcium 9.7 mg/dL (7.8-10.44); Carbon Dioxide 24 mmol/L (23-31); Chloride 103 mmol/L (98-107); Estimated GFR-MDRD 38; Globulin 3.1 g/dL (2.4-3.5); Glucose 119 mg/dL (80-115); Potassium 4.5 mmol/L (3.5-5.1); Protein, Total 7.9 g/dL (5.8-8.1); Sodium 140 mmol/L (136-145)
--- NOTE | 2020-02-07 21:30 | RAD ---
TWO VIEWS ABDOMEN: 02/07/20 HISTORY: Abdominal pain and swelling after inguinal hernia repair. FINDINGS: Limited visualized lung bases are clear with mild elevation right hemidiaphragm. Dual lead left subcl gumaro AICD leads are present. Median sternotomy wires are present. Vascular calcifications are seen i n the coronary arteries. The bowel gas pattern is nonspecific. No suspicious calcifications are seen. There are phleboliths ov erlying the right hemipelvis. There are several tiny punctate calcifications overlying the upper quad rant which are likely related to calcified granulomata in the spleen. There is a surgical clip just i nferior to the left ischium. IMPRESSION: Nonspecific bowel gas pattern. POS: [facility]
== END 2020-02-07 21:46 | disposition home or self-care (01) ==
LOC: ERS 18:39
DX: I50.9 Heart failure, unspecified (principal); R14.0 Abdominal distension (gaseous); I25.2 Old myocardial infarction; F41.9 Anxiety disorder, unspecified; Z79.899 Other long term (current) drug therapy
CPT/HCPCS: 71045; 74019; 80053; 83880; 85025; 93005; 96374; J1940

== ENCOUNTER 2020-03-30 09:57 | Inpatient (IN) | payer MEDICARE, SELFPAY ==
--- NOTE | 2020-03-30 12:07 | RAD ---
EXAM: CHEST ONE VIEW HISTORY: Chest pain. COMPARISON: 02/07/2020 FINDINGS: Dual lead left subclavian AICD device remains in place. Median sternotomy wires are again seen. Cardi ac silhouette remains enlarged. Pulmonary vasculature is within normal limits. The lungs are clear. No other interval change from prior study. IMPRESSION: 1. No acute cardiopulmonary process. 2. Cardiomegaly.
[2020-03-30 12:26] LABS: #Basophils 0.2 thou/uL (0.0-0.2); #Eosinphils 0.1 thou/uL (0.0-0.7); #Lymphocytes 4.7 thou/uL (1.20-3.40); #Monocytes 1.2 thou/uL (0.11-0.59); #Neutrophils 6.6 thou/uL (1.40-6.50); %Basophils 1.5 % (0.0-1.0); %Eosinophils 0.4 % (0.0-10.0); %Lymphocytes 37.1 % (21.0-51.0); %Monocytes 9.5 % (0.0-10.0); %Neutrophils 51.5 % (42.0-75.0); Hemoglobin 14.6 g/dL (14.0-18.0); Mean Corpuscular HGB CONC 30.9 g/dL (32.0-36.0); Mean Corpuscular Hemoglobin 25.3 pg (27.0-31.0); Mean Corpuscular Volume 82.1 fL (78.0-98.0); Mean Platelet Volume 9.9 fL (7.4-10.4); Platelet Count 163 thou/uL (130-400); RBC Distribution Width 18.8 % (11.5-14.5); Red Blood Cell (RBC) Count 5.76 mill/uL (4.70-6.10); White Blood Cell (WBC) Count 12.7 thou/uL (4.8-10.8)
[2020-03-30 12:55] LABS: CKMB 0.9 ng/mL (0-6.6)
[2020-03-30 12:59] LABS: ALT (SGPT) 22 U/L (8-55); AST (SGOT) 35 U/L (5-34); Albumin 4.4 g/dL (3.4-4.8); Alkaline Phosphatase 105 U/L (40-110); Anion Gap 23 mmol/L (10-20); BUN (Urea Nitrogen) 43 mg/dL (8.4-25.7); Bilirubin, Total 1.6 mg/dL (0.2-1.2); Calc. Creatinine Clearance 0 mL/min (70-130); Calcium 9.2 mg/dL (7.8-10.44); Carbon Dioxide 22 mmol/L (23-31); Chloride 102 mmol/L (98-107); Globulin 3.1 g/dL (2.4-3.5); Glucose 100 mg/dL (80-115); Potassium 5.5 mmol/L (3.5-5.1); Protein, Total 7.5 g/dL (5.8-8.1); Sodium 141 mmol/L (136-145)
[2020-03-30] MEDS ORDERED: Furosemide 40 MG/4 ML VIAL ONE (13:49)
[2020-03-30 15:41] LABS: Troponin I 0.022 ng/mL (< 0.028)
[2020-03-30 18:37] LABS: Troponin I 0.018 ng/mL (< 0.028)
[2020-03-30] MEDS ORDERED: Ondansetron ODT 4 MG TAB SL PRN (20:15)
[2020-03-30] MEDS ORDERED: Acetaminophen 325 MG TAB PO PRN (20:15)
[2020-03-30] MEDS ORDERED: Ondansetron PF 4 MG/2 ML Vial IVP PRN (20:15)
[2020-03-30 20:38] VITALS: BMI 28.9
[2020-03-30] MEDS ORDERED: DC ENOXAPARIN NIGHT BEFORE CATH FS SCH (22:00)
[2020-03-30] MEDS ORDERED: HOLD HYPOGLYCEMIC MEDS AM OF CATH FS SCH (22:15)
[2020-03-30] MEDS ORDERED: PROBIOTIC PO SCH (22:30)
[2020-03-30] MEDS: Zolpidem Tartrate 5 MG TAB PO PRN (22:47)
[2020-03-31] MEDS: Sodium Chloride 0.9% 1,000 ML IV SCH ×3 (05:21→23:55)
[2020-03-31] MEDS ORDERED: Heparin 10,000 UNITS/ 10 ML VIAL ONE (06:48)
[2020-03-31] MEDS ORDERED: Midazolam HCl 2 mg/2 ml Vial ONE (07:39)
[2020-03-31] MEDS ORDERED: Fentanyl 100 MCG/2 ML VIAL ONE (07:39)
[2020-03-31] MEDS ORDERED: POTASSIUM CITRATE 99 MG PO SCH (08:00)
[2020-03-31] MEDS ORDERED: Protamine Sulfate 50 MG/5 ML VIAL ONE (08:15)
[2020-03-31 08:28] LABS: SARS-CoV-2 NAA Rapid Test Not Detected (NotDetected)
[2020-03-31] MEDS ORDERED: Sodium Chloride 0.9% 200 ML IV PRN (08:59)
[2020-03-31] MEDS ORDERED: Nitroglycerin 0.4 MG TAB (25 Tab Bottle) SL PRN ×2 (08:59→09:00)
[2020-03-31] MEDS ORDERED: Acetaminophen/Codeine 30-300mg Tablet PO PRN (08:59)
[2020-03-31] MEDS ORDERED: Metoprolol Tartrate 25 MG TAB PO SCH (09:00)
[2020-03-31] MEDS ORDERED: Sodium Chloride 0.9% 1,000 ML IV SCH (09:00)
[2020-03-31] MEDS ORDERED: REPATHA 140 MG/ML SC SCH (09:00)
[2020-03-31] MEDS ORDERED: CHLOROPHYLL PO PRN (09:00)
[2020-03-31 09:40] LABS: Anion Gap 17 mmol/L (10-20); BUN (Urea Nitrogen) 42 mg/dL (8.4-25.7); Calc. Creatinine Clearance 49 mL/min (70-130); Calcium 8.9 mg/dL (7.8-10.44); Carbon Dioxide 21 mmol/L (23-31); Chloride 104 mmol/L (98-107); Glucose 112 mg/dL (80-115); Potassium 4.1 mmol/L (3.5-5.1); Sodium 138 mmol/L (136-145)
[2020-03-31] MEDS: Acetaminophen/Codeine 30-300mg Tablet PO PRN ×2 (10:04→20:10)
[2020-03-31] MEDS: Amiodarone 200 MG TAB PO SCH ×2 (10:23→20:09)
[2020-03-31] MEDS: Torsemide 20 MG TAB PO SCH ×2 (10:52→20:09)
[2020-03-31] MEDS: Prasugrel 10 MG TAB PO SCH (10:52)
[2020-03-31] MEDS ORDERED: cloNIDine 0.2 MG TAB PO PRN (13:18)
[2020-03-31] MEDS: Metoprolol Tartrate 25 MG TAB PO SCH (20:09)
[2020-03-31] MEDS: Zolpidem Tartrate 5 MG TAB PO PRN (20:10)
[2020-03-31] MEDS ORDERED: FLU VACC QS2020-21(65YR UP)/PF 240 MCG/0.7 ML SYRINGE IM ONE (21:00)
[2020-04-01 04:36] LABS: Anion Gap 16 mmol/L (10-20); BUN (Urea Nitrogen) 39 mg/dL (8.4-25.7); Calc. Creatinine Clearance 57 mL/min (70-130); Calcium 8.5 mg/dL (7.8-10.44); Carbon Dioxide 20 mmol/L (23-31); Chloride 104 mmol/L (98-107); Glucose 109 mg/dL (80-115); Potassium 4.7 mmol/L (3.5-5.1); Sodium 135 mmol/L (136-145)
--- NOTE | 2020-04-01 07:45 | CON ---
DATE OF CONSULTATION: 03/31/2020 HISTORY OF PRESENT ILLNESS: I am seeing Mr. 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 His problems are. 1. Recurrent ventricular fibrillation. a. History of sudden cardiac with successful resuscitation, transient amiodarone use on 05/24/2019. b. Status post dual-chamber ICD implantation on 10/16/2019, with a [employer]onic Evera XT DR device with adequate function. c. Recurrent ventricular tachycardia episode/fibrillation episode noted on 03/21/2020, with successful shock termination. 2. Chronic systolic congestive heart failure with ischemic cardiomyopathy. a. History of coronary artery bypass grafting surgery x6 vessels on June 06, 2019. b. Reduced LVEF at 25% to 30%. On June 06, 2019, it was 30% to 35%. Moderate to severe left atrial enlargement, moderate to severe MR, [id number] TR are noted. 3. History of PVCs. 4. Persistent atrial fibrillation in the past without recurrence. 5. History of carotid artery disease. ALLERGIES: STATINS, CARVEDILOL, ASPIRIN. MEDICATIONS: At home included; 1. Nitrostat. 2. Zolpidem. 3. Chlorophyll. 4. Probiotic. 5. Repatha. 6. Lopressor. 7. Potassium citrate. 8. Amiodarone 400 mg twice a day per the patient, started about 10 days ago. 9. Effient. 10. Demadex. 11. Dulcolax. 12. Benadryl. 13. Taurine. SUBJECTIVE: Mr. Andujar was at his son's wedding in the [facility]. He must have drank up to 8 glasses of tea despite the fact that he usually does not tolerate caffeine very well due to palpitations. He was with the usual activities without major stress and suddenly developed loss of consciousness, he was shortly out, transient resuscitation was performed by his , he came to after a couple of minutes and was evaluated in the [facility]. He was started on amiodarone and the ICD interrogation was most consistent with a defibrillator shock, appropriately for ventricular tachycardia/fibrillation event on the . Since then, he has been doing well, was started on tapering dosages use of amiodarone and he is referred to Dr. Up for further ischemic workup, and a left heart catheterization was performed today, demonstrating patent grafts and no new intervention was needed. Currently, he denies any angina or chest pain, which was also not present prior to the shocks. He has no PND or orthopnea. No fever, chills, or cough. REVIEW OF SYSTEMS: Rest of 12-point review of system otherwise unremarkable. PAST MEDICAL HISTORY: As above. He has history of the coronary artery disease, bypass grafting surgery, prior stent placement, atrial fibrillation noted in the past. He was transiently treated with amiodarone for about four months and completed the course by September. Subsequently, though due to reduced LVEF, he received prophylactic ICD implant. SOCIAL HISTORY: The patient denies smoking, EtOH, or drug abuse. PAST SURGICAL HISTORY: Significant for left heart cath; hernia repairs; EP study in May 2019, at which point he was noninducible; bypass surgery; prior stents in 2010. FAMILY HISTORY: Significant for father with diabetes and heart disease. Mother is alive. OBJECTIVE DATA: VITAL SIGNS: Blood pressure 134/90, heart rate 64, respirations 16, temperature 97.9 degrees Fahrenheit. GENERAL: Reveals an alert and oriented man, in no apparent distress. NECK: Supple. Jugular veins not distended. CHEST: Coarse without crackles. HEART: Sounds are regular to rate and rhythm. No murmur or gallop. ABDOMEN: Benign. Bowel sounds are positive. EXTREMITIES: Lower extremities without edema, clubbing, or cyanosis. Pulses are adequate. NEUROLOGIC: The patient is nonfocal. MUSCULOSKELETAL: Without joint swelling or deformities. SKIN: Without rash. DATABASE: The EKG reviewed from 03/30/2020, revealing sinus rhythm, frequent bigeminy ad PVCs, which are inferior axis in morphology. The QTc is prolonged at 590 milliseconds. LABORATORY DATA: White cell count 12.7, hemoglobin 14.6, platelet count is 163. Sodium 138, potassium 4.1, BUN is 42, creatinine 1.91. Troponin levels are 0.026, 0.022, and 0.018 consecutively. ASSESSMENT AND PLAN: Mr. Andujar is a pleasant 65-year-old man with history of congestive heart failure and ischemic cardiomyopathy, prior history of ventricular fibrillation arrest, after which bypass surgery was performed. Later, his LVEF remained depressed and he received a prophylactic defibrillator in October. Although, he was transiently treated post bypass and arrest with amiodarone, he has been off that for multiple months. Now, after an appropriate defibrillatin by his device his amiodarone was restarted at outside facility. For now, his rhythm is stable and no recurrent ventricular arrhythmias are seen. He still continues to have frequent PVCs. The ICD is functioning adequately and that therapy was appropriate for true ventricular tachycardia, fibrillation. My plan; 1. Ventricular fibrillation episode, thought to be unprovoked. Dr. Up has performed an ischemic evaluation and currently no new intervention is planned. For now, I agree with at least transient amiodarone use and monitor him for any recurrent ventricular arrhythmias. If he continues to have frequent PVCs now or after discontinuation of amiodarone, he may be considered for PVC ablation to reduce induction of ventricular arrhythmias in the future. Also maximizing the beta álvaro therapy is definitely a good idea on him. Avoiding caffeine is discussed with the patient. We will follow him closely, 6 weeks followup in the office or earlier as symptoms dictate. 2. Mild renal insufficiency, already improving, not worsened by left heart catheterization. 3. Chronic congestive heart failure, well compensated as per Dr. Up's management. 4. Dual-chamber ICD adequately functioning. Continue routine monitoring. 5. History of atrial fibrillation, currently in sinus rhythm, off anticoagulants. Monitor for recurrence. Job ID: [id number] [facility]
--- NOTE | 2020-04-01 10:16 | PDOC.EP ---
- Subjective Date: 04/01/20 Time: 07:30 Interval History: no new events overnight. NPO for RASHMI. - Review of Systems Constitutional: denies: chills, fever, malaise, sweats, weakness, other Respiratory: denies: cough, dry, hemoptysis, pleuritic pain, shortness of breath, SOB with excertion, sputum, wheezing, other Cardiology: denies: chest pain, edema, heart racing, light headedness, paroxysmal noc. dyspnea, orthopnea, palpitations, passing out, pleuritic pain, pressure, swelling, other Gastrointestinal: denies: abdominal pain, constipation, diarrhea, hematochezia, melena, nausea, vomitting, other - Objective Allergies/Adverse Reactions: Allergies Allergy/AdvReac Type Severity Reaction Status Date / Time Nxufjau-Gbc-Srv Reductase Allergy Severe Anaphylaxis Verified 03/30/20 20:24 Inhibitor carvedilol Allergy Verified 03/30/20 20:24 aspirin AdvReac Verified 03/30/20 20:24 Current Medications Acetaminophen/Codeine Phosphate (Acetaminophen/Codeine 30-300mg Tablet) 1 tab PO Q4H PRN PRN Reason: Mild Pain (1-3) Acetaminophen/Codeine Phosphate (Acetaminophen/Codeine 30-300mg Tablet) 2 tab PO Q4H PRN PRN Reason: Moderate Pain (4-6) Last Admin: 03/31/20 20:10 Dose: 2 tab Documented by: Amiodarone HCl (Amiodarone 200 Mg Tab) 400 mg PO BID [facility] Last Admin: 03/31/20 20:09 Dose: Not Given Documented by: Clonidine (Clonidine 0.2 Mg Tab) 0.2 mg PO Q2H PRN PRN Reason: SBP> 160 Sodium Chloride (Normal Saline 0.9%) 200 mls @ 0 mls/hr IV PRN PRN PRN Reason: SBP < 90 Sodium Chloride (Normal Saline 0.9%) 1,000 mls @ 50 mls/hr IV .Q20H [facility] Last Admin: 03/31/20 14:00 Dose: 1,000 mls Documented by: Metoprolol Tartrate (Metoprolol Tartrate 25 Mg Tab) 25 mg PO BID [facility] Last Admin: 03/31/20 20:09 Dose: 12.5 mg Documented by: Nitroglycerin (Nitroglycerin 0.4 Mg Tab (25 Tab Bottle)) 0.4 mg SL Q5MIN PRN PRN Reason: Chest Pain Nitroglycerin (Nitroglycerin 0.4 Mg Tab (25 Tab Bottle)) 0.4 mg SL Q5MIN PRN PRN Reason: Chest Pain Potassium Citrate (99mg Cap) 0 each PO BID-WM CANDACE Chlorophyll 100 Mg (Tab) 0 each PO PRN PRN PRN Reason: .UNKNOWN REASON Repatha 140 Mg/Ml 0 each SC .[id number] CANDACE Probiotic 0 each PO .UNKNOWN FREQUENCY CANDACE Prasugrel (Prasugrel 10 Mg Tab) 10 mg PO DAILY [facility] Last Admin: 03/31/20 10:52 Dose: Not Given Documented by: Torsemide (Torsemide 20 Mg Tab) 40 mg PO BID [facility] Last Admin: 03/31/20 20:09 Dose: 40 mg Documented by: Zolpidem Tartrate (Zolpidem Tartrate 5 Mg Tab) 5 mg PO HS PRN PRN Reason: Insomnia Last Admin: 03/31/20 20:10 Dose: 5 mg Documented by: Vital Signs & Weight: Vital Signs Temp Pulse Resp BP Pulse Ox 04/01/20 04:00 97.4 F L 59 L 20 115/87 96 04/01/20 00:02 60 Weight 198 lb 11.2 oz I/O: I/O 03/31/20 04/01/20 04/02/20 06:59 06:59 06:59 Intake Total 360 2540 Output Total 900 Balance 360 1640 - Physical Exam General: alert & oriented x3, appears well, no apparent distress, speech clear, affect appropriate HEENT: mucus membranes moist, normocephaly Neck: supple neck, midline trachea, no JVD/HJR, no masses, no bruit, no lymphadenopathy, no thromegaly Cardiology: regular rate and rhythm, no murmur, regular rate, regular rhythm, PMI nondisplaced Lungs: clear to auscultation, normal breath sounds, normal exam, no wheeze, rales, rhonchi, no wheezes, no rales, no rhonchi Neurology: cranial nerve 2-12 intact, grossly intact, motor function intact, sensory function intact, negative rhomberg, coordination normal, no lateralizing findings Abdomen: unremarkable, active bowel sounds, soft, non-tender, no masses, no pulsations/bruits, no hepatosplenomegaly, HJR negative - Labs Result Diagrams: 03/30/20 12:00 04/01/20 03:55 - EKG Interpretation EKG Method: Telemetry EKG shows: Sinus rhythm - Assessment/Plan Assessment/Plan: ASSESSMENT AND PLAN: Mr. Andujar is a pleasant 65-year-old man with history of congestive heart failure and ischemic cardiomyopathy, prior history of ventricular fibrillation arrest, after which bypass surgery was performed. Later, his LVEF remained depressed and he received a prophylactic defibrillator in October. Although, he was transiently treated post bypass and arrest with amiodarone, he has been off that for multiple months. Now, his amiodarone was restarted at outside [facility]. So for now, his rhythm is stable and no recurrent ventricular arrhythmias are seen. He still continues to have frequent PVCs. The ICD is functioning adequately and that therapy was appropriate for true ventricular fibrillation. My plan; 1. Ventricular fibrillation episode, thought to be unprovoked. - ischemic eval done with no new intervention is planned. - amiodarone ordered - if PVC burden remains significant, considered for PVC ablation, likely as OP, to reduce induction of ventricular arrhythmias in the future. - maximizing the beta álvaro therapy is definitely a good idea on him. 2. Mild renal insufficiency, already improving, not worsened by left heart catheterization. 3. Chronic congestive heart failure, well compensated as per Dr. Up's management. 4. Dual-chamber ICD adequately functioning. Continue routine monitoring. 5. History of atrial fibrillation, currently in sinus rhythm, off anticoagulants. - Monitor through [facility] for recurrence. 6. Mitral valve disease - RASHMI pending later today Continue amiodarone for now. If no valve intervention is needed plan for 48 hr outpatient holter monitor and possibly PVC ablation to reduce triggers for VT/VF events. OK for DC by EP.
[2020-04-01] MEDS ORDERED: Lidocaine 1% PF 5 ML VIAL ONE (13:27)
[2020-04-01] MEDS ORDERED: PROPOFOL 20 ML ONE (13:27)
[2020-04-01] MEDS: Torsemide 20 MG TAB PO SCH (14:40)
[2020-04-01] MEDS: Amiodarone 200 MG TAB PO SCH (14:41)
[2020-04-01] MEDS: Prasugrel 10 MG TAB PO SCH (14:41)
[2020-04-01] MEDS: Metoprolol Tartrate 25 MG TAB PO SCH ×2 (14:43→16:46)
[2020-04-01] MEDS: Sodium Chloride 0.9% 1,000 ML IV SCH (14:52)
--- NOTE | 2020-04-01 15:52 | OP ---
DATE OF PROCEDURE: 04/01/2020 PROCEDURE PERFORMED: Transesophageal echocardiogram. INDICATIONS: Percy Andujar is a 65-year-old gentleman with cardiomyopathy and mitral regurgitation. DESCRIPTION OF PROCEDURE: The patient was taken to the PACU. The patient was sedated by Anesthesiology. A transesophageal probe was placed into the distal esophagus and stomach. Echocardiographic images were obtained. The transesophageal probe was removed. FINDINGS: 1. Severe decrease in left ventricular systolic function. 2. Marked biatrial enlargement. 3. Left ventricle is moderately dilated. 4. Structurally normal mitral and aortic valves. 5. Severe mitral regurgitation. 6. Moderate tricuspid regurgitation. 7. Reversal of flow in the pulmonary veins. 8. Pacemaker around the right ventricle. 9. Atherosclerotic debris in the descending aorta. IMPRESSION: Severe decrease in left ventricular systolic function with structurally normal mitral valve with severe mitral regurgitation and reversal flow in the pulmonary veins. Job ID: [id number] [facility]
[2020-04-01 17:02] VITALS: BP 135/101; TEMP 97.6
--- NOTE | 2020-04-02 11:22 | DIS ---
DATE OF ADMISSION: 03/30/2020 DATE OF DISCHARGE: 04/01/2020 DISCHARGE DIAGNOSES: 1. Status post ventricular fibrillation arrest in May 2019 and on March 21, 2020, in [place]. 2. Ischemic cardiomyopathy with ejection fraction of 30% to 35% falling to 20% (GI upset with carvedilol). 3. Severe mitral regurgitation on transesophageal echo. 4. Status post coronary artery bypass graft with five of six grafts patent at this time (aspirin allergy, GI upset with Plavix, Brilinta caused increased shortness of breath, currently on Effient). 5. Atrial fibrillation-none on implantable cardioverter-defibrillator. 6. Status post dual-chamber implantable cardioverter-defibrillator. 7. Hypercholesterolemia. Stomach upset with statins, however, LDL was 13 on Repatha. 8. Chronic kidney disease with creatinine falling from 2.13 to 1.65 after catheterization. 9. Gastrointestinal upset even with coated aspirin 81. DISCHARGE DISPOSITION: Arrangements to be made to have him evaluated for MitraClip. DISCHARGE MEDICATIONS: 1. Amiodarone 200 mg b.i.d. on a tapering dose. 2. Clonidine 0.2 mg p.r.n. 3. Metoprolol 25 mg b.i.d. 4. Effient 10 mg daily. 5. Torsemide 40 mg b.i.d. 6. Benadryl 25 at bedtime p.r.n. 7. Repatha 140 q.2 weeks. 8. Probiotic. 9. Taurine 500 mg daily. 10. Zolpidem 10 mg at bedtime. HOSPITAL COURSE: Mr. Andujar had a ventricular fibrillation arrest while he was in [place] and was rescued by his ICD. Cardiac enzymes were unremarkable. It was recommend that he undergo cardiac catheterization in [place], however, he wished to come here and he was seen in the office. Arrangements were made to have him come in the day prior to catheterization for intravenous hydration. His creatinine was 2.13, but as noted above, did fall during the admission. The day after admission, he underwent cardiac catheterization, which revealed 60% mid LAD, 90% distal LAD, total occlusion of first diagonal, total occlusion of the second diagonal. The occlusion of second diagonal was new. There was total occlusion of the proximal circumflex (in-stent). The right coronary artery had a 60% mid stenosis and total occlusion of the right posterior descending and 70% right posterolateral. Bypass grafts revealed patent HOWARD to the mid to distal LAD is a jump graft. The diagonal and obtuse marginal grafts were patent. The graft to the right posterior descending was patent. However, the limb to the right posterolateral was occluded. He continued to be hydrated. The day after catheterization, he underwent echocardiogram, which revealed ejection fraction of 25% to 30% with severe mitral regurgitation, [id number] tricuspid regurgitation, aortic valvular sclerosis. On the day of discharge, he underwent transesophageal echo, which revealed severe left ventricular dysfunction, marked biatrial enlargement, moderate left ventricular enlargement, structurally normal mitral and aortic valve, severe mitral regurgitation, moderate tricuspid regurgitation, reversal flow in the pulmonary vein, defibrillator wire in the right ventricle. He was seen by Dr. Chaney during this admission. His beta-álvaro was increased from 25 mg daily to 25 mg b.i.d. and may need to be increased further. Arrangements will be made to have him evaluated for MitraClip. Job ID: [id number] [facility]
--- NOTE | 2020-04-04 10:49 | EKG ---
Test Reason : Blood Pressure : / mmHG Vent. Rate : 063 BPM Atrial Rate : 063 BPM P-R Int : 246 ms QRS Dur : 106 ms QT Int : 508 ms P-R-T Axes : 020 -22 076 degrees QTc Int : 519 ms Atrial-paced rhythm with prolonged AV conduction with frequent Premature ventricular complexes Inferior infarct , age undetermined Anterior infarct , age undetermined Prolonged QT Abnormal ECG Confirmed by JALEN CORONADO, JULIAN Cowan ([id number]), editor book IDA OLIVEROS ([id number]) on 04/04/2020 10:49:50 AM Referred By: Confirmed By:JULIAN RAO MD
== END 2020-04-01 19:40 | disposition home or self-care (01) | DRG 287 ==
LOC: ERS 09:57 → ERHOLD 14:08 → 2NO 20:16
PROVIDERS: ADMIT Internal Medicine Cardiovascular Disease; ATTEND Internal Medicine Cardiovascular Disease
PROC: 4A023N7 Measurement of Cardiac Sampling and Pressure, Left Heart, Percutaneous Approach (ICD-10-PCS; principal; 2020-03-31)
PROC: B2111ZZ Fluoroscopy of Multiple Coronary Arteries using Low Osmolar Contrast (ICD-10-PCS; 2020-03-31)
PROC: B2131ZZ Fluoroscopy of Multiple Coronary Artery Bypass Grafts using Low Osmolar Contrast (ICD-10-PCS; 2020-03-31)
PROC: B24BZZ4 Ultrasonography of Heart with Aorta, Transesophageal (ICD-10-PCS; 2020-04-01)
DX: I49.01 Ventricular fibrillation (principal); T82.855A Stenosis of coronary artery stent, initial encounter; I25.10 Atherosclerotic heart disease of native coronary artery without angina pectoris; I25.5 Ischemic cardiomyopathy; I25.82 Chronic total occlusion of coronary artery; Z20.828 Contact with and (suspected) exposure to other viral communicable diseases; Y83.1 Surgical operation with implant of artificial internal device as the cause of abnormal reaction of the patient, or of later complication, without mention of misadventure at the time of the procedure; I08.1 Rheumatic disorders of both mitral and tricuspid valves; K30 Functional dyspepsia; I50.9 Heart failure, unspecified; N18.32 Chronic kidney disease, stage 3b; I48.19 Other persistent atrial fibrillation; I48.3 Typical atrial flutter; E78.00 Pure hypercholesterolemia, unspecified; Z95.1 Presence of aortocoronary bypass graft; Z95.2 Presence of prosthetic heart valve; Z88.8 Allergy status to other drugs, medicaments and biological substances; Z86.74 Personal history of sudden cardiac arrest; Z95.810 Presence of automatic (implantable) cardiac defibrillator
CPT/HCPCS: 36415; 71045; 80048; 80053; 82553; 83880; 84484; 85025; 85347; 87635; 93005; 93306; 93312; 93455; 96374; 97139; 99152; 99153; J1644; J1940; J2250; J2704; J2720; J3010; Q9967; U0002; U0003

== ENCOUNTER 2022-07-05 11:30 | Inpatient (IN) | payer OTHER ==
[2022-07-05 12:34] LABS: #Eosinphils 0.1 thou/uL (0.0-0.7); #Lymphocytes 4.5 thou/uL (1.20-3.40); #Monocytes 0.7 thou/uL (0.11-0.59); #Neutrophils 4.6 thou/uL (1.40-6.50); %Basophils 0.4 % (0.0-1.0); %Eosinophils 1.3 % (0.0-10.0); %Lymphocytes 45.3 % (21.0-51.0); %Monocytes 7.2 % (0.0-10.0); Hemoglobin 15.6 g/dL (14.0-18.0); Mean Corpuscular HGB CONC 33.1 g/dL (32.0-36.0); Mean Corpuscular Hemoglobin 29.9 pg (27.0-31.0); Mean Corpuscular Volume 90.5 fl (78.0-98.0); Mean Platelet Volume 8.6 fL (7.4-10.4); Platelet Count 102 10x3/uL (130-400); Red Blood Cell (RBC) Count 5.22 mill/uL (4.70-6.10)
[2022-07-05 12:35] LABS: ALT (SGPT) 15 U/L (8-55); AST (SGOT) 20 U/L (5-34); Albumin 4.7 g/dL (3.4-4.8); Alkaline Phosphatase 55 U/L (40-110); Anion Gap 14 mmol/L (10-20); BUN (Urea Nitrogen) 21 mg/dL (8.4-25.7); Bilirubin, Total 0.6 mg/dL (0.2-1.2); Calc. Creatinine Clearance 0 mL/min (70-130); Calcium 9.5 mg/dL (7.8-10.44); Carbon Dioxide 25 mmol/L (23-31); Chloride 102 mmol/L (98-107); Estimated GFR 62; Globulin 2.9 g/dL (2.4-3.5); Glucose 98 mg/dL (80-115); Potassium 3.4 mmol/L (3.5-5.1); Protein, Total 7.6 g/dL (5.8-8.1); Sodium 138 mmol/L (136-145)
[2022-07-05 12:36] LABS: Bilirubin Negative (Negative); Blood, Urine Negative (Negative); Clarity Clear (Clear); Glucose, Urine (Dipstick) Normal (Negative); Ketone, Urine Negative (Negative); Leukocyte Negative Leu/uL (Negative); Nitrite Negative (Negative); Protein, Urine (Dipstick) 10 mg/dL (Neg-Trace); Specific Gravity, Urine 1.011 (1.002-1.036); Urobilinogen Normal mg/dL (Less than 2); pH, Urine 6.5 (5.0-9.0)
[2022-07-05] MEDS ORDERED: Acetaminophen 325 MG TAB PO PRN (13:37)
[2022-07-05 13:43] LABS: Magnesium 2.2 mg/dL (1.6-2.6)
[2022-07-05 14:04] LABS: Phosphorus 3.1 mg/dL (2.3-4.7)
[2022-07-05 14:58] LABS: SARS-CoV-2 NAA Rapid Test Not Detected (NotDetected)
[2022-07-05] MEDS ORDERED: Mexiletine HCl 150 MG CAP PO SCH ×2 (15:00→22:00)
[2022-07-05] MEDS ORDERED: Metoprolol Tartrate 25 MG TAB PO SCH (15:30)
[2022-07-05] MEDS ORDERED: Apixaban 5 MG TAB PO SCH (15:30)
[2022-07-05 15:48] LABS: Troponin I 0.012 ng/mL (< 0.028)
[2022-07-05] MEDS ORDERED: Nitroglycerin 0.4 MG TAB (25 Tab Bottle) SL PRN (16:48)
[2022-07-05 17:06] VITALS: BMI 30.7
[2022-07-05] MEDS: Metoprolol Tartrate 25 MG TAB PO SCH (21:28)
[2022-07-05] MEDS: CO Q-10 CAPSULE 100 MG PO SCH (21:29)
[2022-07-05] MEDS: Magnesium Oxide 250 MG TAB PO SCH (21:29)
[2022-07-05] MEDS: Apixaban 5 MG TAB PO SCH (21:39)
[2022-07-05] MEDS: Potassium Citrate 10 MEQ TAB PO SCH (21:56)
[2022-07-05] MEDS: MEXILETINE 200 MG PO SCH (21:58)
[2022-07-05] MEDS ORDERED: MEXILETINE 200 MG PO SCH (22:00)
[2022-07-06 05:17] LABS: ALT (SGPT) 12 U/L (8-55); AST (SGOT) 15 U/L (5-34); Alkaline Phosphatase 42 U/L (40-110); Anion Gap 13 mmol/L (10-20); BUN (Urea Nitrogen) 19 mg/dL (8.4-25.7); Bilirubin, Total 0.6 mg/dL (0.2-1.2); Calc. Creatinine Clearance 89 mL/min (70-130); Calcium 9.2 mg/dL (7.8-10.44); Carbon Dioxide 25 mmol/L (23-31); Chloride 102 mmol/L (98-107); Estimated GFR 75; Globulin 2.3 g/dL (2.4-3.5); Glucose 105 mg/dL (80-115); Potassium 3.4 mmol/L (3.5-5.1); Protein, Total 6.3 g/dL (5.8-8.1); Sodium 137 mmol/L (136-145)
[2022-07-06 05:29] LABS: Band 2 % (5-11); Hemoglobin 13.9 g/dL (14.0-18.0); Hypochromia SLIGHT = 6-15 cells (100X) (0-5/hpf); Lymphocytes 38 % (21-51); MDiff Complete? YES; Mean Corpuscular Hemoglobin 30.3 pg (27.0-31.0); Mean Corpuscular Volume 89.2 fl (78.0-98.0); Mean Platelet Volume 8.4 fL (7.4-10.4); Monocytes 10 % (0-10); Neutrophil 47 % (42-75); Platelet Count 101 10x3/uL (130-400); Platelet Morphology Comment Appears Decreased; RBC Distribution Width 13.9 % (11.5-14.5); Reactive Lymphocytes 3 % (0-10); White Blood Cell (WBC) Count 10.5 10x3/uL (4.8-10.8)
[2022-07-06] MEDS ORDERED: Levothyroxine Sodium 50 MCG TAB PO SCH (06:00)
[2022-07-06] MEDS ORDERED: Potassium Chloride 20 MEQ TAB PO SCH ×2 (06:15→08:00)
[2022-07-06] MEDS: Torsemide 20 MG TAB PO SCH ×2 (09:10→18:14)
[2022-07-06] MEDS: Apixaban 5 MG TAB PO SCH (09:11)
[2022-07-06] MEDS: Metoprolol Tartrate 25 MG TAB PO SCH ×2 (09:12→20:33)
[2022-07-06] MEDS: Magnesium Oxide 250 MG TAB PO SCH ×2 (09:12→20:32)
[2022-07-06] MEDS: Prasugrel 10 MG TAB PO SCH (09:12)
[2022-07-06] MEDS: Floranex 1 GM Packet PO SCH ×2 (09:13→09:18)
[2022-07-06] MEDS: MEXILETINE 200 MG PO SCH ×2 (09:13→20:33)
[2022-07-06] MEDS: Potassium Citrate 10 MEQ TAB PO SCH ×2 (09:20→20:34)
[2022-07-06] MEDS: CO Q-10 CAPSULE 100 MG PO SCH (20:34)
[2022-07-06] MEDS ORDERED: Apixaban 2.5 MG TAB PO SCH (21:00)
[2022-07-07 07:55] LABS: Anion Gap 16 mmol/L (10-20); BUN (Urea Nitrogen) 16 mg/dL (8.4-25.7); Calc. Creatinine Clearance 86 mL/min (70-130); Carbon Dioxide 24 mmol/L (23-31); Chloride 104 mmol/L (98-107); Estimated GFR 73; Glucose 110 mg/dL (80-115); Magnesium 2.2 mg/dL (1.6-2.6); Potassium 3.6 mmol/L (3.5-5.1); Sodium 140 mmol/L (136-145)
[2022-07-07 08:11] LABS: Phosphorus 2.9 mg/dL (2.3-4.7)
[2022-07-07] MEDS: Levothyroxine Sodium 25 MCG TAB PO SCH (10:12)
[2022-07-07] MEDS: Floranex 1 GM Packet PO SCH (10:13)
[2022-07-07] MEDS: MEXILETINE 200 MG PO SCH ×2 (10:13→21:15)
[2022-07-07] MEDS: Magnesium Oxide 250 MG TAB PO SCH ×2 (10:13→21:15)
[2022-07-07] MEDS: Torsemide 20 MG TAB PO SCH ×2 (10:14→18:39)
[2022-07-07] MEDS: Prasugrel 10 MG TAB PO SCH (10:15)
[2022-07-07] MEDS: Potassium Citrate 10 MEQ TAB PO SCH ×2 (12:04→21:16)
[2022-07-07] MEDS: Metoprolol Tartrate 25 MG TAB PO SCH ×2 (18:39→21:16)
[2022-07-07] MEDS: CO Q-10 CAPSULE 100 MG PO SCH (21:16)
[2022-07-08 06:16] LABS: Anion Gap 14 mmol/L (10-20); BUN (Urea Nitrogen) 16 mg/dL (8.4-25.7); Calc. Creatinine Clearance 83 mL/min (70-130); Calcium 8.6 mg/dL (7.8-10.44); Carbon Dioxide 24 mmol/L (23-31); Chloride 106 mmol/L (98-107); Estimated GFR 69; Glucose 108 mg/dL (80-115); Potassium 3.5 mmol/L (3.5-5.1); Sodium 140 mmol/L (136-145)
[2022-07-08] MEDS ORDERED: ADENOSINE 60 MG/20 ML SDV ONE (09:56)
[2022-07-08] MEDS: Levothyroxine Sodium 25 MCG TAB PO SCH (11:44)
[2022-07-08] MEDS: Magnesium Oxide 250 MG TAB PO SCH ×2 (11:44→21:14)
[2022-07-08] MEDS: Floranex 1 GM Packet PO SCH (11:44)
[2022-07-08] MEDS: Torsemide 20 MG TAB PO SCH ×2 (11:45→18:39)
[2022-07-08] MEDS: Prasugrel 10 MG TAB PO SCH (11:45)
[2022-07-08] MEDS: MEXILETINE 200 MG PO SCH ×2 (11:45→21:14)
[2022-07-08] MEDS: Potassium Citrate 10 MEQ TAB PO SCH ×2 (11:45→21:14)
[2022-07-08] MEDS: Metoprolol Tartrate 25 MG TAB PO SCH ×2 (11:46→18:38)
[2022-07-08] MEDS ORDERED: Spironolactone 25 MG TAB PO SCH (16:15)
[2022-07-08] MEDS ORDERED: Communication Order-Pharmacy FS SCH (16:15)
[2022-07-08] MEDS: CO Q-10 CAPSULE 100 MG PO SCH (21:14)
[2022-07-09 05:51] LABS: Anion Gap 13 mmol/L (10-20); BUN (Urea Nitrogen) 17 mg/dL (8.4-25.7); Calc. Creatinine Clearance 86 mL/min (70-130); Calcium 8.4 mg/dL (7.8-10.44); Carbon Dioxide 26 mmol/L (23-31); Chloride 106 mmol/L (98-107); Estimated GFR 73; Glucose 109 mg/dL (80-115); Potassium 3.5 mmol/L (3.5-5.1); Sodium 141 mmol/L (136-145)
[2022-07-09] MEDS: Floranex 1 GM Packet PO SCH (08:30)
[2022-07-09] MEDS: MEXILETINE 200 MG PO SCH ×2 (08:30→20:35)
[2022-07-09] MEDS: Levothyroxine Sodium 25 MCG TAB PO SCH (08:31)
[2022-07-09] MEDS: Metoprolol Tartrate 25 MG TAB PO SCH ×2 (08:31→15:48)
[2022-07-09] MEDS: Magnesium Oxide 250 MG TAB PO SCH ×2 (08:32→15:49)
[2022-07-09] MEDS: Prasugrel 10 MG TAB PO SCH (08:32)
[2022-07-09] MEDS: Torsemide 20 MG TAB PO SCH (08:33)
[2022-07-09] MEDS: Potassium Citrate 10 MEQ TAB PO SCH ×2 (08:33→21:04)
[2022-07-09] MEDS ORDERED: Spironolactone 25 MG TAB PO SCH (14:00)
[2022-07-09] MEDS ORDERED: Torsemide 20 MG TAB PO SCH (15:45)
[2022-07-09] MEDS: CO Q-10 CAPSULE 100 MG PO SCH (15:49)
[2022-07-10] MEDS: Magnesium Oxide 250 MG TAB PO SCH ×2 (08:17→15:50)
[2022-07-10] MEDS: Spironolactone 25 MG TAB PO SCH (08:17)
[2022-07-10] MEDS: Torsemide 20 MG TAB PO SCH ×2 (08:17→15:46)
[2022-07-10] MEDS: Prasugrel 10 MG TAB PO SCH (08:17)
[2022-07-10] MEDS: Levothyroxine Sodium 25 MCG TAB PO SCH (08:17)
[2022-07-10] MEDS: Metoprolol Tartrate 25 MG TAB PO SCH ×2 (08:17→15:44)
[2022-07-10] MEDS: MEXILETINE 200 MG PO SCH ×2 (08:18→23:36)
[2022-07-10] MEDS: Potassium Citrate 10 MEQ TAB PO SCH ×2 (08:35→15:46)
[2022-07-10] MEDS: CO Q-10 CAPSULE 100 MG PO SCH (15:46)
[2022-07-11 05:10] LABS: Anion Gap 13 mmol/L (10-20); BUN (Urea Nitrogen) 19 mg/dL (8.4-25.7); Calc. Creatinine Clearance 76 mL/min (70-130); Carbon Dioxide 26 mmol/L (23-31); Chloride 105 mmol/L (98-107); Estimated GFR 63; Glucose 109 mg/dL (80-115); Potassium 3.9 mmol/L (3.5-5.1); Sodium 140 mmol/L (136-145)
[2022-07-11] MEDS: Metoprolol Tartrate 25 MG TAB PO SCH ×2 (05:51→18:35)
[2022-07-11] MEDS: Prasugrel 10 MG TAB PO SCH (05:51)
[2022-07-11] MEDS ORDERED: Sodium Chloride 0.9% 1,000 ML IV SCH ×2 (06:00→08:38)
[2022-07-11] MEDS ORDERED: Heparin 10,000 UNITS/ 10 ML VIAL ONE (06:14)
[2022-07-11] MEDS ORDERED: Lidocaine 1% (PF) 30 ML VIAL ONE (06:14)
[2022-07-11] MEDS ORDERED: Adenosine 6 MG/2 ML VIAL ONE (06:14)
[2022-07-11] MEDS ORDERED: Nitroglycerin 50 MG/250 ML BOT 250 ML ONE (06:17)
[2022-07-11] MEDS ORDERED: Midazolam HCl 2 mg/2 ml Vial ONE (07:04)
[2022-07-11] MEDS ORDERED: FENTANYL 50 MCG/ML 1 ML VIAL ONE (07:04)
[2022-07-11] MEDS ORDERED: Morphine 2 MG/ML VIAL SLOW IVP PRN (08:37)
[2022-07-11] MEDS ORDERED: Morphine 4 MG/ML VIAL SLOW IVP PRN (08:37)
[2022-07-11] MEDS ORDERED: Iopamidol 370 76% 100 ML VIAL ONE (09:57)
[2022-07-11] MEDS ORDERED: Morphine 2 MG/ML VIAL ONE ×2 (10:42→11:34)
[2022-07-11] MEDS: MEXILETINE 200 MG PO SCH ×2 (12:20→22:21)
[2022-07-11] MEDS: Levothyroxine Sodium 25 MCG TAB PO SCH (12:21)
[2022-07-11] MEDS: Spironolactone 25 MG TAB PO SCH (12:22)
[2022-07-11] MEDS: Potassium Citrate 10 MEQ TAB PO SCH ×2 (12:22→18:35)
[2022-07-11] MEDS: Magnesium Oxide 250 MG TAB PO SCH ×2 (12:22→18:35)
[2022-07-11] MEDS: Torsemide 20 MG TAB PO SCH ×2 (12:23→18:35)
[2022-07-11] MEDS: CO Q-10 CAPSULE 100 MG PO SCH (18:35)
[2022-07-12 04:49] LABS: #Basophils 0.1 thou/uL (0.0-0.2); #Eosinphils 0.1 thou/uL (0.0-0.7); #Lymphocytes 4.3 thou/uL (1.20-3.40); #Monocytes 0.6 thou/uL (0.11-0.59); %Basophils 0.7 % (0.0-1.0); %Eosinophils 1.2 % (0.0-10.0); %Lymphocytes 47.8 % (21.0-51.0); %Monocytes 6.4 % (0.0-10.0); %Neutrophils 43.9 % (42.0-75.0); Hemoglobin 14.7 g/dL (14.0-18.0); Mean Corpuscular HGB CONC 32.4 g/dL (32.0-36.0); Mean Corpuscular Hemoglobin 29.5 pg (27.0-31.0); Mean Corpuscular Volume 91.2 fl (78.0-98.0); Mean Platelet Volume 8.3 fL (7.4-10.4); Platelet Count 112 10x3/uL (130-400); RBC Distribution Width 13.7 % (11.5-14.5); Red Blood Cell (RBC) Count 4.99 mill/uL (4.70-6.10)
[2022-07-12 05:15] LABS: ALT (SGPT) 16 U/L (8-55); AST (SGOT) 15 U/L (5-34); Albumin 4.2 g/dL (3.4-4.8); Alkaline Phosphatase 48 U/L (40-110); Anion Gap 12 mmol/L (10-20); BUN (Urea Nitrogen) 20 mg/dL (8.4-25.7); Bilirubin, Total 0.8 mg/dL (0.2-1.2); Calc. Creatinine Clearance 72 mL/min (70-130); Carbon Dioxide 27 mmol/L (23-31); Chloride 105 mmol/L (98-107); Estimated GFR 59; Globulin 2.6 g/dL (2.4-3.5); Glucose 106 mg/dL (80-115); Potassium 4.1 mmol/L (3.5-5.1); Protein, Total 6.8 g/dL (5.8-8.1); Sodium 140 mmol/L (136-145)
[2022-07-12] MEDS: Metoprolol Tartrate 25 MG TAB PO SCH (08:33)
[2022-07-12] MEDS: Spironolactone 25 MG TAB PO SCH (08:33)
[2022-07-12] MEDS: Magnesium Oxide 250 MG TAB PO SCH (08:33)
[2022-07-12] MEDS: Potassium Citrate 10 MEQ TAB PO SCH (08:33)
[2022-07-12] MEDS: Torsemide 20 MG TAB PO SCH (08:33)
[2022-07-12] MEDS: Prasugrel 10 MG TAB PO SCH (08:34)
[2022-07-12] MEDS: Levothyroxine Sodium 25 MCG TAB PO SCH (08:34)
[2022-07-12] MEDS: MEXILETINE 200 MG PO SCH (08:35)
[2022-07-12 08:42] VITALS: BP 114/63; TEMP 97.7
[2022-07-13] MEDS ORDERED: Apixaban 5 MG TAB PO SCH (09:00)
== END 2022-07-12 11:15 | disposition home or self-care (01) | DRG 247 ==
LOC: ERS 11:30 → ERHOLD 13:56 → 2SW 16:46 → OBSVTOIN 07-07 08:23
PROVIDERS: ADMIT Student in an Organized Health Care Education/Training Program; ATTEND Student in an Organized Health Care Education/Training Program
PROC: 027034Z Dilation of Coronary Artery, One Artery with Drug-eluting Intraluminal Device, Percutaneous Approach (ICD-10-PCS; principal; 2022-07-07)
PROC: 4A023N7 Measurement of Cardiac Sampling and Pressure, Left Heart, Percutaneous Approach (ICD-10-PCS; 2022-07-07)
PROC: B2151ZZ Fluoroscopy of Left Heart using Low Osmolar Contrast (ICD-10-PCS; 2022-07-07)
PROC: B2111ZZ Fluoroscopy of Multiple Coronary Arteries using Low Osmolar Contrast (ICD-10-PCS; 2022-07-07)
DX: I47.20 Ventricular tachycardia, unspecified (principal); I13.0 Hypertensive heart and chronic kidney disease with heart failure and stage 1 through stage 4 chronic kidney disease, or unspecified chronic kidney disease; I50.22 Chronic systolic (congestive) heart failure; I25.10 Atherosclerotic heart disease of native coronary artery without angina pectoris; E03.9 Hypothyroidism, unspecified; E86.0 Dehydration; I25.5 Ischemic cardiomyopathy; I48.19 Other persistent atrial fibrillation; R94.31 Abnormal electrocardiogram [ECG] [EKG]; N18.9 Chronic kidney disease, unspecified; E78.00 Pure hypercholesterolemia, unspecified; Z95.810 Presence of automatic (implantable) cardiac defibrillator; Z88.8 Allergy status to other drugs, medicaments and biological substances; Z88.6 Allergy status to analgesic agent; Z79.899 Other long term (current) drug therapy; Z79.01 Long term (current) use of anticoagulants; Z79.890 Hormone replacement therapy; Z95.1 Presence of aortocoronary bypass graft
CPT/HCPCS: 36415; 36416; 71045; 78452; 80048; 80053; 81003; 83036; 83735; 83880; 84100; 84439; 84443; 84484; 85025; 85347; 92928; 92978; 93005; 93010; 93017; 93306; 93454; 93571; 94760; 97139; 99152; 99153; A9500; C1753; C1769; C1876; C1887; C9600; G0378; J0153; J1644; J2001; J2250; J2272; J3010; J7050; U0002